=== PATIENT | female | born 1950 | race Caucasian/White ===

== ENCOUNTER → 2019-06-12 09:02 | Outpatient (POV) | payer MEDICARE, SELFPAY | PROVIDERS: PCP Dermatology; Visit Provider Dermatology | DX: Z00.00 Encounter for general adult medical examination without abnormal findings (principal) ==

== ENCOUNTER → 2020-02-29 12:56 | Outpatient (CLI) | payer MEDICARE, SELFPAY ==
[2020-02-29 13:28] LABS: Basophils # 0.1 K/mm3 (0-0.2); Basophils % 1.2 % (0.1-2.0); Eosinophils % 0.6 % (0.1-12.0); Hematocrit 44.4 % (37.0-47.0); Hemoglobin 14.7 g/dL (12.2-16.2); Lymphocytes # 2.1 K/mm3 (0.7-4.5); Lymphocytes % 34.4 % (10-50); Mean Corpuscular HGB Conc 33.2 g/dL (31.8-35.4); Mean Corpuscular Volume 90.5 fl (81-99); Mean Platelet Volume 8.3 fl (7.4-10.4); Monocytes # 0.5 K/mm3 (0.1-1.0); Monocytes % 8.6 % (1.7-9.3); Neutrophils # 3.4 K/mm3 (1.8-7.8); Neutrophils % 55.2 % (37.0-80.0); Platelet Count 209 K/mm3 (142-424); Red Blood Count 4.91 M/mm3 (4.20-5.40); Red Cell Distribution Width 15.3 % (11.5-17.5); White Blood Count 6.1 K/mm3 (4.8-10.8)
[2020-02-29 13:44] LABS: Strep Scrn Group A (Rapid) Negative (Negative)
[2020-03-01 14:19] LABS: Covid-19 Nasal PCR Sendout Lex POSITIVE
== END ==
PROVIDERS: PCP Family Medicine; Visit Provider Nurse Practitioner
DX: Z20.828 Contact with and (suspected) exposure to other viral communicable diseases (principal); U07.1 COVID-19
CPT/HCPCS: 85025; 87275; 87276; 87430; U0004

== ENCOUNTER → 2020-12-16 11:19 | Outpatient (CLI) | payer MEDICARE, SELFPAY ==
[2020-12-16 11:54] LABS: Basophils % 0.4 % (0.1-2.0); Eosinophils # 0.1 K/mm3 (0.0-0.4); Eosinophils % 1.3 % (0.1-12.0); Hematocrit 41.3 % (37.0-47.0); Hemoglobin 13.4 g/dL (12.2-16.2); Lymphocytes # 2.5 K/mm3 (0.7-4.5); Lymphocytes % 29.3 % (10-50); Mean Corpuscular HGB Conc 32.4 g/dL (31.8-35.4); Mean Corpuscular Hemoglobin 29.6 pg (27.0-31.2); Mean Corpuscular Volume 91.6 fl (81-99); Mean Platelet Volume 8.8 fl (7.4-10.4); Monocytes # 0.4 K/mm3 (0.1-1.0); Monocytes % 4.4 % (1.7-9.3); Neutrophils # 5.6 K/mm3 (1.8-7.8); Neutrophils % 64.6 % (37.0-80.0); Platelet Count 243 K/mm3 (142-424); Red Blood Count 4.51 M/mm3 (4.20-5.40); Red Cell Distribution Width 14.7 % (11.5-17.5); White Blood Count 8.6 K/mm3 (4.8-10.8)
[2020-12-16 12:26] LABS: Alanine Aminotransferase 24 U/L (12-78); Albumin/Globulin Ratio 1.2 (1.1-1.8); Alkaline Phosphatase 95 U/L (38-126); Aspartate Amino Transferase 31 U/L (14-36); Bilirubin,Total 0.4 mg/dl (0.2-1.3); Blood Urea Nitrogen 22 mg/dl (7-17); Calcium 9.4 mg/dl (8.4-10.2); Carbon Dioxide 30 mmol/L (22.0-30.0); Chloride 101 mmol/L (98-107); Estimated Glomerular Filt Rate 71 ml/min (>60); GFR (African American) 86 ML/MIN (>60); Globulin 3.3 g/dL (1.3-3.2); Glucose 169 mg/dl (74-100); Sodium 141 mmol/L (136-145); Total Protein,Serum 7.3 g/dl (6.3-8.2)
[2020-12-22 22:14] LABS: QuantiFERON-TB Gold Plus Negative (Negative)
== END ==
PROVIDERS: Visit Provider Dermatology
DX: L40.0 Psoriasis vulgaris (principal); Z79.899 Other long term (current) drug therapy
CPT/HCPCS: 36415; 80053; 85025; 86480

== ENCOUNTER → 2021-02-09 13:26 | Outpatient (CLI) | payer MEDICARE, SELFPAY | PROVIDERS: PCP Family Medicine; Visit Provider Nurse Practitioner | DX: R01.1 Cardiac murmur, unspecified (principal); R53.83 Other fatigue | CPT/HCPCS: 93306 ==

== ENCOUNTER → 2021-03-17 10:58 | Outpatient (POV) | payer MEDICARE, SELFPAY | PROVIDERS: Visit Provider Dermatology | DX: Z00.00 Encounter for general adult medical examination without abnormal findings (principal) ==

== ENCOUNTER → 2021-07-28 10:35 | Outpatient (POV) | payer MEDICARE, SELFPAY | PROVIDERS: Visit Provider Dermatology | DX: Z00.00 Encounter for general adult medical examination without abnormal findings (principal) ==

== ENCOUNTER → 2021-08-04 09:20 | Outpatient (CLI) | payer MEDICARE, SELFPAY ==
--- NOTE | 2021-08-04 09:27 | XR_ITS ---
FINAL REPORT TECHNIQUE: Bone densitometry calculations of the lumbar spine and 8 hip were obtained. CLINICAL HISTORY: bone dexa post menapausal FINDINGS: DEXA BONE DENSITY AXIAL SKELETON Using L1-4, the bone mineral density of the spine is 1.150 g/cm2, corresponding to T-score of 0.9. Using the left hip, the bone mineral density of the femoral neck is 0.873 g/cm2, corresponding to a T-score of 0.2. Using the right hip, the bone mineral density of the femoral neck is 0.785 g/cm2, corresponding to a T-score of -0.6. NOTE: T-score: Standard deviation compared with peak bone mass of young adult mean. *Following the recommendations of the International Society of Bone densitometry, classification of hip BMD is based on the lower of two T-scores; total hip or femoral neck. IMPRESSION: Normal bone mineral density of the lumbar spine and hips. Reviewed, Interpreted and Dictated by Sanchez Gibson III, MD Transcribed by Terese Galeas Authenticated by Sanchez Gibson III, MD on 08/04/2021 11:25:32 AM [facility]
== END ==
PROVIDERS: PCP Family Medicine; Visit Provider Nurse Practitioner
DX: Z13.820 Encounter for screening for osteoporosis (principal); Z78.0 Asymptomatic menopausal state
CPT/HCPCS: 77080

== ENCOUNTER → 2021-09-30 08:18 | Outpatient (CLI) | payer MEDICARE, SELFPAY ==
--- NOTE | 2021-09-30 08:25 | US_ITS ---
PROCEDURE INFORMATION: Exam: US Left Breast, Complete, Abscess Evaluation Exam date and time: 09/30/2021 8:35 AM Age: 71 years old Clinical indication: Cellulitis of left breast. Abscess of left breast TECHNIQUE: Imaging protocol: Left Ultrasound of the breast with image documentation. All quadrants and retroareolar regions evaluated. Exam focused on the search and evaluation for abscess. Exam is an emergent request and a non-BIRADS study. COMPARISON: No relevant prior studies available. FINDINGS: Breast: Sonographic images the left 3 o'clock axis 8 cm from the nipple demonstrates a cutaneous ovoid mixed echotexture mass measuring 4.8 x 1.2 x 4.3 cm in dimension. The finding is partially fluid filled. The finding most likely represents a cutaneous abscess. No focal findings seen within the underlying breast parenchyma. No axillary adenopathy. IMPRESSION: Cutaneous mass most likely reflecting a superficial abscess. Surgical consultation for potential incision and drainage is recommended. Biopsy of any solid component would also be recommended. ASSESSMENT: BI-RADS Category 4: Suspicious
== END ==
PROVIDERS: PCP Family Medicine; Visit Provider Nurse Practitioner
DX: N61.0 Mastitis without abscess (principal)
CPT/HCPCS: 76641

== ENCOUNTER → 2021-09-30 14:00 | Outpatient (CLI) | payer MEDICARE, SELFPAY ==
[2021-09-30 15:19] LABS: Basophils # 0.1 K/mm3 (0-0.2); Basophils % 0.6 % (0.1-2.0); Eosinophils # 0.1 K/mm3 (0.0-0.4); Eosinophils % 1.2 % (0.1-12.0); Hematocrit 39.2 % (37.0-47.0); Hemoglobin 13.2 g/dL (12.2-16.2); Lymphocytes # 2.8 K/mm3 (0.7-4.5); Lymphocytes % 28.5 % (10-50); Mean Corpuscular HGB Conc 33.6 g/dL (31.8-35.4); Mean Corpuscular Hemoglobin 30.3 pg (27.0-31.2); Mean Corpuscular Volume 90.3 fl (81-99); Mean Platelet Volume 8.8 fl (7.4-10.4); Monocytes # 0.6 K/mm3 (0.1-1.0); Monocytes % 6.3 % (1.7-9.3); Neutrophils # 6.1 K/mm3 (1.8-7.8); Neutrophils % 63.4 % (37.0-80.0); Platelet Count 245 K/mm3 (142-424); Red Blood Count 4.34 M/mm3 (4.20-5.40); Red Cell Distribution Width 15.3 % (11.5-17.5); White Blood Count 9.7 K/mm3 (4.8-10.8)
[2021-09-30 16:02] LABS: Blood Urea Nitrogen 18 mg/dl (7-17); Calcium 9.4 mg/dl (8.4-10.2); Carbon Dioxide 30 mmol/L (22.0-30.0); Chloride 101 mmol/L (98-107); Estimated Glomerular Filt Rate 82 ml/min (>60); GFR (African American) 100 ML/MIN (>60); Glucose 105 mg/dl (74-100); Sodium 140 mmol/L (136-145)
== END ==
PROVIDERS: PCP Family Medicine; Visit Provider Surgery
DX: N61.1 Abscess of the breast and nipple (principal); Z01.812 Encounter for preprocedural laboratory examination; Z20.822 Contact with and (suspected) exposure to COVID-19
CPT/HCPCS: 36415; 76641; 80048; 85025; C9803; U0003; U0005

== ENCOUNTER 2021-10-01 10:24 | Day surgery (SDC) | payer MEDICARE, SELFPAY ==
[2021-10-01] VITALS (10 sets, daily range): BP systolic 137–189; BP diastolic 63–89; PULSE 77–99; RESP 16–18; TEMP 36.2–36.9; O2SAT 92–97; BMI 44.8
--- NOTE | 2021-10-01 10:37 | P.PN_ITS ---
[facility] Anesthesia Checklist - Patient Identification Patient Identification: Arm Band - Structural Data Admitted From: Home Planned Operative Procedure/s: Breast abscess I & D Consent for Planned Operative Procedure(s) Verified: Yes - NPO Status Verified Time NPO: 00:00 - Airway Assessment C-Spine Mobility Assessed: Yes TMJ Mobility Assessed: Yes Dentition: Good Dentition - Neurological Assessment Level of Consciousness: Awake Hx Seizures: No Numbness or tingling in extremities: No - Anesthesia Plan Anesthesia Risk discussed: Yes Anesthesia Plan: Verified ASA Class: II Anesthesia Type: General [facility] History I have reviewed the patient's past medical history: Yes Medical History: Reports:: Hyperlipidemia, Hypertension *Have you ever received a pneumonia vaccine?: Yes *Have you received a flu vaccine this season?: No Anesthesia experience/problems:: None - *Social History Smoking Status: Never smoker Alcohol Intake: never Substance Use Type: denies use *Occupational Status:: retired *Travel in the last 8 weeks: None Family Hx:: No significant family history
--- NOTE | 2021-10-01 11:56 | P.PN_ITS ---
[facility] Anesthesia Record Part I Intake, IV Amount: 600 Estimated blood loss (mL): 5 Urine output (mL): 0 Blood Pressure: 145/86 SaO2: 92 Pulse Rate: 82 Respiratory Rate: 18 Temperature: 97.2 F Patient is:: Drowsy, Oral/Nasal airway Stable to PACU at:: 11:53
--- NOTE | 2021-10-01 12:06 | HMH.OPNOTE ---
Date of procedure: 10/01/21 Pre-op Diagnosis:: Left breast abscess Post-op Diagnosis:: Same Procedure performed:: Incision and drainage of left breast abscess with overlying skin biopsy Surgeon:: Miguelangel Castellano MD COATING AND EMBOSSING UNIT OPERATOR:: Devon Sam Anesthesia: LMA Estimated blood loss (mL): 15 Operative findings:: Shallow subcutaneous abscess with overlying tissue necrosis Operative note:: After informed consent was obtained the patient was taken to the operating room and placed in the supine position. General anesthesia with laryngeal mask airway was achieved. Her left breast was prepped and draped in a sterile fashion. Necrotic superficial tissue along the central portion of the abscess was excised with electrocautery. Underlying fluid was obtained for gram stain/culture. The remainder of the purulent fluid was evacuated. The entire region was infiltrated with 1% lidocaine. A margin of inflamed skin with underlying abscess cavity was excised with electrocautery and passed off for pathologic evaluation. Electrocautery was utilized to achieve hemostasis. The wound was packed with dry gauze and dressings were applied. The patient was transferred to recovery in stable condition. Condition: stable Disposition: PACU Specimens:: Fluid for gram stain/culture Abscess cavity with overlying skin biopsy Complications:: No immediate
[2021-10-01 12:07] LABS: POC Glucose,Bedside 163 (70-110)
[2021-10-01 12:26] LABS: POC Glucose,Bedside 139 (70-110)
--- NOTE | 2021-10-01 12:57 | SUR.PHASEII ---
MD wanted TERESA wrap placed around pt to act as pressure dressing however, d/t large breast size, aces unable to fit around. Pt was wearing a sports bra and applied pressure to incision. discussed s/s bleeding and how to hold pressure-verbalized understanding.
[2021-10-05 08:37] VITALS: BP 149/83; PULSE 85; TEMP 36.2
--- NOTE | 2021-10-05 08:37 | HMH.ANESII ---
[facility] Anesthesia Record Part II Discharge Time: 12:33 Destination: [facility] PACU nurse assessment reviewed?: Yes Patient Condition:: Good Anesthesia Complications:: None Swallowing reflex intact?: Yes Cyanosis?: No Blood Pressure: 149/83 Pulse Rate: 85 Temperature: 97.1 F Mental Status: Alert & Oriented Pain level:: 0 Nausea and/or vomitting:: None Intake, IV Amount: 600
== END 2021-10-01 13:01 | disposition home or self-care (01) ==
LOC: OR 10:25
PROVIDERS: PCP Family Medicine; Visit Provider Surgery
DX: N61.1 Abscess of the breast and nipple (principal); E78.5 Hyperlipidemia, unspecified; I10 Essential (primary) hypertension; Z79.82 Long term (current) use of aspirin
CPT/HCPCS: 10061; 82962; 87070; 87075; 87077; 87186; 87205; 88304; 96374; J2405

== ENCOUNTER → 2022-01-13 10:15 | Outpatient (CLI) | payer MEDICARE, SELFPAY ==
[2022-01-13 18:38] LABS: Basophils # 0.1 K/mm3 (0-0.2); Basophils % 0.4 % (0.1-2.0); Eosinophils # 0.2 K/mm3 (0.0-0.4); Eosinophils % 1.6 % (0.1-12.0); Hematocrit 43.2 % (37.0-47.0); Hemoglobin 13.3 g/dL (12.2-16.2); Lymphocytes # 2.6 K/mm3 (0.7-4.5); Lymphocytes % 24.7 % (10-50); Mean Corpuscular HGB Conc 30.7 g/dL (31.8-35.4); Mean Corpuscular Hemoglobin 28.4 pg (27.0-31.2); Mean Corpuscular Volume 92.4 fl (81-99); Mean Platelet Volume 9.3 fl (7.4-10.4); Monocytes # 0.4 K/mm3 (0.1-1.0); Monocytes % 4.3 % (1.7-9.3); Neutrophils # 7.1 K/mm3 (1.8-7.8); Platelet Count 270 K/mm3 (142-424); Red Blood Count 4.68 M/mm3 (4.20-5.40); Red Cell Distribution Width 15.3 % (11.5-17.5); White Blood Count 10.4 K/mm3 (4.8-10.8)
[2022-01-13 18:53] LABS: Alanine Aminotransferase 21 U/L (12-78); Albumin Level 3.9 g/dl (3.5-5.0); Albumin/Globulin Ratio 1.3 (1.1-1.8); Alkaline Phosphatase 147 U/L (38-126); Anion Gap 13.1 mEq/L (5-15); Aspartate Amino Transferase 27 U/L (14-36); Bilirubin,Total 0.2 mg/dl (0.2-1.3); Blood Urea Nitrogen 16 mg/dl (7-17); Calcium 8.7 mg/dl (8.4-10.2); Carbon Dioxide 32 mmol/L (22.0-30.0); Chloride 98 mmol/L (98-107); Chol/HDL Ratio 2.9 (1-3.5); Cholesterol 159 mg/dl (140-200); Estimated Glomerular Filt Rate 82 ml/min (>60); GFR (African American) 99 ML/MIN (>60); Globulin 3.1 g/dL (1.3-3.2); Glucose 137 mg/dl (74-100); HDL Cholesterol 54 mg/dl (40-60); Potassium 4.1 mmoL/L (3.5-5.1); Sodium 139 mmol/L (136-145); Triglycerides 139 mg/dl (30-150); VLDL Cholesterol 28 mg/dL (0-40)
[2022-01-13 19:04] LABS: Direct LDL Cholesterol 74.43 mg/dL (100-129)
[2022-01-13 19:24] LABS: Thyroid Stimulating Hormone 1.23 uIU/mL (0.465-4.68)
== END ==
PROVIDERS: PCP Nurse Practitioner; Visit Provider Nurse Practitioner
DX: E11.9 Type 2 diabetes mellitus without complications (principal); E78.5 Hyperlipidemia, unspecified; I10 Essential (primary) hypertension; Z79.84 Long term (current) use of oral hypoglycemic drugs
CPT/HCPCS: 80053; 80061; 84443; 85025

== ENCOUNTER → 2022-06-21 23:26 | Outpatient (CLI) | payer MEDICARE, SELFPAY ==
[2022-06-21 18:39] LABS: Alanine Aminotransferase 71 U/L (12-78); Albumin Level 3.8 g/dl (3.5-5.0); Albumin/Globulin Ratio 1.5 (1.1-1.8); Alkaline Phosphatase 81 U/L (38-126); Anion Gap 11.2 mEq/L (5-15); Aspartate Amino Transferase 78 U/L (14-36); Bilirubin,Total 0.7 mg/dl (0.2-1.3); Blood Urea Nitrogen 20 mg/dl (7-17); Calcium 9.3 mg/dl (8.4-10.2); Carbon Dioxide 26 mmol/L (22.0-30.0); Chloride 105 mmol/L (98-107); Estimated Glomerular Filt Rate 61 ml/min (>60); GFR (African American) 74 ML/MIN (>60); Globulin 2.5 g/dL (1.3-3.2); Glucose 139 mg/dl (74-100); Potassium 4.2 mmoL/L (3.5-5.1); Sodium 138 mmol/L (136-145); Total Protein,Serum 6.3 g/dl (6.3-8.2)
== END ==
PROVIDERS: PCP Nurse Practitioner; Visit Provider Nurse Practitioner
DX: E11.9 Type 2 diabetes mellitus without complications (principal); Z79.84 Long term (current) use of oral hypoglycemic drugs
CPT/HCPCS: 80053

== ENCOUNTER 2022-07-14 15:06 | Observation (INO) | payer MEDICARE, SELFPAY ==
--- NOTE | 2022-07-14 11:16 | XR_ITS ---
FINAL REPORT CLINICAL HISTORY: shortness of breath COMPARISON: none FINDINGS: PA and lateral views of the chest were obtained. There is no prior exam for comparison. The cardiac and mediastinal silhouettes are within normal limits. There is linear opacity in the lingula, likely atelectasis or scar. There is no pleural effusion or pneumothorax. No acute osseous abnormality is identified. IMPRESSION: Linear opacity in the lingula. Reviewed, Interpreted and Dictated by Ashley Claros MD Transcribed by Li Mei Authenticated and [facility]
--- NOTE | 2022-07-14 12:49 | CA_ITS ---
APPROVED REPORT EXAM: Comprehensive 2D, Doppler, and color-flow Echocardiogram Medical Referral Coordinator: Jeimy Gagnon CRT Ht: 5 ft 2 in Wt: 246lbs BSA: 2.09 BP: 132/72 mmHg Indications: Shortness of Breath, Diabetes Echo Enhancing Agent Comments: Ejection fraction 45% with mild global hypokinesis 2D Dimensions LVOT 1.83 cm (M/F) 1.5-2.5 LA Volume 58.60 mL LA Volume Index 28.04 mL/m2 (M/F) 16-34 M-Mode Dimensions RVDd 2.75 cm (0.9-2.6) LA Diam 3.98 cm (1.9-4.0) LVDd 4.72 cm (3.5-5.7) Ao Diam 3.16 cm (2.0-3.7) LVDs 3.52 cm (3.5-5.7) IVSd 1.44 cm (0.6-1.1) PWd 0.60 cm (0.6-1.1) EF (Teich) 50.10% FS 25.40% EDV (Teich) 103.40 mL TAPSE 2.63 (<1.7) ESV (Teich) 51.60 mL LV Diastology E Decel Time 150.00 (160-240 msec) E/A Ratio 1.3 MED E' 16.30 (< 7 cm/sec) MED A' 11.60 cm/s E'/MED E' Ratio 8.42 (>14) LAT E' 14.90 (<10 cm/sec) LAT A' 4.80 cm/s E/LAT E' Ratio 9.21 (>14) Aortic Valve LVOT Max 194.00 (70-110 cm/s) LVOT VTI 40.88 cm AoV Peak Lul. 207.00 (50-130 cm/s) AO Peak GR. 17.20 mmHg AO Mean GR. 8.20 (<5 mmHg) AO VTI 45.94 (18-25 cm) CATHY (VTI) 2.34 (2.5-4.5 cm2) Mitral Valve MV E Max Lul. 137.00 (40-130 cm/s) MV A Velocity 105.00 (40-130 cm/s) E/A Ratio 1.30 MV Decel. Time 150.00 (160-240 ms) MV PHT 44.00 ms Pulmonary Valve PV Peak Velocity 152.00 (50-150 cm/s) Tricuspid Valve TR P. Velocity 299.00 cm/s RAP Estimate 10.00 mmHg RVSP 45.90 mmHg Electronically signed by : Dusty Carranza MD 07/29/2022 14:12:20
--- NOTE | 2022-07-14 15:26 | PC.NURSE ---
arrived to floor by w/c from [facility]
[2022-07-14 15:34] VITALS: BP 151/74; RESP 18; TEMP 36.4; O2SAT 96; BMI 43.0
--- NOTE | 2022-07-14 15:56 | EXP.HP ---
History of Present Illness *Admission Date: 07/14/22 *Reason for visit:: weakness, 3rd degree heart block *History of present illness: Ms. Monae is a pleasant 72-year-old female who reported for stress test today and was found to be in third-degree heart block. Sent to cardiology who requested direct admission. Patient states that she has been feeling bad for the past several months since her in April. Has just been more fatigued. Able to walk down her driveway but on her way back up gets short winded and has to stop senior care. Denies zen chest pain, palpitations, nausea, vomiting, syncope. Has been concerned for something not being right and her primary care provider was setting her up for outpatient work-up. On presenting for her stress test today she states she was not able to do it because they noted something wrong initially before starting the test. She is otherwise at her baseline health. Stable on room air. Afebrile. Tolerating p.o. intake without difficulty. History seen for diet 80s, hypertension. Only previous surgery was removal of an abscess a year ago and that was her only previous hospitalization as well. Aside from fatigue otherwise feels well today. [facility] Disclaimer: The information contained in this section may have been updated after the patient was seen, as this information can be updated by other users. Medical History Allergic rhinitis Benign cyst of right breast in female Breast cyst Essential hypertension Hyperlipidemia Psoriasis Type 2 diabetes mellitus Surgical History H/O excision of dermoid cyst Family History Prostate cancer Family history of osteoporosis Family history of diabetes mellitus type II Cancer of kidney Social History Smoking Status: Never smoker alcohol intake: never substance use type: denies use current occupational status: retired Travel in the last 8 weeks: None household members: family housing: house lives independently: No marital status: caffeine: No Review of Systems Review of Systems Review of systems (narrative): 14 point review of systems performed, pertinent positives and negatives as per HPI Meds Home Medications and Allergies Home Medications Medication Instructions Recorded Confirmed Type fluocinonide 0.05 % topical 1 each topical DAILY Infection 09/30/21 07/14/22 History solution aspirin 81 mg chewable tablet 81 mg PO DAILY Supplement 10/01/21 07/14/22 History amlodipine 5 mg-benazepril 10 mg 1 cap PO DAILY bp #90 caps 01/13/22 07/14/22 Rx capsule atenolol 50 mg tablet 50 mg PO DAILY bp #90 tabs 01/13/22 07/14/22 Rx fluticasone propionate 50 1 spray intranasal DAILY Breathing 01/13/22 07/14/22 Rx mcg/actuation nasal problems #48 grams spray,suspension potassium chloride 20 mEq 20 meq PO BID Supplement #180 tabs 01/13/22 07/14/22 Rx tablet,extended release simvastatin 40 mg tablet 40 mg PO DAILY Cholesterol #90 tabs 01/13/22 07/14/22 Rx triamterene 37.5 1 tab PO DAILY bp #90 tabs 01/13/22 07/14/22 Rx mg-hydrochlorothiazide 25 mg tablet empagliflozin 10 mg tablet 10 mg PO DAILY Diabetes 07/14/22 07/14/22 History (Jardiance) metformin 500 mg tablet 500 mg PO DAILY Diabetes 07/14/22 07/14/22 History nystatin 100,000 unit/gram topical 1 applic topical TID yeast 07/14/22 07/14/22 History powder infection New Prescriptions to Start Prescriptions: Allergies Allergy/AdvReac Type Severity Reaction Status Date / Time No Known Allergies Allergy Verified 07/14/22 15:39 Exam Data for Last 24 hours Vital signs and Labs for Last 24 Hours: Temp Resp BP Pulse Ox 97.6 F 18 151/74 H 96 07/14/22 15:34 07/14/22 15:34 07/14/22 15:34 07/14/22 15:34 I
[2022-07-14 16:30] VITALS: PULSE 40
[2022-07-14 16:36] LABS: Coronavirus 19, PCR Not Detected (NotDetected); Influenza A, PCR Not Detected (NotDetected); Influenza B, PCR Not Detected (NotDetected)
[2022-07-14 16:38] LABS: Alanine Aminotransferase 45 U/L (12-78); Albumin Level 4.5 g/dl (3.5-5.0); Albumin/Globulin Ratio 1.6 (1.1-1.8); Alkaline Phosphatase 76 U/L (38-126); Anion Gap 15.3 mEq/L (5-15); Aspartate Amino Transferase 67 U/L (14-36); Basophils # 0.1 K/mm3 (0-0.2); Basophils % 0.7 % (0.1-2.0); Bilirubin,Total 0.9 mg/dl (0.2-1.3); Blood Urea Nitrogen 19 mg/dl (7-17); Carbon Dioxide 24 mmol/L (22.0-30.0); Chloride 102 mmol/L (98-107); Creatinine Clearance Estimated 41 mL/min (50-200); Eosinophils # 0.1 K/mm3 (0.0-0.4); Estimated Glomerular Filt Rate 70 ml/min (>60); GFR (African American) 85 ML/MIN (>60); Globulin 2.9 g/dL (1.3-3.2); Glucose 140 mg/dl (74-100); Hematocrit 43.5 % (37.0-47.0); Hemoglobin 13.4 g/dL (12.2-16.2); Lymphocytes # 3.4 K/mm3 (0.7-4.5); Lymphocytes % 29.4 % (10-50); Magnesium 1.9 mg/dl (1.6-2.3); Mean Corpuscular HGB Conc 30.8 g/dL (31.8-35.4); Mean Corpuscular Hemoglobin 32.3 pg (27.0-31.2); Mean Corpuscular Volume 104.6 fl (81-99); Mean Platelet Volume 9.2 fl (7.4-10.4); Monocytes # 0.7 K/mm3 (0.1-1.0); Monocytes % 5.9 % (1.7-9.3); Neutrophils # 7.2 K/mm3 (1.8-7.8); Platelet Count 271 K/mm3 (142-424); Potassium 4.3 mmoL/L (3.5-5.1); Red Blood Count 4.16 M/mm3 (4.20-5.40); Red Cell Distribution Width 15.4 % (11.5-17.5); Sodium 137 mmol/L (136-145); Total Protein,Serum 7.4 g/dl (6.3-8.2); White Blood Count 11.5 K/mm3 (4.8-10.8)
[2022-07-14 16:53] LABS: Troponin I < 0.01 ng/ml (0.00-0.034)
[2022-07-14 17:09] LABS: Thyroid Stimulating Hormone 0.06 uIU/mL (0.465-4.68)
[2022-07-14 18:54] LABS: Hemoglobin A1C 7.7 % (4.0-6.0)
[2022-07-14 20:00] VITALS: BP 198/73; PULSE 40; PULSE 44; RESP 18; TEMP 36.9; O2SAT 96
[2022-07-14 21:58] LABS: POC Glucose,Bedside 158 (70-110)
[2022-07-15] VITALS (12 sets, daily range): BP systolic 112–152; BP diastolic 53–76; PULSE 40–87; RESP 16–18; TEMP 36.2–37.4; O2SAT 93–98; BMI 43.2
--- NOTE | 2022-07-15 04:38 | PC.NURSE ---
No acute changes throughout the night. Pt remains on RA. 3rd degree heart block on telemetry. HR 40s-50. Standby assist to bathroom, tolerated well.
[2022-07-15 07:05] LABS: POC Glucose,Bedside 139 (70-110)
[2022-07-15 07:10] LABS: Basophils # 0.1 K/mm3 (0-0.2); Basophils % 0.7 % (0.1-2.0); Eosinophils # 0.1 K/mm3 (0.0-0.4); Eosinophils % 1.1 % (0.1-12.0); Hematocrit 41.3 % (37.0-47.0); Hemoglobin 12.5 g/dL (12.2-16.2); Lymphocytes # 2.5 K/mm3 (0.7-4.5); Lymphocytes % 26.2 % (10-50); Mean Corpuscular HGB Conc 30.3 g/dL (31.8-35.4); Mean Corpuscular Hemoglobin 31.8 pg (27.0-31.2); Mean Platelet Volume 8.8 fl (7.4-10.4); Monocytes # 0.6 K/mm3 (0.1-1.0); Monocytes % 5.9 % (1.7-9.3); Neutrophils # 6.3 K/mm3 (1.8-7.8); Neutrophils % 66.1 % (37.0-80.0); Platelet Count 227 K/mm3 (142-424); Red Blood Count 3.94 M/mm3 (4.20-5.40); Red Cell Distribution Width 15.5 % (11.5-17.5); White Blood Count 9.5 K/mm3 (4.8-10.8)
--- NOTE | 2022-07-15 07:11 | IR_ITS ---
APPROVED REPORT Patient Location: Inpatient Stretcher Leveler Operator Helper: ASIYA De La Vega RT (R) PROCEDURES 1. Pocket formation for biventricular pacemaker generator with cardiac resynchronization therapy. 2. Placement of atrial sensing and pacing lead into the right atrial appendage. 3. Placement of a right ventricular sensing, pacing lead in the right ventricular apex. 4. Placement of left ventricular sensing pacing lead via the coronary sinus. 5. Permanent cardiac resynchronization therapy with biventricular pacemaker. INDICATION Third-degree AV block, Ejection fraction less than 50%, Anticipation RV will pace greater than 40% Informed consent was obtained prior to the procedure. COMPLICATIONS None Estimated Blood Loss: Less than 10 ml TECHNIQUE 1% Lidocaine with epinephrine used to anesthetized the left anterior aspect of the chest. Scalpel was used to make the initial cutaneous incision while electrocautery was used to dissect down tinto the fascia. The fascia was lifted off the pectoralis muscle and digitally manipulated creating a pocket for the defibrillator. The patient was then placed in Trendelenburg position and the subclavian vein was accessed 3 times via the Selinger technique. A 8 [place] sheath was placed under fluoroscopic guidance into the subclavian vein. The dilator was removed from the sheath. Using fluoroscopic guidance, the ventricular lead was placed into the right ventricular apex, screwed and secured into place. Electronic interrogation proved acceptable thresholds and voltage within the lead. Using 3-0 silk, the ventricular lead was then secured into place and sheath peeled away. Following this, a 9.5 [place] sheath and dilator was then placed over one of the wires while keeping the other wire in place within the subclavian vein. The dilator was removed from the sheath. Using fluoroscopic guidance, contrast was used to visualize the coronary sinus, the left ventricular lead was placed into the coronary sinus. Electronic interrogation proved acceptable thresholds and voltage within the lead. Using 3-0 silk, the left ventricular lead was then secured into place and sheath peeled away.An additional 6 [place] fresh sheath and dilator was placed over the existing wire. Using fluoroscopic guidance, the atrial lead was then placed into the right atrial appendage and screwed and secured in place. Electrical interrogation demonstrated acceptable thresholds and voltage number. The atrial lead was then secured into place using 3-0 silk and sheath peeled away. 1 gram of Ancef was used to flush the pocket. All 3 leads were connected to generator and tested via computer. The defibrillator then secured to the fascia. Monocryl was used to close the subcutaneous layers while ashley were used to close the cutaneous layer. A pressure dressing was placed and the patient was transferred to the postop holding area in stable condition for postoperative care. INTERROGATION Generator Model number: [id number] Generator Serial number: [id number] Atrial lead model number: 2088TC/52 Atrial lead serial number: [id number] P-wave: 4.6 Impedence: 480 Threshold: 1.25 Right Ventricular lead model number: 2088TC/58 Right Ventricular lead serial number: [id number] R-wave: >12.0 Impedence: 630 Threshold: 0.5 Pacing Parameters: Mode: DDDR Base/Max Track:60 ppm / 130 ppm No diaphragmatic stimulation at 10 volts. IMPRESSION 1. Successful Pocket formation for biventricular pacemaker generator with cardiac resynchronization therapy. 2. Successful Placement of atrial sensing and pacing lead into the right atrial appendage. 3. Successful Placement of a right ventricular s
[2022-07-15 07:18] LABS: Chloride 107 mmol/L (98-107); Potassium 3.9 mmoL/L (3.5-5.1); Sodium 139 mmol/L (136-145)
[2022-07-15 07:20] LABS: Alanine Aminotransferase 32 U/L (12-78); Aspartate Amino Transferase 35 U/L (14-36); Blood Urea Nitrogen 17 mg/dl (7-17); Creatinine Clearance Estimated 40 mL/min (50-200); Estimated Glomerular Filt Rate 61 ml/min (>60); GFR (African American) 74 ML/MIN (>60)
[2022-07-15 07:21] LABS: Albumin Level 3.8 g/dl (3.5-5.0); Albumin/Globulin Ratio 1.5 (1.1-1.8); Alkaline Phosphatase 71 U/L (38-126); Anion Gap 11.9 mEq/L (5-15); Bilirubin,Total 0.6 mg/dl (0.2-1.3); Calcium 8.7 mg/dl (8.4-10.2); Carbon Dioxide 24 mmol/L (22.0-30.0); Globulin 2.5 g/dL (1.3-3.2); Glucose 152 mg/dl (74-100); Total Protein,Serum 6.3 g/dl (6.3-8.2)
--- NOTE | 2022-07-15 08:09 | HMH.PHAINT1 ---
Pharmacy Intervention Comments: Reconciled patient's home medications using pharmacy fill history and patient interview.
--- NOTE | 2022-07-15 08:15 | ECG_ITS ---
APPROVED REPORT Exam: Resting ECG HR:45 bpm ECG Measurements Heart Rate 45 AXES IA 151 P 61 QRSd 115 QRS 66 QT 507 T 25 QTc 461 Conclusion SINUS BRADYCARDIA LOW QRS VOLTAGE IN PRECORDIAL LEADS [QRS DEFLECTION < 1.0 mV IN CHEST LEADS] POSSIBLE RIGHT VENTRICULAR CONDUCTION DELAY [RSR (QR) IN V1/V2] BORDERLINE ECG UNCONFIRMED REPORT Electronically signed by : Carl Monzon MD 07/16/2022 02:53:06
--- NOTE | 2022-07-15 08:37 | EXP.ACUTE.PN ---
Subjective *Date: 07/15/22 *Time: 08:37 Interval history: Patient is feeling well. No complaints. Discussed procedure and pacemaker, patient is agreeable with proceeding. Medical Exam Vital signs and Labs for Last 24 Hours: Vital Signs Temp Pulse Pulse Resp BP Pulse Ox 07/15/22 07:52 98.5 F 65 18 118/53 L 94 L 07/15/22 04:00 99.3 F 42 L 18 122/54 L 97 07/15/22 00:00 50 L 07/14/22 20:00 40 L 07/15/22 00:00 98.8 F 44 L 18 152/68 H 97 07/14/22 20:00 98.4 F 44 L 18 198/73 H 96 07/14/22 16:30 40 L 07/14/22 15:34 97.6 F 18 151/74 H 96 Intake and Output 07/14/22 07/15/22 07/15/22 23:59 07:59 15:59 Intake Total 240 / 240 480 / 480 Output Total 0 / 150 600 / 600 Balance 240 / 90 -120 / -120 Intake: Intake, Oral Amount 240 / 240 480 / 480 Output: Output, Urine Amount 0 / 150 600 / 600 Other: Number of Voids 1 Number of Unmeasured Voids 1 1 Weight 110.762 kg Patient Weight 07/15/22 23:59 Weight 110.762 kg Laboratory Results - last 24 hr 07/14/22 16:10: WBC 11.5 H, RBC 4.16 L, Hgb 13.4, Hct 43.5, MCV 104.6 H, MCH 32.3 H, MCHC 30.8 L, RDW 15.4, Plt Count 271, MPV 9.2, Neut % (Auto) 63.0, Lymph % (Auto) 29.4, [place] % (Auto) 5.9, Eos % (Auto) 1.0, Baso % (Auto) 0.7, Neut # (Auto) 7.2, Lymph # (Auto) 3.4, [place] # (Auto) 0.7, Eos # (Auto) 0.1, Baso # (Auto) 0.1 07/14/22 16:10: Sodium 137, Potassium 4.3, Chloride 102, Carbon Dioxide 24, Anion Gap 15.3 H, BUN 19 H, Creatinine 0.80, Estimated Creat Clear 41, Estimated GFR 70, Est GFR ( Amer) 85, Glucose 140 H, Calcium 9.0, Magnesium 1.9, Total Bilirubin 0.9, AST 67 H, ALT 45, Alkaline Phosphatase 76, Total Protein 7.4, Albumin 4.5, Globulin 2.9, Albumin/Globulin Ratio 1.6, TSH 0.06 L 07/14/22 16:10: Hemoglobin A1c 7.7 H 07/14/22 16:10: Troponin I < 0.01 07/14/22 16:16: SARS-CoV-2 (PCR) Not detected, Influenza A Untype (PCR) Not detected, Influenza Type B (PCR) Not detected 07/14/22 20:22: POC Glucose 158 H 07/15/22 06:17: POC Glucose 139 H 07/15/22 06:50: WBC 9.5, RBC 3.94 L, Hgb 12.5, Hct 41.3, MCV 105.0 H, MCH 31.8 H, MCHC 30.3 L, RDW 15.5, Plt Count 227, MPV 8.8, Neut % (Auto) 66.1, Lymph % (Auto) 26.2, [place] % (Auto) 5.9, Eos % (Auto) 1.1, Baso % (Auto) 0.7, Neut # (Auto) 6.3, Lymph # (Auto) 2.5, [place] # (Auto) 0.6, Eos # (Auto) 0.1, Baso # (Auto) 0.1 07/15/22 06:50: Sodium 139, Potassium 3.9, Chloride 107, Carbon Dioxide 24, Anion Gap 11.9, BUN 17, Creatinine 0.90, Estimated Creat Clear 40, Estimated GFR 61, Est GFR ( Amer) 74, Glucose 152 H, Calcium 8.7, Magnesium 2.0, Total Bilirubin 0.6, AST 35 D, ALT 32 D, Alkaline Phosphatase 71, Total Protein 6.3, Albumin 3.8 D, Globulin 2.5, Albumin/Globulin Ratio 1.5 I & O for Labs for Last 24 Hours: Intake & Output 07/12/22 07/13/22 07/14/22 07/15/22 23:59 23:59 23:59 23:59 Intake Total 240 / 240 480 / 480 Output Total 0 / 150 600 / 600 Balance 240 / 90 -120 / -120 Weight 110.28 kg 110.762 kg Constitutional: Present no acute distress Respiratory: Present normal respiratory effort Cardiac: Present Bradycardia GI: Present normal bowel sounds; Absent tenderness Extremities: Present normal inspection and full ROM Skin: Present intact; Absent erythema Neuro: Present Grossly Intact and moves all extremities Assessment and Plan *Assessment and plan (1) Third degree heart block: Status: Acute Category: Medical Code(s): I44.2 - Atrioventricular block, complete (2) Essential hypertension: Status: Acute Category: Medical Code(s): I10 - Essential (primary) hypertension (3) Type 2 diabetes mellitus: Status: Acute Qualifiers: Diabetes mellitus petroleum terminal plant operator insulin use: unspecified petroleum terminal plant operator insulin use status Diabetes mellitus complication status: with other specified complication Qualified Code(s): E11.69 - Type 2 diabetes mellitus with other specified complication Elvira
--- NOTE | 2022-07-15 11:14 | EXP.CARD.CON ---
History of Present Illness History of Present Illness Consult date: 07/15/22 Requesting physician: Kayleigh Carranza Chief complaint: Third-degree AV block History of present illness: 72-year-old white female with significant past medical history for hypertension, hyperlipiemia and type 2 diabetes mellitus was directly admitted to hospital from cardiology clinic for diagnosis of third-degree AV block. Patient presented to [facility] yesterday for outpatient stress test. Upon presentation in ED initial EKG showed a third-degree AV block with a resting heart rate of 43. Was sent from stress lab to cardiology clinic for further evaluation. Patient reports a history of generalized weakness, fatigue and shortness of breath for the past couple of months. Denies chest pain, palpitations, nausea, any vomiting, and syncope. Patient became concerned and reported symptoms to her primary care provider which set her up for outpatient work-up. A preliminary echo report shows an estimated EF of 50%. Chest x-ray was negative for acute process. Labs as follow: BBC 11.5, hemoglobin 13.4, sodium 137, potassium 4.3, A1c 7.7, creatinine 0.8, TSH 0.06. Patient was admitted with plan for device placement this morning. [facility] Disclaimer: The information contained in this section may have been updated after the patient was seen, as this information can be updated by other users. Medical History Allergic rhinitis Benign cyst of right breast in female Breast cyst Essential hypertension Hyperlipidemia Psoriasis Type 2 diabetes mellitus Surgical History H/O excision of dermoid cyst Family History Prostate cancer Family history of osteoporosis Family history of diabetes mellitus type II Cancer of kidney Social History Smoking Status: Never smoker alcohol intake: never substance use type: denies use current occupational status: retired Travel in the last 8 weeks: None household members: family housing: house lives independently: No marital status: caffeine: No Review of Systems Review of Systems Review of systems:: pertinent systems reviewed and negative unless documented below Constitutional Constitutional: Reports fatigue and Reports weakness *Cardiovascular Cardiovascular: Reports dyspnea *Respiratory Respiratory: Reports dyspnea *Neurologic Neurologic: Reports weakness Endocrine Endocrine: Reports fatigue Exam Data for Last 24 hours Vital signs and Labs for Last 24 Hours: Temp Pulse Resp BP Pulse Ox 98.5 F 40 L 18 118/53 L 94 L 07/15/22 07:52 07/15/22 08:00 07/15/22 07:52 07/15/22 07:52 07/15/22 07:52 Laboratory Results - last 24 hr 07/14/22 16:10: WBC 11.5 H, RBC 4.16 L, Hgb 13.4, Hct 43.5, MCV 104.6 H, MCH 32.3 H, MCHC 30.8 L, RDW 15.4, Plt Count 271, MPV 9.2, Neut % (Auto) 63.0, Lymph % (Auto) 29.4, [place] % (Auto) 5.9, Eos % (Auto) 1.0, Baso % (Auto) 0.7, Neut # (Auto) 7.2, Lymph # (Auto) 3.4, [place] # (Auto) 0.7, Eos # (Auto) 0.1, Baso # (Auto) 0.1 07/14/22 16:10: Sodium 137, Potassium 4.3, Chloride 102, Carbon Dioxide 24, Anion Gap 15.3 H, BUN 19 H, Creatinine 0.80, Estimated Creat Clear 41, Estimated GFR 70, Est GFR ( Amer) 85, Glucose 140 H, Calcium 9.0, Magnesium 1.9, Total Bilirubin 0.9, AST 67 H, ALT 45, Alkaline Phosphatase 76, Total Protein 7.4, Albumin 4.5, Globulin 2.9, Albumin/Globulin Ratio 1.6, TSH 0.06 L 07/14/22 16:10: Hemoglobin A1c 7.7 H 07/14/22 16:10: Troponin I < 0.01 07/14/22 16:16: SARS-CoV-2 (PCR) Not detected, Influenza A Untype (PCR) Not detected, Influenza Type B (PCR) Not detected 07/14/22 20:22: POC Glucose 158 H 07/15/22 06:17: POC Glucose 139 H 07/15/22 06:50: WBC 9.5, RBC 3.94 L, Hgb 12.5, Hct 41.3, MCV 105.0 H, MCH 31.8 H, MCHC 30.3 L, RDW 15.5
--- NOTE | 2022-07-15 11:23 | XR_ITS ---
FINAL REPORT CLINICAL HISTORY: Confirm pacemaker/AID placement FINDINGS: A portable view of the chest was obtained. Comparison is made to a prior exam dated 07/14/2022. Is been interval placement of a left pacemaker. Lung volumes have significantly decreased. Heart is borderline in size. There is pulmonary vascular congestion and bibasilar atelectasis. No pneumothorax. IMPRESSION: No pneumothorax after pacemaker placement. Very low lung volumes with pulmonary vascular congestion and bibasilar atelectasis. Authenticated and ERN
[2022-07-15 12:44] LABS: POC Glucose,Bedside 146 (70-110)
--- NOTE | 2022-07-15 14:15 | EXP.DC.SUM ---
General Admission date:: 07/14/22 Discharge date: 07/15/22 HPI HPI HPI: Ms. Monae is a pleasant 72-year-old female who reported for stress test today and was found to be in third-degree heart block. Sent to cardiology who requested direct admission. Patient states that she has been feeling bad for the past several months since her in April. Has just been more fatigued. Able to walk down her driveway but on her way back up gets short winded and has to stop detention. Denies zen chest pain, palpitations, nausea, vomiting, syncope. Has been concerned for something not being right and her primary care provider was setting her up for outpatient work-up. On presenting for her stress test today she states she was not able to do it because they noted something wrong initially before starting the test. She is otherwise at her baseline health. Stable on room air. Afebrile. Tolerating p.o. intake without difficulty. History seen for diet 80s, hypertension. Only previous surgery was removal of an abscess a year ago and that was her only previous hospitalization as well. Aside from fatigue otherwise feels well today. Hospital Course Hospital Course Hospital Course: Admitted for third-degree heart, heart rate 40 . TSH 0.06. Cardiology consulted. Taken for permanent pacemaker implantation. Procedure went well without any complications. Antihypertensives restarted, negative chronotropic held . patient tolerating diet and ambulating following procedure. Discharged with cardiology follow-up. Exam Data for Last 24 hours Vital signs and Labs for Last 24 Hours: Temp Pulse Resp BP Pulse Ox 98.5 F 40 L 18 118/53 L 94 L 07/15/22 07:52 07/15/22 08:00 07/15/22 07:52 07/15/22 07:52 07/15/22 07:52 Laboratory Results - last 24 hr 07/14/22 16:10: WBC 11.5 H, RBC 4.16 L, Hgb 13.4, Hct 43.5, MCV 104.6 H, MCH 32.3 H, MCHC 30.8 L, RDW 15.4, Plt Count 271, MPV 9.2, Neut % (Auto) 63.0, Lymph % (Auto) 29.4, [place] % (Auto) 5.9, Eos % (Auto) 1.0, Baso % (Auto) 0.7, Neut # (Auto) 7.2, Lymph # (Auto) 3.4, Stonewall # (Auto) 0.7, Eos # (Auto) 0.1, Baso # (Auto) 0.1 07/14/22 16:10: Sodium 137, Potassium 4.3, Chloride 102, Carbon Dioxide 24, Anion Gap 15.3 H, BUN 19 H, Creatinine 0.80, Estimated Creat Clear 41, Estimated GFR 70, Est GFR ( Amer) 85, Glucose 140 H, Calcium 9.0, Magnesium 1.9, Total Bilirubin 0.9, AST 67 H, ALT 45, Alkaline Phosphatase 76, Total Protein 7.4, Albumin 4.5, Globulin 2.9, Albumin/Globulin Ratio 1.6, TSH 0.06 L 07/14/22 16:10: Hemoglobin A1c 7.7 H 07/14/22 16:10: Troponin I < 0.01 07/14/22 16:16: SARS-CoV-2 (PCR) Not detected, Influenza A Untype (PCR) Not detected, Influenza Type B (PCR) Not detected 07/14/22 20:22: POC Glucose 158 H 07/15/22 06:17: POC Glucose 139 H 07/15/22 06:50: WBC 9.5, RBC 3.94 L, Hgb 12.5, Hct 41.3, MCV 105.0 H, MCH 31.8 H, MCHC 30.3 L, RDW 15.5, Plt Count 227, MPV 8.8, Neut % (Auto) 66.1, Lymph % (Auto) 26.2, Stonewall % (Auto) 5.9, Eos % (Auto) 1.1, Baso % (Auto) 0.7, Neut # (Auto) 6.3, Lymph # (Auto) 2.5, Stonewall # (Auto) 0.6, Eos # (Auto) 0.1, Baso # (Auto) 0.1 07/15/22 06:50: Sodium 139, Potassium 3.9, Chloride 107, Carbon Dioxide 24, Anion Gap 11.9, BUN 17, Creatinine 0.90, Estimated Creat Clear 40, Estimated GFR 61, Est GFR ( Amer) 74, Glucose 152 H, Calcium 8.7, Magnesium 2.0, Total Bilirubin 0.6, AST 35 D, ALT 32 D, Alkaline Phosphatase 71, Total Protein 6.3, Albumin 3.8 D, Globulin 2.5, Albumin/Globulin Ratio 1.5 07/15/22 12:09: POC Glucose 146 H I & O for Last 24 hours: Intake & Output 07/12/22 07/13/22 07/14/22 07/15/22 23:59 23:59 23:59 23:59 Intake Total 240 / 240 720 / 720 Output Total 0 / 150 600 / 600 Balance 240 / 90 120 / 120 Weight 110.28 kg 110.762 kg Constitutional Constitutional: no acute distress *Routine Respiratory Exam Respiratory: Present CTA bilaterally and symmetric chest movement *Routine Cardiovascular Exam Cardiovascular: Present Nor
--- NOTE | 2022-07-15 15:04 | HMH.PHAINT1 ---
Pharmacy Intervention Comments: Counseled patient on stopping her atenolol upon discharge. Patient expressed understanding of therapy change and will stop taking her atenolol.
--- NOTE | 2022-07-16 14:07 | CARE MANAGER ---
Contacted patient related to hospital discharge. She states she is doing well and slept well last night. She denies any questions or concerns and is aware of follow up appointment. LUPE Guido
== END 2022-07-15 15:30 | disposition home or self-care (01) ==
LOC: 2ND 15:13
PROVIDERS: Internal Medicine; Admitting Provider Internal Medicine Adolescent Medicine; PCP Nurse Practitioner; Referring Provider Surgery; Visit Provider Internal Medicine Adolescent Medicine
DX: R06.02 Shortness of breath (principal); I44.2 Atrioventricular block, complete; I10 Essential (primary) hypertension; E11.69 Type 2 diabetes mellitus with other specified complication; E78.5 Hyperlipidemia, unspecified; E66.01 Morbid (severe) obesity due to excess calories; Z68.41 Body mass index [BMI] 40.0-44.9, adult; Z79.899 Other long term (current) drug therapy; Z79.84 Long term (current) use of oral hypoglycemic drugs
CPT/HCPCS: G0378; G0379; 33208; 33225; 36415; 71045; 71046; 78451; 78452; 80053; 82962; 83036; 83735; 84443; 84484; 85025; 93005; 93306; A9503; C1769; C1898; C1900; C2621; C9803; J2704; J2785; Q9967; U0003; U0005

== ENCOUNTER → 2022-08-17 23:15 | Outpatient (CLI) | payer MEDICARE, SELFPAY ==
[2022-08-17 18:41] LABS: Chloride 96 mmol/L (98-107); Potassium 3.9 mmoL/L (3.5-5.1); Sodium 139 mmol/L (136-145)
[2022-08-17 18:44] LABS: Alanine Aminotransferase 19 U/L (12-78); Albumin/Globulin Ratio 1.3 (1.1-1.8); Alkaline Phosphatase 100 U/L (38-126); Anion Gap 16.9 mEq/L (5-15); Aspartate Amino Transferase 28 U/L (14-36); Bilirubin,Total 0.5 mg/dl (0.2-1.3); Blood Urea Nitrogen 19 mg/dl (7-17); Calcium 9.4 mg/dl (8.4-10.2); Carbon Dioxide 30 mmol/L (22.0-30.0); Estimated Glomerular Filt Rate 82 ml/min (>60); GFR (African American) 99 ML/MIN (>60); Glucose 195 mg/dl (74-100)
[2022-08-17 18:54] LABS: Hemoglobin A1C 7.5 % (4.0-6.0)
[2022-08-17 19:00] LABS: Free Thyroxine Index 3.2 ug/dL (5.93-13.13); T4 (Thyroxine) 9.7 ug/dl (5.53-11.0); Triiodothryronine (T3) Uptake 33 % (23.5-40.5)
[2022-08-17 19:14] LABS: Thyroid Stimulating Hormone 1.12 uIU/mL (0.465-4.68)
== END ==
PROVIDERS: PCP Nurse Practitioner; Visit Provider Nurse Practitioner
DX: E11.9 Type 2 diabetes mellitus without complications (principal); R79.89 Other specified abnormal findings of blood chemistry; Z79.84 Long term (current) use of oral hypoglycemic drugs; Z79.899 Other long term (current) drug therapy
CPT/HCPCS: 80053; 83036; 84436; 84443; 84479

== ENCOUNTER → 2022-08-20 11:08 | Outpatient (CLI) | payer MEDICARE, SELFPAY ==
--- NOTE | 2022-08-20 | CA_ITS ---
APPROVED REPORT Exam: Pharmacologic Technologist: Antonella Winter, Ht: 5 ft 3 in Wt: 235 lbs BSA: 2.07 m2 HR: 81 bpm BP: 157/76 mmHg Rhythm: paced rhythm Medical History Medications: Potassium Chloride,,,,, Aspirin,,,,, Simvastatin,,,,, Metformin,,,,, Flonase,,,,, Amlod/Benazepril,,,,, JaRDiance,,,,, NYstatin,,,,, TriaMterene HCTZ,,,,, Cardiac Risk Factors: HTN, Hyperlipidemia, Diabetes (non-insulin) Stress Test Details Test: LEXISCAN HR Resting HR: 87 bpm Max Heart Rate (APMHR): 147.611612 bpm Max HR Achieved: 121 bpm Target HR (85% APMHR): 124.482912 bpm % of APMHR: 82.31 Recovery HR: 105 bpm BP Resting BP: 157/76 mmHg Max BP: 157/76 mmHg Recovery BP: 156.0/76.0 mmHg ECG Resting ECG: paced rhythm Clinical Exercise duration: 04:03 min Highest Stage Achieved: Exercise capacity: 1.0 METs Stress ECG Conclusion During lexiscan pt experinced headache and mild SOA. Non diagnostic with paced rhythm Test Summary REST . . . . . . . Sitting REST 05:30 . . 87 . 157/ 76 . . Stage 1 01:00 . . 104 . . . . Stage 2 01:00 . . 106 . . . . Stage 3 01:00 . . 104 . 153/ 77 . . Stage 4 01:00 . . 103 . 148/ 76 . . Stage 4 01:03 . . 102 . 148/ 76 . Stop exercise at 04:03 RECOVERY 01:00 . . 104 . . . . RECOVERY 02:00 . . 100 . . . . RECOVERY 03:00 . . 98 . 156/ 76 . . RECOVERY 03:32 . . 99 . 146/ 87 . . Electronically signed by : Dusty Carranza MD 08/25/2022 08:14:31
--- NOTE | 2022-08-20 11:09 | NM_ITS ---
APPROVED REPORT Exam: Nuclear Stress Test Indication: HTN, DM., HYPERLIPIDEMIA, FM HX, FATIGUE, SOB, PACEMAKER Patient Location: Outpatient Stress Tech: Alesha Mcgrath [place] Tech:Molly LennonASIYA RT(R)(N) Ht: 5 ft 3 in Wt: 230 lbs Bra Size: DDD HR: 87 bpm BP: 157/76 mmHg BSA: 2.05 m2 TID: 1.12 BMI: 40.7 History: HTN, DM., HYPERLIPIDEMIA, FM HX, FATIGUE, SOB, PACEMAKER PT COULD NOT LAY ON STOMACH FOR PRONE IMAGES Procedure: Patient received 0.4 mg of intravenous Lexiscan, resting heart rate 87 bpm, resting blood pressure 157/76 mmHg, with Lexiscan maximum heart rate achieved was 121 bpm which is % of the maximum predicted heart rate and blood pressure was 157/76 mmHg. With Lexiscan, patient denied any complaint of chest pain. Cardiac Stress and Resting SPECT Images: Cardiac Stress and Resting SPECT images were obtained using technetium 99m Myoview 30.6 mCi stress and 10.75 mCi at rest. Stress images reveal decreased myocardial activity within a portion of the anterior and lateral wall Rest images reveal mildly decreased myocardial activity in the anterior and lateral wall Gated images calculated ejection fraction of 75% with normal wall motion Conclusion: Previous nontransmural myocardial infarction involving a portion of the anterolateral wall with significant reversible ischemia Normal ejection fraction and normal wall motion Electronically signed by : Dusty Carranza MD 08/24/2022 14:07:16
== END ==
PROVIDERS: PCP Nurse Practitioner; Visit Provider Nurse Practitioner
DX: E11.69 Type 2 diabetes mellitus with other specified complication (principal); E66.01 Morbid (severe) obesity due to excess calories; E78.5 Hyperlipidemia, unspecified; I10 Essential (primary) hypertension; I44.2 Atrioventricular block, complete; I45.10 Unspecified right bundle-branch block; R06.09 Other forms of dyspnea; R94.31 Abnormal electrocardiogram [ECG] [EKG]; Z68.41 Body mass index [BMI] 40.0-44.9, adult; Z79.84 Long term (current) use of oral hypoglycemic drugs
CPT/HCPCS: 78452; 93017; A9502; J2785

== ENCOUNTER 2022-09-08 08:52 | Day surgery (SDC) | payer MEDICARE, SELFPAY ==
[2022-09-08] VITALS (13 sets, daily range): BP systolic 104–147; BP diastolic 54–84; PULSE 60–78; RESP 16–20; TEMP 36.7; O2SAT 93–96; BMI 40.1
--- NOTE | 2022-09-08 | IR_ITS ---
APPROVED REPORT Patient Location: Outpatient Loss Mitigation Specialist: ASIYA Malin RT (R) PROCEDURES Left heart catheterization Left ventriculogram Selective coronary angiogram INDICATION High risk abnormal Myoview Informed consent was obtained prior to the procedure. COMPLICATIONS None Estimated Blood Loss: Less than 10 ml TECHNIQUE One percent lidocaine used to anesthetize the right anterior aspect of the wrist. The right radial artery was accessed via the Seldinger technique. A 6 [place]an sheath was placed in the right radial artery. 150 mg magnesium sulfate, 800 mcg of nitroglycerin, 1mg Lidocaine and 5000 U Heparin were given through the arterial sheath. The papa catheter was also used to perform left heart catheterization, left ventriculogram and selective coronary angiogram. At the end of the procedure the sheath was removed good hemostasis was achieved using Traclet band, patient was transferred to the postop holding area in stable condition. ANGIOGRAPHIC RESULTS The left main artery Normal The left anterior descending artery Normal The circumflex artery Normal The right coronary artery Dominant normal The DIEGO ventriculogram reveals Normal 65% The left ventricular end-diastolic pressure 20 mmHg IMPRESSION Normal coronary arteries Normal ejection fraction Mildly elevated LVEDP consistent with diastolic dysfunction PLAN 1. Continue medical management Electronically signed by : Dusty Carranza MD 09/08/2022 12:21:14
[2022-09-08 09:24] LABS: Basophils % 0.4 % (0.1-2.0); Eosinophils # 0.2 K/mm3 (0.0-0.4); Eosinophils % 1.8 % (0.1-12.0); Hematocrit 43.3 % (37.0-47.0); Hemoglobin 13.9 g/dL (12.2-16.2); Lymphocytes % 29.2 % (10-50); Mean Corpuscular HGB Conc 32.1 g/dL (31.8-35.4); Mean Corpuscular Hemoglobin 30.2 pg (27.0-31.2); Mean Corpuscular Volume 94.1 fl (81-99); Mean Platelet Volume 8.9 fl (7.4-10.4); Monocytes # 0.5 K/mm3 (0.1-1.0); Monocytes % 4.4 % (1.7-9.3); Neutrophils # 6.6 K/mm3 (1.8-7.8); Neutrophils % 64.3 % (37.0-80.0); Platelet Count 264 K/mm3 (142-424); Red Cell Distribution Width 15.4 % (11.5-17.5); White Blood Count 10.2 K/mm3 (4.8-10.8)
[2022-09-08 09:33] LABS: Anion Gap 19.2 mEq/L (5-15); Blood Urea Nitrogen 17 mg/dl (7-17); Calcium 9.2 mg/dl (8.4-10.2); Carbon Dioxide 27 mmol/L (22.0-30.0); Chloride 97 mmol/L (98-107); Creatinine Clearance Estimated 81 mL/min (50-200); Estimated Glomerular Filt Rate 82 ml/min (>60); GFR (African American) 99 ML/MIN (>60); Glucose 176 mg/dl (74-100); Potassium 4.2 mmoL/L (3.5-5.1); Sodium 139 mmol/L (136-145)
== END 2022-09-08 15:35 | disposition home or self-care (01) ==
PROVIDERS: PCP Nurse Practitioner; Visit Provider Internal Medicine
DX: R94.39 Abnormal result of other cardiovascular function study (principal); E11.9 Type 2 diabetes mellitus without complications; Z79.84 Long term (current) use of oral hypoglycemic drugs; Z79.01 Long term (current) use of anticoagulants; Z79.899 Other long term (current) drug therapy; I10 Essential (primary) hypertension; Z95.0 Presence of cardiac pacemaker; I45.10 Unspecified right bundle-branch block
CPT/HCPCS: 80048; 85025; 93458; 99152; C1725; C1769; J1644; Q9967

== ENCOUNTER → 2022-09-30 10:07 | Outpatient (CLI) | payer MEDICARE, SELFPAY ==
[2022-09-30 18:44] LABS: Basophils % 0.6 % (0.1-2.0); Eosinophils # 0.1 K/mm3 (0.0-0.4); Eosinophils % 1.7 % (0.1-12.0); Hemoglobin 13.6 g/dL (12.2-16.2); Lymphocytes # 1.9 K/mm3 (0.7-4.5); Lymphocytes % 23.9 % (10-50); Mean Corpuscular HGB Conc 30.8 g/dL (31.8-35.4); Mean Corpuscular Hemoglobin 28.6 pg (27.0-31.2); Mean Corpuscular Volume 92.8 fl (81-99); Mean Platelet Volume 9.9 fl (7.4-10.4); Monocytes # 0.4 K/mm3 (0.1-1.0); Monocytes % 4.7 % (1.7-9.3); Neutrophils # 5.6 K/mm3 (1.8-7.8); Neutrophils % 69.2 % (37.0-80.0); Platelet Count 245 K/mm3 (142-424); Red Blood Count 4.74 M/mm3 (4.20-5.40); Red Cell Distribution Width 15.8 % (11.5-17.5); White Blood Count 8.1 K/mm3 (4.8-10.8)
[2022-09-30 19:03] LABS: Hemoglobin A1C 7.7 % (4.0-6.0)
[2022-09-30 19:06] LABS: Alanine Aminotransferase 22 U/L (12-78); Albumin/Globulin Ratio 1.3 (1.1-1.8); Alkaline Phosphatase 109 U/L (38-126); Anion Gap 15.8 mEq/L (5-15); Aspartate Amino Transferase 34 U/L (14-36); Bilirubin,Total 0.5 mg/dl (0.2-1.3); Blood Urea Nitrogen 17 mg/dl (7-17); Calcium 9.1 mg/dl (8.4-10.2); Carbon Dioxide 28 mmol/L (22.0-30.0); Chloride 102 mmol/L (98-107); Cholesterol 163 mg/dl (140-200); Estimated Glomerular Filt Rate 82 ml/min (>60); GFR (African American) 99 ML/MIN (>60); Globulin 3.1 g/dL (1.3-3.2); Glucose 184 mg/dl (74-100); HDL Cholesterol 54 mg/dl (40-60); Potassium 3.8 mmoL/L (3.5-5.1); Sodium 142 mmol/L (136-145); Total Protein,Serum 7.1 g/dl (6.3-8.2); Triglycerides 195 mg/dl (30-150); VLDL Cholesterol 39 mg/dL (0-40)
[2022-09-30 19:20] LABS: Direct LDL Cholesterol 70.55 mg/dL (100-129)
[2022-09-30 19:37] LABS: Thyroid Stimulating Hormone 0.58 uIU/mL (0.465-4.68)
== END ==
PROVIDERS: PCP Nurse Practitioner; Visit Provider Nurse Practitioner
DX: E11.69 Type 2 diabetes mellitus with other specified complication (principal); E78.5 Hyperlipidemia, unspecified; I10 Essential (primary) hypertension
CPT/HCPCS: 80053; 80061; 83036; 84443; 85025

== ENCOUNTER → 2023-01-05 15:44 | Outpatient (CLI) | payer MEDICARE, SELFPAY ==
--- NOTE | 2023-01-05 15:44 | MM_ITS ---
PROCEDURE INFORMATION: Exam: MG Bilateral Screening 3D Mammography Exam date and time: 01/05/2023 3:45 PM Age: 73 years old Clinical indication: Screening. No family history of breast cancer. History of left breast abscess in September 2021. TECHNIQUE: Imaging protocol: Bilateral Screening tomosynthesis and 2D mammography including computer-aided detection (CAD) when performed. COMPARISON: 1. US BREAST LT COMPLETE 09/30/2021 8:35 AM 2. If prior mammograms are provided, I am happy to add an addendum. FINDINGS: MAMMOGRAPHY: Breast composition: There are scattered areas of fibroglandular density. Mass: None. Architectural distortion: None. Calcifications: No suspicious calcifications. Asymmetric density: None. Skin thickening: None. Axillary adenopathy: None. Other findings: Pacemaker in the left axilla, limits evaluation and accentuates the importance of clinical breast exam. IMPRESSION: No mammographic evidence of malignancy. Annual screening is recommended unless otherwise clinically indicated. ASSESSMENT: BI-RADS Category 1: Negative
== END ==
PROVIDERS: PCP Nurse Practitioner; Visit Provider Nurse Practitioner
DX: Z12.31 Encounter for screening mammogram for malignant neoplasm of breast (principal)
CPT/HCPCS: 77063; 77067

== ENCOUNTER → 2023-02-23 23:06 | Outpatient (CLI) | payer MEDICARE, SELFPAY ==
[2023-02-23 19:31] LABS: Alanine Aminotransferase 20 U/L (12-78); Albumin Level 4.1 g/dl (3.5-5.0); Albumin/Globulin Ratio 1.3 (1.1-1.8); Alkaline Phosphatase 123 U/L (38-126); Anion Gap 15.1 mEq/L (5-15); Aspartate Amino Transferase 30 U/L (14-36); Bilirubin,Total 0.3 mg/dl (0.2-1.3); Blood Urea Nitrogen 24 mg/dl (7-17); Calcium 9.2 mg/dl (8.4-10.2); Carbon Dioxide 28 mmol/L (22.0-30.0); Chloride 101 mmol/L (98-107); Chol/HDL Ratio 3.6 (1-3.5); Cholesterol 160 mg/dl (140-200); Estimated Glomerular Filt Rate 70 ml/min (>60); GFR (African American) 85 ML/MIN (>60); Globulin 3.1 g/dL (1.3-3.2); Glucose 122 mg/dl (74-100); HDL Cholesterol 45 mg/dl (40-60); Potassium 4.1 mmoL/L (3.5-5.1); Sodium 140 mmol/L (136-145); Total Protein,Serum 7.2 g/dl (6.3-8.2); Triglycerides 133 mg/dl (30-150); VLDL Cholesterol 27 mg/dL (0-40)
[2023-02-23 19:42] LABS: Direct LDL Cholesterol 78.85 mg/dL (100-129)
[2023-02-23 20:02] LABS: Thyroid Stimulating Hormone 0.38 uIU/mL (0.465-4.68)
== END ==
PROVIDERS: PCP Nurse Practitioner; Visit Provider Nurse Practitioner
DX: E78.5 Hyperlipidemia, unspecified; E11.9 Type 2 diabetes mellitus without complications; R79.89 Other specified abnormal findings of blood chemistry; Z79.84 Long term (current) use of oral hypoglycemic drugs
CPT/HCPCS: 80053; 80061; 84443

== ENCOUNTER 2023-05-18 19:14 | Outpatient (CLI) | payer MEDICARE, SELFPAY ==
[2023-05-18 18:35] LABS: Alanine Aminotransferase 20 U/L (12-78); Albumin/Globulin Ratio 1.3 (1.1-1.8); Alkaline Phosphatase 110 U/L (38-126); Aspartate Amino Transferase 31 U/L (14-36); Bilirubin,Total 0.4 mg/dl (0.2-1.3); Blood Urea Nitrogen 21 mg/dl (7-17); Calcium 9.4 mg/dl (8.4-10.2); Carbon Dioxide 32 mmol/L (22.0-30.0); Chloride 104 mmol/L (98-107); Estimated Glomerular Filt Rate 70 ml/min (>60); GFR (African American) 85 ML/MIN (>60); Globulin 3.2 g/dL (1.3-3.2); Glucose 90 mg/dl (74-100); Sodium 142 mmol/L (136-145); Total Protein,Serum 7.2 g/dl (6.3-8.2)
[2023-05-18 18:37] LABS: Creatinine,Urine Random 48 mg/dL (Not Estab.)
[2023-05-18 18:51] LABS: T4 (Thyroxine) 9.3 ug/dl (5.53-11.0)
[2023-05-18 18:55] LABS: Microalbumin < 6.000 mg/L (0-16.7)
[2023-05-18 19:05] LABS: Thyroid Stimulating Hormone 0.21 uIU/mL (0.465-4.68)
[2023-05-20 08:22] LABS: Triiodothyronine (T3) Total 142 ng/dL (71-180)
== END 2023-05-18 23:59 ==
LOC: LAB.DROPOF 19:14
PROVIDERS: PCP Nurse Practitioner; Visit Provider Nurse Practitioner
DX: E11.9 Type 2 diabetes mellitus without complications (principal); Z79.84 Long term (current) use of oral hypoglycemic drugs; Z79.899 Other long term (current) drug therapy
CPT/HCPCS: 80053; 82043; 82570; 84436; 84443; 84480

== ENCOUNTER 2023-05-25 07:47 | Outpatient (CLI) | payer SELFPAY ==
[2023-05-26 16:54] LABS: Coronavirus 19, PCR Not Detected (NotDetected); Influenza A, PCR Not Detected (NotDetected); Influenza B, PCR Not Detected (NotDetected)
== END 2023-05-25 23:59 ==
PROVIDERS: PCP Nurse Practitioner; Visit Provider Nurse Practitioner
DX: J06.9 Acute upper respiratory infection, unspecified (principal); R05.9 Cough, unspecified
CPT/HCPCS: 87636

== ENCOUNTER 2023-05-26 16:57 | Outpatient (CLI) | payer MEDICARE, SELFPAY | END 2023-05-26 23:59 | LOC: LAB.DROPOF 16:57 | PROVIDERS: PCP Nurse Practitioner; Visit Provider Nurse Practitioner | DX: J06.9 Acute upper respiratory infection, unspecified (principal); R05.9 Cough, unspecified ==

== ENCOUNTER 2023-08-09 18:00 | Outpatient (CLI) | payer MEDICARE, SELFPAY ==
[2023-08-09 18:51] LABS: Alanine Aminotransferase 18 U/L (12-78); Albumin Level 4.1 g/dl (3.5-5.0); Albumin/Globulin Ratio 1.3 (1.1-1.8); Alkaline Phosphatase 125 U/L (38-126); Aspartate Amino Transferase 29 U/L (14-36); Bilirubin,Total 0.5 mg/dl (0.2-1.3); Blood Urea Nitrogen 26 mg/dl (7-17); Calcium 9.7 mg/dl (8.4-10.2); Carbon Dioxide 31 mmol/L (22.0-30.0); Chloride 105 mmol/L (98-107); Estimated Glomerular Filt Rate 61 ml/min (>60); GFR (African American) 74 ML/MIN (>60); Globulin 3.1 g/dL (1.3-3.2); Glucose 103 mg/dl (74-100); Sodium 142 mmol/L (136-145); Total Protein,Serum 7.2 g/dl (6.3-8.2)
[2023-08-09 19:11] LABS: T4 (Thyroxine) 8.7 ug/dl (5.53-11.0); Triiodothryronine (T3) Uptake 35 % (23.5-40.5)
[2023-08-09 19:16] LABS: Hemoglobin A1C 5.5 % (4.0-6.0)
[2023-08-09 19:24] LABS: Thyroid Stimulating Hormone 0.02 uIU/mL (0.465-4.68)
== END 2023-08-09 23:59 | disposition home or self-care (01) ==
LOC: LAB.DROPOF 08-10 10:04
PROVIDERS: PCP Nurse Practitioner; Visit Provider Nurse Practitioner
DX: I10 Essential (primary) hypertension; R79.89 Other specified abnormal findings of blood chemistry; E11.69 Type 2 diabetes mellitus with other specified complication; Z79.899 Other long term (current) drug therapy
CPT/HCPCS: 80053; 83036; 84436; 84443; 84479

== ENCOUNTER 2023-08-25 15:10 | Outpatient (CLI) | payer MEDICARE, SELFPAY ==
--- NOTE | 2023-08-25 15:10 | US_ITS ---
FINAL REPORT CLINICAL HISTORY: low TSH level FINDINGS: Sonographic images of the thyroid gland were obtained. The right thyroid lobe measures 4.5 cm. in length. The left thyroid lobe measures 3.9 cm. in length. The thyroid isthmus measures 0.2 cm. The echogenicity is normal. Several nodules are seen bilaterally. Largest nodule on the right is spongiform measuring 11 x 10 x 8 mm consistent with TI-RADS category 1. Largest nodule on the left is solid, hypoechoic, with microcalcification measuring 13 x 8 x 7 mm consistent with TI-RADS category 5. Several other smaller nodules are identified. IMPRESSION: Bilateral thyroid nodules as detailed above. Recommend ultrasound-guided biopsy of the dominant nodule on the left. Reviewed, Interpreted and Dictated by Sanchez Gibson III, MD Transcribed by Jennifer Torres Authenticated and [facility]
== END 2023-08-25 23:59 | disposition home or self-care (01) ==
LOC: RAD 15:10
PROVIDERS: PCP Nurse Practitioner; Visit Provider Nurse Practitioner
DX: R79.89 Other specified abnormal findings of blood chemistry (principal); E04.1 Nontoxic single thyroid nodule
CPT/HCPCS: 76536

== ENCOUNTER 2023-09-20 07:40 | Outpatient (CLI) | payer MEDICARE, SELFPAY ==
--- NOTE | 2023-09-20 07:40 | US_ITS ---
FINAL REPORT CLINICAL HISTORY: thyroid nodule -- fna lt bx -- oseas SOUZA FINDINGS: Ultrasound guided thyroid biopsy. HISTORY: Thyroid mass. PROCEDURE: After informed consent was obtained and a time-out was performed, the patient was prepped and draped in usual sterile fashion over the anterior neck. Utilizing local anesthesia and sterile technique with a 25-gauge needle, access to the lesion was obtained. Four passes were made. The patient received no conscious sedation. The patient tolerated procedure well and left the department in good condition. IMPRESSION: Status post ultrasound guided biopsy of a thyroid nodule without immediate complication. Films reviewed , interpreted and dictated by Dr. Gibson Transcribed by Oseas Wisdom PA-C. Reviewed, Interpreted and Dictated by Sanchez Gibson III, MD Transcribed by HARLEY Lowry Authenticated and [facility]
== END 2023-09-20 23:59 | disposition home or self-care (01) ==
LOC: RAD 07:40
PROVIDERS: PCP Nurse Practitioner; Visit Provider Nurse Practitioner
DX: R94.6 Abnormal results of thyroid function studies; E04.1 Nontoxic single thyroid nodule
CPT/HCPCS: 10005; 76536; 76942; 88173; 88305

== ENCOUNTER 2023-09-29 15:04 | Outpatient (CLI) | payer MEDICARE, SELFPAY ==
[2023-09-29 16:29] LABS: Free T4 (Free Thyroxine) 1.12 ng/dl (0.78-2.19)
[2023-10-01 04:18] LABS: Thyroid Peroxidase Antibodies 10 IU/mL (0-34); Triiodothyronine (T3) Free 3.1 pg/mL (2.0-4.4)
[2023-10-02 13:08] LABS: Thyroid Stimulating Immunoglob <0.10 IU/L (0.00-0.55)
== END 2023-09-29 23:59 | disposition home or self-care (01) ==
LOC: LAB 15:06
PROVIDERS: PCP Nurse Practitioner
DX: R94.6 Abnormal results of thyroid function studies (principal)
CPT/HCPCS: 36415; 84439; 84443; 84445; 84481; 86376

== ENCOUNTER 2023-11-01 11:04 | Outpatient (CLI) | payer MEDICARE, SELFPAY ==
[2023-11-01 18:25] LABS: Alanine Aminotransferase 17 U/L (12-78); Albumin Level 3.9 g/dl (3.5-5.0); Albumin/Globulin Ratio 1.3 (1.1-1.8); Alkaline Phosphatase 105 U/L (38-126); Anion Gap 10.2 mEq/L (5-15); Aspartate Amino Transferase 29 U/L (14-36); Bilirubin,Total 0.5 mg/dl (0.2-1.3); Blood Urea Nitrogen 21 mg/dl (7-17); Calcium 9.6 mg/dl (8.4-10.2); Carbon Dioxide 31 mmol/L (22.0-30.0); Chloride 105 mmol/L (98-107); Chol/HDL Ratio 3.1 (1-3.5); Cholesterol 169 mg/dl (140-200); Estimated Glomerular Filt Rate 70 ml/min (>60); GFR (African American) 85 ML/MIN (>60); Globulin 3.1 g/dL (1.3-3.2); Glucose 81 mg/dl (74-100); HDL Cholesterol 54 mg/dl (40-60); Potassium 4.2 mmoL/L (3.5-5.1); Sodium 142 mmol/L (136-145); Triglycerides 121 mg/dl (30-150); VLDL Cholesterol 24 mg/dL (0-40)
[2023-11-01 18:36] LABS: Direct LDL Cholesterol 63.58 mg/dL (100-129)
[2023-11-01 19:13] LABS: Hemoglobin A1C 5.4 % (4.0-6.0)
== END 2023-11-01 23:59 | disposition home or self-care (01) ==
LOC: LAB.DROPOF 11-02 11:04
PROVIDERS: PCP Nurse Practitioner; Visit Provider Nurse Practitioner
DX: E78.5 Hyperlipidemia, unspecified; E11.69 Type 2 diabetes mellitus with other specified complication; Z79.84 Long term (current) use of oral hypoglycemic drugs
CPT/HCPCS: 80053; 80061; 83036

== ENCOUNTER 2023-11-04 14:34 | Outpatient (CLI) | payer MEDICARE, SELFPAY ==
--- NOTE | 2023-11-04 14:38 | XR_ITS ---
FINAL REPORT CLINICAL HISTORY: bilateral hand paresthesias FINDINGS: AP, lateral and odontoid views of the cervical spine were obtained. There is no prior exam for comparison. There is no fracture. There is anterolisthesis of C7 on T1, likely degenerative. There is multilevel degenerative disc disease, most pronounced at C6-7 Vertebral body height is preserved. The precervical soft tissues are normal. IMPRESSION: Degenerative changes as above. Reviewed, Interpreted and Dictated by Ashley Claros MD Transcribed by Jennifer Torres Authenticated and . [facility]
== END 2023-11-04 23:59 | disposition home or self-care (01) ==
LOC: RAD 14:35
PROVIDERS: PCP Nurse Practitioner; Visit Provider Nurse Practitioner
DX: R20.2 Paresthesia of skin (principal)
CPT/HCPCS: 72040

== ENCOUNTER 2024-05-07 10:44 | Outpatient (CLI) | payer MEDICARE, SELFPAY ==
[2024-05-07 18:33] LABS: Basophils % 0.4 % (0.1-2.0); Eosinophils # 0.1 K/mm3 (0.0-0.4); Eosinophils % 1.4 % (0.1-12.0); Hematocrit 41.1 % (37.0-47.0); Hemoglobin 12.9 g/dL (12.2-16.2); Lymphocytes # 2.2 K/mm3 (0.7-4.5); Lymphocytes % 30.3 % (10-50); Mean Corpuscular HGB Conc 31.4 g/dL (31.8-35.4); Mean Corpuscular Hemoglobin 28.5 pg (27.0-31.2); Mean Corpuscular Volume 90.9 fl (81-99); Mean Platelet Volume 11.4 fl (7.4-10.4); Monocytes # 0.5 K/mm3 (0.1-1.0); Monocytes % 6.2 % (1.7-9.3); Neutrophils # 4.4 K/mm3 (1.8-7.8); Neutrophils % 61.3 % (37.0-80.0); Platelet Count 212 K/mm3 (142-424); Red Blood Count 4.52 M/mm3 (4.20-5.40); Red Cell Distribution Width 14.6 % (11.5-17.5); White Blood Count 7.2 K/mm3 (4.8-10.8)
[2024-05-07 18:57] LABS: Alanine Aminotransferase 21 U/L (12-78); Albumin Level 4.3 g/dl (3.5-5.0); Albumin/Globulin Ratio 1.5 (1.1-1.8); Alkaline Phosphatase 87 U/L (38-126); Anion Gap 14.2 mEq/L (5-15); Aspartate Amino Transferase 37 U/L (14-36); Bilirubin,Total 0.5 mg/dl (0.2-1.3); Blood Urea Nitrogen 22 mg/dl (7-17); Calcium 9.3 mg/dl (8.4-10.2); Carbon Dioxide 27 mmol/L (22.0-30.0); Chloride 104 mmol/L (98-107); Chol/HDL Ratio 3.4 (1-3.5); Cholesterol 160 mg/dl (140-200); Estimated Glomerular Filt Rate 82 ml/min (>60); GFR (African American) 99 ML/MIN (>60); Globulin 2.9 g/dL (1.3-3.2); Glucose 102 mg/dl (74-100); HDL Cholesterol 47 mg/dl (40-60); Potassium 4.2 mmoL/L (3.5-5.1); Sodium 141 mmol/L (136-145); Total Protein,Serum 7.2 g/dl (6.3-8.2); Triglycerides 126 mg/dl (30-150); VLDL Cholesterol 25 mg/dL (0-40)
[2024-05-07 19:08] LABS: Direct LDL Cholesterol 74.93 mg/dL (100-129)
[2024-05-07 19:13] LABS: Microalbumin/Creatinine Ratio 17.6
[2024-05-07 19:14] LABS: Creatinine,Urine Random 67 mg/dL (Not Estab.)
[2024-05-07 20:08] LABS: Thyroid Stimulating Hormone 1.61 uIU/mL (0.465-4.68)
[2024-05-07 20:27] LABS: Vitamin B12 718 pg/mL (239-931)
[2024-05-07 21:13] LABS: Hemoglobin A1C 5.5 % (4.0-6.0)
== END 2024-05-07 23:59 | disposition home or self-care (01) ==
LOC: LAB.DROPOF 05-08 07:52
PROVIDERS: PCP Nurse Practitioner; Visit Provider Nurse Practitioner
DX: E78.5 Hyperlipidemia, unspecified (principal); R79.89 Other specified abnormal findings of blood chemistry; E66.813 Obesity, class 3; Z95.0 Presence of cardiac pacemaker; J30.9 Allergic rhinitis, unspecified; Z68.37 Body mass index [BMI] 37.0-37.9, adult; E11.69 Type 2 diabetes mellitus with other specified complication; Z79.84 Long term (current) use of oral hypoglycemic drugs; Z79.85 Long-term (current) use of injectable non-insulin antidiabetic drugs; I10 Essential (primary) hypertension
CPT/HCPCS: 80053; 80061; 82043; 82570; 82607; 83036; 84443; 85025

== ENCOUNTER 2024-06-27 10:38 | Outpatient (CLI) | payer MEDICARE, SELFPAY ==
--- NOTE | 2024-06-27 10:38 | MM_ITS ---
PROCEDURE INFORMATION: Exam: MG Bilateral Screening 3D Mammography Exam date and time: 06/27/2024 10:44 AM Age: 74 years old Clinical indication: Screening examination TECHNIQUE: Imaging protocol: Bilateral Screening tomosynthesis and 2D mammography including computer-aided detection (CAD) when performed. COMPARISON: 1. MG MM DIG SCREENING MAMM BI W/CAD 01/05/2023 3:45 PM 2. US BREAST LT COMPLETE 09/30/2021 8:35 AM FINDINGS: MAMMOGRAPHY: Breast composition: There are scattered areas of fibroglandular density. Mass: None. Architectural distortion: None. Calcifications: No suspicious calcifications. Asymmetric density: None. Skin thickening: None. Axillary adenopathy: None. Other findings: A power pack overlies the left chest. IMPRESSION: No mammographic evidence of malignancy. Annual screening is recommended unless otherwise clinically indicated. ASSESSMENT: BI-RADS Category 1: Negative.
== END 2024-06-27 23:59 | disposition home or self-care (01) ==
LOC: RAD 10:38
PROVIDERS: PCP Nurse Practitioner; Visit Provider Nurse Practitioner
DX: Z12.31 Encounter for screening mammogram for malignant neoplasm of breast (principal)
CPT/HCPCS: 77063; 77067

== ENCOUNTER 2024-10-09 09:00 | Outpatient (CLI) | payer MEDICARE, SELFPAY ==
[2024-10-09 19:12] LABS: Hemoglobin A1C 6.6 % (4.0-6.0)
[2024-10-09 19:57] LABS: Albumin Level 3.9 g/dl (3.5-5.0); Chloride 101 mmol/L (98-107); Potassium 3.9 mmoL/L (3.5-5.1); Sodium 140 mmol/L (136-145)
[2024-10-09 19:59] LABS: Blood Urea Nitrogen 23 mg/dl (7-17)
[2024-10-09 20:00] LABS: Alanine Aminotransferase 16 U/L (12-78); Albumin/Globulin Ratio 1.2 (1.1-1.8); Alkaline Phosphatase 109 U/L (38-126); Anion Gap 13.9 mEq/L (5-15); Aspartate Amino Transferase 28 U/L (14-36); Bilirubin,Total 0.5 mg/dl (0.2-1.3); Calcium 9.2 mg/dl (8.4-10.2); Carbon Dioxide 29 mmol/L (22.0-30.0); Cholesterol 177 mg/dl (140-200); Estimated Glomerular Filt Rate 70 ml/min (>60); GFR (African American) 85 ML/MIN (>60); Globulin 3.3 g/dL (1.3-3.2); Glucose 95 mg/dl (74-100); Total Protein,Serum 7.2 g/dl (6.3-8.2); Triglycerides 109 mg/dl (30-150); VLDL Cholesterol 22 mg/dL (0-40)
[2024-10-09 20:01] LABS: Chol/HDL Ratio 3.2 (1-3.5); HDL Cholesterol 55 mg/dl (40-60)
[2024-10-09 20:12] LABS: Direct LDL Cholesterol 76.79 mg/dL (100-129)
[2024-10-09 20:43] LABS: HIV Combo NEGATIVE (Negative)
[2024-10-09 20:51] LABS: Hepatitis C Ab Qual. W/ RFX NEGATIVE (Negative)
--- OUTSIDE RECORDS SUMMARY | 2024-10-10 12:32 | XMS_ITS | Clinical Summary ---
Author Organization [facility] Address [address] [place] [address] Phone Care Team Providers Care Director Paid Media Name Role Phone Min Terrazas MD Primary Care Provider [phone] Social History Tobacco Use Types Packs/Day Years Used Date Smoking Tobacco: Never Assessed Comments No Sex and Gender Information Value Date Recorded Sex Assigned at Not on file Legal Sex Female 7:46 AM EDT Gender Identity Not on file Sexual Orientation Not on file Plan of Treatment Health Maintenance Due Date Last Done Comments Wellness Exam Medicare 01/04/1953 Hepatitis C Screening 1967 DTaP/TDaP/Td (1 - Tdap) 01/04/1968 Cologuard 1994 Colon Cancer Screening 1994 Colonoscopy 1994 FIT 1994 Sigmoidoscopy 1994 Virtual Colonography 1994 Pneumococcal Vaccine 50+ (1 of 1 - PCV) 1999 Zoster (1 of 2) 1999 Bone Density Screening 2014 COVID-19 Vaccine (2023-2 5 season) 2023 RSV or 60+ (1 - 1-d ose 75+ series) 01/04/2024 Influenza Vaccine (Season Ended) 2024 Hepatitis B Vaccine Aged Out No longe r eligible based on patient's age to complete this topic Meningococcal B Vaccine Aged Out No l onger eligible based on patient's age to complete this topic [place] [address] [address] [place] [address] MEDICARE PPO MR Care Teams Director Paid Media Relationship Specialty Start Date End Date Min Terrazas MD [address] [facility] [address] [place] [id number] PCP - General 05/08/10
--- OUTSIDE RECORDS SUMMARY | 2024-10-10 12:32 | XMS_ITS | Encounter Summary ---
Author Organization Healthcare Address [address] [id number] Care Team Providers Care Aircraft Line Assembler Name Role Phone Unkown, Not Given Primary Care Provider Unavaila ble Encounter Details Date Type Department Care Team (Late st Contact Info) Description 12/20/2023 Community Orders Community Practice [address] [place] [address] Froylan Montilla MD [address] [place] [address] Hand paresthesia (Primary Dx) Social History Tobacco Use Types Packs/Day Years Used Date Smoking Tobacco: Never Assessed Comments Unknown Sex and Gender Information Value Date Recorded Sex Assigned at Not on file Legal Sex Female 4:24 PM EDT Gender Identity Not on file Sexual Orientation Not on file documented as of this encounter Plan of Treatment Scheduled Orders Name Type Priority Associated Diagnoses Orde r Schedule EM Nerve Diagnostic Lab Routine Hand paresthesia Expected: 12/20/2023 (Approximate), Expires: 06/18/2025 documented as of this encounter Visit Diagnoses Diagnosis Hand paresthesia- Primary Disturbance of skin sensation documented in this encounter Care Teams Aircraft Line Assembler Relationship Specialty Start Date End Date Unkown, [place] [address] PCP - General 01/16/21 documented as of this encounter
--- OUTSIDE RECORDS SUMMARY | 2024-10-10 12:32 | XMS_ITS | Clinical Summary ---
Author Organization [facility] Address [address] [place] [address] Care Team Providers Care Stroke Program Coordinator Name Role Phone Unkown, Not Given Primary Care Provider Unavaila ble Social History Tobacco Use Types Packs/Day Years Used Date Smoking Tobacco: Never Assessed Comments Unknown Sex and Gender Information Value Date Recorded Sex Assigned at Not on file Legal Sex Female 4:24 PM EDT Gender Identity Not on file Sexual Orientation Not on file Plan of Treatment Health Maintenance Due Date Last Done Comments [facility]-Bone Density Scan 1949 [facility]-Depression Screening 1949 [facility]-Infant/Child/Adol SDOH Screenings 1950 [facility]- SDOH Screenings 1967 [facility]-Adult SDOH Screenings 1967 CT Colonography 1994 Colonoscopy 1994 FIT-DNA 1994 FIT 1994 FOBT 1994 Sigmoidoscopy 1994 [facility]-Colorectal Cancer Screening 1994 [facility]-Pneumococcal Vaccine: 50+ Years (2 of 2 - PCV) 02/02/2018 02/02/2017 [facility]-Zoster Vaccines (2 of 2) 09/06/2018 07/12/2018 [id number] Vaccine ( season) 2023 03/23/2021, 06/17/2020, 05/22/2020 [facility]-RSV Vaccine: 60+ Years or (1 - 1-dose 75+ series) 01/04/2024 [facility]-Influenza Vaccine (Season Ended) 2024 [facility]-DTaP,Tdap,and Td Vaccines (3 - Td or Tdap) 08/03/2027 08/02/2017, 06/16/2009, 06/23/1996 [facility]-Breast Cancer Screening Discontinued 08/2019, 02/21/2020, 02/14/2018, Additional history exists HPV Vaccines Aged Out No longer eligi ble based on patient's age to complete this topic [facility]-HIB Vaccines Aged Out No longer e ligible based on patient's age to complete this topic [facility]-Hepatitis A Vaccines Aged Out No longer eligible based on patient's age to complete this topic [facility]-IPV Vaccines Aged Out No longer e ligible based on patient's age to complete this topic [facility]-Rotavirus Vaccines Aged Out No lo nger eligible based on patient's age to complete this topic Insurance U[employer] MEDICARE Care Teams Stroke Program Coordinator Relationship Specialty Start Date End Date Unkown, [place] [address] PCP - General 01/16/21
--- OUTSIDE RECORDS SUMMARY | 2024-10-10 12:33 | XMS_ITS | Data Portability ---
Author Organization DELISA Bustos [facility]OS[facility] Address [address] [place] [address] Assessment No assessment recorded. Plan of Treatment Reminders Order Date Submit Date Provider Last Modified By Organization Details Last Modified Time Details Appointments None recorded. Lab T4, free, serum 2023 024 [facility] (Lab), [address], [place], [address], 4 08:29:14 TSH, serum or plasma 2023 024 [facility] (Lab), [address], [place], [address], 4 08:29:14 T3, free, serum or plasma 2023 024 [email or web address] [facility] (Lab), [address], [place], [address], 4 09:01:38 thyroid peroxidase (tpo) Ab, serum 2023 024 [facility] (Lab), [address], [place], [address], 4 08:17:56 tsi (thyroid-st imulating immunoglobu amelia), serum [email or web address] (Lab), [address], [place], [address], 09:01:38 Referral None recorded. Procedures None recorded. Surgeries None recorded. Imaging None recorded. Medication Orders None recorded. Patient TargetsNo targets recorded. Patient InstructionsNo instructions recorded. Reason for Referral None Reported. Results Created Date Observation Date Name Description Value Unit Range Abnormal Flag Note LastModifiedBy Organization Detail LastModifiedTime Result Notes None recorded. Procedures Surgical History Date Name Laterality Status Provider Name and Address Organization Details Recorded Time 07/09/19 24 Pacemaker/Ca rdiac Implant completed Katerina Beaulieu [facility] 09/28/2023 11:09:20 Excision breast lesion completed Linsey Mcneal [facility] 09/27/2023 15:26:12 Imaging Results None recorded. Procedure Notes None recorded. Medical Equipment None Reported. Allergies No known drug allergies Medications Name Sig Start Date Stop Date Status Note LastModified by Organization Details LastModified Time fluticasone propionate 50 mcg/actuati on blister powder for inhalation Inhale 2 puffs twice a day by inhalatio n route. active Not Available Not Available No t Available triamterene 37.5 mg-hydrochl orothiazide 25 mg capsule Take 1 capsule every day by oral route. 09/27 completed Not Available Not Available Not Available simvastatin 40 mg tablet Take 1 tablet every day by oral route. active Not Available Not Available No t Available glimepiride 4 mg tablet Take 1 tablet every day by oral route. active Not Available Not Available No t Available benazepril 10 mg tablet Take 1 tablet every day by oral route. active Not Available Not Available No t Available atenolol 50 mg tablet Take 1 tablet every day by oral route. active Not Available Not Available No t Available Claritin As needed active Not Available Not A vailable Not Available Potassium Chloride ER active Not Available Not Available Not Available Tylenol Ex Str Arthritis Pain 500 mg tablet Take 2 tablets every 6 hours by oral route as needed. active Not Available Not Available No t Available apixaban 5 mg tablet Take 1 tablet twice a day by oral route. active Not Available Not Available No t Available dulaglutide 0.75 mg/0.5 mL subcutaneou s pen injector Inject by subcutane ous route. active Not Available Not Available No t Available aspirin 81 mg capsule Take 1 capsule every day by oral route. active Not Available Not Available No t Available Vitals Date Recorded Body weight Heart rate Body mass index (BMI) Body height Systolic blood pressure Diastolic blood pressure Provider Name and Address Organization Details Last Updated DateTime 4 05833.6 2 g 76 /min 36.7 kg/m2 160.02 cm 155 mm[Hg] 86 mm[Hg] Katerina Beaulieu [facility] 4 11:06:40 Social History Question Answer Notes LastModified by [employer] Details LastModified Time Tobacco Smoking Status Never Smoker Linsey Mcneal tiffanie [facility] 09/27/2023 15:29:15 What Is Your Relationship Status? Information not available 09/27/2023 Sex: Unknown Functional Status Question Answer Note LastModified by [employer] Details LastModified Time Do you or have you ever used any other forms of tobacco or nicotine? No Information not available 09/27/2023 What is your level of alcohol consumption? None Information not available 09/27/2023 Are you currently employed? No retired Information not available 09/27/2023 Mental Status None recorded. Family History Relationship Description Onset Age of this Age Resolved Age Notes LastModified by Organization Details LastModified Time Unspecified Relation Family history of malignant neoplasm cancer of kidney , prosta te cancer [email or web address] Not available 09/27/2023 15:27:41 Unspecified Relation Type 2 diabetes mellitus [email or web address] Not available 15:27:04 Unspecified Relation Osteoporosis [email or web address] Not availabl e 09/27/2023 15:27:15 Medical History Condition Response Hypertension Y Gynecological HistoryNo gynecological history recorded. Obstetrics History GPAL:G 0 P 0 0 0 0 Past Encounters Encounter ID Performer Location Encounter Start Date Encounter Closed Date Diagnosis/Indication Diagnosis SNOMED-CT Code Diagnosis ICD10 Code Diagnosis Note [id number] OSCAR BOSTON APRN ENDOCRINO [address] [address] [place] [address] 09/28/2023 10:53:31 09/28/2023 11:44:24 Thyroid function tests abnormal [id number] R94.6 Referral Labs from August 08 show:TSH 0.02Free T4 3BUN 26Creatini ne 0.90GFR 61 On August 20, 2023 patient did have FNA which was negative for malignant cells.Micr oscopic descriptio n from this FNA showed : Benign follicular nodule. There are groups and sheets of bland appearing follicular cells with colloid material and variable amounts of macrophage s and Hurthle cells. The differenti al diagnosis includes multinodul ar goiter, an adenomatou s nodule and a colloid nodule (TBS II). Patient denies any personal or family history of thyroid dysfunctio n.She does present with symptoms of hyperthyro id and including occasional heart palpitatio ns and occasional insomnia. Recommenda tionWill check thyroid panel along with TPO and TSI. Will call patient with results once they are received to discuss further actions needed and plan of care and diagnosis. Patient states understand ing of the above plan of care and with no questions or concerns at this time. Health Concerns Section Related Observation LastModified by Organization Detai ls LastModified Time None Recorded Concern Status LastModified by Organization Details LastModified Time None Recorded Advance Directives Directive None Recorded Payers Insurance Date Sequence Insurance Name Policy Number Policy Wayne Covered Member ID Wayne Member ID Guarantor Name 09/28/2023 1 [facility] (MEDICARE REPLACEMENT/A DVANTAGE - PPO) [id number] Kelsey Monae [id number] Kelsey Dov Notes Date Note Type Note Provider Name and Address Organization Details Recorded Time 09/28/2023 text/html Wu is a 73-year-old female who presents office today after referral for abnormal thyroid lab values. Patient presents with daughter at side. Patient denies any personal or family history of thyroid dysfunction. She does present with symptoms consistent with hyperthyroidism including occasional palpitations and insomnia. Patient states she had an FNA performed earlier last month and results were negative for thyroid cancer. Past medical history significant for hypertension, diabetes, hyperlipidemia and A-fib. OSCAR BOSTON, COLLATOR OPERATOR [address] [place], [address], [facility] 09/28/2023 11:43:56 OBGyn Episode No OBEpisode recorded.
[2024-10-11 07:30] LABS: Hepatitis B Surface Antigen Negative (Negative)
== END 2024-10-09 23:59 | disposition home or self-care (01) ==
LOC: LAB.DROPOF 10-10 12:31
PROVIDERS: PCP Nurse Practitioner; Visit Provider Nurse Practitioner
DX: E78.5 Hyperlipidemia, unspecified (principal); E11.9 Type 2 diabetes mellitus without complications; Z11.59 Encounter for screening for other viral diseases
CPT/HCPCS: 80053; 80061; 83036; 86803; 87340; 87389

== ENCOUNTER 2024-10-24 13:48 | Outpatient (RCR) | payer MEDICARE, SELFPAY ==
--- NOTE | 2024-10-24 16:37 | HMH.PTOPEV ---
PT Outpatient Evaluation Rehab PT Outpatient Evaluation Start: 10/24/24 13:53 Freq: Status: Active Protocol: Document 10/24/24 13:53 TASHI (Rec: 10/24/24 16:37 TASHI [id number]) E-signed By Shilpa Dimas, PT Outpatient Therapy Subjective History Subjective History PT is a 74 y/o female who reports onset of altered sensation of her right and then her left hand ~2 years ago. Pt reports initial symptoms of coldness and numbness/tingling, denies discoloration. Pt reports paresthesia occurs of the thumb, index and middle fingers R>L. Pt reports she has noticed decreased wheat farmer strength of her right hand as well altering her ability to use a knife and orange picker a full glass at times. Pt denies neck pain, but does report noted crepitus of her neck. Pt denies other UE symptoms. Pt reports symptoms are aggravated by holding a book, crocheting, and playing the organ at religion. Pt reports overall symptoms seem to be worse at night time and often wakes her up. Per records, pt had a cervical spine xray on with findings of There is anterolisthesis of C7 on T1, likely degenerative. There is multilevel degenerative disc disease, most pronounced at C6-7 Vertebral body height is preserved. Pt denies having more recent imaging of her neck. Pt denies redness, swelling or warmth of her hands. Pt denies balance issues. R handed Medical History: PACEMAKER, Hypertension, Type II Diabetes, Psoriasis, Hyperlipidemia New diagnosis of No cancer in past 12 months? Chief Complaint Paresthesia Symptom Type Numbness,Tingling,Other Current Functional Lifting,Housework,Driving,Sleeping,Recreation Activity Limitations Symptom Description Constant but Variable Level of pain today 5 (0-10) Pain scale - at its 5 best (0-10) Pain scale - at its 7 worst (0-10) Cervical Eval Palpation Cervical/Thoracic None/Normal Palpation Findings Flexibility Deficits Upper Trapezius (R) Mild Tightness,(L) Mild Tightness Muscle Length Levaetor Scapulae (R) Mild Tightness,(L) Mild Tightness Muscle Length AROM Cervical Spine 45 Extension Active Range of Motion ( degrees) Cervical Spine 45 Flexion Active Range of Motion (degrees) Cervical Spine Right 30 Lateral Flexion Active Range of Motion (degrees) Cervical Spine Left 30 Lateral Flexion Active Range of Motion (degrees) Cervical Spine Right 60 Rotation Active Range of Motion ( degrees) Cervical Spine Left 60 Rotation Active Range of Motion ( degrees) MMT Bilateral Deltoid (C5) 4+ Good+ Biceps Brachii 4+ Good+ Strength Grade Triceps Brachii 4+ Good+ Strength Grade Altered Sensation Upper extremity C7,T1 Dermatomes Comment decreased light touch R compared to L Special Test C-Spine Foraminal Negative Left,Negative Right Compression ( Spurling) Test C-Spine Foraminal Negative Distraction Test C-Spine Compression Negative Left,Negative Right Test Wrist/Hand Eval Wrist Range of Motion Left Wrist Extension 65 Active Range of Motion (degrees) Wrist Flexion Active 70 Range of Motion ( degrees) Wrist Radial 25 Deviation Active Range of Motion ( degrees) Wrist Ulnar 35 Deviation Active Range of Motion ( degrees) Right Wrist Extension 60 Active Range of Motion (degrees) Wrist Flexion Active 70 Range of Motion ( degrees) Wrist Radial 25 Deviation Active Range of Motion ( degrees) Wrist Ulnar 30 Deviation Active Range of Motion ( degrees) Wrist Manual Muscle Testing Left Wrist Extension 4 Good Strength Grade Wrist Flexion 4 Good Strength Grade Wrist Radial 4 Good Deviation Strength Grade Wrist Ulnar 4 Good Deviation Strength Grade Right Wrist Extension 4- Good- Strength Grade Wrist Flexion 4- Good- Strength Grade Wrist Radial 4- Good- Deviation Strength Grade Wrist Ulnar 4- Good- Deviation Strength Grade Process Improvement Analyst/Pinch Strength Left Process Improvement Analyst Strength 20 Measurement (lbs) Right Process Improvement Analyst Strength 16.67 Measurement (lbs) Special Tests Wrist Phalen Test Positive Left Wrist Tinel Test Positive Left,Positive Right Neck Disability Index Neck Disability Index Section 1: Pain The pain is very mild at moment Intensity Section 2: Personal I can look after myself normally without causing extra Care (washing, pain dressing, etc.) Section 3: Lifting Pain prevents me from lifting heavy weights, but I can manage light to Section 4: Reading I can read as much as I want to with slight pain in my neck Section 5: Headaches I have slight headaches, which come infrequently Section 6: I can concentrate fully when I want to with no Concentration difficulty Section 7: Work I can do most of my usual work, but no more Section 8: Driving I can drive my car without any neck pain Section 9: Sleeping My sleep is midly disturbed (1-2 hrs sleepless) Section 10: I am able to engage in most, but not all of my usual Recreation recreation NDI Score 12 Outpatient Therapy Assessment Impairments Problems/ Palpation Tenderness,Impaired Range of Motion,Impaired Impairmments Strength,Impaired Driving,Impaired Lifting,Impaired Household Care,Impaired Recreational Activities, Subjective C/O Pain,Impaired Self Care/Self Management Prognosis Rehab Potential Good Clinical Impression Consistent with No Diagnosis Consistent with Bilateral Carpal Tunnel Syndrome Additional details: G56.03 Short Term Goals Number of Weeks 3 Increase Strength Yes: Improve R wheat farmer strength to 20lb equal opposite UE to assist with function Decrease Subjective Yes: Improve paresthesia intensity at worst to 5/10 to C/O Pain improve overall QOL Improve Self Care/ Yes Self Management Patient to be Ind w/ Yes HEP Supervisor Electric Motor Testing Goals Number of Weeks 6 Increase Range of Yes: Improve B wrist extension AROM to at least 80 Motion Increase Strength Yes: Improve B wrist MMT to at least 4+/5 grossly to assist with function Increase Ability to Yes: report ability to wheat farmer steering wheel with Drive/Ride in Car paresthesia 3/10 or less Return to Yes: Report ability to play organ & eli with Recreational paresthesia 3/10 or less Activities Decrease Subjective Yes: Improve paresthesia intensity at worst to 3/10 to C/O Pain improve overall QOL Outpatient Therapy Plan of Care Treatment Plan May Include Therapeutic Exercise Yes Including Home Exercise Program Manual Therapy Yes Techniques Neuromuscular Re- Yes education Therapeutic Yes Activities to Return to Previous Functional/Work Level ADL/Self Care Yes Education Dry Needling Yes Thermal Modalities Yes Ultrasound/ Yes Phonophoresis Iontophoresis Yes Massage Yes Group Therapy for Yes Medicare Eval/Re-Eval Yes Frequency Times per week 2 Duration Number of Weeks 4-6 Addendums This patient is a No candidate for social or vocational rehab ? Patient/Guardian Yes verbally acknowledges understanding of treatment program and consents to further treatment? Patient/Guardian Yes verbally acknowledges understanding of diagnosis, prognosis and goals for treatment? Eval Complexity PT Charges 79439 - Moderate Complexity Shoulder/Elbow Eval Shoulder Objective Measurements Elbow Objective Measurements PHYSICIAN CERTIFICATION: I certify the specified therapy services for Kelsey Monae are required, authorized, and reviewed every 30 days.
== END 2024-10-24 23:59 | disposition home or self-care (01) ==
LOC: PT 13:48
PROVIDERS: PCP Nurse Practitioner; Visit Provider Nurse Practitioner
DX: M50.30 Other cervical disc degeneration, unspecified cervical region (principal); R20.2 Paresthesia of skin
CPT/HCPCS: 97110; 97162

== ENCOUNTER 2025-01-06 20:43 | Emergency (ER) | payer MEDICARE, SELFPAY ==
[2025-01-06 20:53] VITALS: BP 165/71; PULSE 87; RESP 17; TEMP 36.6; O2SAT 98; BMI 38.6
[2025-01-06 21:02] VITALS: BP 165/71; PULSE 87; RESP 17; TEMP 36.6; O2SAT 96
--- OUTSIDE RECORDS SUMMARY | 2025-01-06 21:13 | XMS_ITS | Encounter Summary ---
Author Organization [facility] Address [address] [place] [address] Care Team Providers Care Diabetes Trainer Name Role Phone Unkown, Not Given Primary Care Provider Adriana Stallings APRN Primary Care Provider [phone] Encounter Details Date Type Department Care Team (Late st Contact Info) Description 12/20/2023 [facility] [address] [place] [address] Froylan Montilla MD [address] [place] [address] Hand paresthesia (Primary Dx) Social History Tobacco Use Types Packs/Day Years Used Date Smoking Tobacco: Never Assessed Comments Unknown Sex and Gender Information Value Date Recorded Sex Assigned at Not on file Legal Sex Female 4:24 PM EDT Gender Identity Not on file Sexual Orientation Not on file documented as of this encounter Plan of Treatment Upcoming Encounters Date Type Department Care Team (Late st Contact Info) Description 01/17/2025 1:00 PM EDT Procedure Visit [place] [facility] [address] [place] [address] Luis A White MD [address] [place] [address] Scheduled Orders Name Type Priority Associated Diagnoses Orde r Schedule EM Nerve Diagnostic Lab Routine Hand paresthesia Expected: 12/20/2023 (Approximate), Expires: 06/18/2025 documented as of this encounter Visit Diagnoses Diagnosis Hand paresthesia- Primary Disturbance of skin sensation documented in this encounter Care Teams Diabetes Trainer Relationship Specialty Start Date End Date Unkown, [place] [address] PCP - General 01/16/21 11/05/24 Adriana Boss APRN [facility] [place] [address] PCP - General 11/06/24 documented as of this encounter
--- OUTSIDE RECORDS SUMMARY | 2025-01-06 21:13 | XMS_ITS | Encounter Summary ---
Author Organization [facility] Address [address] [id number] Care Team Providers Care Morning Show Producer Name Role Phone Unkown, Not Given Primary Care Provider Adriana Stallings APRN Primary Care Provider [phone] Reason for Referral * Consultation (Routine) - Authorized Specialty Diagnoses / Procedures Referred By Colin lee Referred To Contact Neurology Diagnoses Hand paresthesia Froylan Montilla MD [address] [place] [address] Phone: tel: fax: Referral ID Status Reason Start Date Expiration Date Visits Requested Visits Authorized [id number] Authorized Specialty Services Required 10/29/2024 04/30/2026 1 1 Encounter Details Date Type Department Care Team (Latest Contact Info) Description 10/29/2024 [facility] [address] [place] [address] Froylan Montilla MD [address] [place] [address] Paresthesias in left hand (Primary Dx); Hand paresthesia Social History Tobacco Use Types Packs/Day Years [...] Visit [place] [facility] [address] [place] [address] Luis A White MD [address] [place] [address] Scheduled Referrals Name Type Priority Associated Diagnoses Orde r Schedule Ambulatory referral to Neurology Outpatient Referral Routine Hand paresthesia Expected: 10/29/2024 (Approximate), Expires: 05/02/2026 documented as of this encounter Visit Diagnoses Diagnosis Paresthesias in left hand- Primary Disturbance of skin sensation Hand paresthesia Disturbance of skin sensation documented in this encounter Care Teams Morning Show Producer Relationship Specialty Start Date End Date Unkown, [place] [address] PCP - General 01/16/21 11/05/24 Adriana Boss, GUILLERMO [facility] [place] [address] PCP - General 11/06/24 documented as of this encounter
--- OUTSIDE RECORDS SUMMARY | 2025-01-06 21:13 | XMS_ITS | Clinical Summary ---
Author Organization [facility] Address [address] [place] [address] Care Team Providers Care Html Web Developer Name Role Phone Adriana Boss GUILLERMO Primary Care Provider [phone] Encounters Date Type Department Care Team Description 11/06/2024 Telephone [facility] [address] [place] [address] None, None 10/29/2024 [facility] [address] [place] [address] Froylan Montilla MD Paresthesias in left hand (Primary Dx); Hand paresthesia from Last 3 Months Social History Tobacco Use Types Packs/Day Years Used Date Smoking Tobacco: Never Assessed Comments Unknown Sex and Gender Information Value Date Recorded Sex Assigned at Not on file Legal Sex Female 4:24 PM EDT Gender Identity Not on file Sexual Orientation Not on file Plan of Treatment Upcoming Encounters Date Type Department Care Team (Late st Contact Info) Description 01/17/2025 1:00 PM EDT Procedure Visit [facility] [address] [place] [address] Luis A White MD [address] [place] [address] Health Maintenance Due Date Last Done Comments [facility]-Bone Density Scan 1950 [facility]-Depression Screening 1950 [facility]-Hepatitis C Screening 1950 [facility]-Medicare Annual Wellness (AWV) 1950 [facility]-/Child/Adol SDOH Screenings 1950 [facility]- SDOH Screenings 1967 [facility]-Adult SDOH Screenings 1967 [facility]-Pneumococcal Vaccine: 50+ Years (2 of 2 - PCV) 02/02/2018 02/02/2017 [facility]-Zoster Vaccines (2 of 2) 09/06/2018 07/12/2018 [facility]-RSV Vaccine: 60+ Years or (1 - 1-dose 75+ series) 01/04/2024 [id number] Vaccine (4 - 2024- season) 2024 03/23/2021, 06/17/2020, 05/22/2020 [facility]-Influenza Vaccine (#1) 2024 [facility]-DTaP,Tdap,and Td Vaccines (3 - Td or Tdap) 08/03/2027 08/02/2017, 06/16/2009, 06/23/1996 [facility]-Breast Cancer Screening Discontinued 02/21/2020, 02/21/2020, 02/14/2018, Additional history exists HPV Vaccines [...] patient's age to complete this topic Insurance [facility] MEDICARE Care Teams Html Web Developer Relationship Specialty Start Date End Date Adriaan Boss APRN [facility] [place] [address] PCP - General 11/06/24
--- OUTSIDE RECORDS SUMMARY | 2025-01-06 21:13 | XMS_ITS | Encounter Summary ---
Author Organization [facility] Address [address] [place] [address] Care Team Providers Care Foundry Hand Name Role Phone Adriana Boss GUILLERMO Primary Care Provider [phone] Encounter Details Date Type Department Care Team (Late st Contact Info) Description 11/06/2024 Telephone [place] [facility] [address] [place] [address] None, None [address] [place] [address] Social History Tobacco Use Types Packs/Day Years Used Date Smoking Tobacco: Never Assessed Comments Unknown Sex and Gender Information Value Date Recorded Sex Assigned at Not on file Legal Sex Female 4:24 PM EDT Gender Identity Not on file Sexual Orientation Not on file documented as of this encounter Miscellaneous Notes * Telephone Encounter - Елена Iqbal - 11/06/2024 1:06 PM EDT Patient Phone Message Reason for Call: Patient referral for EMG was sent a while back. However patient does have pacemaker. Please review and schedule if appropriate. Also a referral for neurology after EMG for intermittent bilateral hand paresthesias, numbness and tingling Possible carpel tunnel Best contact number and optimal time of day to reach caller: [phone] patient Note: Please do not reply to this message. Follow-up communication and further actions as a result of this message need to be communicated with the patient directly, if the patient is not active onMyChart. If the patient is active on MyChart, they will receive notification of the communication/outcome via [employer]. documented in this encounter Plan of Treatment Upcoming Encounters Date Type Department Care Team (Late st Contact Info) Description 01/17/2025 1:00 PM EDT Procedure Visit [place] [facility] [address] [place] [address] Luis A White MD [address] [place] [address] documented as of this encounter Visit Diagnoses Not on filedocumented in this encounter Care Teams Foundry Hand Relationship Specialty Start Date End Date Adriana Boss APRN [facility] [place] [address] PCP - General 11/06/24 documented as of this encounter
--- OUTSIDE RECORDS SUMMARY | 2025-01-06 21:13 | XMS_ITS | Clinical Summary ---
Author Organization [facility] Address [address] [facility] [place] [address] Phone Care Team Providers Care Yardage Caller Name Role Phone Min Terrazas MD Primary Care Provider [phone] Social History Tobacco Use Types Packs/Day Years [...] Screening 1967 DTaP/TDaP/Td (1 - Tdap) 01/04/1968 Pneumococcal Vaccine 50+ (1 of 1 - PCV) 1999 Zoster (1 of 2) 1999 Bone Density Screening 2014 RSV or 60+ (1 - 1-d ose 75+ series) 01/04/2024 COVID-19 Vaccine ( - 2023-2 5 season) 2024 Influenza Vaccine (#1) 2024 Hepatitis B Vaccine Aged Out No longe r eligible based on patient's age to complete this topic Meningococcal B Vaccine Aged Out No l onger eligible based on patient's age to complete this topic Insurance [facility] MEDICARE PPO MR Member Subscriber Plan / Payer (Ef fective 2017-Present) Name:Kelsey Monae Relation to Subscriber:Self Name:Kelsey Monae Payer ID:[id number] (NAIC) Type:Not on file Address: [place] [id number] Care Teams Yardage Caller Relationship Specialty Start Date End Date Min Terrazas MD [address] [facility] [address] [place] [address] PCP - General 05/08/10
--- NOTE | 2025-01-06 21:22 | ED_ITS ---
Discharge Plan Disposition Patient Disposition: Home, Self-Care Condition: Good Prescriptions Prescriptions: No Action glimepiride 4 mg tablet 4 mg PO DAILY Qty: 90 1RF potassium chloride [Klor-Con M20] 20 mEq tablet,ER particles/crystals See Rx Instructions .ROUTE .COMPLEX Qty: 180 3RF Dose Instruction: TAKE 1 TABLET TWICE A DAY FOR SUPPLEMENT Rx Instructions: TAKE 1 TABLET TWICE A DAY FOR SUPPLEMENT Eliquis 5 mg tablet 5 mg PO BID Qty: 180 3RF atenolol 50 mg tablet 50 mg PO TID 90 Days Qty: 270 3RF Rx Instructions: 50 mg in the morning 100 mg in the evening benazepril 10 mg tablet 10 mg PO DAILY Qty: 90 3RF triamterene-hydrochlorothiazid 37.5-25 mg tablet 1 tab PO DAILY Qty: 90 3RF simvastatin 40 mg tablet 40 mg PO DAILY Qty: 90 3RF Trulicity 1.5 mg/0.5 mL pen injector 1.5 mg SQ WEEKLY Qty: 6 1RF fluticasone propionate 50 mcg/actuation spray,suspension 2 spray intranasal DAILY Qty: 48 3RF aspirin 81 mg tablet,chewable 81 mg PO DAILY Referrals Follow up/Referrals: Alicia Escamilla DO [Staff Physician, STAFF NURSE MIDWIFE] - See instructions Adriana Boss APRN [Primary Care Provider, Family Practice] - See instructions Activity Restrictions/Add. Instructions Additional Instructions/Restrictions: Call county superintendent of schools tomorrow to let them know that you were found to have a fibroid on your CT scan and that you need to be seen in clinic. Return to the ER if you are bleeding through multiple pads an hour or are feeling symptomatic such as feeling like you are going to pass out. Clinical Impressions Clinical Impression: Fibroid Print Language Print Language: Chinese Discharge ED Provider: Abbey Salmon Adult HPI General Chief complaint: Vaginal Bleeding Stated complaint: vaginal bleeding ,cramping Time Seen by Provider: 01/06/25 21:22 Mode of Arrival: Ambulatory Description of Symptoms (Recalled from ER Triage Doc. by RN): Patient reports abdominal cramping last night. States today she had the sensation of vaginal bleeding, states she went to the bathroom and had a clot as big as the palm of her hand. States LMP 10-12 years ago. History of Present Illness HPI narrative: Patient is a 75-year-old female who is postmenopausal for many years who presents to the emergency department with vaginal bleeding and cramping. Patient states that she had a large blood clot that she passed today. Patient denies any symptoms of lightheadedness, tachycardia, syncope. Patient denies any significant abdominal pain. Patient states that she has not seen an STAFF NURSE MIDWIFE in several years. Patient denies any urinary symptoms. Patient denies any chest pain shortness of breath headache, vision changes. Related Data Home Medications ?Medication ?Instructions ?Recorded ?Confirmed aspirin 81 mg chewable tablet 81 mg PO DAILY CAD 09/0812/26/24 Previous Rx's ?Medication ?Instructions ?Recorded apixaban 5 mg tablet (Eliquis) 5 mg PO BID Blood thinn er #180 tabs 06/27/24 atenolol 50 mg tablet 50 mg PO TID CAD 90 days #27 0 tabs 06/27/24 benazepril 10 mg tablet 10 mg PO DAILY CAD #90 tabs 06/27/24 triamterene 37.5 1 tab PO DAILY Fluid #90 tab s 06/27/24 mg-hydrochlorothiazide 25 mg tablet simvastatin 40 mg tablet 40 mg PO DAILY Cholesterol # 90 tabs 06/28/24 glimepiride 4 mg tablet 4 mg PO DAILY #90 tabs 10/09 potassium chloride 20 mEq See Rx Instructions .Route 0 10/09/24 tablet,extended .COMPLEX #180 tabs release(part/cryst) (Klor-Con M) dulaglutide 1.5 mg/0.5 mL 1.5 mg (0.5 mL) SQ WEEKLY #6 mL 10/10/24 subcutaneous pen injector (Trulicity) fluticasone propionate 50 2 spray intranasal DAILY All ergy 11/28/24 mcg/actuation nasal symptoms #48 grams spray,suspension Allergies Allergy/AdvReac Type Severity Reaction Status Date / Time No Known Allergies Allergy Verified 12/26/24 10:03 [facility] Disclaimer: The information contained in this section may have been updated after the patient was seen, as this information can be updated by other users. Medical History Degenerative disc disease, cervical Negative colorectal cancer screening using DNA-based stool test (~03/26/22) Paresthesia of hand, bilateral Palpitations Normal coronary angiogram Diastolic dysfunction History of cardiac pacemaker in situ Abnormal result of cardiovascular function study Low TSH level Benign cyst of right breast in female Psoriasis Allergic rhinitis Essential hypertension Hyperlipidemia Type 2 diabetes mellitus Breast cyst Surgical History H/O excision of dermoid cyst breast Family History Other Cancer of kidney Family history of diabetes mellitus type II Family history of osteoporosis Prostate cancer Social History Smoking Status: Never smoker alcohol intake: never substance use type: denies use current occupational status: retired Travel in the last 8 weeks?: None household members: family housing: house lives independently: No marital status: caffeine: No Other Medical History Have you received the Flu Vaccine for this season: No Have you received the Pneumonia Vaccine: Yes ROS Obtained: Yes All systems reviewed & no additional complaints except as documented and Yes Systems reviewed as appropriate & no additional complaints except as documented Physical Exam General General appearance: alert and in no apparent distress Head Head exam: atraumatic, normocephalic and normal inspection Eye Eye exam: Present normal appearance, PERRL and EOMI; Absent scleral icterus ENT ENT exam: Present normal exam and normal external ear exam Neck Neck exam: Present normal inspection and full ROM Chest Chest inspection: Present normal inspection and symmetric chest wall rise Respiratory Respiratory exam: Present normal lung sounds bilaterally; Absent respiratory distress or wheezes Cardiovascular Cardiovascular exam: Present regular rate, normal rhythm and normal heart sounds Abdominal Exam Abdominal exam: Present soft, distention and tenderness (Mild suprapubic abdominal tenderness); Absent guarding or rebound Extremities Exam Extremities exam: Present normal inspection and full ROM Back Exam Back exam: Present normal inspection and full ROM Neurological Exam Neurological exam: Present alert and oriented X3 Psychiatric Psychiatric exam: Present normal affect and normal mood Skin Skin exam: Present warm and dry Medical Decision Making Medical Records Medical records reviewed: Yes I reviewed the patient's medical records. Screening: Per USPSTF and CDC recommendations, given the prevalence of disease in our region, it is our hospital?s policy to screen for HIV and viral Hepatitis for all patients aged 18 and over and those with ongoing risk factors. Josh Inquiry Pt receiving controlled substance: No Vital Signs: 01/06/25 20:53 01/06/25 21:02 01/06/25 21:30 Temperature 97.9 F 97.9 F Temperature Source Oral Pulse Rate 87 84 Pulse Rate [Right] 87 Respiratory Rate 17 17 16 Blood Pressure 165/71 H 128/69 Blood Pressure [Right Arm] 165/71 H Blood Pressure Mean [Right Arm] 102 02 Sat by Pulse Oximetry 98 96 96 Oxygen Delivery Method Room Air Room Air 01/06/25 22:00 01/06/25 22:31 01/06/25 23:24 Temperature 97.9 F Temperature Source Oral Pulse Rate 84 83 87 Pulse Rate [Right] Respiratory Rate 16 Blood Pressure 122/69 140/70 140/67 Blood Pressure [Right Arm] Blood Pressure Mean [Right Arm] 02 Sat by Pulse Oximetry 95 96 Oxygen Delivery Method Room Air Lab Data Lab results reviewed: Yes I reviewed the patient's lab results. Lab Results 01/06/25 21:40: WBC 11.5 H, RBC 3.88 L, Hgb 11.4 L, Hct 34.7 L, MCV 89.4, MCH 29.4, MCHC 32.9, RDW 14.5, Plt Count 196, MPV 10.8 H, Neut % (Auto) 73.7, Lymph % (Auto) 17.7, Union % (Auto) 7.4, Eos % (Auto) 0.6, Baso % (Auto) 0.3, Neut # (Auto) 8.5 H, Lymph # (Auto) 2.0, Union # (Auto) 0.9, Eos # (Auto) 0.1, Baso # (Auto) 0.0, PT 11.3, INR 1.02, Sodium 139, Potassium 3.2 L, Chloride 102, Carbon Dioxide 27, Anion Gap 13.2, BUN 20 H, Creatinine 0.80, Estimated Creat Clear 75, Estimated GFR 70, Est GFR ( Amer) 84, Glucose 154 H, Calcium 9.2, Total Bilirubin 0.5, AST 28, ALT 16, Alkaline Phosphatase 87, Total Protein 7.2, Albumin 4.0, Globulin 3.2, Albumin/Globulin Ratio 1.3 01/06/25 21:40 01/06/25 21:40 Orders (Tests/Meds): ED MEDICATIONS Discontinued Medications Generic Name Dose Route Start Last Admin Trade Name Freq PRN Reason Stop Dose Admin Iopamidol 75 ml 01/06/25 22:20 01/06/25 22:22 Iopamidol-370 (76%);100ml Bottle IV 01/06/25 22:21 75 ml ONCE ONE Administration Sodium Chloride 10 ml 01/06/25 22:20 01/06/25 22:22 Sodium Chloride 0.9% 10ml Syr (Rad Only) IV 02/05/25 22:19 10 ml NEEDED PRN Administration Maintain IV Site ORDERS Category Date Time Status CT abdomen pelvis w con Stat Cat Scan 01/06/25 21:32 Completed CBC w/Auto Diff [Complete Blood Count Auto Diff] Stat Lab 01/06/25 21:40 Completed CMP [Comprehensive Metabolic Panel] Stat Lab 01/06/25 21:40 Completed PT INR [Prothrombin Time INR] Stat Lab 01/06/25 21:40 Completed Medical Decision Narrative: Patient is an otherwise healthy 75-year-old female who presented to the emergency department with vaginal bleeding and abdominal cramping. On arrival, patient was hemodynamically stable with unremarkable vital signs. Differential includes but not limited to: Uterine fibroids, gynecologic cancer, symptomatic anemia, electrolyte abnormalities, amongst others. On exam, patient had very mild suprapubic abdominal tenderness, exam otherwise unremarkable. Patient's labs were reviewed and interpreted by myself: CBC showed mild leukocytosis of 11, hemoglobin is stable. CMP is unremarkable. INR is normal. CT scan of the abdomen was reviewed and interpreted by myself and per radiology patient had endometrial thickening as well as a possible fundal fibroid. At this time, patient remained hemodynamically stable. Patient was otherwise asymptomatic. Patient was sent with STAFF NURSE MIDWIFE follow-up. Patient was given return precautions for significant bleeding. Patient was otherwise discharged home in stable condition. Critical Care Critical Care Time Critical Care Time: No
[2025-01-06 21:30] VITALS: BP 128/69; PULSE 84; RESP 16; O2SAT 96
--- NOTE | 2025-01-06 21:32 | CT_ITS ---
PROCEDURE INFORMATION: Exam: CT Abdomen And Pelvis With Contrast Exam date and time: 01/06/2025 10:20 PM Age: 75 years old Clinical indication: Other: Vaginal bleeding post menopausal TECHNIQUE: Imaging protocol: Computed tomography of the abdomen and pelvis with contrast. Radiation optimization: All CT scans at this facility use at least one of these dose optimization techniques: automated exposure control; mA and/or kV adjustment per patient size (includes targeted exams where dose is matched to clinical indication); or iterative reconstruction. Contrast material: ISOVUE; Contrast volume: 75 ml; Contrast route: IV; COMPARISON: CR XR CHEST PORTABLE 07/15/2022 11:42 AM FINDINGS: Lungs: No acute finding. Liver: Normal. No mass. Gallbladder and biliary ducts: Cholelithiasis is present without findings of cholecystitis. No gallbladder wall thickening or pericholecystic fluid collection. There is no biliary ductal dilation. Pancreas: Normal. No ductal dilation. Spleen: Normal. No splenomegaly. Adrenal glands: Normal. No mass. Kidneys and ureters: There is no hydronephrosis stone disease. 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 Stomach and bowel: There are scattered left colon diverticula without acute inflammation. No bowel obstruction. No mucosal thickening. Appendix: No evidence of appendicitis. Intraperitoneal space: Unremarkable. No free air. No significant fluid collection. Vasculature: Unremarkable. No abdominal aortic aneurysm. Lymph nodes: Unremarkable. No enlarged lymph nodes. Urinary bladder: Unremarkable as visualized. Reproductive: There is a 3.2 x 4.7 x 3.8 cm course calcification within the right adnexa. There is diffuse thickening of the endometrial cavity including the endocervical canal measuring up to 3.7 cm in AP dimension. There is a suspected left fundal fibroid measuring up to 3.2 cm. Bones/joints: There are moderate degenerative changes of the spine. Soft tissues: Unremarkable. IMPRESSION: 1. Diffuse thickening of the endometrial cavity measuring up to 3.7 cm. Further evaluation with endometrial biopsy is recommended. 2. Coarse right adnexal calcification measuring up to 4.7 cm. This is likely related to the right ovary. 3. Other nonurgent findings as noted. COMMENTS: Consistent with the [place] [employer]'s Incidental Findings Committee white paper (J Am Neal Radiol 2018): Any incidental renal lesion less than 1 cm or classified as too small to characterize, or any incidental cystic renal lesion characterized as simple-appearing, is likely benign. No follow-up imaging is recommended for these lesions per consensus recommendations based on imaging criteria.
[2025-01-06 21:59] LABS: Hematocrit 34.7 % (37.0-47.0); Hemoglobin 11.4 g/dL (12.2-16.2); Immature Granulocytes % 0.3 %; Mean Corpuscular HGB Conc 32.9 g/dL (31.8-35.4); Mean Corpuscular Hemoglobin 29.4 pg (27.0-31.2); Mean Corpuscular Volume 89.4 fl (81-99); Nucleated Red Blood Cells % 0 %; Platelet Count 196 K/mm3 (142-424); Red Blood Count 3.88 M/mm3 (4.20-5.40); Red Cell Distribution Width-SD 47.1 fL; White Blood Count 11.5 K/mm3 (4.8-10.8)
[2025-01-06 22:00] VITALS: BP 122/69; PULSE 84; O2SAT 95
[2025-01-06 22:05] LABS: Albumin Level 4.0 g/dl (3.5-5.0); Chloride 102 mmol/L (98-107); Potassium 3.2 mmoL/L (3.5-5.1); Sodium 139 mmol/L (136-145)
[2025-01-06 22:08] LABS: Alanine Aminotransferase 16 U/L (12-78); Alkaline Phosphatase 87 U/L (38-126); Aspartate Amino Transferase 28 U/L (14-36); Bilirubin,Total 0.5 mg/dl (0.2-1.3); Blood Urea Nitrogen 20 mg/dl (7-17); Calcium 9.2 mg/dl (8.4-10.2); Carbon Dioxide 27 mmol/L (22.0-30.0); Creatinine Clearance Estimated 75 mL/min (50-200); Creatinine,Serum 0.80 mg/dl (0.52-1.04); Estimated Glomerular Filt Rate 70 ml/min (>60); GFR (African American) 84 ML/MIN (>60); Glucose 154 mg/dl (74-100); Total Protein,Serum 7.2 g/dl (6.3-8.2)
[2025-01-06 22:10] LABS: INR 1.02 (0.9-1.1); Prothrombin Time 11.3 seconds (10.1-12.5)
[2025-01-06 22:11] LABS: Anion Gap 13.2 mEq/L (5-15)
[2025-01-06 22:17] LABS: Albumin/Globulin Ratio 1.3 (1.1-1.8); Globulin 3.2 g/dL (1.3-3.2)
[2025-01-06] MEDS: IOPAMIDOL-370 (76%);100ML BOTTLE 75 ML IV (22:22)
[2025-01-06] MEDS: SODIUM CHLORIDE 0.9% 10ML SYR (RAD ONLY) 10 ML IV (22:22)
--- NOTE | 2025-01-06 22:26 | PC.NURSE ---
Pt returned back from CT
[2025-01-06 22:31] VITALS: BP 140/70; PULSE 83; O2SAT 96
[2025-01-06 23:24] VITALS: BP 140/67; PULSE 87; RESP 16; TEMP 36.6; O2SAT 97
== END 2025-01-06 23:29 | disposition home or self-care (01) ==
PROVIDERS: Emergency Provider Student in an Organized Health Care Education/Training Program; PCP Nurse Practitioner
DX: N93.9 Abnormal uterine and vaginal bleeding, unspecified (principal); R10.819 Abdominal tenderness, unspecified site; D25.9 Leiomyoma of uterus, unspecified; E87.6 Hypokalemia
CPT/HCPCS: 74177; 80053; 85025; 85610; 99284; Q9967

== ENCOUNTER 2025-01-15 08:39 | Outpatient (CLI) | payer MEDICARE, SELFPAY ==
--- OUTSIDE RECORDS SUMMARY | 2025-01-15 08:43 | XMS_ITS | Encounter Summary ---
Author Organization [facility] Address [address] [place] [address] Care Team Providers Care Driver Wheelchair Name Role Phone Unkown, Not Given Primary Care Provider Adriana Stalligns APRN Primary Care Provider [phone] Encounter Details Date Type Department Care Team (Late st Contact Info) Description 12/20/2023 [facility] [address] [place] [address] Froylan Montilla MD [address] [place] [address] Hand paresthesia (Primary Dx) Social History Tobacco [...] Visit [place] [facility] [address], [address] [place] [address] Luis A White MD [address] [place] [address] Scheduled Orders Name Type Priority Associated Diagnoses Orde r Schedule EM Nerve Diagnostic Lab Routine Hand paresthesia Expected: 12/20/2023 (Approximate), Expires: 06/18/2025 documented as of this encounter Visit Diagnoses Diagnosis Hand paresthesia- Primary Disturbance of skin sensation documented in this encounter Care Teams Driver Wheelchair Relationship Specialty Start Date End Date Unkown, [place] [address] PCP - General 01/16/21 11/05/24 Adriana Boss APRN [facility] [place] [address] PCP - General 11/06/24 documented as of this encounter
--- OUTSIDE RECORDS SUMMARY | 2025-01-15 08:43 | XMS_ITS | Clinical Summary ---
Author Organization [facility] Address [address] [place] [address] Care Team Providers Care Flight Attendant Name Role Phone GeraAdriana Rosendo LI Primary Care Provider [phone] Encounters Date Type Department Care Team Description 01/11/2025 Travel 11/06/2024 Telephone [facility] [address] [place] [address] 10/29/2024 [facility] [address] [place] [address] Froylan Montilla MD Paresthesias in left hand [...] Description 01/17/2025 1:00 PM EDT Procedure Visit [facility] [address], [address] [place] [address] Luis A White MD [address] [place] [address] Health Maintenance Due Date Last Done Comments [facility]-Bone Density Scan 1950 [facility]-Depression Screening 1950 [facility]-Hepatitis C Screening 1950 [facility]-Medicare Annual Wellness (AWV) 1950 [facility]-Infant/Child/Adol SDOH Screenings 1950 [facility]- SDOH Screenings 1967 [facility]-Adult SDOH Screenings 1967 [facility]-Pneumococcal Vaccine: 50+ Years (2 of 2 - PCV) 02/02/2018 02/02/2017 [facility]-Zoster Vaccines (2 of 2) 09/06/2018 07/12/2018 [facility]-RSV Vaccine: 60+ Years or (1 - 1-dose 75+ series) 01/04/2024 [facility]-DSHMI-14 Vaccine (4 - 2024- season) 2024 03/23/2021, [...] patient's age to complete this topic Insurance [facility] [place] [address] Care Teams Flight Attendant Relationship Specialty Start Date End Date Adriana Boss APRN [address] [place] [address] PCP - General 11/06/24
--- OUTSIDE RECORDS SUMMARY | 2025-01-15 08:43 | XMS_ITS | Data Portability ---
Author Organization [facility] Address [address] [facility] [address] [place] [address] Assessment No assessment recorded. Plan of Treatment Reminders Order Date Submit Date Provider Last Modified By Organization Details Last Modified Time Details Appointments None recorded. Lab T4, free, serum 2023 024 [facility] (Lab), [address], [place], [address], 4 08:29:14 TSH, serum or plasma 2023 024 [facility] (Lab), [address], [place], [address], 4 08:29:14 T3, free, serum or plasma 2023 024 [email or web address] [facility] (Lab), [address], [place], [address], 4 09:01:38 thyroid peroxidase (tpo) Ab, serum 2023 024 [facility] (Lab), [address], [place], [address], 4 08:17:56 tsi (thyroid-st imulating immunoglobu amelia), serum [email or web address] (Lab), [address], [place], [address], 09:01:38 Referral None recorded. Procedures None recorded. [...] 24 Pacemaker/Ca rdiac Implant completed Katerina Beaulieu [facility] 09/28/2023 11:09:20 Excision breast lesion completed Linsey Mcneal [facility] 09/27/2023 15:26:12 Imaging Results None [...] Body mass index (BMI) Body height Systolic And Diastolic Provider Name and Address Organization Details Last Updated DateTime 09/28/2023 26731.62 g 76 /min 36.7 kg/m2 160.02 cm 155/86 mm[Hg] Katerina Beaulieu [facility] 09/28/2023 11:06:40 Social History Question Answer Notes LastModified by [employer] Details LastModified Time Tobacco Smoking Status Never Smoker Linsey JuárezFredis tiffanie [facility] 09/27/2023 15:29:15 What Is Your Relationship Status? Information not available 09/27/2023 Sex: Unknown Functional Status Question Answer Note LastModified by [employer] Details LastModified Time Do you or have [...] Diagnosis SNOMED-CT Code Diagnosis ICD10 Code Diagnosis IMO Codes Diagnosis Note [id number] OSCAR BOSTON APRN ENDOCRINO [address]Y [address] [place] [address] 09/28/2023 10:53:31 09/28/2023 11:44:24 Thyroid function tests abnormal [id number] R94.6 Referral Labs from August 08 show:TSH [...] Wayne Member ID Guarantor Name 09/28/2023 1 [facility] (MEDICARE REPLACEMENT/A DVANTAGE - PPO) [id number] Kelsey Dov [id number] Kelsey Dov Notes Date Note Type Note [...] hypertension, diabetes, hyperlipidemia and A-fib. OSCAR BOSTON, [employer]ATE [employer]ILDER [address] [place], [address], [facility] 09/28/2023 11:43:56 OBGyn Episode No OBEpisode recorded.
--- OUTSIDE RECORDS SUMMARY | 2025-01-15 08:43 | XMS_ITS | Encounter Summary ---
Author Organization Healthcare Address [address] [place] [address] Care Team Providers Care Cardiology Technician Name Role Phone GeraAdriana Rosendo LI Primary Care Provider [phone] Encounter Details Date Type Department Care Team (Late st Contact Info) Description 11/06/2024 Telephone [place] [facility] [address] [place] [address] Social History Tobacco Use Types Packs/Day Years [...] optimal time of day to reach caller: [phone] patient Note: Please do not reply to this message. Follow-up communication and further actions as a result of this message need to be communicated with the patient directly, if the patient is not active onMyChart. If the patient is active on MyChart, they will receive notification of the communication/outcome via [employer]. documented in this encounter Plan of Treatment Upcoming Encounters Date Type Department Care Team (Late st Contact Info) Description 01/17/2025 1:00 PM EDT Procedure Visit [place] [facility] [address] [place] [address] Luis A White MD [address] [place] [address] documented as of this encounter Visit Diagnoses Not on filedocumented in this encounter Care Teams Cardiology Technician Relationship Specialty Start Date End Date Adriana Boss APRN [address] [place] [address] PCP - General 11/06/24 documented as of this encounter
--- OUTSIDE RECORDS SUMMARY | 2025-01-15 08:43 | XMS_ITS | Clinical Summary ---
Author Organization [facility] Address [address] [facility] [place] [address] Phone Care Team Providers Care Fine Jewelry Sales Associate Name Role Phone Min Terrazas MD Primary Care Provider [phone] Social History Tobacco Use Types Packs/Day Years [...] patient's age to complete this topic Insurance [facility] MEDICARE PPO MR Member Subscriber Plan / Payer (Ef fective 2017-Present) Name:Kelsey Monae Relation to Subscriber:Self Name:Kelsey Monae Payer ID:[id number] (NAIC) Type:Not on file Address: [place] [id number] Care Teams Fine Jewelry Sales Associate Relationship Specialty Start Date End Date Min Terrazas MD [address] [facility] [address] [place] [address] PCP - General 05/08/10
--- OUTSIDE RECORDS SUMMARY | 2025-01-15 08:43 | XMS_ITS | Encounter Summary ---
Author Organization Healthcare Address [address] [place] [address] Care Team Providers Care Chart Calculator Name Role Phone Adriana Boss APRN Primary Care Provider [phone] Encounter Details Date Type Department Care Team (Latest Contact Info) Description 01/11/2025 Travel Social History Tobacco Use Types Packs/Day Years [...] Description 01/17/2025 1:00 PM EDT Procedure Visit [place] [facility] [address] [place] [address] Luis A White MD [address] [place] [address] documented as of this encounter Visit Diagnoses Not on filedocumented in this encounter Care Teams Chart Calculator Relationship Specialty Start Date End Date Adriana Boss APRN [address] [place] [address] PCP - General 11/06/24 documented as of this encounter
--- OUTSIDE RECORDS SUMMARY | 2025-01-15 08:43 | XMS_ITS | Encounter Summary ---
Author Organization [facility] Address [address] [place] [address] Care Team Providers Care Retail Zone Specialist Name Role Phone Unkown, Not Given Primary Care Provider Adriana Stallings APRN Primary Care Provider [phone] Reason for Referral * Consultation (Routine) - Authorized Specialty Diagnoses / Procedures Referred By Colin lee Referred To Contact Neurology Diagnoses Hand paresthesia Froylan Montilla MD [facility] [place] [address] Phone: tel: fax: Referral ID Status Reason Start Date Expiration Date Visits Requested Visits Authorized [id number] Authorized Specialty Services Required 10/29/2024 04/30/2026 1 1 Encounter Details Date Type Department Care Team (Latest Contact Info) Description 10/29/2024 [facility] [address] [place] [address] Froylan Montilla MD [address] [place] [address] Paresthesias in left hand (Primary Dx); Hand [...] Visit [place] [facility] [address] [place] [address] Luis A White MD [address] [place] [id number] Scheduled Referrals Name Type Priority Associated Diagnoses Orde r Schedule Ambulatory referral to Neurology Outpatient Referral Routine Hand paresthesia Expected: 10/29/2024 (Approximate), Expires: 05/02/2026 documented as of this encounter Visit Diagnoses Diagnosis Paresthesias in left hand- Primary Disturbance of skin sensation Hand paresthesia Disturbance of skin sensation documented in this encounter Care Teams Retail Zone Specialist Relationship Specialty Start Date End Date Unkown, [place] [address] PCP - General 01/16/21 11/05/24 Adriana oBss, GUILLERMO [address] [place] [address] PCP - General 11/06/24 documented as of this encounter
--- NOTE | 2025-01-15 08:45 | US_ITS ---
PROCEDURE: US TRANSVAGINAL CLINICAL INDICATION: abnormal uterine bleeding COMPARISON: CT CT ABDOMEN PELVIS W CON from 01/06/2025 FINDINGS: Transvaginal sonographic images of the pelvis were obtained. UTERUS: 9.2cm x 6.9 cmx 4.6 cm anteverted with a combined endometrial thickness of 28mm. The endometrium appears heterogenous and multi-cystic. This could represent endometrial hyperplasia or possibly an endometrial polyp. There is a collection of fluid in the lower uterine segment. There is a calcified, posterior subserosal fibroid measuring 4.0 cm x 1.3 cm x 3.3 cm. LEFT OVARY: The ovary is not visualized. There is a small calcification within the left adnexa. Likely benign. RIGHT OVARY: 2.4cmx 1.73 cmx2.0cm with a volume of 4.4ml. Is a calcified area measuring 4.2 cm x 2.8 cm x 2.7 cm that is inferior to the right ovary. Right ovary is seen and appears normal.. Doppler flow to right ovary is seen. There is no fluid in the cul-de-sac. IMPRESSION: 1. Anteverted, enlarged uterus. The endometrium is markedly thickened and heterogenous. There is a small amount of fluid in the lower in segment. There is a calcified posterior fibroid measuring 4 cm. Suggest endometrial sampling. 2. The left ovary is not visualized. There is a small calcification within the left adnexa. 3. The right ovary is visualized and appears normal. There is a calcified area measuring 4.2 cm inferior to the right ovary. 4. No fluid in the cul-de-sac. Dictated by: Eddi Bazan MD 01/15/2025 10:42 Eddi Bazan MD in [place] 01/15/2025 10:42
== END 2025-01-15 23:59 | disposition home or self-care (01) ==
LOC: RAD 08:39
PROVIDERS: PCP Nurse Practitioner; Visit Provider Obstetrics & Gynecology
DX: D25.9 Leiomyoma of uterus, unspecified (principal); N85.4 Malposition of uterus; N83.8 Other noninflammatory disorders of ovary, fallopian tube and broad ligament; R93.89 Abnormal findings on diagnostic imaging of other specified body structures
CPT/HCPCS: 76830

== ENCOUNTER 2025-01-18 10:27 | Outpatient (CLI) | payer MEDICARE, SELFPAY ==
--- OUTSIDE RECORDS SUMMARY | 2025-01-17 13:00 | XMS_ITS | Encounter Summary ---
Author Organization Healthcare Address [address] [id number] Care Team Providers Care Malthouse Laborer Name Role Phone Adriana Boss APRN Primary Care Provider [phone] Reason for Visit * Other Medical (Routine) - Closed Specialty Diagnoses / Procedures Referred By Colin lee Referred To Contact Neurology Diagnoses Hand paresthesia Procedures EMG / Nerve Conduction Study Adriana Boss APRN [address] [place] [address] Phone: tel: fax: Referral ID Status Reason Start Date Expiration Date V isits Requested Visits Authorized [id number] Closed Specialty Services Required 11/09/2024 05/11/2026 1 1 Encounter Details Date Type Department Care Team (Late st Contact Info) Description 01/17/2025 1:00 PM EDT Procedure Visit [place] [facility] [address], [address] [place] [address] Luis A White MD [address] [place] [address] Hand paresthesia Social History Tobacco Use Types Packs/Day Years Used Date Smoking Tobacco: Never Assessed Comments Unknown Sex and Gender Information Value Date Recorded Sex Assigned at Not on file Legal Sex Female 4:24 PM EDT Gender Identity Not on file Sexual Orientation Not on file documented as of this encounter Plan of Treatment Not on file documented as of this encounter Procedures Procedure Name Priority Date/Time Associated Diagnosis Comments PBPROC Routine 01/17/2025 3:21 PM EDT Hand paresthesia documented in this encounter Results * EMG / Nerve Conduction Study (01/17/2025 3:21 PM EDT) Anatomical Region Laterality Modality Other Adriana Boss APRN NEUROLOGY ORDERABLES Final Res ult documented in this encounter Visit Diagnoses Diagnosis Hand paresthesia Disturbance of skin sensation documented in this encounter Care Teams Malthouse Laborer Relationship Specialty Start Date End Date Adriana Boss APRN [address] [place] [address] PCP - General 11/06/24 documented as of this encounter
[2025-01-18 08:15] VITALS: BMI 38.0
--- OUTSIDE RECORDS SUMMARY | 2025-01-18 10:30 | XMS_ITS | Clinical Summary ---
Author Organization [facility] Address [address] [place] [address] Care Team Providers Care Cutting Machine Tender Helper Name Role Phone GeraAdriana Rosendo LI Primary Care Provider Encounters Date Type Department Care Team Description 01/17/2025 1:00 PM EDT Procedure Visit [place] [facility] [address], [address] [place] [address] Luis A White MD Hand paresthesia 01/17/2025 Travel 01/11/2025 Travel 11/06/2024 Telephone [facility] [address] [place] [address] 10/29/2024 [facility] [place] [place] [facility] [address] [place] [address] Froylan Montilla MD Paresthesias in left hand [...] or (1 - 1-dose 75+ series) 01/04/2024 [id number] Vaccine (4 - 2024- season) 2024 03/23/2021, [...] on patient's age to complete this topic Procedures Procedure Name Priority Date/Time Associated Diagnosis Comments PBPROC Routine 01/17/2025 3:21 PM EDT Hand paresthesia from Last 3 Months Results * EMG / Nerve Conduction Study (01/17/2025 3:21 PM EDT) Anatomical Region Laterality Modality Other us Adriana Boss ASSISTANT IMPORT MANAGER NEUROLOGY ORDERABLES Final Res ult from Last 3 Months Insurance [facility] MEDICARE Care Teams Cutting Machine Tender Helper Relationship Specialty Start Date End Date Adriana Boss APRN [facility] [place] [address] PCP - General 11/06/24
--- OUTSIDE RECORDS SUMMARY | 2025-01-18 10:30 | XMS_ITS | Encounter Summary ---
Author Organization [facility] Address [address] [id number] Care Team Providers Care Seasonal Clerk Name Role Phone Unkown, Not Given Primary Care Provider Adriana Stallings APRN Primary Care Provider Reason for Referral * Consultation (Routine) - Authorized Specialty Diagnoses / Procedures Referred By Chanac t Referred To Contact Neurology Diagnoses Hand paresthesia Froylan Montilla MD [address] [place] [address] Phone: tel: fax: Referral ID Status Reason Start Date Expiration Date Visits Requested Visits Authorized [id number] Authorized Specialty Services Required 10/29/2024 04/30/2026 1 1 Encounter Details Date Type Department Care Team (Latest Contact Info) Description 10/29/2024 [facility] [place] [place] [facility] [address] [place] [address] Froylan Montilla MD [address] [place] [address] Paresthesias in left hand (Primary Dx); Hand paresthesia Social History Tobacco Use Types Packs/Day Years Used Date Smoking Tobacco: Never Assessed Comments Unknown Sex and Gender Information Value Date Recorded Sex Assigned at Not on file Legal Sex Female 4:24 PM EDT Gender Identity Not on file Sexual Orientation Not on file documented as of this encounter Plan of Treatment Scheduled Referrals Name Type Priority Associated Diagnoses Orde r Schedule Ambulatory referral to Neurology Outpatient Referral Routine Hand paresthesia Expected: 10/29/2024 (Approximate), Expires: 05/02/2026 documented as of this encounter Visit Diagnoses Diagnosis Paresthesias in left hand- Primary Disturbance of skin sensation Hand paresthesia Disturbance of skin sensation documented in this encounter Care Teams Seasonal Clerk Relationship Specialty Start Date End Date Unkown, [place] [address] PCP - General 01/16/21 11/05/24 Adriana Boss, GUILLERMO [address] [place] [address] PCP - General 11/06/24 documented as of this encounter
--- OUTSIDE RECORDS SUMMARY | 2025-01-18 10:30 | XMS_ITS | Encounter Summary ---
Author Organization Healthcare Address [address] [place] [address] Care Team Providers Care Marketing Liaison Name Role Phone Adriana Boss APRN Primary Care Provider [phone] Encounter Details Date Type Department Care Team (Latest Contact Info) Description 01/17/2025 Travel Social History Tobacco Use Types Packs/Day Years Used Date Smoking Tobacco: Never Assessed Comments Unknown Sex and Gender Information Value Date Recorded Sex Assigned at Not on file Legal Sex Female 4:24 PM EDT Gender Identity Not on file Sexual Orientation Not on file documented as of this encounter Plan of Treatment Not on file documented as of this encounter Visit Diagnoses Not on filedocumented in this encounter Care Teams Marketing Liaison Relationship Specialty Start Date End Date Adriana Boss APRN [address] [place] [address] PCP - General 11/06/24 documented as of this encounter
--- OUTSIDE RECORDS SUMMARY | 2025-01-18 10:30 | XMS_ITS | Encounter Summary ---
Author Organization Healthcare Address [address] [place] [address] Care Team Providers Care Still Runner Name Role Phone Unkown, Not Given Primary Care Provider Adriana Stallings APRN Primary Care Provider Encounter Details Date Type Department Care Team (Late st Contact Info) Description 12/20/2023 [facility] [address] [place] [address] Froylan Montilla MD [address] [place] [address] Hand paresthesia (Primary Dx) Social History Tobacco [...] sensation documented in this encounter Care Teams Still Runner Relationship Specialty Start Date End Date Unkown, Not Given [address] [id number] PCP - General 01/16/21 11/05/24 Adriana Boss APRN [address] [place] [address] PCP - General 11/06/24 documented as of this encounter
--- OUTSIDE RECORDS SUMMARY | 2025-01-18 10:30 | XMS_ITS | Encounter Summary ---
Author Organization Healthcare Address [address] [place] [address] Care Team Providers Care Tandem Mill Sticker Name Role Phone GeraAdriana Rosendo LI Primary Care Provider [phone] Encounter Details Date Type Department Care Team (Late st Contact Info) Description 11/06/2024 Telephone [facility] [address] [place] [address] Social History Tobacco Use Types [...] optimal time of day to reach caller: [phone] patient Note: Please do not reply to this message. Follow-up communication and further actions as a result of this message need to be communicated with the patient directly, if the patient is not active onMyChart. If the patient is active on MyChart, they will receive notification of the communication/outcome via [employer]. documented in this encounter Plan of Treatment Not on file documented as of this encounter Visit Diagnoses Not on filedocumented in this encounter Care Teams Tandem Mill Sticker Relationship Specialty Start Date End Date Adriana Boss APRN [facility] [place] [address] PCP - General 11/06/24 documented as of this encounter
--- OUTSIDE RECORDS SUMMARY | 2025-01-18 10:30 | XMS_ITS | Encounter Summary ---
Author Organization Healthcare Address [address] [id number] Care Team Providers Care Assistant Professor Of Dietetics Name Role Phone Adriana Boss APRN Primary Care Provider [phone] Encounter Details Date Type Department Care Team [...] on filedocumented in this encounter Care Teams Assistant Professor Of Dietetics Relationship Specialty Start Date End Date Adriana Boss APRN [address] [place] [address] PCP - General 11/06/24 documented as of this encounter
[2025-01-18 10:49] LABS: Hematocrit 26.7 % (37.0-47.0); Hemoglobin 8.3 g/dL (12.2-16.2); Immature Granulocytes % 0.5 %; Mean Corpuscular HGB Conc 31.1 g/dL (31.8-35.4); Mean Corpuscular Hemoglobin 28.9 pg (27.0-31.2); Mean Corpuscular Volume 93.0 fl (81-99); Nucleated Red Blood Cells % 0 %; Platelet Count 230 K/mm3 (142-424); Red Blood Count 2.87 M/mm3 (4.20-5.40); Red Cell Distribution Width-SD 50.4 fL; White Blood Count 8.8 K/mm3 (4.8-10.8)
[2025-01-18 11:27] LABS: Alanine Aminotransferase 19 U/L (12-78); Albumin Level 3.8 g/dl (3.5-5.0); Albumin/Globulin Ratio 1.5 (1.1-1.8); Aspartate Amino Transferase 29 U/L (14-36); Blood Urea Nitrogen 18 mg/dl (7-17); Carbon Dioxide 26 mmol/L (22.0-30.0); Chloride 104 mmol/L (98-107); Creatinine Clearance Estimated 74 mL/min (50-200); Creatinine,Serum 0.90 mg/dl (0.52-1.04); Estimated Glomerular Filt Rate 61 ml/min (>60); GFR (African American) 74 ML/MIN (>60); Globulin 2.6 g/dL (1.3-3.2); Sodium 141 mmol/L (136-145); Total Protein,Serum 6.4 g/dl (6.3-8.2)
[2025-01-18 11:28] LABS: Glucose 82 mg/dl (74-100)
[2025-01-18 12:01] LABS: Anion Gap 14.3 mEq/L (5-15); Potassium 3.3 mmoL/L (3.5-5.1)
[2025-01-18 12:04] LABS: Alkaline Phosphatase 99 U/L (38-126); Bilirubin,Total 0.2 mg/dl (0.2-1.3); Calcium 8.9 mg/dl (8.4-10.2)
[2025-01-18 12:31] LABS: Barbiturates Screen,Urine Negative ng/ml (<200); Benzodiazepines Screen,Urine Negative ng/ml (<200)
[2025-01-18 12:32] LABS: Amphetamine/Metha Screen,Urine Negative ng/ml (<1000)
[2025-01-18 12:34] LABS: Methadone Screen,Urine Negative ng/ml (<300); Opiate Screen,Urine Negative ng/ml (<300)
[2025-01-18 12:35] LABS: Phencyclidine Screen,Urine Negative ng/ml (<25)
== END 2025-01-18 23:59 | disposition home or self-care (01) ==
LOC: PREOP 10:28
PROVIDERS: PCP Nurse Practitioner; Visit Provider Obstetrics & Gynecology
DX: Z01.812 Encounter for preprocedural laboratory examination (principal)
CPT/HCPCS: 80053; 80307; 85025

== ENCOUNTER 2025-01-21 07:06 | Day surgery (SDC) | payer MEDICARE, SELFPAY ==
[2025-01-18 11:08] VITALS: BMI 38.0
[2025-01-21] VITALS (10 sets, daily range): BP systolic 101–130; BP diastolic 47–88; PULSE 73–84; RESP 16–20; TEMP 36.2–37.1; O2SAT 95–100
--- NOTE | 2025-01-21 07:48 | P.PNANES_ITS ---
[facility] Disclaimer: The information contained in this section may have been updated after the patient was seen, as this information can be updated by other users. Medical History History of pacemaker Thickened endometrium Postmenopausal bleeding History of pacemaker Degenerative disc disease, cervical Negative colorectal cancer screening using DNA-based stool test (~03/26/22) Paresthesia of hand, bilateral Palpitations Normal coronary angiogram Diastolic dysfunction History of cardiac pacemaker in situ Abnormal result of cardiovascular function study Low TSH level Benign cyst of right breast in female Psoriasis Allergic rhinitis Essential hypertension Hyperlipidemia Type 2 diabetes mellitus Breast cyst Surgical History H/O excision of dermoid cyst Family History Other Cancer of kidney Family history of diabetes mellitus type II Family history of hypertension Family history of macular degeneration Family history of osteoporosis Family history of uterine fibroid Prostate cancer Social History Smoking Status: Never smoker alcohol intake: never substance use type: denies use current occupational status: retired Travel in the last 8 weeks?: None household members: family housing: house lives independently: No marital status: caffeine: No Have you lived/traveled outside [place] in past 30 days?: No Contact w/someone who lives/traveled outside US past 30 days?: No Exposure to someone with infectious disease in past 14 days?: No Do you have a fever (greater than 100.4 F or 38 C)?: No Have you tested positive for COVID-19?: No Exposed to someone with COVID-19 in past 14 days?: No Do you have a sore throat?: No Do you have a cough?: No Do you have any weakness?: No Do you have any diarrhea?: No Are you experiencing any unusual bleeding?: No Do you have any muscle aches/pain?: No Do you have any abdominal pain?: No Are you experiencing loss of taste or smell?: No [facility] Anesthesia Checklist Patient Identification Patient Identification: Verbal (Name & ) Structural Data Admitted From: Home Planned Operative Procedure/s: d/c hyst Consent for Planned Operative Procedure(s) Verified: Yes NPO Status Verified Time NPO: 00:00 Additional verifications Anesthesia Reactions: No Hx Blood Transfusions: No Blood Transfusion Reaction: No Airway Assessment Mallampati Score:: Class II C-Spine Mobility Assessed: Yes TMJ Mobility Assessed: Yes Dentition: Good Dentition Neurological Assessment Level of Consciousness: Awake, Alert and Appropriate Anesthesia Plan Anesthesia Risk discussed: Yes Anesthesia Plan: Verified ASA Class: II Anesthesia Type: General
[2025-01-21] MEDS: LACTATED RINGERS 1000ML 1,000 ML 25 ML IV (07:55)
[2025-01-21 08:04] LABS: POC Glucose,Bedside 112 gm/dL (70-110)
[2025-01-21] MEDS: SODIUM CHLORIDE IRRIG SOLUTION 3,000 ML 200 ML IR (08:45)
--- NOTE | 2025-01-21 09:13 | P.OP_ITS ---
Date of procedure: 01/21/25 Pre-op Diagnosis:: 1. Postmenopausal bleeding 2. Thickened endometrium Post-op Diagnosis:: 1. Postmenopausal bleeding 2. Thickened endometrium Procedure performed:: 1. Hysteroscopy, dilation and curettage with sharp curette and Myosure Surgeon:: Kate Burrows DO [employer] Intermediary(s):: N/a TERRITORY SALES MANAGER:: Walter Davila Anesthesia: GETA Estimated blood loss (mL): 0 Clinical Note:: Ms Kelsey Monae is a 75 yo female who presents to [facility] for scheduled procedure. She complains of postmenopausal bleeding. She went through menopause at age 59. On the evening of 01/06 she noticed some cramping and then felt warm and passed a large clot. She went to the ED on 01/06. CT abd/pelvis demonstrated 3.2 x 4.7 x 3.8 cm course calcification within the right adnexa. There was diffuse thickening of the endometrial cavity including the endocervical canal measuring up to 3.7 cm in AP dimension. There is a suspected left fundal fibroid measuring up to 3.2 cm. Hgb 01/06 was 11.4. She states she has been bleeding since. She changes her pad every 4-5 hours. She takes Eliquis and Aspirin. History of cardiac pacemaker, cardiomyopathy, diastolic dysfunction and heart block. She denies lightheadedness, dizziness and shortness of breath. She stopped Eliquis and Aspirin on 01/18. 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 Operative findings:: 1. On bimanual exam, uterus slightly enlarged, midposition 2. On hysteroscopic exam, bilateral tubal ostia not well visualized secondary to diffuse fluffy, almost bubbly appearing endometrial tissue with blood vessels and calcifications throughout Operative note:: Risks, benefits and alternatives were discussed with the patient. Risks include but are not limited to bleeding, infection, uterine perforation and VTE. Patient voiced understanding and agreed to proceed. She was wheeled back to the operating room and placed under general anesthesia without difficulty. She was placed in dorsal lithotomy position and prepped and draped in the normal sterile fashion. Straight catheter was used to drain the bladder. A bimanual exam was performed. A weighted Auvard was placed in the vaginal vault. Single tooth tenaculum was placed on anterior lip of the cervix. Uterus sounded to 9. Sequential Al dilators were used to dilate the cervical os. Hysteroscope was inserted through the cervix without difficulty. Endometrial cavity was evaluated. See findings above. Pictures were taken. Myosure was inserted through the hysteroscope. Myosure curettage was performed per protocol in a 360 degree fashion under direct visualization. A moderate amount of tissue was obtained. Hysteroscope with Myosure was removed. Medium size sharp curette was then inserted through the cervix and into the uterine cavity. Sharp curettage was performed in a 360 degree fashion. Instruments were removed from the vagina. Tenaculum site with small oozing. Tenaculum site was suture ligated with 2-0 Chromic. Hemostasis noted. Patient was awaken from anesthesia without difficulty. She was transported to recovery room in stable condition. Patient will be discharged home when awake and ambulating. She was given postop instructions as well as instructions to follow-up in the office in 2 weeks. Condition: stable Disposition: same day Specimens:: 1. Endometrial curettings Complications:: None
--- NOTE | 2025-01-21 09:18 | EXP.ANES.I ---
[facility] Anesthesia Record Part I Anesthesia Record I Intake, IV Amount: 500 Hydration: Adequate Estimated blood loss (mL): 0 Urine output (mL): 0 Blood Products used (#): none Blood Pressure: 115/63 SaO2: 95 Pulse Rate: 83 Airway Patency: Patent Respiratory Rate: 16 Temperature: 98.3 F Patient is:: Awake and Stable Stable to PACU at:: 09:15
[2025-01-21 09:26] LABS: POC Glucose,Bedside 101 gm/dL (70-110)
[2025-01-21] MEDS: SILVER NITRATE APPLICATOR 1 EACH TP (10:10)
--- NOTE | 2025-01-21 10:48 | EXP.ANES.II ---
[facility] Anesthesia Record Part II Anesthesia Record Part II Discharge Time: 10:25 Destination: Surgical Day Care (OP Surgery) PACU nurse assessment reviewed?: Yes Patient Condition:: Good Anesthesia Complications:: None Swallowing reflex intact?: Yes Airway Patency: Patent Cyanosis?: No Blood Pressure: 121/60 SaO2: 97 Respiratory Rate: 20 Pulse Rate: 82 Temperature: 98.7 F Mental Status: Alert & Oriented Pain level:: 0 Nausea and/or vomitting:: None Intake, IV Amount: 0 Hydration: Adequate
== END 2025-01-21 10:25 | disposition home or self-care (01) ==
PROVIDERS: PCP Nurse Practitioner; Visit Provider Obstetrics & Gynecology
PROC: 0UDB8ZZ Extraction of Endometrium, Via Natural or Artificial Opening Endoscopic (ICD-10-PCS; CPT 58558; principal; 2025-01-21 08:30)
DX: C54.1 Malignant neoplasm of endometrium (principal); N95.0 Postmenopausal bleeding; D21.9 Benign neoplasm of connective and other soft tissue, unspecified; R93.89 Abnormal findings on diagnostic imaging of other specified body structures; I42.9 Cardiomyopathy, unspecified; I45.9 Conduction disorder, unspecified; Z95.0 Presence of cardiac pacemaker; E78.5 Hyperlipidemia, unspecified; E11.9 Type 2 diabetes mellitus without complications; Z79.84 Long term (current) use of oral hypoglycemic drugs; Z79.01 Long term (current) use of anticoagulants; Z79.82 Long term (current) use of aspirin; I10 Essential (primary) hypertension
CPT/HCPCS: 58558; 82962; 88305; 88341; 88342; 88360; J1100; J2003; J2405; J2704; J3010; J7120

== ENCOUNTER 2025-02-04 15:20 | Outpatient (CLI) | payer MEDICARE, SELFPAY ==
--- NOTE | 2025-02-04 15:24 | CT_ITS ---
FINAL REPORT TECHNIQUE: After the administration of intravenous contrast, axial images through the chest were performed by computed tomography.This study was performed with techniques to keep radiation doses as low as reasonably achievable, (ALARA). Individualized dose reduction techniques using automated exposure control or adjustment of mA and/or kV according to the patient''s size were employed. CLINICAL HISTORY: CANCER FINDINGS: There is no axillary adenopathy. There is no hilar or mediastinal adenopathy. There is an incidental right thyroid mass measuring 11 mm. The heart size is normal. There is no pericardial or pleural effusion. Limited images of the upper abdomen are unremarkable. There is a 3 mm subpleural nodule in the right lower lobe considered to be a calcified granuloma. No suspicious infiltrate or nodule identified. IMPRESSION: No evidence of metastatic disease. Reviewed, Interpreted and Dictated by Carmela Ayala MD Transcribed by Jennifer Torres Authenticated and [facility]
[2025-02-04] MEDS: IOPAMIDOL-370 (76%);100ML BOTTLE 75 ML IV (15:58)
[2025-02-04] MEDS: SODIUM CHLORIDE 0.9% 10ML SYR (RAD ONLY) 10 ML IV (15:59)
== END 2025-02-04 23:59 | disposition home or self-care (01) ==
LOC: RAD 15:21
PROVIDERS: PCP Nurse Practitioner; Visit Provider Obstetrics & Gynecology Gynecologic Oncology
DX: C54.1 Malignant neoplasm of endometrium (principal)
CPT/HCPCS: 71260; Q9967

== ENCOUNTER 2025-04-03 10:14 | Outpatient (CLI) | payer MEDICARE, SELFPAY ==
--- OUTSIDE RECORDS SUMMARY | 2025-01-30 13:15 | XMS_ITS | Encounter Summary ---
Author Organization [facility] Address [address] [place] [address] Care Team Providers Care Crime Analyst Name Role Phone Adriana Boss APRN Primary Care Provider [phone] Kate Burrows DO Unavailable [phone] Reason for Referral * Imaging (Routine) - Authorized Specialty Diagnoses / Procedures Referred By Colin lee Referred To Contact Diagnoses Endometrial cancer Procedures CT Chest w IV Contrast Amy Vargas MD [address] [facility] [address] [place] [address] Phone: tel: fax: Referral ID Status Reason Start Date Expiration Date V isits Requested Visits Authorized [id number] Authorized 01/30/2025 08/01/2026 1 1 Reason for Visit * Consultation (Routine) - Closed Specialty Diagnoses / Procedures Referred By Colin lee Referred To Contact Obstetrics and Gynecology Diagnoses Endometrial cancer Kate Burrows DO [facility] [phone] [phone] fax: Referral ID Status Reason Start Date Expiration Date V isits Requested Visits Authorized [id number] Closed Specialty Services Required 01/25/2025 07/27/2026 1 1 Encounter Details Date Type Department Care Team (Late st Contact Info) Description 01/30/2025 2:15 PM EDT Office Visit [facility] [address] [facility] [place] [id number] Amy Vargas MD [address] [facility] [address] [place] [address] Endometrial cancer (Primary Dx); Severe obesity (BMI [...] DO [address] [place], [place] [address] Primary Care Provider: Adriana Boss APRN History [...] had a CT scan,was referred to a CONSERVATION SCIENCE OFFICER who did an US. She then had [...] kidney, GFA - prostate, GFA - hodgkin's [employer] Hx: G0 - adopted children Menopause: ~59 [...] Exam Vitals reviewed. Exam conducted with a genetics nurse present. Constitutional: Appearance: Normal appearance. She is [...] lab orders, phlebotomy, and documentation. MD BARBI [facility] [address] [place] [address] [facility] [address] Dept: [phone] Dept Loc: [phone] Answers submitted by the patient for this [...] 28.30 <=38.00 U/mL 01/30/2025 4:57 PM EDT [facility] Blood Venous blood specimen / Unknown Venipuncture / Unknown 01/30/2025 3:36 PM EDT 01/30/2025 4:16 PM EDT Narrative [facility] - 01/30/2025 4:57 PM EDT Performed by Haydee electrochemiluminescent immunoassay. Results obtained with different test methods or kits cannot be used interchangeably. Amy Vargas MD LAB BLOOD ORDERABLES Veronica l Result Performing Organization Address [facility]/ZIP Co de Phone Number [facility] [address] [place] [address] * Hemoglobin A1c (01/30/2025 3:36 PM EDT) Hemoglobin A1c 5.2 <5.7 % 01/30/2025 6:46 PM EDT [facility] Blood Venous blood specimen / Unknown Venipuncture / Unknown 01/30/2025 3:36 PM EDT 01/30/2025 4:14 PM EDT Narrative [facility] - 01/30/2025 6:46 PM EDT HA1C Interpretive Data: Diagnosis of Diabetes: Diabetic > or = 6.5% Pre-diabetic 5.7 to 6.4% Non-diabetic < or = 5.6% Glycemic Targets for Type I and Type II Diabetics: Non- Adults <7.0% Adults <6.0% Children and Adolescents <7.5% Source: [place] [employer]. Standards of medical care in diabetes,2017. Diabetes Care.2017:40 (suppl 1):S1-S135. us Amy Vargas MD LAB BLOOD ORDERABLES Veronica l Result Performing Organization Address [facility] Co de Phone Number [facility] [address] [place] [address] * (ABNORMAL) Comprehensive metabolic panel (01/30/2025 3:36 PM EDT) Glucose, Plasma 69(L) 74 - 99 mg/dL 01/30/2025 4:46 PM EDT [facility] BUN, Plasma 19 8 - 23 mg/dL 01/30/2025 4:46 PM EDT [facility] Creatinine, Plasma 0.78 0.60 - 1.10 mg/dL 01/30/2025 4:46 PM EDT [facility] BUN/Creatinine Ratio 24 01/30/2025 4:46 PM EDT [facility] Sodium, Plasma 142 136 - 145 mmol/L 01/30/2025 4:46 PM EDT [facility] Potassium, Plasma 3.7 3.6 - 4.9 mmol/L 01/30/2025 4:46 PM EDT [facility] Chloride, Plasma 106 97 - 107 mmol/L 01/30/2025 4:46 PM EDT [facility] CO2, Plasma 26 22 - 29 mmol/L 01/30/2025 4:46 PM EDT [facility] Anion Gap 10 6 - 16 mmol/L 01/30/2025 4:46 PM EDT [facility] Total Calcium, Plasma 9.4 8.9 - 10.2 mg/dL 01/30/2025 4:46 PM EDT [facility] Total Protein 7.1 6.3 - 7.9 g/dL 01/30/2025 4:46 PM EDT [facility] Albumin, Plasma 4.0 3.5 - 5.2 g/dL 01/30/2025 4:46 PM EDT [facility] AST, Plasma 22 10 - 35 U/L 01/30/2025 4:46 PM EDT [facility] ALT, Plasma 12 10 - 35 U/L 01/30/2025 4:46 PM EDT [facility] Alkaline Phosphatase, Plasma 83 46 - 142 U/L 01/30/2025 4:46 PM EDT [facility] Total Bilirubin, Plasma 0.4 0.2 - 1.1 mg/dL 01/30/2025 4:46 PM EDT [facility] eGFRcr 78.8 mL/min/1.7 3m*2 01/30/2025 4:46 PM EDT [facility] Comment:Reported eGFRcr in m L/min/1.73m2 is based the CKD-EPI 2020 equation that does not use a race coefficient. Blood Venous blood specimen / Unknown Venipuncture / Unknown 01/30/2025 3:36 PM EDT 01/30/2025 4:16 PM EDT us Amy Vargas MD LAB BLOOD ORDERABLES Veronica l Result [facility] [address] [place] [address] * (ABNORMAL) CBC and Differential (01/30/2025 3:36 PM EDT) WBC Count 6.81 3.70 - 10.30 10*3/uL LAB HEMATOLOGY METHOD 01/30/2025 4:29 PM EDT [facility] RBC Count 3.11(L) 3.90 - 5.20 10*6/uL LAB HEMATOLOGY METHOD 01/30/2025 4:29 PM EDT [facility] HGB 8.7(L) 11.2 - 15.7 g/dL LAB HEMATOLOGY METHOD 01/30/2025 4:29 PM EDT [facility] HCT 28.1(L) 34.0 - 45.0 % LAB HEMATOLOGY METHOD 01/30/2025 4:29 PM EDT [facility] Platelet Count 231 155 - 369 10*3/uL LAB HEMATOLOGY METHOD 01/30/2025 4:29 PM EDT [facility] MCV 90 79 - 98 fL LAB HEMATOLOGY METHOD 01/30/2025 4:29 PM EDT [facility] MCH 28.0 26.0 - 32.0 pg LAB HEMATOLOGY METHOD 01/30/2025 4:29 PM EDT [facility] MCHC 31.0 30.7 - 35.5 g/dL LAB HEMATOLOGY METHOD 01/30/2025 4:29 PM EDT [facility] RDW 15.7(H) 11.5 - 14.5 % LAB HEMATOLOGY METHOD 01/30/2025 4:29 PM EDT [facility] MPV 10.3 8.8 - 12.5 fL LAB HEMATOLOGY METHOD 01/30/2025 4:29 PM EDT [facility] nRBC 0.0 <=0.0 per 100 WBCs LAB HEMATOLOGY METHOD 01/30/2025 4:29 PM EDT [facility] Differential Type Automated LAB HEMATOLOGY METHOD 01/30/2025 4:29 PM EDT [facility] Neutrophils % 65 % LAB HEMATOLOGY METHOD 01/30/2025 4:29 PM EDT [facility] Lymphocytes % 23 % LAB HEMATOLOGY METHOD 01/30/2025 4:29 PM EDT [facility] Monocytes % 10 % LAB HEMATOLOGY METHOD 01/30/2025 4:29 PM EDT [facility] Eosinophils % 2 % LAB HEMATOLOGY METHOD 01/30/2025 4:29 PM EDT [facility] Basophils % 0 % LAB HEMATOLOGY METHOD 01/30/2025 4:29 PM EDT [facility] Immature Granulocytes % 0 % LAB HEMATOLOGY METHOD 01/30/2025 4:29 PM EDT [facility] Neutrophils Absolute 4.39 1.60 - 6.10 10*3/uL LAB HEMATOLOGY METHOD 01/30/2025 4:29 PM EDT [facility] Lymphocytes Absolute 1.56 1.20 - 3.90 10*3/uL LAB HEMATOLOGY METHOD 01/30/2025 4:29 PM EDT [facility] Monocytes Absolute 0.65 0.30 - 0.90 10*3/uL LAB HEMATOLOGY METHOD 01/30/2025 4:29 PM EDT [facility] Eosinophils Absolute 0.15 0.00 - 0.50 10*3/uL LAB HEMATOLOGY METHOD 01/30/2025 4:29 PM EDT [facility] Basophils Absolute 0.03 0.00 - 0.10 10*3/uL LAB HEMATOLOGY METHOD 01/30/2025 4:29 PM EDT [facility] Immature Granulocytes Absolute 0.03 0.00 - 0.06 10*3/uL LAB HEMATOLOGY METHOD 01/30/2025 4:29 PM EDT [facility] Blood Venous blood specimen / Unknown Venipuncture / Unknown 01/30/2025 3:36 PM EDT 01/30/2025 4:14 PM EDT Narrative [facility] - 01/30/2025 4:29 PM EDT Therapeutic decision making should be based on absolute values, rather than percentages. us Amy Vargas MD LAB BLOOD ORDERABLES Veronica bray Result [facility] [address] [place] [address] documented in this encounter Visit Diagnoses Diagnosis [...] documented as of this encounter Care Teams Crime Analyst Relationship Specialty Start Date End Date Adriana Boss APRN [address] [place] [id number] PCP - General 11/06/24 Kate Burrows DO [facility] [id number] Referring Physician Obstetrics and Gynecology 01/25/25 documented as of this encounter
--- OUTSIDE RECORDS SUMMARY | 2025-02-07 09:10 | XMS_ITS | Encounter Summary ---
Author Organization [facility] Address [address] [place] [address] Care Team Providers Care Revenue Officer Name Role Phone Adriana Boss APRN Primary Care Provider [phone] Stormy Kate DO Unavailable [phone] Reason for Visit * Auth/Cert (Routine) Specialty Diagnoses / Procedures Referred By Contac t Referred To Contact Diagnoses Endometrial cancer Endometrial cancer [C54.1] Procedures DE LAPAROSCOPY W TOT HYSTERECTUTERUS <=250 GRAM W TUBE/OVARY DE INTRAOPERATIVE SENTINEL LYMPH NODE ID W DYE INJECTION DE LAP,LYMPH NODE BX DE REMOVAL OF OMENTUM Robot TLHBSO, SLN, OMENTECTOMY Amy Vargas MD 800 [facility] Brenda More [address] [address] Phone: tel: fax: [facility] ROOM [address] [place] [address] Phone: tel: Referral ID Status Reason Start Date Expiration Date Visits Re quested Visits Authorized [id number] 1 4 Encounter Details Date Type Department Care Team (Late st Contact Info) Description 02/07/2025 10:10 AM EDT - 02/07/2025 3:00 PM EDT Hospital Encounter [facility] RO[facility] [address] [place] [address] Amy Vargas MD 800 [facility] Derik [facility] [address] [address] Pacemaker (Primary Dx) Discharge Disposition: Home or Self Care Social History Tobacco Use Types Packs/Day Years Used Date Smoking Tobacco: Never Smokeless Tobacco: Never Alcohol Use Standard Drinks/Week Comments Never 0 (1 standard drink = 0.6 oz pur e alcohol) PHQ-2 Answer Date Recorded Patient Health Questionnaire-2 Score 0 01/30/2025 Comments No Sex and Gender Information Value Date Recorded Sex Assigned at Not on file Legal Sex Female 4:24 PM EDT Gender Identity Not on file Sexual Orientation Not on file documented as of this encounter Last Filed Vital Signs Vital Sign Reading Time Taken Comments Blood Pressure 104/76 02/07/2025 12:34 PM EDT Pulse 89 02/07/2025 12:34 PM EDT Temperature 36.6 C (97.8 F) 02/07/2025 12:34 PM EDT Respiratory Rate 22 02/07/2025 12:34 PM EDT Oxygen Saturation 100% 02/07/2025 12:34 PM EDT Inhaled Oxygen Concentration - - Weight 98 kg (216 lb 0.8 oz) 02/07/2025 12:26 PM EDT Height - - Body Mass Index 38.27 01/30/2025 2:01 PM EDT documented in this encounter Functional Status * Backup Resp Rate (Set) Answer Date of Assessment Author 14 02/12/2025 2:48 PM EDT Interface , Device In * Question Answer Date of Assessment Author Precautions Environmental surveillance 02/13/2025 10: 00 AM EDT Abbey Scott * Question Answer Date of Assessment Author Precautions Environmental surveillance 02/13/2025 10: 00 AM JEANAT Abbey Scott * Over the past 2 weeks, how [...] 0 01/16 2:13 PM EDT Taylor Olivera * Calculated C-SSRS Risk Score (Lifetime/Recent) Answer Date of Assessment Author No Risk Indicated 02/12/2025 10:00 PM EDT Krystal Sims RN * Question Answer Date of Assessment Author 1. Wish to be (Past 1 Month) No 025 10:00 PM EDT Krystal Sims RN 2. Non-Specific Active Suici marivel Thoughts (Past 1 Month) No 02/12/2025 10:00 PM EDT Kiley Sims RN 6. Suicidal Behavior (Lifetime) No 10:00 PM EDT Krystal Sims RN documented as of this encounter Mental Status * Backup Resp Rate (Set) Answer Entry Date Author 14 02/12/2025 2:48 PM EDT Interface , Device In * Question Answer Entry Date Author Precautions Environmental surveillance 02/13/2025 10: 00 AM EDT Abbey Scott documented in this encounter Discharge Instructions * Discharge Instructions* Meme Hardy MD - 02/07/2025 1:03 PM EDT Follow-Up / Post Discharge Instructions Medication Recommendations: - Okay to resume home medications - Take all medications as prescribed. - Acetaminophen (Tylenol) 650mg every 4-hrs alternating with ibuprofen 600mg every 6hrs for pain control. - Take oxycodone 5mg q4h prn pain Activity recommendations + restrictions: - Do not lift > 5lbs - Okay to resume regular diet at home - Move around as you are able - No driving for 24hours or while taking narcotic pain medications - Nothing in the vagina for 8 weeks - no tampons/sex/douching - Okay to shower, no tub bath for 8 weeks - No submersion in water including pools, hot tubs, etc for 8 weeks - Leave steri strips in place. If still present after 10 days, can remove. - Let warm soapy water run over incision, do not scrub. Pat dry. Call MD marketing operations manager for [facility] service if: - you have a fever of 100.4 F or more - vaginal bleeding similar to a period - uncontrolled pain - difficulty with urination - persistent nausea/vomiting [facility] [address], [place] [address] After Hours Paging Recreation Activities Coordinator: [phone] documented in this encounter Medications at Time of Discharge acetaminophen (Tylenol) 325 MG tablet Take 2 tablets by mouth every 6 hours. 100 tablet 02/13/2025 apixaban (Eliquis) 5 MG tablet Take 1 tablet by mouth 2 times a day. ASPIRIN 81 MG chewable tablet Chew 1 tablet daily. atenolol (Tenormin) 50 MG tablet Take 1 tablet by mouth 2 times a day. One pill in the morning. Two in the evening. benazepril (Lotensin) 10 MG tablet Take 1 tablet by mouth daily. carboxymethylcellul ose PF (Refresh Plus) 0.5 % ophthalmic solution Administer 1 drop into both eyes as needed for dry eyes. 1 each 02/13/2025 dulaglutide (Trulicity) 1.5 MG/0.5ML solution auto-injector Inject 1.5 mg under the skin 1 time per week. fluticasone (Flonase) 50 MCG/ACT nasal spray Administer 1 spray into each nostril daily. Shake gently. Before first use, prime pump. After use, clean tip and replace cap. glimepiride (Amaryl) 4 MG tablet Take 1 tablet by mouth daily before breakfast. ibuprofen 600 MG tablet Take 1 tablet by mouth every 6 hours as needed for mild pain. 30 tablet 02/13/2025 ondansetron ODT (Zofran-ODT) 4 MG disintegrating tablet Dissolve 1 tablet on the tongue every 6 hours as needed for nausea or vomiting. 20 tablet 02/13/2025 oxyCODONE (Roxicodone) 5 MG immediate release tablet Take 1 tablet by mouth every 4 hours as needed for severe pain. 3 tablet 02/13/2025 potassium chloride (Klor-Con) 20 MEQ packet Take 20 mEq by mouth 2 times a day. Dissolve packet in at least 4 oz (115 ml) of water senna-docusate sodium (Senokot-S) 8.6-50 MG tablet Take 2 tablets by mouth daily. 60 tablet 11 02/13/2025 simvastatin (Zocor) 40 MG tablet Take 1 tablet by mouth nightly. triamterene-hydroch lorothiazide (Maxzide-25) 37.5-25 MG tablet Take 1 tablet by mouth daily. enoxaparin (Lovenox) 40 MG/0.4ML solution prefilled syringe Inject 0.4 mL under the skin daily for 1 day. 0.4 mL 02/14/2025 documented as of this encounter Miscellaneous Notes * H&P - Meme Hardy MD - 02/07/2025 12:48 PM EDT [facility] Gynecologic Oncology Preoperative History and Physical HPI Kelsey Monae is a 75 y.o. No obstetric history on file. with grade 3 EAC presenting for scheduled surgery today, to undergo RA TLH/BSO/SLND,OMX with [facility] surgeon, Dr. Vargas. Past Oncology History Oncology History No problem history exists. OB History No obstetric history on file. Past Medical History[1] Surgical History[2] Social History Socioeconomic History Marital status: Spouse name: Not on file Number of children: Not on file Years of education: Not on file Highest education level: Not on file Occupational History Not on file Tobacco Use Smoking status: Never Smokeless tobacco: Never Substance and Sexual Activity Alcohol use: Not on file Drug use: Not on file Sexual activity: Not on file Other Topics Concern Not on file Social History Narrative Not on file Social Drivers of Health Financial Resource Strain: Not on file Food Insecurity: Not on file Transportation Needs: Not on file Physical Activity: Not on file Stress: Not on file Social Connections: Not on file Intimate Partner Violence: Not on file Housing Stability: Not on file Family History[3] Current Medications Current Outpatient Medications Medication Instructions apixaban (ELIQUIS) 5 mg, 2 times daily aspirin (ASPIRIN) 81 mg, Daily atenolol (TENORMIN) 50 mg, 2 times daily benazepril (LOTENSIN) 10 mg, Daily fluticasone (Flonase) 50 MCG/ACT nasal spray 1 spray, Daily glimepiride (AMARYL) 4 mg, Daily before breakfast potassium chloride (Klor-Con) 20 MEQ packet 20 mEq, 2 times daily simvastatin (ZOCOR) 40 mg, Nightly triamterene-hydrochlorothiazide (Maxzide-25) 37.5-25 MG tablet 1 tablet, Daily Trulicity 1.5 mg, Weekly Allergies Allergies[4] Objective There were no vitals taken for this visit. There is no height or weight on file to calculate BMI. No intake or output data in the 24 hours ending 02/05/251704 PHYSICAL EXAM Constitutional: No acute distress, well appearing and well nourished. Cardiovascular: Normal rate. No peripheral edema. Pulmonary: No increased work of breathing or signs of respiratory distress. Abdomen: Soft, nontender to palpation. Neurologic: Moves all extremities equally. Psychiatric: Mood and affect were normal. Labs Lab Results Component Value Date WBC 6.81 01/30/2025 HGB 8.7 (L) 01/30/2025 HCT 28.1 (L) 01/30/2025 MCV 90 01/30/2025 PLT 231 01/30/2025 Lab Results Component Value Date GLUCOSE 69 (L) 01/30/2025 CALCIUM 9.4 01/30/2025 NA 142 01/30/2025 K 3.7 01/30/2025 CO2 26 01/30/2025 CL 106 01/30/2025 BUN 19 01/30/2025 CREATININE 0.78 01/30/2025 Lab Results Component Value Date CALCIUM 9.4 01/30/2025 Lab Results Component Value Date CA125 28.30 01/30/2025 Assessment/Plan Assessment/Plan 75 y.o. No obstetric history on file. with grade 3 EAC presenting for scheduled surgery today, to undergo RA TLH/BSO/SLND,OMX # Grade 3 EAC - Presented with PMB - Dx via D&C - TVUS 01/15/25 Uterus 9.2x6.9x4.6cm with stripe 28mm R ovary with 4.2x2.8x2.7 calcified area - CT A/P w con 01/06/25: No LAD, enlarged uterus, calcification R adnexa # Chronic Medical Conditions - Afib: pacemaker, on eliquis and ASA- held preop - Carpal tunnel - Psoriasis - DM: takes glimepiride and Trulicity - HTN: takes Lotensin, and triamterene-hydrochlorothiazide - HLD: takes simvastatin - Obesity: complicates all aspects of care # FEN/Prophylaxis - NPO/IV Fluids - Heparin administered preoperatively - SCDs Dispo: To OR for RA TLH/BSO/SLND,OMX. Patient care seen in preo-op with [facility] Attending, Dr. Vargas. For any questions or concerns regarding this patient's care, please call [facility] by paging [phone]. Meme Hardy MD PGY3 Obstetrics and Gynecology [1] Past Medical History: Diagnosis Date Atrial fibrillation (CMS/HCC) Diabetes mellitus Hypertension [2] No past surgical history on file. [3] Family History Problem Relation Name Age of Onset Kidney cancer Father Prostate cancer Maternal Grandfather Hodgkin's lymphoma Maternal Grandfather [4] No Known Allergies Cosigned by Amy Vargas MD at 02/07/2025 2:37 PM EDT Associated attestation - Amy Vargas MD - 02/07/2025 2:37 PM EDT I saw and evaluated the patient with the resident/fellow. I discussed the case with the resident/fellow and agree with the findings and plan as documented. OR delay in getting her to room. I don't think robot would even be docked by 5:30 or 6pm. We will cancel for today and reschedule for Tuesday. Amy Vargas MD documented in this encounter Plan of Treatment Not on file documented as of this encounter Procedures Procedure Name Priority Date/Time Associated Diagnosis Comments CBC W/O DIFFERENTIAL Routine 02/07/2025 1:18 PM EDT TYPE AND SCREEN Routine 02/07/2025 1:18 PM EDT POCT GLUCOSE METER UNSOLICITED RESULTS Routine 02/07/2025 1:12 PM EDT documented in this encounter Results * Type and screen (02/07/2025 1:18 PM EDT) ABO/Rh O Positive 02/07/2025 1:26 PM EDT CH BLOOD BANK Antibody Screen Negative 02/07/2025 1:26 PM EDT BLOOD BANK Specimen Expiration 02/10/2025 23:59 02/07/2025 1:26 PM EDT BLOOD BANK Blood Venous blood specimen / Unknown Venipuncture / Unknown 02/07/2025 1:18 PM EDT 02/07/2025 1:26 PM EDT us Alfredo Almaraz MD LAB BLOOD BANK TEST ORDERABLES Final Result BLOOD BANK [address] [place] [address], * (ABNORMAL) CBC (02/07/2025 1:18 PM EDT) WBC Count 5.78 3.70 - 10.30 10*3/uL LAB HEMATOLOGY METHOD 02/07/2025 1:34 PM EDT [facility] RBC Count 3.19(L) 3.90 - 5.20 10*6/uL LAB HEMATOLOGY METHOD 02/07/2025 1:34 PM EDT [facility] HGB 8.6(L) 11.2 - 15.7 g/dL LAB HEMATOLOGY METHOD 02/07/2025 1:34 PM EDT [facility] HCT 27.7(L) 34.0 - 45.0 % LAB HEMATOLOGY METHOD 02/07/2025 1:34 PM EDT [facility] Platelet Count 184 155 - 369 10*3/uL LAB HEMATOLOGY METHOD 02/07/2025 1:34 PM EDT [facility] MCV 87 79 - 98 fL LAB HEMATOLOGY METHOD 02/07/2025 1:34 PM EDT [facility] MCH 27.0 26.0 - 32.0 pg LAB HEMATOLOGY METHOD 02/07/2025 1:34 PM EDT [facility] MCHC 31.0 30.7 - 35.5 g/dL LAB HEMATOLOGY METHOD 02/07/2025 1:34 PM EDT [facility] RDW 15.0(H) 11.5 - 14.5 % LAB HEMATOLOGY METHOD 02/07/2025 1:34 PM EDT [facility] MPV 10.1 8.8 - 12.5 fL LAB HEMATOLOGY METHOD 02/07/2025 1:34 PM EDT [facility] nRBC 0.0 <=0.0 per 100 WBCs LAB HEMATOLOGY METHOD 02/07/2025 1:34 PM EDT [facility] Blood Venous blood specimen / Unknown Venipuncture / Unknown 02/07/2025 1:18 PM EDT 02/07/2025 1:27 PM EDT us Alfredo Almaraz MD LAB BLOOD ORDERABLES Final Resu lt Performing Organization Address City/[facility] Co de Phone Number [facility] [address] [place] [address] * (ABNORMAL) POCT glucose meter (02/07/2025 1:12 PM EDT) [facility] POCT Glucose 106(H) 74 - 99 mg/dL 02/07/2025 1:14 PM EDT [facility] Comment:Accuracy of a glucos e result obtained from a capillary whole blood specimen relies upon adequate, non-compromised capillary blood flow. If the capillary glucose result is not consistent with the patient's clinical signs and symptoms, glucose testing should be repeated with either an arterial or venous sample on the glucometer or sent to the main labortory for testing. Comment 02/07/2025 1:14 PM EDT [facility] LAB Recreation Activities Coordinator ID Jenni Wells 02/07/2025 1:14 PM EDT [facility]ALTH[facility]ARE LAB Device ID [id number] 02/07/2025 1:14 PM EDT [facility] Specimen Type POC Venous 02/07/2025 1:14 PM EDT [facility] Blood Venous blood specimen / Unknown 02/07/2025 1:12 PM EDT 02/07/2025 1:14 PM EDT us Amy Vargas MD LAB POINT OF CARE TEST DOCKED DEVICE UNSOLICITED RESULTS Final Result Performing Organization Address City/[facility]/ZIP Co de Phone Number [facility] [address] [place] [address] documented in this encounter Visit Diagnoses Diagnosis Pacemaker- Primary Cardiac pacemaker in situ documented in this encounter Administered Medications Inactive Administered Medications - up to 3 most recent administrations Medication Order MAR Action Action Date Dose Rate Site lidocaine (Xylocaine) 1 % injection 0.5 mL 0.5 mL, Injection, Once as needed, 1 dose, Starting on Stefanie 02/07/25 at 1231, Until Stefanie 02/07/25 at 1843, Routine, Holding - Preprocedure, If needed to start an IV. sodium chloride 0.9 % flush 10 mL 10 mL, Intravenous, Every 12 hours, First dose on Stefanie 02/07/25 at 1330, Until Discontinued, Routine, Holding - Preprocedure sodium chloride 0.9 % flush 10 mL 10 mL, Intravenous, As needed, Starting on Stefanie 02/07/25 at 1231, Until Stefanie 02/07/25 at 1843, Routine, Holding - Preprocedure, line care documented in this encounter Active and Recently Administered Medications Times are shown in EDT. Scheduled Medication Order 02/05/2025 02/06/2025 02/07/2025 lactated Ringer's infusion 100 mL/hr, Intravenous, Once, 1 dose, On Stefanie 02/07/25 at 1330, Routine 1330 (Canceled Entry - Provider: Automatic Discharge Provider - Comment: Automatically canceled at discontinue of medication order) sodium chloride 0.9 % flush 10 mL(Linked Group 1) 10 mL, Intravenous, Every 12 hours, First dose on Stefanie 02/07/25 at 1330, Until Discontinued, Routine, Holding - Preprocedure 1330 (Canceled Entry - Provider: Automatic Discharge Provider - Comment: Automatically canceled at discontinue of medication order) PRN Medication Order 02/05/2025 02/06/2025 02/07/2025 lidocaine (Xylocaine) 1 % injection 0.5 mL 0.5 mL, Injection, Once as needed, 1 dose, Starting on Stefanie 02/07/25 at 1231, Until Stefanie 02/07/25 at 1843, Routine, Holding - Preprocedure, If needed to start an IV. sodium chloride 0.9 % flush 10 mL(Linked Group 1) 10 mL, Intravenous, As needed, Starting on Stefanie 02/07/25 at 1231, Until Stefanie 02/07/25 at 1843, Routine, Holding - Preprocedure, line care Linked Groups Order Group 1: Insert peripheral IV (CANCELED) Once, On Stefanie 02/07/25 at 1232, For 1 occurrence, Holding - Preprocedure And Saline lock IV (CANCELED) Once, On Stefanie 02/07/25 at 1232, For 1 occurrence, Holding - Preprocedure And sodium chloride 0.9 % flush 10 mLJump to med 10 mL, Intravenous, Every 12 hours, First dose on Stefanie 02/07/25 at 1330, Until Discontinued, Routine, Holding - Preprocedure And sodium chloride 0.9 % flush 10 mLJump to med 10 mL, Intravenous, As needed, Starting on Stefanie 02/07/25 at 1231, Until Stefanie 02/07/25 at 1843, Routine, Holding - Preprocedure, line care documented in this encounter Additional Health Concerns Assessment Noted Time A fall risk assessment has been complete d for the patient 01/30/2025 2:13 PM EDT A Body Mass Index follow-up plan has been documented for the patient 01/20/2025 2:21 PM EDT documented as of this encounter Care Teams Revenue Officer Relationship Specialty Start Date End Date Adriana Boss APRN [address] [place] [id number] PCP - General 11/06/24 Kate Burrows DO [facility] [id number] Referring Physician Obstetrics and Gynecology 01/25/25 documented as of this encounter
--- OUTSIDE RECORDS SUMMARY | 2025-02-07 14:00 | XMS_ITS | Encounter Summary ---
Author Organization [facility] Address [address] [place] [address] Care Team Providers Care Market Research Executive Name Role Phone Adriana Boss APRN Primary Care Provider [phone] Kate Burrows DO Unavailable [phone] Reason for Visit * Auth/Cert (Routine) Specialty Diagnoses / Procedures Referred By Contac t Referred To Contact Diagnoses Endometrial cancer Endometrial cancer [C54.1] Procedures SD LAPAROSCOPY W TOT HYSTERECTUTERUS <=250 GRAM W TUBE/OVARY SD INTRAOPERATIVE SENTINEL LYMPH NODE ID W DYE INJECTION SD LAP,LYMPH NODE BX SD REMOVAL OF OMENTUM Robot TLHBSO, SLN, OMENTECTOMY Amy Vargas MD [address] [address] Phone: tel: fax: [facility] [address] [place] [address] Phone: tel: Referral ID Status Reason Start Date Expiration Date Visits Re quested Visits Authorized [id number] 1 4 Encounter Details Date Type Department Care Team (Late st Contact Info) Description 02/07/2025 3:00 PM EDT Anesthesia Event [facility] [address] [place] [address] Alfredo Almaraz MD [address] [place] [address] Eliecer Ghosh DO [address] [place] [address] Anesthesia Record Procedure Summary Procedure [...] arthritis. Does not have cervical spine instability. [facility]/Integ additional comments: Hx of psoriasis, not on [...] documented as of this encounter Care Teams Market Research Executive Relationship Specialty Start Date End Date Adriana Boss APRN [facility] [place], [place] [id number] PCP - General 11/06/24 Kate Burrows DO [facility] [address] Referring Physician Obstetrics and Gynecology 01/25/25 documented as of this encounter
--- OUTSIDE RECORDS SUMMARY | 2025-02-08 15:28 | XMS_ITS | Encounter Summary ---
Author Organization [facility] Address [address] [place] [address] Care Team Providers Care Glass Installer Technician Name Role Phone Adriana Boss APRN Primary Care Provider [phone] Delfina Burrowsnifer DO Unavailable [phone] Encounter Details Date Type Department Care Team (Latest Contact Info) Description 02/08/2025 4:28 PM EDT - 02/08/2025 11:59 PM EDT Hospital Encounter Cardiac Imaging [address] [place] [address] AV block, 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) Discharge Disposition: [...] as of this encounter Functional Status * Backup Resp [...] Modality Other Narrative 02/08/2025 4:53 PM EDT [facility]: Pre-operative CIED Report Assessment and Yola-Procedural Reommendations: Name: Kelsey Monae Date: 02/08/2025 : 1950 Age: 75 y.o. Patient has a Senior Core Java Developer: [place] [employer] HISTORIAN-PM Remaining battery longevity adequate. Lead integrity test [...] recommendations. Supporting reports can be found in [employer] media file. Min Crowe MD CV IMPLANTABLE [...] documented as of this encounter Care Teams Glass Installer Technician Relationship Specialty Start Date End Date Adriana Boss APRN [address] [place] [address] PCP - General 11/06/24 Kate Burrows DO [facility] [address] Referring Physician Obstetrics and Gynecology 01/25/25 documented as of this encounter
--- OUTSIDE RECORDS SUMMARY | 2025-02-12 08:21 | XMS_ITS | Encounter Summary ---
Author Organization [facility] Address [address] [place] [address] Care Team Providers Care Custom Tailor Name Role Phone Adriana Boss APRN Primary Care Provider [phone] Stormy Kate DO Unavailable [phone] Reason for Visit * Auth/Cert (Routine) Specialty Diagnoses / Procedures Referred By Colin t Referred To Contact Diagnoses Endometrial cancer Endometrial cancer [C54.1] Procedures AL LAPAROSCOPY W TOT HYSTERECTUTERUS <=250 GRAM W TUBE/OVARY AL REMOVAL OF OMENTUM AL INTRAOPERATIVE SENTINEL LYMPH NODE ID W DYE INJECTION AL LAP,LYMPH NODE BX ROBOT TLHBSO, SLN, OMENTECTOMY Amy Vargas MD [address] [facility] Brenda More [address] [address] Phone: tel: fax: [facility]PERATING RO[facility] [address] [place] [address] Phone: tel: Referral ID Status Reason Start Date Expiration Date Visits Re quested Visits Authorized [id number] 1 1 Encounter Details Date Type Department Care Team (Late st Contact Info) Description 02/12/2025 9:21 AM EDT - 02/13/2025 2:09 PM EDT Hospital Encounter [facility] H Inpatient [address] [place] [address] Amy Vargas MD [address] [facility] Brenda More [facility] [address], [place] [address] Endometrial cancer Discharge Disposition: Home or Self Care Social [...] Sign Reading Time Taken Comments Blood Pressure 134/79 02/13/2025 1:11 PM EDT Pulse 94 02/13/2025 1:11 PM EDT Temperature 36.7 C (98.1 F) 02/13/2025 1:11 PM EDT Respiratory Rate 18 02/13/2025 1:11 PM EDT Oxygen Saturation 95% 02/13/2025 1:11 PM EDT Inhaled Oxygen Concentration - - Weight 101 kg (223 lb 5.2 oz) 02/12/2025 9:39 PM EDT Height 160 cm (5' 3 ) 02/12/2025 3:10 PM EDT Body Mass Index 39.56 02/12/2025 3:10 PM EDT documented in this encounter Functional [...] this encounter Discharge Instructions * Discharge Instructions* Dori Caputo MD - 02/13/2025 7:53 AM EDT Images from the original note were not included. Caring for Yourself after Minimally Invasive Hysterectomy Medications: - take one lovenox injection on 02/14 - resume taking home eliquis and aspirin as previously prescribed on 02/15 - take pain medication and stool softeners as detailed below Follow up: - you will have a follow up appointment about 4 weeks after surgery. If you need to see a provider before your follow up, there are several options call your doctor to schedule an appointment: [phone] Visit the gynecologic oncology Walk-In Clinic which is open Tuesday-Tuesday 8am- 10am. It is helpful if you call the clinic before arrival: [phone] Call the Cancer acute Treatment Clinic. Same day-appointments are available Tuesday-Tuesday 8am-5pm. Please call [phone] before arrival to schedule a visit Fever - If you feel feverish or have chills, take your temperature. - Call your doctor if your temperature is 100.4 degrees or above. This can be a sign of an infection Activity Do - Walk every day. You may get tired quickly and need to take breaks. - You can go up and down stairs. Don???t - Do not put anything in the vagina for at least 6 weeks or until approved by your provider (no sexual intercourse, tampons, medicines, or douching). - No tub baths or swimming until after your follow-up appointment. - Please avoid heavy lifting (over 10 pounds) or strenuous exercise for at least 6 weeks. - Do not drive while taking narcotic pain medicine. Do not drive until soreness from surgery goes away. Pain Control - We recommend alternating acetaminophen (Tylenol) and ibuprofen (Motrin) around the clock for the first few days. For example, take 600 mg of ibuprofen, then 3 hours later, take 650 mg of acetaminophen. Three hours later, you will be due for another dose of ibuprofen. - For severe pain not relieved by this, take oxycodone (narcotic pain medicine) as needed. Do not take it more than every 4-6 hours. Incisions - Check your incision daily. - Call your doctor if you notice any of these: increased redness swelling bleeding pus-like drainage clear drainage that does not stop - Your incisions are closed with a suture that will slowly dissolve. You do not need to have it removed. They are covered with dermabond, a skin glue. - You may shower 24 hours after surgery. Let soapy water run over the incisions and pat dry. - You may peel off the skin glue 1-2 weeks after surgery. Bowel Movements - It may take a few days for bowel movements to return to normal. The bowels slow after surgery because of stress, diet changes, inactivity, and narcotic pain medicines. - To get your bowels moving, you may take a mild laxative (Senna). If there is no bowel movement byday 4 or 5, you may add Miralax or Milk of Magnesia. - High fiber foods and drinking more water can also help prevent constipation. - Call your doctor if the constipation is not relieved. - It is normal to have a small amount of clear yellow drainage from the incision. Nutrition - You may eat your regular diet. Drink plenty of water. - Call your doctor for nausea and vomiting that lasts over 24 hours. Vaginal Discharge and Bleeding - There are absorbable sutures at the top of the vagina. You may have light spotting and vaginal discharge for several weeks after surgery. - Please call your doctor if you have heavy bleeding. Important Phone Numbers 8 a.m.-4:30 p.m.: call the Gynecologic Oncology Clinic at [phone]. 4:30 p.m.-8 a.m.: call the [employer] After Hours Paging [facility] at [phone] and ask for the Gynecologic Oncology provider on-call. documented in this encounter Medications at Time [...] as of this encounter Miscellaneous Notes * Discharge Summary - Fariba Lowery MD - 02/13/2025 2:09 PM EDT Images from the original note were not included. Hospitalization Admit Date/Time: 02/12/2025 9:21 AM Admitting Attending: Amy Vargas Discharge Date: 02/13/25 Discharge Attending Physician: Amy Vargas MD PCP name and Address: Adriana Boss, LAWN SPECIALIST [address] [facility] [place] [address] Referring provider name and address: Kate Burrows, DO [address] [place] [address] Chief Concern, Brief History of Present Illness, and Hospital Course Kelsey Monae is a 75 y.o. with G3 EAC admitted for surgical management who underwent RA-TLH/BSO/omental biopsy on 02/12. The operation was uncomplicated and the patient tolerated the procedure well.See operative report for full details. Final pathology pending at time of discharge. Following surgery, the patient received routine post-operative care. Home medications were restarted. The patient was treated with heparin and Pepcid for DVT and GI prophylaxis, respectively. Her pain was controlled with PO medications. Her diet was advanced per routine. Upon discharge, patient was tolerating po,ambulating and voiding spontaneously. She was discharged to home on POD#1 and scheduled to follow up in clinic with Amy London MD in 4 weeks. Prior to surgery, patient taking eliquis for history of atrial fibrillation with pacemaker in place. She was monitored on telemetry in immediate postoperative period with no concerns. Her pacemaker was interrogated by Cardiology team prior to discharge and properly functioning. She received prophylactic dosing of lovenox on 02/13 prior to discharge. She will take prophylactic dosing of lovenox athome on 02/14. She will then resume home eliquis and aspirin on 02/15 as previously taking. Instructions communicated with patient prior to discharge. Surgeries and Procedures ROBOT TLHBSO, SLN, OMENTECTOMY (Bilateral) Medication List PAUSE taking these medications apixaban 5 MG tablet Wait to take this until: February 15, 2025 Morning Commonly known as: Eliquis Take 1 tablet by mouth 2 times a day. aspirin 81 MG chewable tablet Wait to take this until: February 15, 2025 Chew 1 tablet daily. .. acetaminophen 325 MG tablet Commonly known as: Tylenol Take 2 tablets by mouth every 6 hours. atenolol 50 MG tablet Commonly known as: Tenormin Take 1 tablet by mouth 2 times a day. One pill in the morning. Two in the evening. benazepril 10 MG tablet Commonly known as: Lotensin Take 1 tablet by mouth daily. carboxymethylcellulose PF 0.5 % ophthalmic solution Commonly known as: Refresh Plus Administer 1 drop into both eyes as needed for dry eyes. enoxaparin 40 MG/0.4ML solution prefilled syringe Commonly known as: Lovenox Inject 0.4 mL under the skin daily for 1 day. Start taking on: February 14, 2025 fluticasone 50 MCG/ACT nasal spray Commonly known as: Flonase Administer 1 spray into each nostril daily. Shake gently. Before first use, prime pump. After use, clean tip and replace cap. glimepiride 4 MG tablet Commonly known as: Amaryl Take 1 tablet by mouth daily before breakfast. ibuprofen 600 MG tablet Take 1 tablet by mouth every 6 hours as needed for mild pain. ondansetron ODT 4 MG disintegrating tablet Commonly known as: Zofran-ODT Dissolve 1 tablet on the tongue every 6 hours as needed for nausea or vomiting. oxyCODONE 5 MG immediate release tablet Commonly known as: Roxicodone Take 1 tablet by mouth every 4 hours as needed for severe pain. potassium chloride 20 MEQ packet Commonly known as: Klor-Con Take 20 mEq by mouth 2 times a day. Dissolve packet in at least 4 oz (115 ml) of water senna-docusate sodium 8.6-50 MG tablet Commonly known as: Senokot-S Take 2 tablets by mouth daily. simvastatin 40 MG tablet Commonly known as: Zocor Take 1 tablet by mouth nightly. triamterene-hydrochlorothiazide 37.5-25 MG tablet Commonly known as: Maxzide-25 Take 1 tablet by mouth daily. Trulicity 1.5 MG/0.5ML solution auto-injector Generic drug: dulaglutide Inject 1.5 mg under the skin 1 time per week. Where to Get Your Medications These medications were sent to [facility] - [place], [place] - [address] , [facility] [id number] acetaminophen 325 MG tablet carboxymethylcellulose PF 0.5 % ophthalmic solution enoxaparin 40 MG/0.4ML solution prefilled syringe ibuprofen 600 MG tablet ondansetron ODT 4 MG disintegrating tablet oxyCODONE 5 MG immediate release tablet senna-docusate sodium 8.6-50 MG tablet Discharge Diagnosis Medical Problems Active and Resolved Hospital Problems * (Principal) Endometrial cancer Post Discharge Instructions Caring for Yourself after Minimally Invasive Hysterectomy Medications: - take one lovenox injection on 02/14 - resume taking home eliquis and aspirin as previously prescribed on 02/15 - take pain medication and stool softeners as detailed below Follow up: - you will have a follow up appointment about 4 weeks after surgery. If you need to see a provider before your follow up, there are several options call your doctor to schedule an appointment: [phone] Visit the gynecologic oncology Walk-In Clinic which is open Tuesday-Tuesday 8am- 10am. It is helpful if you call the clinic before arrival: [phone] Call the Cancer acute Treatment Clinic. Same day-appointments are available Tuesday-Tuesday 8am-5pm. Please call [phone] before arrival to schedule a visit Fever - If you feel feverish or have chills, take your temperature. - Call your doctor if your temperature is 100.4 degrees or above. This can be a sign of an infection Activity Do - Walk every day. You may get tired quickly and need to take breaks. - You can go up and down stairs. Don???t - Do not put anything in the vagina for at least 6 weeks or until approved by your provider (no sexual intercourse, tampons, medicines, or douching). - No tub baths or swimming until after your follow-up appointment. - Please avoid heavy lifting (over 10 pounds) or strenuous exercise for at least 6 weeks. - Do not drive while taking narcotic pain medicine. Do not drive until soreness from surgery goes away. Pain Control - We recommend alternating acetaminophen (Tylenol) and ibuprofen (Motrin) around the clock for the first few days. For example, take 600 mg of ibuprofen, then 3 hours later, take 650 mg of acetaminophen. Three hours later, you will be due for another dose of ibuprofen. - For severe pain not relieved by this, take oxycodone (narcotic pain medicine) as needed. Do not take it more than every 4-6 hours. Incisions - Check your incision daily. - Call your doctor if you notice any of these: increased redness swelling bleeding pus-like drainage clear drainage that does not stop - Your incisions are closed with a suture that will slowly dissolve. You do not need to have it removed. They are covered with dermabond, a skin glue. - You may shower 24 hours after surgery. Let soapy water run over the incisions and pat dry. - You may peel off the skin glue 1-2 weeks after surgery. Bowel Movements - It may take a few days for bowel movements to return to normal. The bowels slow after surgery because of stress, diet changes, inactivity, and narcotic pain medicines. - To get your bowels moving, you may take a mild laxative (Senna). If there is no bowel movement byday 4 or 5, you may add Miralax or Milk of Magnesia. - High fiber foods and drinking more water can also help prevent constipation. - Call your doctor if the constipation is not relieved. - It is normal to have a small amount of clear yellow drainage from the incision. Nutrition - You may eat your regular diet. Drink plenty of water. - Call your doctor for nausea and vomiting that lasts over 24 hours. Vaginal Discharge and Bleeding - There are absorbable sutures at the top of the vagina. You may have light spotting and vaginal discharge for several weeks after surgery. - Please call your doctor if you have heavy bleeding. Important Phone Numbers 8 a.m.-4:30 p.m.: call the Gynecologic Oncology Clinic at [phone]. 4:30 p.m.-8 a.m.: call the After Hours [facility]aging [employer] at [phone] and ask for the Gynecologic Oncology provider on-call. Outpatient Follow-Up Future Appointments Date Time Provider Department Center 03/20/2025 2:30 PM [facility] Results Pending At Discharge Pending Labs Order Current Status Corin auris Surveillance by PCR In process Multi Drug Resistance Test In process Non-Gynecologic Cytology In process Surgical Pathology Exam In process Pertinent Physical Exam At Time of Discharge Physical Exam Constitutional: Appearance: Normal appearance. HENT: Head: Normocephalic and atraumatic. Cardiovascular: Rate and Rhythm: Normal rate. Pulmonary: Effort: Pulmonary effort is normal. Abdominal: Comments: Incisions were c/d/i Neurological: General: No focal deficit present. Mental Status: She is alert. Psychiatric: Mood and Affect: Mood normal. Thought Content: Thought content normal. Discharge Disposition/Condition Disposition: Home Condition: Stable (s/sx potential problems absent or manageable) I spent < 30 minutes of patient care and instruction time in preparation for this discharge. Fariba Lowery MD AUDIO VISUAL SPECIALIST Resident PGY-1 Cosigned by Amy Vargas MD at 02/13/2025 2:44 PM EDT Associated attestation - Amy Vargas MD - 02/13/2025 2:44 PM EDT I saw and evaluated the patient with the resident/fellow. I discussed the case with the resident/fellow and agree with the findings and plan as documented. * Nursing Note - Abbey Scott - 02/13/2025 1:53 PM EDT Discharge home Has meds. Wheelchair to discharge lounge. Ride here. * Daysi Ventura - Abbey Scott - 02/13/2025 1:41 PM EDT Images from the original note were not included. [id number] Endometrial Cancer: Discharge Instructions for Hysterectomy A total hysterectomy is surgery to have the uterus and cervix removed. A radical hysterectomy removes more tissue. This includes removing the uterus, cervix, the upper vagina, and nearby tissues. In some cases, the fallopian tubes and ovaries are also removed. (This is called a bilateral salpingo-oophorectomy with total hysterectomy.) Lymph nodes in the pelvis and belly (abdomen) may also be removed (called a lymphadenectomy). This sheet will help you take care of yourself at home after one of these procedures. Make sure you: ? Understand what you can and can't do. ? Keep your follow-up appointments. ? Make sure you have a contact number so that you can call your healthcare provider if you have anyquestions or are concerned about any problems or changes in how you feel. ? Know what number to call if you have problems or concerns after office hours or on weekends and holidays. Activity You may have to limit certain activities for some time after surgery. You might find that you need extra rest throughout the day. This is normal. But try to get up and move around as much as you can.Ask family members or friends to help with shopping, meals, housework, and other tasks. Plan ahead so that you have some meals prepared ahead of time that can be easily heated and ready to serve. Talk with your nurses or other hospital staff about having an aide through a home healthcare agency, [facility]. Make sure you know: ? When you can use stairs. Go slowly and pause after every few steps. Have someone with you at first. Try to plan your day so you do not need to go up and down repeatedly. ? When you can do house or yard work or return to your job. ? Whether or not you can lift heavy objects and if there is a weight limit for these activities. ? When you can drive. Don't drive if you are taking prescription pain medicine or other medicine that causes drowsiness. ? How much you should walk. Ask your healthcare provider what type of exercise might be good for you as you recover. ? When you can restart sexual activity. Ask your provider what you and your partner can expect after surgery. Pain control Pain management is a real part of your recovery. Good pain control will allow you to be more active,cough and deep breathe, and keep your digestive tract moving. Make sure you know: ? How to use your pain medicines. Know what they're for, how they work, and how to take them. ? What side effects your pain medicines can cause and what you can do to help prevent them. ? What to do if your pain medicines don't work. ? What things you can do to relieve or prevent pain in addition to or instead of medicines. Wound care You'll be given wound care instructions before you leave the hospital. Ask for any supplies that you might need at home. You may need to buy them from a surgical supply store or pharmacy. Make sure you know: ? How to care for your incision(s), what problems to watch for, and when to call your healthcare provider. ? How to manage any bandages or dressings you may have. ? When you can shower, take a bath, or swim. Other care To help with your recovery and prevent complications, you should: ? Take only the medicines that are prescribed by your healthcare provider. Talk to your healthcare provider before taking herbs, vitamins, or other supplements. ? Do the coughing and breathing exercises that you learned in the hospital. ? Try to not get constipated: o Eat fruits, vegetables, and whole grains. o Drink plenty of water and other healthy drinks. o Call your healthcare provider if you are having trouble with bowel movements. You may be prescribed a medicine to help. ? Don't put anything in your vagina. Don't use tampons or douches or have sex until your healthcareprovider says it?s OK. ? Tell your healthcare provider if you have hot flashes, mood swings, and vaginal dryness. These are menopausal symptoms when ovaries are removed. There are medicines that can help you if needed. Follow-up care Make a follow-up appointment as directed by your healthcare provider. You may need more cancer treatment after surgery. Be sure you understand the plan and what you can do to be ready for treatment. When to get medical care Call your healthcare provider right away if you have any of the following: ? Fever of 100.4??F ( 38??C) or higher, or as directed by your healthcare provider ? Chills ? Bright red vaginal bleeding or a bad-smelling discharge ? Vaginal bleeding that's more than just spotting ? Trouble urinating or burning when you urinate ? Severe pain or bloating in your belly ? Redness, swelling, drainage, or any other changes at your incision site ? Pain at your surgical site that's not controlled with your pain medicine or is getting worse ? Lasting nausea or vomiting ? Swelling, warmth, pain, or redness in your leg or arm ? Trouble breathing or chest pain Ask if there are any other changes you need to tell them about right away. Last Reviewed Date: 2024 00:00:00 ?? [id number] [employer]. All rights reserved. This information is not intended as a substitute for professional medical care. Always follow your healthcare professional's instructions. * Daysi FernandezJASSI - Abbey Scott - 02/13/2025 1:41 PM EDT Images from the original note were not included. [id number] Discharge Instructions: Surgery for Cancer of the Uterus Surgery is the most common treatment for both types of uterine cancer: endometrial carcinoma and uterine sarcoma. You may have had your uterus removed. This is called a hysterectomy. You may have hadyour fallopian tubes and ovaries removed, too. This is called a hysterectomy with bilateral salpingo- oophorectomy. Sometimes lymph nodes in the area are also removed. After you heal from surgery, you might need more treatment, like radiation, chemotherapy, or both. But now you need to rest and recover. Give yourself time and try to be patient with your body as it heals. Talk to your health care providers about how long you have to wait before going back to your normalactivities. Also be sure you know what your pain medicines are and how you should take them, as well as when you need to see your providers again. Follow all instructions given to you by your providers. Make sure you: ? Understand what you can and can?t do, and follow these instructions. ? Know what your surgery site should look like and how to care for it. ? Know what your medicines are for, how and when to take them, and what side effects you should watch for. ? Keep your follow-up appointments. ? Contact your provider if you have any questions or concerns about how you feel. Activity Be sure you understand what you can and can't do as you recover from surgery. You may have to limitcertain activities for a period of time. You may find that you need extra rest throughout the day. Fatigue (feeling tired) and weakness are normal for a few weeks. This will get better over time. Buttry to get up and move around as you are able. Ask family members or friends to help with shopping,meals, housework, and other tasks. Make sure you know: ? When you can use stairs. Go slowly and rest every few steps. Have someone with you at first. Try to plan your day so you don?t need to go up and down often. ? What your weight limits are for lifting. Don't lift anything heavy until your health care provider says it's okay. ? When you can drive. Don?t drive until you are free of pain and no longer taking prescription painmedicine. This may take a few weeks. ? When you can do housework, yard work, or return to your job. ? How much you should walk. Ask your provider what type of exercise might be good for you as you recover. Other self-care To help with your recovery at home and prevent problems: ? Take only the medicines that your health care provider prescribes. Tell your provider if you takeother medicines. These include prescriptions and ycuc-gkh-fraqsux medicines, vitamins, herbs, and other supplements. ? Take your temperature each day for 7 days after the surgery. ? Take your pain medicine as directed. Ask about side effects it could cause and what you can do tomanage them. ? Do the coughing and breathing exercises that you learned in the hospital. ? Try to keep from getting constipated. To do this: o Eat fruits, vegetables, and whole grains. o Drink a lot of water and other healthy drinks. o Contact your provider if you are having trouble with bowel movements. You may need a stool softener or laxative. ? Talk with your providers about taking care of your incisions. Check your incisions daily for signs of infection. These include redness, swelling, pain, warmth, and drainage. Also watch the edges ofthe incision to be sure it's not opening up. ? Ask when you can shower. Don?t take a tub bath until your provider says it?s okay. ? Don't put anything in your vagina. Don?t use tampons or douches until your provider says it?s okay. ? Ask when you can have sex again. It's very important to follow your provider?s instructions aboutthis. The healing vagina is very weak and incisions can open. ? Tell your provider if you have hot flashes or mood swings. There are medicines that can help you if needed. Follow-up care Make a follow-up appointment as instructed. If you're getting more cancer treatment after surgery, make sure you understand what you can do to be ready for treatment. When to contact your doctor Talk with your health care provider about what other problems you should watch for and when you should call. Ask how to reach your provider in case of emergency. Be sure you know how to contact them on weekends, holidays, and in the evening, too. Contact your provider right away if you have any of these: ? Fever of 100.4??F ( 38??C) or higher, or as directed by your provider ? Chills ? Signs of infection around the incision, such as redness, drainage, warmth, and pain ? An incision that opens up or the edges pull apart ? Bright red vaginal bleeding or a smelly discharge ? Vaginal bleeding that's more than just spotting ? Trouble passing urine or burning when you urinate ? Severe pain or bloating in your belly ? Chest pain ? Rapid or irregular heartbeat ? Nausea or vomiting that doesn't go away ? Shortness of breath or trouble breathing ? Swelling, redness, warmth, or pain in an arm or leg Last Reviewed Date: 2024 00:00:00 ?? [id number] [employer]. All rights reserved. This information is not intended as a substitute for professional medical care. Always follow your healthcare professional's instructions. * Daysi FernandezJASSI - Abbey Scott - 02/13/2025 1:41 PM EDT Images from the original note were not included. [id number] What Is Endometrial Cancer? Cancer usually starts when normal cells in the body change (mutate). They start growing (replicating) out of control. Cancer cells can form lumps of tissue. They are called tumors. Cancer that startsin the lining of the uterus is called endometrial cancer. Understanding the uterus and endometrium The uterus is part of the female reproductive system. It's the organ that holds the baby during . The endometrium is the inside lining of the uterus. Each month, from puberty to menopause, the lining grows and gets thicker. This is to get ready for . This thickened lining helps tonourish a growing baby. The lining of the uterus is shed if a person doesn?t become . This is their period. Endometrial cancer starts in the cells of this lining. When endometrial cancer forms The endometrium is the most common place in the uterus for cancer to start. It's the most common type of cancer of the female reproductive system. Like most cancers, endometrial cancer can spread. Itcan spread within the uterus. It can also spread to nearby organs and other parts of the body. It'scalled metastasis when cancer spreads outside the uterus. The more cancer spreads, the harder it isto treat. The most common symptom of endometrial cancer is abnormal vaginal bleeding. Or it's vaginal bleeding after menopause called postmenopausal bleeding. Abnormal vaginal bleeding has no cycle to it like menstruation does. Call your health care provider if you have unexpected vaginal bleeding. Ideally, endometrial cancer is found when it's small and has not spread (metastasized). This is when the cancer is easiest to treat. It is also easiest to cure. Treatment choices for cancer of the uterus You and your health care provider will talk about your treatment choices. They may include: ? Surgery to remove the uterus (hysterectomy). Most commonly, the fallopian tubes and ovaries are removed. Nearby lymph nodes may also be taken out. ? Radiation therapy. This treatment uses focused beams of high energy to kill cancer cells. ? Chemotherapy. This treatment uses strong medicines to kill cancer cells. ? Hormone therapy. This treatment affects hormone levels. It may help slow the growth of cancer cells. It may be used in some cases to prevent the need for hysterectomy. This allows for in the future. ? Targeted therapy. This treatment uses medicines that target the abnormal changes in the cancer cells. ? Immunotherapy. This treatment uses medicines that help your body's own immune system better fightcancer. Last Reviewed Date: 2024 00:00:00 ?? [id number] [employer]. All rights reserved. This information is not intended as a substitute for professional medical care. Always follow your healthcare professional's instructions. * Daysi Ventura - ScottAbbey - 02/13/2025 1:41 PM EDT Images from the original note were not included. 13613 Obesity and Its Impact on Health Obesity is a major health problem in the [place] and worldwide. It affects nearly 2 out of 5 adults in the [place] What is obesity? Obesity is having a body weight that is above a normal weight for a specific height. Obesity is measured by using BMI (body mass index). BMI is a formula. It uses a person?s weight divided by their height. BMI may be used to screen for weight problems. BMI does not diagnose health problems or a person?s body fat. But a high BMI number can mean high body fat. A BMI between 18.5 and 25 is normal. ABMI between 25 and 30 falls within the overweight range. A BMI of 30 or higher is within the obese range. A BMI of 40 or more is extreme or severe obesity. Why is obesity a problem? Carrying too much weight can increase your risk for many serious health issues. These include problems with your heart, lungs, blood vessels, brain, and joints. Some of the problems that can happen include: ? Heart and circulation problems. These include heart disease and high blood pressure. They also include heart rhythm problems (atrial fibrillation) and stroke. ? Type 2 diabetes. ? Certain cancers. These include colon and breast cancer. ? Sleep apnea and other breathing problems. ? Back or joint problems. These include osteoarthritis and gout. ? Digestive tract problems. These include gallstones and GERD (gastroesophageal reflux disease). ? Depression (with severe obesity). Carrying too much weight can also affect your quality of life. And it can keep you from doing things you want or need to do. How can you lower your risk for problems? You can lower your risk for health problems from obesity by managing your weight. If you are overweight or obese, the first step is to lose weight. Studies show that losing as little as 5% of your body weight is good for your health. An important part of losing weight is building healthy habits and behaviors. Here are some tips: ? Control how much you eat. Food is your body?s way to get energy (calories). You'll gain weight ifyou take in more calories than your body uses. Know your eating habits. And watch your portion size. ? Make healthy eating choices. Choose foods with many nutrients. They can give your body the energyit needs without adding extra pounds. Also limit foods with added sugar and fats. ? Be more active. Exercise cordero calories. This can help you manage your weight. Try to move more each day. You can do this by adding aerobic activity, like walking daily. You can also do strength training. ? Talk with your health care provider. Ask about working with a dietitian, a health employment coach, an draw operator, or a mental health provider. They can give you a lot of support. Adding exercise to your day can help you control your weight. If you have trouble losing weight, talk to your provider. Your provider may suggest medicines to help. Weight loss (bariatric) surgery may also be a choice for adults who have: ? A BMI of 40 or more, or who are more than 100 pounds overweight. ? A BMI of 35 to less than 40 and a serious health problem. These include type 2 diabetes, high blood pressure, or sleep apnea. ? Not been able to stay at a healthy weight for a while. This is in spite of efforts to lose weightthrough diet, exercise, or medicines. Last Reviewed Date: 2024 00:00:00 ?? [id number] [employer]. All rights reserved. This information is not intended as a substitute for professional medical care. Always follow your healthcare professional's instructions. * Daysi Ventura - Abbey Scott - 02/13/2025 1:41 PM EDT Images from the original note were not included. [id number] Acetaminophen IMPORTANT WARNING: Taking too much acetaminophen can cause liver damage, sometimes serious enough to require liver transplantation or cause . You might accidentally take too much acetaminophen if you do not followthe directions on the prescription or package label carefully, or if you take more than one productthat contains acetaminophen. To be sure that you take acetaminophen safely, you should ? not take more than one product that contains acetaminophen at a time. Read the labels of all the prescription and nonprescription medications you are taking to see if they contain acetaminophen. Beaware that abbreviations such as APAP, AC, Acetaminophen, Acetaminoph, Acetaminop, Acetamin, or Acetam. may be written on the label in place of the word acetaminophen. Ask your doctor or pharmacist if you don't know if a medication that you are taking contains acetaminophen. ? take acetaminophen exactly as directed on the prescription or package label. Do not take more acetaminophen or take it more often than directed, even if you still have fever or pain. Ask your doctor or pharmacist if you do not know how much medication to take or how often to take your medication.Call your doctor if you still have pain or fever after taking your medication as directed. ? be aware that you should not take more than 4000 mg of acetaminophen per day. If you need to takemore than one product that contains acetaminophen, it may be difficult for you to calculate the total amount of acetaminophen you are taking. Ask your doctor or pharmacist to help you. ? tell your doctor if you have or have ever had liver disease. ? not take acetaminophen if you drink three or more alcoholic drinks every day. Talk to your doctorabout the safe use of alcohol while you are taking acetaminophen. ? stop taking your medication and call your doctor right away if you think you have taken too much acetaminophen, even if you feel well. Talk to your pharmacist or doctor if you have questions about the safe use of acetaminophen or acetaminophen-containing products. WHY is this medicine prescribed? Acetaminophen is used to relieve mild to moderate pain from headaches, muscle aches, menstrual periods, colds and sore throats, toothaches, backaches, reactions to vaccinations (shots), and to reducefever. Acetaminophen may also be used to relieve the pain of osteoarthritis (arthritis caused by the breakdown of the lining of the joints). Acetaminophen is in a class of medications called analgesics (pain relievers) and antipyretics (fever reducers). It works by changing the way the body senses pain and by cooling the body. HOW should this medicine be used? Acetaminophen comes as a tablet, chewable tablet, capsule, suspension or solution (liquid), extended-release (long-acting) tablet, and orally disintegrating tablet (tablet that dissolves quickly in the mouth), to take by mouth, with or without food. Acetaminophen is available without a prescription, but your doctor may prescribe acetaminophen to treat certain conditions. Follow the directions on the package or prescription label carefully, and ask your doctor or pharmacist to explain any part you do not understand. If you are giving acetaminophen to your child, read the package label carefully to make sure that it is the right product for the age of the child. Do not give children acetaminophen products that are made for adults. Some products for adults and older children may contain too much acetaminophen for a younger child. Check the package label to find out how much medication the child needs. If you know how much your child weighs, give the dose that matches that weight on the chart. If you don't know your child's weight, give the dose that matches your child's age. Ask your child's doctor if you don't know how much medication to give your child. Acetaminophen comes in combination with other medications to treat cough and cold symptoms. Ask your doctor or pharmacist for advice on which product is best for your symptoms. Check nonprescription cough and cold product labels carefully before using two or more products at the same time. These products may contain the same active ingredient(s) and taking them together could cause you to receivean overdose. This is especially important if you will be giving cough and cold medications to a child. Swallow the extended-release tablets whole; do not split, chew, crush, or dissolve them. Place the orally disintegrating tablet ('Meltaways') in your mouth and allow it to dissolve, or chew it before swallowing. Shake the suspension well before each use to mix the medication evenly. Always use the measuring cup or syringe provided by the licensing representative to measure each dose of the solution or suspension. Do notswitch dosing devices between different products; always use the device that comes in the product packaging. Stop taking acetaminophen and call your doctor if your symptoms get worse, you develop new or unexpected symptoms, including redness or swelling, your pain lasts for more than 10 days, or your fever gets worse or lasts more than 3 days. Also stop giving acetaminophen to your child and call your child's doctor if your child develops new symptoms, including redness or swelling, or if your child's pain lasts for longer than 5 days, or if a fever gets worse or lasts longer than 3 days. Do not give acetaminophen to a child who has a sore throat that is severe or does not go away, or that occurs along with fever, headache, rash, nausea, or vomiting. Call the child's doctor right away, because these symptoms may be signs of a more serious condition. Are there OTHER USES for this medicine? Acetaminophen may also be used in combination with aspirin and caffeine to relieve the pain associated with migraine headache. This medication is sometimes prescribed for other uses; ask your doctor or pharmacist for more information. What SPECIAL PRECAUTIONS should I follow? Before taking acetaminophen, ? tell your doctor and pharmacist if you are allergic to acetaminophen, any other medications, or any of the ingredients in the product. Ask your pharmacist or check the label on the package for a list of ingredients. ? tell your doctor and pharmacist what prescription and nonprescription medications, vitamins, nutritional supplements, or herbal products you are taking or plan to take while taking acetaminophen. Your doctor may need to change the doses of your medications or monitor you carefully for side effects. ? The following nonprescription products may interact with acetaminophen: medications for pain, coughs, fever, and colds. Be sure to let your doctor and pharmacist know that you are taking these medications before you start taking acetaminophen. Do not start any of these medications while taking acetaminophen without discussing with your healthcare provider. ? tell your doctor if you have ever developed a rash after taking acetaminophen. ? tell your doctor if you are , plan to become , or are breast- feeding. If you become while taking acetaminophen, call your doctor. ? if you drink three or more alcoholic beverages every day, do not take acetaminophen. Ask your doctor or pharmacist about the safe use of alcoholic beverages while taking acetaminophen. ? you should know that combination acetaminophen products for cough and colds that contain nasal decongestants, antihistamines, cough suppressants, and expectorants should not be used in children younger than 2 years of age. Use of these medications in young children can cause serious and life-threatening effects or . In children 2 through 11 years of age, combination cough and cold productsshould be used carefully and only according to the directions on the label. ? if you have phenylketonuria (PKU, an inherited condition in which a special diet must be followedto prevent damage to your brain that can cause severe intellectual disability), you should know that some brands of acetaminophen chewable tablets may be sweetened with aspartame, a source of phenylalanine. What SPECIAL DIETARY instructions should I follow? Unless your doctor tells you otherwise, continue your normal diet. What should I do IF I FORGET to take a dose? This medication is usually taken as needed. If your doctor has told you to take acetaminophen regularly, take the missed dose as soon as you remember it. However, if it is almost time for the next dose, skip the missed dose and continue your regular dosing schedule. Do not take a double dose to make up for a missed one. What SIDE EFFECTS can this medicine cause? Some side effects can be serious. If you experience any of the following symptoms, stop taking acetaminophen and call your doctor immediately or get emergency medical attention: ? red, peeling or blistering skin ? rash ? hives ? itching ? swelling of the face, throat, tongue, lips, eyes, hands, feet, ankles, or lower legs ? hoarseness ? difficulty breathing or swallowing Acetaminophen may cause other side effects. Call your doctor if you have any unusual problems whileyou are taking this medication. If you experience a serious side effect, you or your doctor may send a report to the Food and Drug Administration's (FDA) MedWatch Adverse Event Reporting program online (https://www.fda.gov/Safety/MedWatch) or by phone ( ). What should I know about STORAGE and DISPOSAL of this medication? Keep this medication in the container it came in, tightly closed, and out of reach of children. Store it at room temperature and away from excess heat and moisture (not in the bathroom). Keep all medication out of sight and reach of children as many containers are not child-resistant. Always lock safety caps. Place the medication in a safe location - one that is up and away and out of their sight and reach. https://www.upandaway.org Dispose of unneeded medications in a way so that pets, children, and other people cannot take them.Do not flush this medication down the toilet. Use a medicine take-back program. Talk to your pharmacist about take-back programs in your community. Visit the FDA's Safe Disposal of Medicines website h ttps://goo.gl/c4Rm4p for more information. What should I do in case of OVERDOSE? In case of overdose, call the poison control helpline at . Information is also available online at https://www.poisonhelp.org/help. If the victim has collapsed, had a seizure, has trouble breathing, or can't be awakened, immediately call emergency services at 911. If someone takes more than the recommended dose of acetaminophen, get medical help immediately, even if the person does not have any symptoms. Symptoms of overdose may include the following: ? nausea ? vomiting ? loss of appetite ? sweating ? extreme tiredness ? unusual bleeding or bruising ? pain in the upper right part of the stomach ? yellowing of the skin or eyes ? flu-like symptoms What OTHER INFORMATION should I know? Before having any laboratory test, tell your doctor and the laboratory personnel that you are taking acetaminophen. Ask your pharmacist any questions you have about acetaminophen. Keep a written list of all of the prescription and nonprescription (rcbt-hse-heyfrre) medicines, vitamins, minerals, and dietary supplements you are taking. Bring this list with you each time you visit a doctor or if you are admitted to the hospital. You should carry the list with you in case of erasmo rgencies. Brand Name(s): ? Actamin?? ? Feverall?? ? Panadol?? ? Tempra Quicklets?? ? Tylenol?? ? Dayquil?? (as a combination product containing Acetaminophen, Dextromethorphan, Pseudoephedrine) ? NyQuil Cold/Flu Relief?? (as a combination product containing Acetaminophen, Dextromethorphan, Doxylamine) ? Percocet?? (as a combination product containing Acetaminophen, Oxycodone) APAP, U-kknndw-krow-aminophenol, Paracetamol This report on medications is for your information only, and is not considered individual patient advice. Because of the changing nature of drug information, please consult your physician or pharmacist about specific clinical use. The [employer] represents that the information provided hereunder was formulated with a reasonable standard of care, and in conformity with professional standards in the field. The [employer] makes no representations or warranties, express or implied, including, but not limited to, any implied warranty of merchantability and/or fitness for a particular purpose, with respect to such information and specifically disclaims all such warranties. Users are advised that decisions regarding drug therapy are complex medical decisions requiring the independent, informed decision of an appropriate health care team coordinator scheduler, and the information is provided for informational purposes only. The entire monograph for a drug should be reviewed for a thorough understanding of the drug's actions, uses and side effects. The [employer] does not endorse or recommend the use of any drug.The information is not a substitute for medical care. AHFS?? Patient Medication Information?. ?? Copyright, 2023. The [employer]??, [address], [address], [place], [place]. All Rights Reserved. Duplication for commercial use must be authorized by [facility]. Selected Revisions: December 31, 2022. AHFS?? Patient Medication Information?. ?? Copyright, 2024 * Abbey Mayberry - 02/13/2025 1:41 PM EDT Images from the original note were not included. Hydrocodone and Acetaminophen - Video Understand how Hydrocodone and Acetaminophen work to help you manage pain. Also, understand the possible side effects to be aware of and how to properly use and store these medications. To view the video go to this web address: [email or web address] Or, scan this QR code with your smart phone ?? [facility] * Abbey Mayberry - 02/13/2025 1:41 PM EDT Images from the original note were not included. Hysterectomy: Before Your Surgery - Video Watch this video to learn the different ways a hysterectomy may be done and what to expect for recovery. To view the video go to this web address: [email or web address] Or, scan this QR code with your smart phone ?? [facility] * Abbey Mayberry - 02/13/2025 1:41 PM EDT Images from the original note were not included. Pre-Procedure: Hysterectomy - Video Watch this to learn the facts behind some common concerns about hysterectomy. To view the video go to this web address: [email or web address] Or, scan this QR code with your smart phone ?? [facility] * Care Plan - Abbey Scott - 02/13/2025 1:34 PM EDT Problem: Adult Inpatient Plan of Care Goal: Plan of Care Review Outcome: Met Flowsheets (Taken 02/13/2025 1331) Progress: improving Outcome Evaluation: agrees with discharge Plan of Care Reviewed With: patient Goal: Patient-Specific Goal (Individualized) Outcome: Met Flowsheets (Taken 02/13/2025 0800) Patient/Family-Specific Goals (Include Timeframe): void by lunch time this shift so dc home can happen Individualized Care Needs: have no pain, and void by discharge time Anxieties, Fears or Concerns: discharge homme today Goal: Absence of Hospital-Acquired Illness or Injury Outcome: Met Intervention: Identify and Manage Fall Risk Flowsheets (Taken 02/13/2025 1331) Safety Promotion/Fall Prevention: activity supervised Intervention: Prevent Skin Injury Flowsheets Taken 02/13/2025 1331 Skin Protection: incontinence pads utilized Taken 02/13/2025 1000 Body Position: weight shifting neutral head position neutral body alignment heels elevated Intervention: Prevent and Manage VTE (Venous Thromboembolism) Risk Flowsheets (Taken 02/13/2025 1200) VTE Prevention/Management: bilateral left SCDs (sequential compression devices) on Intervention: Prevent Infection Flowsheets (Taken 02/13/2025 1331) Infection Prevention: environmental surveillance performed Goal: Optimal Comfort and Wellbeing Outcome: Met Intervention: Monitor Pain and Promote Comfort Flowsheets (Taken 02/13/2025 1331) Pain Management Interventions: pain management plan reviewed with patient/caregiver Intervention: Provide Person-Centered Care Flowsheets (Taken 02/13/2025 133) Trust Relationship/Rapport: care explained Problem: Fall Injury Risk Goal: Absence of Fall and Fall-Related Injury Outcome: Met Intervention: Identify and Manage Contributors Flowsheets (Taken 02/13/2025 1331) Medication Review/Management: medications reviewed Self-Care Promotion: independence encouraged Intervention: Promote Injury-Free Environment Flowsheets (Taken 02/13/2025 1331) Safety Promotion/Fall Prevention: activity supervised Problem: Infection Goal: Absence of Infection Signs and Symptoms Outcome: Met Intervention: Prevent or Manage Infection Flowsheets (Taken 02/13/2025 133) Infection Management: aseptic technique maintained Fever Reduction/Comfort Measures: lightweight clothing Isolation Precautions: precautions maintained Problem: Hysterectomy Total or Partial Goal: Absence of Bleeding Outcome: Met Intervention: Monitor and Manage Bleeding Flowsheets (Taken 02/13/2025 133) Bleeding Management: dressing monitored Goal: Effective Bowel Elimination Outcome: Met Intervention: Enhance Bowel Motility and Elimination Flowsheets (Taken 02/13/2025 133) Bowel Elimination Management: hygiene measures promoted Bowel Motility Enhancement: ambulation promoted Goal: Fluid and Electrolyte Balance Outcome: Met Intervention: Monitor and Manage Fluid and Electrolyte Balance Flowsheets (Taken 02/13/20251330) Fluid/Electrolyte Management: fluids adjusted intravenous fluids adjusted Goal: Absence of Infection Signs and Symptoms Outcome: Met Intervention: Prevent or Manage Infection Flowsheets (Taken 02/13/2025 133) Infection Management: aseptic technique maintained Fever Reduction/Comfort Measures: lightweight clothing Isolation Precautions: precautions maintained Goal: Anesthesia/Sedation Recovery Outcome: Met Intervention: Optimize Anesthesia Recovery Flowsheets (Taken 02/13/2025 133) Stabilization Measures: verbal stimulation provided Patient Tolerance (IS): fair Safety Promotion/Fall Prevention: activity supervised Administration (IS): instruction provided, follow-up Reorientation Measures: clock in view Goal: Optimal Pain Control and Function Outcome: Met Intervention: Prevent or Manage Pain Flowsheets (Taken 02/13/2025 133) Pain Management Interventions: pain management plan reviewed with patient/caregiver Diversional Activities: smartphone Goal: Nausea and Vomiting Relief Outcome: Met Intervention: Prevent or Manage Nausea and Vomiting Flowsheets (Taken 02/13/2025 133) Nausea/Vomiting Interventions: nausea triggers minimized Goal: Effective Urinary Elimination Outcome: Met Intervention: Monitor and Manage Urinary Retention Flowsheets (Taken 02/13/2025 133) Urinary Elimination Promotion: frequent voiding encouraged positioned for ease of voiding Goal: Effective Oxygenation and Ventilation Outcome: Met Intervention: Optimize Oxygenation and Ventilation Flowsheets (Taken 02/13/20251330) Activity Management: activity adjusted per tolerance Airway/Ventilation Management: airway patency maintained Head of Bed (HOB) Positioning: HOB at 30-45 degrees * Hospital Course - Dori Caputo MD - 02/13/2025 7:58 AM EDT Kelsey Monae is a 75 y.o. with G3 EAC admitted for surgical management who underwent RA-TLH/BSO/omental biopsy on 02/12. The operation was uncomplicated and the patient tolerated the procedure well.See operative report for full details. Final pathology pending at time of discharge. Following surgery, the patient received routine post-operative care. Home medications were restarted. The patient was treated with heparin and Pepcid for DVT and GI prophylaxis, respectively. Her pain was controlled with PO medications. Her diet was advanced per routine. Upon discharge, patient was tolerating po,ambulating and voiding spontaneously. She was discharged to home on POD#1 and scheduled to follow up in clinic with Amy London MD in 4 weeks. Prior to surgery, patient taking eliquis for history of atrial fibrillation with pacemaker in place. She was monitored on telemetry in immediate postoperative period with no concerns. Her pacemaker was interrogated by Cardiology team prior to discharge and properly functioning. She received prophylactic dosing of lovenox on 02/13 prior to discharge. She will take prophylactic dosing of lovenox athome on 02/14. She will then resume home eliquis and aspirin on 02/15 as previously taking. Instructions communicated with patient prior to discharge. * Progress Notes - Dori Caputo MD - 02/13/2025 5:42 AM EDT Gynecologic Oncology Daily Progress Note Subjective Patient did well overnight. Her pain is controlled with PO medications. Tolerating normal diet without nausea/vomiting. Flatus overnight. Alexander anchored with adequate urine., Plan to remove Alexander catheter today. Denies fever, chills, SOA, chest pain, nausea/vomiting. Review of Systems 10-point ROS performed and negative except as per HPI. Objective Temp: [36.4 ??C (97.5 ??F)-36.8 ??C (98.2 ??F)] 36.4 ??C (97.6 ??F) Heart Rate: [67-96] 78 Resp: [02-13] 16 BP: (124-172)/(60-95) 138/71 Vitals: 02/13/25 0404 BP: Pulse: Resp: Temp: 36.4 ??C (97.6 ??F) SpO2: I/O last 3 completed shifts: In: 1800 (18.4 mL/kg) [I.V.:1800 (18.4 mL/kg)] Out: 400 (4.1 mL/kg) [Urine:400 (0.1 mL/kg/hr)] Weight: 98 kg Physical Exam: GENERAL: Alert, well-appearing, in NAD CARDIOVASCULAR: Normal rate, regular rhythm, no murmurs, rubs, or gallops. RESPIRATORY: Clear to auscultation bilaterally, normal respiratory effort on room air GASTROINTESTINAL: Soft, appropriately tender, non-distended, no rebound or guarding. Bowel sounds present. dressing clean, dry, intact GENITOURINARY: Deferred SKIN: Warm, dry, well-perfused. PSYCHIATRIC: AO x3, with appropriate affect, normal thought processes EXREMITIES: Symmetric. No peripheral edema. Labs: Lab Results Component Value Date WBC 9.30 02/13/2025 HGB 8.6 (L) 02/13/2025 HCT 26.9 (L) 02/13/2025 MCV 87 02/13/2025 PLT 193 02/13/2025 NEUTROABS 4.39 01/30/2025 GLUCOSE 207 (H) 02/13/2025 BUN 20 02/13/2025 CREATININE 0.79 02/13/2025 NA 137 02/13/2025 K 4.2 02/13/2025 CL 102 02/13/2025 CO2 23 02/13/2025 MG 1.8 (L) 02/13/2025 PHOS 3.6 02/13/2025 CALCIUM 8.7 (L) 02/13/2025 Imaging: Assessment/Plan Kelsey Monae is a 75 y.o. female with G3 EAC POD#1 s/p RA-TLH/BSO/OMX on 02/12. # Post-operative care - Pain controlled with PO medications - advance diet as tolerated, HLIV - Alexander anchored with adequate urine., Plan to remove Alexander catheter today. - continue bowel regimen - Hematocrit trend: 26.9, appropriate # Oncologic Course - Awaiting pathology results # Eye irritation - Refresh, erythromycin drops ordered for possible corneal abrasion - Improved this morning # Afib # CHF - Hx of Afib with pacemaker in place - On eliquis, bisoprolol, BP meds at home PLAN: - tele for immediate postop period - bisoprolol resumed, BP meds/eliquis/ASA held - Pacemaker interrogated and is operating normally - Plan for prophylactic lovenox POD#1, likely resume eliquis POD#3 # Type 2 DM - Home glimepiride, dulaglutide held - FSBS/SSI while inpatient # HTN - Bisoprolol resumed, Maxzide, benazepril held # HLD - Statin resumed # FEN/PPX - CCARB/LR@42 mL/hr - pLove and SCDs - Replete electrolytes PRN Dispo: Continue inpatient management. Possibly discharge today if other comorbidities are well-managed. Please message on-call [facility] resident via [employer] Secure Chat or page [phone] for questions or concerns regarding this patient's care. Morris Whitehead, MS3 I saw and evaluated the patient with the medical student. I discussed the case with the medical student and agree with the findings and plan as documented. I personally performed the exam and medicaldecision making. Dori Ibarra MD Obstetrics and Gynecology, PGY-3 Cosigned by Amy Vargas MD at 02/13/2025 11:54 AM EDT Associated attestation - Amy Vargas MD - 02/13/2025 11:54 AM EDT I saw and evaluated the patient with the resident/fellow. I discussed the case with the resident/fellow and agree with the findings and plan as documented. * Care Plan - Krystal Sims RN - 02/12/2025 10:36 PM EDT Problem: Adult Inpatient Plan of Care Goal: Plan of Care Review Outcome: Ongoing, Progressing Flowsheets (Taken 02/12/20252232) Progress: no change Outcome Evaluation: pt agreeable to POC Plan of Care Reviewed With: patient Goal: Patient-Specific Goal (Individualized) Outcome: Ongoing, Progressing Flowsheets (Taken 02/12/20252199) Patient/Family-Specific Goals (Include Timeframe): Patient will rate pain 2/10 or less during this shift Individualized Care Needs: pain control Anxieties, Fears or Concerns: none stated Goal: Absence of Hospital-Acquired Illness or Injury Outcome: Ongoing, Progressing Intervention: Identify and Manage Fall Risk Flowsheets (Taken 02/12/20252232) Safety Promotion/Fall Prevention: activity supervised assistive device/personal items within reach clutter-free environment maintained fall prevention program maintained lighting adjusted mobility aid in reach nonskid shoes/slippers when out of bed room organization consistent safety round/check completed toileting scheduled Intervention: Prevent Skin Injury Flowsheets (Taken 02/12/20252232) Body Position: weight shifting Skin Protection: incontinence pads utilized transparent dressing maintained silicone foam dressing in place Intervention: Prevent and Manage VTE (Venous Thromboembolism) Risk Flowsheets (Taken 02/12/20252199) VTE Prevention/Management: bilateral lower extremity SCDs (sequential compression devices) on Intervention: Prevent Infection Flowsheets (Taken 02/12/20252232) Infection Prevention: personal protective equipment utilized rest/sleep promoted single patient room provided hand hygiene promoted Goal: Optimal Comfort and Wellbeing Outcome: Ongoing, Progressing Intervention: Monitor Pain and Promote Comfort Flowsheets (Taken 02/12/20252232) Pain Management Interventions: pain management plan reviewed with patient/caregiver pillow support provided position adjusted quiet environment facilitated rest care clustered Intervention: Provide Person-Centered Care Flowsheets (Taken 02/12/20252232) Trust Relationship/Rapport: care explained choices provided empathic listening provided questions answered questions encouraged reassurance provided thoughts/feelings acknowledged Problem: Fall Injury Risk Goal: Absence of Fall and Fall-Related Injury Outcome: Ongoing, Progressing Intervention: Identify and Manage Contributors Flowsheets (Taken 02/12/20252232) Medication Review/Management: medications reviewed high-risk medications identified Self-Care Promotion: independence encouraged BADL personal objects within reach adaptive equipment use encouraged Intervention: Promote Injury-Free Environment Flowsheets (Taken 02/12/20252232) Safety Promotion/Fall Prevention: activity supervised assistive device/personal items within reach clutter-free environment maintained fall prevention program maintained lighting adjusted mobility aid in reach nonskid shoes/slippers when out of bed room organization consistent safety round/check completed toileting scheduled Problem: Infection Goal: Absence of Infection Signs and Symptoms Outcome: Ongoing, Progressing Intervention: Prevent or Manage Infection Flowsheets Taken 02/12/20252232 Infection Management: aseptic technique maintained Fever Reduction/Comfort Measures: lightweight bedding lightweight clothing Taken 02/12/20252199 Isolation Precautions: precautions maintained Problem: Hysterectomy Total or Partial Goal: Absence of Bleeding Outcome: Ongoing, Progressing Intervention: Monitor and Manage Bleeding Flowsheets (Taken 02/12/20252232) Bleeding Management: dressing monitored Goal: Effective Bowel Elimination Outcome: Ongoing, Progressing Intervention: Enhance Bowel Motility and Elimination Flowsheets (Taken 02/12/20252232) Bowel Elimination Management: adaptive equipment provided relaxation techniques promoted Bowel Motility Enhancement: ambulation promoted fluid intake encouraged oral intake encouraged Goal: Fluid and Electrolyte Balance Outcome: Ongoing, Progressing Intervention: Monitor and Manage Fluid and Electrolyte Balance Flowsheets (Taken 02/12/20252232) Fluid/Electrolyte Management: fluids provided Goal: Absence of Infection Signs and Symptoms Outcome: Ongoing, Progressing Intervention: Prevent or Manage Infection Flowsheets Taken 02/12/20252232 Infection Management: aseptic technique maintained Fever Reduction/Comfort Measures: lightweight bedding lightweight clothing Taken 02/12/20252199 Isolation Precautions: precautions maintained Goal: Anesthesia/Sedation Recovery Outcome: Ongoing, Progressing Intervention: Optimize Anesthesia Recovery Flowsheets (Taken 02/12/20252232) Patient Tolerance (IS): fair Safety Promotion/Fall Prevention: activity supervised assistive device/personal items within reach clutter-free environment maintained fall prevention program maintained lighting adjusted mobility aid in reach nonskid shoes/slippers when out of bed room organization consistent safety round/check completed toileting scheduled Administration (IS): instruction provided, initial Reorientation Measures: clock in view familiar social contact encouraged reorientation provided Goal: Optimal Pain Control and Function Outcome: Ongoing, Progressing Intervention: Prevent or Manage Pain Flowsheets (Taken 02/12/20252232) Pain Management Interventions: pain management plan reviewed with patient/caregiver pillow support provided position adjusted quiet environment facilitated rest care clustered Complementary Therapy: music therapy provided Diversional Activities: television smartphone Goal: Nausea and Vomiting Relief Outcome: Ongoing, Progressing Intervention: Prevent or Manage Nausea and Vomiting Flowsheets (Taken 02/12/20252232) Nausea/Vomiting Interventions: (pt denies nausea/vomiting) other (see comments) Goal: Effective Urinary Elimination Outcome: Ongoing, Progressing Intervention: Monitor and Manage Urinary Retention Flowsheets (Taken 02/12/20252232) Urinary Elimination Promotion: catheter patency maintained Goal: Effective Oxygenation and Ventilation Outcome: Ongoing, Progressing Intervention: Optimize Oxygenation and Ventilation Flowsheets Taken 02/12/20252232 Activity Management: activity adjusted per tolerance Airway/Ventilation Management: airway patency maintained calming measures promoted Taken 02/12/20252199 Head of Bed (HOB) Positioning: HOB at 30-45 degrees Cough And Deep Breathing: done independently per patient * Care Plan - Jose Burris MD - 02/12/2025 9:37 PM EDT Pacemaker Interrogation Note Bar Tacker: [employer]. Lj Generator: Quadra Allure MP 3562, Serial # [id number], implanted 07/15/22 RA Lead: SJM Tendril STS 2088TC/52cm, Serial #[id number], Implant date 07/15/22 RV Lead: SJM Tendril STS 2088TC/58cm, Serial # [id number], Implant date 07/15/22 LV/CS Lead: SJM Quartet 1458Q/86cm, Serial # [id number], implant date 07/15/22 Device type: multilead chamber pacemaker Device mode: DDDR Lower rate: 60 Upper rate: 120 Battery longevity: 3.6 years Lead Sensing (mV) Pacing (V @ ms)/pole Pacing % Impedance (Ohms) RA 1.6mV 1.5V @ 0.4ms <1% 580 RV 2.0V @ 0.4ms >99% 680 LV 3.125V @ 1.0ms >99% 1250 Others Episodes No recent significant episodes. Notes N/A Reprogramming No changes made this session. Overall Normal functioning pacemaker. I personally performed and interpreted the results of this device interrogation. Jose Burris MD PGY-6/FY-2 Fellow - Division of Cardiovascular Medicine [facility] * Clinician Note - Dori Caputo MD - 02/12/2025 7:19 PM EDT [facility] NIGHT OF SURGERY PROGRESS NOTE Subjective Patient doing well after surgery. Pain is controlled with PO medications. Tolerating liquids. Foleyanchored with adequate urine output. No flatus yet. Denies fever, chills, chest pain, SOA, or nausea/vomiting. Irritation and burning of the left eye since OR. Some improvement with drops. Objective Vitals: 02/12/25 1715 BP: Pulse: Resp: Temp: SpO2: 92% No intake/output data recorded. Physical Exam: Gen: NAD, resting comfortably CV: RRR, no m/r/g Resp: CTAB, non-labored respirations on room air Abd: bowel sounds present, soft, appropriately tender, nondistended, lap incisions C/D/I with dermabond : clear yellow urine in alexander bag Ext: SCDs in place, no edema Assessment/Plan Kelsey Monae 75 y.o. with G3 EAC now POD#0 s/p RA-TLH/BSO/OMX on 02/12. # Post-operative care - hemodynamically stable, UOP appropriate. - continue pain control with PO medications - Alexander removed, pending void. - Tolerating diet: continue. - encourage IS and ambulation - continue bowel regimen. Awaiting ROBF. # Eye irritation - Refresh, erythromycin drops ordered for possible corneal abrasion # Afib # CHF - Hx of Afib with pacemaker in place - On eliquis, bisoprolol, BP meds at home PLAN: - tele for immediate postop period - bisoprolol resumed, BP meds/eliquis/ASA held - Message sent to EP recapper to interrogate pacemaker prior to discharge - Plan for prophylactic lovenox of POD#1, likely resumed eliquis POD#3 # Type 2 DM - Home glimepiride, dulaglutide held - FSBS/SSI while inpatient # HTN - Bisoprolol resumed, Maxzide, benazepril held # HLD - Statin resumed # FEN/PPX - CCARB/LR@42 ml/hr - SCDs - Replete electrolytes PRN Dispo: continue inpatient postoperative management Please message on-call [facility] resident via [employer] Secure Chat or page [phone] for questions or concerns regarding this patient's care. * Anesthesia PACU Signout - Emily Shipman MD - 02/12/2025 4:29 PM EDT Patient: Kelsey Monae Anesthesia Type: general Vitals Value Taken Time BP 156/62 02/12/25 16:15 Temp 36.5 ??C (97.7 ??F) 02/12/25 15:10 Pulse 78 02/12/25 16:28 Resp 19 02/12/25 16:28 SpO2 96 % 02/12/25 16:28 Vitals shown include unfiled device data. Anesthesia PACU Signout Patient location during evaluation: PACU Patient participation: complete - patient participated Level of consciousness: baseline and awake Pain management: adequate (pain score 0-3) Airway patency: natural airway Hydration status: acceptable PONV: none Cardiovascular status: acceptable and hemodynamically stable Respiratory status: acceptable, spontaneous ventilation, unassisted, nonlabored ventilation and nasal cannula (2L) Discharge Disposition: admit to inpatient unit Cosigned by Alphonso Sahni MD at 02/13/2025 1:37 PM EDT Associated attestation - Alphonso Sahni MD - 02/13/2025 1:37 PM EDT Agree with above assessment and evaluation from resident/[employer]. * Op Note - Amy Vargas MD - 02/12/2025 12:40 PM EDT Operative Note Date: 02/12/25 Location: [facility] OR Name: Kelsey Monae, : 1950, Diagnoses: Pre-op Diagnosis Endometrial cancer Obesity BMI 39 Afib Psoriasis DM HTN Post-op Diagnosis Endometrial cancer Obesity BMI 39 Afib Psoriasis DM HTN Procedure(s): Robotic TLH/BSO/SLN mapping/OMX Attending Surgeon(s): * Amy Vargas I - Primary Specimen Transporter(s): * Dori Caputo MD - Resident - Assisting * Cheyanne Mora MD - Fellow Anesthesia: General ASA: ASA status not filed in the log. Blood Administration: Blood Product Administration History None Estimated Blood Loss: 25 mL Drains: alexander Specimen: Specimens ID Source Frozen? 1 Pelvis No Description: pelvic washings 2 Other (specify site) No Description: uterus, cervix, bilateral tubes, ovaries, and adnexal mass 3 Other (specify site) No Description: OMENTUM - PERMANENT Findings: Smooth peritoneal surfaces, no gross omental disease, Enlarged globular uterus, nodes mapped to deep obturator space on the left tucked deep to the vein high in the obturator space - unableto safely resect. Node mapped to presacral/medial common on the right - unable to safely visualize due to overlying small bowel and sigmoid. 3-4cm calcified pedunculated adnexal mass separate from the ovary. Sigmoid adhesions to the left sidewall, left IP and posterior uterus. Bladder densely adherent to vascular cervix. Indications: Kelsey Monae is an 75 y.o. female who is having surgery for Endometrial cancer. Narrative: The patient was brought to the operating room after signing informed consent. The patient was induced with general anesthesia. The patient was placed in dorsal lithotomy position using Jered Stirrups. The vagina was prepped and a Alexander catheter was placed. Next, a speculum was inserted into the vagina. The cervix was visualized and grasped with a single tooth tenaculum. The cervix was injected with 4 mL of ICG dye. Injection occurred at 3 and 9 o'clock. One mL of ICG was given superficially anddeep (4 ml Total). The cervix was sounded and dilated. A ZAOZAO-Fromlab uterine manipulator was placed. Thepatient???s arms were tucked and the patient was placed on a pink postioner pad to prevent sliding.The abdomen was prepped in usual fashion. A LUQ port was placed in the midclavicular, 2 fingerbredths below the left costal margin. An optiview trocar and camera were used to obtain direct entry into the abdominal cavity. The abdomen was insufflated with heated CO2 gas to a pressure of 14 mm Hg. No injuries were noted to bowel or vascular structures. The patient was placed in 28 degrees of trendelenburg. Four robotic ports were placed eliz line perpendicular to the axis of the patient. The line was roughly 20 cm superior to the pubic symphysis. The ports were by 8-10 cm. The robot was docked. The surgery took place using a bipolar fenestrated grasper (left arm), monopolar scissors (right arm) and an prograsp grasper (far right 4th arm). Washings were collected. The sigmoid colon adhesionswere The left round ligament was grasped and cauterized. The retroperitoneal space was explored andthe ureter identified. The left IP ligament was skeletonized and cauterized. The left IP was transected and the ovary was freed of its adnexal attachments. The sentinel LN was visualized in the obturator space. The space was opened as widely as was able. The node was tucked deep to the vein at the bifurcation of the internal and external iliac artery. I could not grasp it or dissect it free. The same procedure was performed on the right side. The node on the right mapped to the presacral space.In order to visualize the node, I had to utilize the first responder and two of my robot arms to move bowel away. It was also unable to be retrieved. A bladder flap was created sharply. The bladder was carefully dissected free with monopolar cauteryand sharp dissection to the level of the V-care ring. Ureterolysis was performed bilaterally to follow the ureters deep to the uterine vessels. The uterine arteries were skeletonized above the V-care. Bipolar cautery was used to ablate the arteries. Pedicles were created parallel to the cervix until the level of the V-care ring was reached. Anterior and posterior colpotomies were made with the monopolar scissors over the V-care. Once the cervix was circumferentially transected from the vagina, the uterus, cervix, tubes and ovaries were removed from the vagina. The omentum was identified and brought to the pelvis. The distal skirt was free of the transverse colon. Pedicles were created with monopolar cautery and divided with vessel sealer. The omentum was brought through the vagina for pathology. The bed was hemostatic. The vagina was closed with a 0 VLoc in a running fashion. No vascular bleeding was noted at the IP ligaments or uterine arteries. The course of the ureter was visible away from all pedicles with goodvermiculation. The pelvis was irrigated and monopolar cautery used for hemostasis. The robot was undocked and the 12 mm port was removed and its fascia closed with a 0 Vicryl and a Tico-Angela. Al l ports were removed under direct visualization of the camera. No bleeding was noted. The port sites were closed with a subcuticular closure, 3.0 monocryl. There was a small laceration at the introitus. Closed with a figure of 8 using 3-0 vicryl. The patient was extubated and transferred to the PACU in stable condition. All sharp, sponge and instrument counts were correct. The patient received a pre- operative dose of antibiotic. Dr Vargasparticipated for the entire procedure. Morbid Obesity greatly prolonged the procedure. A first responder was required to retract the colon, small bowel and allow visualization of the pelvic sidewalls. Obesity limited visualization of nodes for resection. Overall, >45 minutes of additional time was required for retraction and visualization. There were NO signs of surgical site infection (SSI) present at the time of surgery (PATOS). Complications: None; patient tolerated the procedure well. Submitted by: Amy Vargas MD - 02/12/2025 * H&P - Cheyanne Mora MD - 02/12/2025 11:13 AM EDT Images from the original note were not included. Subjective Chief complaint scheduled surgery History Of Present Illness Kelsey Monae is a 75 y.o. female presenting for scheduled RATLH BSO SLN OMX for G3 EAC. Doing well, no complaints. Medical/Surgical/Social/Family History I have reviewed and updated the patient history. Travel History Relevant International Travel History: Travel Screening Question Response Have you been in contact with someone who was sick? No / Unsure Do you have any of the following new or worsening symptoms? None of these Have you traveled internationally or domestically in the last month? No Travel History Travel since 01/13/25 No documented travel since 01/13/25 Relevant Domestic Travel History: Immunizations Reviewed Allergies Patient has no known allergies. Medications - reviewed home meds Current Medications[1] Objective Review of Systems All other systems reviewed and are negative. Physical Exam Vitals reviewed. HENT: Head: Normocephalic and atraumatic. Cardiovascular: Rate and Rhythm: Normal rate and regular rhythm. Pulmonary: Effort: Pulmonary effort is normal. Abdominal: General: Abdomen is flat. Palpations: Abdomen is soft. Genitourinary: Comments: Deferred Musculoskeletal: General: Normal range of motion. Cervical back: Normal range of motion. Skin: General: Skin is warm and dry. Neurological: Mental Status: She is alert. Mental status is at baseline. Psychiatric: Mood and Affect: Mood normal. Last Recorded Vitals Blood pressure 138/67, pulse 78, temperature 36.8 ??C (98.2 ??F), temperature source Oral, resp. rate 16, height 1.6 m (5' 3 ), weight 98 kg (216 lb), SpO2 99%. Results Review I have reviewed the latest lab and imaging results. Assessment & Plan Endometrial cancer To OR for RATLH BSO SLN OMX. Agrees to blood transfusion should she need it. Consents reviewed. Allquestions answered. Medically Ready for Discharge: [1] Current Facility-Administered Medications Medication Dose Route Frequency Provider Last Rate Last Admin sodium chloride 0.9 % flush 10 mL 10 mL Intravenous q12h Amy Vargas MD 10 mL at And sodium chloride 0.9 % flush 10 mL 10 mL Intravenous PRN Amy Vargas MD Cosigned by Amy Vargas MD at 02/12/2025 11:27 AM EDT Associated attestation - Amy Vargas MD - 02/12/2025 11:27 AM EDT I saw and evaluated the patient with the resident/fellow. I discussed the case with the resident/fellow and agree with the findings and plan as documented. * PAT Evaluation Note - Morgan Hough MD - 02/08/2025 4:58 PM EDT Images from the original note were not included. ONEAL Monae is a 75 y.o. female who presents with endometrial cancer now scheduled for Robot TLHBSO, SLN, Omentectomy ROBOT TLHBSO, SLN, OMENTECTOMY (Bilateral). Past Medical History[1] Family History[2] Social History[3] [...] Interrogation 10/01/24: EKG 12/26/24: Cardiology Note 12/26/24: EP Device Recs ROS Anesthesia: Date of last anesthetic: June 2022: Pacemaker insertion at [facility]. No problemswith GA in the past. history of previous anesthesia. Does not have a history anaphylaxis, a history of anesthetic complications, difficult intubation, malignant hyperthermia and PONV. 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 >99% paced.). Does not have CAD or dyspnea. hypertension: is well controlled. Exercise tolerance is 2 flights of stairs. Cardio additional comments: [facility] 2022 at [facility], no stents placed. Recently saw Cardiology on 12/26/24. Pacemaker clinic on 10/01/24. Notes and pacemaker interrogation attached above.. Respiratory: Does not have home oxygen. Patient has no dyspnea.no asthma: no COPD: Has not had an upper respiratory infection in last 30 days. HEENT: missing teeth.Does not have difficulty swallowing, chipped teeth or loose teeth.Does not have hearing loss. Neurological: no seizures: Did not have a cerebrovascular accident. Musculoskeletal: Does not have arthritis. Does not have cervical spine instability. Musc/Skel/Inte additional comments: Hx of psoriasis, not on [...] 100. Lab Results Component Value Date WBC 5.78 02/07/2025 HGB 8.6 (L) 02/07/2025 HCT 27.7 (L) 02/07/2025 MCV 87 02/07/2025 PLT 184 02/07/2025 Lab Results Component Value Date GLUCOSE 69 (L) 01/30/2025 BUN 19 01/30/2025 CREATININE 0.78 01/30/2025 BCR 24 01/30/2025 NA 142 01/30/2025 K 3.7 01/30/2025 CL 106 01/30/2025 CO2 26 01/30/2025 ALBUMIN 4.0 01/30/2025 ALKPHOS 83 01/30/2025 BILITOT 0.4 01/30/2025 Lab Results Component Value Date HGBA1C 5.2 01/30/2025 No results found for: INR , PROTIME Visit Vitals OB Status Postmenopausal Smoking Status Never Physical Exam Anesthesia Plan ASA 3 Anesthesia technique(s) discussed with the patient/family: general Comment: Discussed with Attending, Dr. Crowe. Morgan Hough MD [1] Past Medical History: Diagnosis Date Atrial [...] REMOVE PACEMAKER [5] No Known Allergies [6] No current facility-administered medications for this encounter. Current Outpatient Medications: apixaban, Take 1 tablet by mouth 2 times a day. aspirin, Chew 1 tablet daily. atenolol, Take 1 tablet by mouth 2 times a day. One pill in the morning. Two in the evening. benazepril, Take 1 tablet by mouth daily. Trulicity, Inject 1.5 mg under the skin 1 time per week. fluticasone, Administer 1 spray into each nostril daily. Shake gently. Before first use, prime pump. After use, clean tip and replace cap. glimepiride, Take 1 tablet by mouth daily before breakfast. potassium chloride, Take 20 mEq by mouth 2 times a day. Dissolve packet in at least 4 oz (115 ml) of water simvastatin, Take 1 tablet by mouth nightly. triamterene-hydrochlorothiazide, Take 1 tablet by mouth daily. Cosigned by Min Crowe MD at 02/08/2025 5:39 PM EDT Associated attestation - Min Crowe MD - 02/08/2025 5:39 PM EDT I discussed the patient with the resident and agree with the findings and plan. documented in this encounter Plan of Treatment Not on file documented as of this encounter Goals Goal Patient Goal Type Associated Problems Recent Progress Patient-Stated? Author Autogenerat ed Goal Care Plan Autogenerated Problem No Min Ayala documented as of this encounter Procedures Procedure Name Priority Date/Time Associated Diagnosis Comments POCT GLUCOSE METER UNSOLICITED RESULTS Routine 02/13/2025 11:22 AM EDT POCT GLUCOSE METER UNSOLICITED RESULTS Routine 02/13/2025 7:36 AM EDT CBC W/O DIFFERENTIAL Routine 02/13/2025 12:29 AM EDT PHOSPHORUS, PLASMA Routine 02/13/2025 12 :29 AM EDT MAGNESIUM, PLASMA Routine 02/13/2025 12: 29 AM EDT BASIC METABOLIC PANEL, PLASMA Routine 02/13/2025 12:29 AM EDT CORIN AURIS SURVEILLANCE BY PCR Routine 02/12/2025 9:55 PM EDT MULTI DRUG RESISTANCE TEST Routine 02/12/2025 9:55 PM EDT POCT GLUCOSE METER UNSOLICITED RESULTS Routine 02/12/2025 9:03 PM EDT POCT GLUCOSE METER UNSOLICITED RESULTS Routine 02/12/2025 4:30 PM EDT SURGICAL PATHOLOGY EXAM Routine 02/13/20 2:01 PM EDT Endometrial cancer NON-GYNECOLOGIC CYTOLOGY Routine 02/12/2025 1:02 PM EDT Endometrial cancer AL LAPAROSCOPY W TOT HYSTERECTUTERUS <=250 GRAM W TUBE/OVARY 02/12/2025 11:43 AM EDT Endometrial cancer POCT GLUCOSE METER UNSOLICITED RESULTS Routine 02/12/2025 11:02 AM EDT TYPE AND SCREEN Routine 02/12/2025 10:56 AM EDT documented in this encounter Results * (ABNORMAL) POCT glucose meter (02/13/2025 11:22 AM EDT) POCT Glucose 159(H) 74 - 99 mg/dL 02/13/2025 11:24 AM EDT [facility] Comment:Accuracy of a glucos e result obtained from a capillary whole blood specimen relies upon adequate, non-compromised capillary blood flow. If the capillary glucose result is not consistent with the patient's clinical signs and symptoms, glucose testing should be repeated with either an arterial or venous sample on the glucometer or sent to the main labortory for testing. Comment 02/13/2025 11:24 AM EDT [facility] Lacquer Sizer ID Triny Olvera 02/13/2025 11:24 AM EDT [facility] Device ID [id number] 02/13/2025 11:24 AM EDT [facility] Specimen Type POC Capillary 02/13/2025 11:24 AM EDT [facility] Blood Capillary blood specimen / Unknown 02/13/2025 11:22 AM EDT 02/13/2025 11:24 AM EDT us Amy Vargas MD LAB POINT OF CARE TEST DOCKED DEVICE UNSOLICITED RESULTS Final Result Performing Organization Address City/[facility] Co de Phone Number [facility] [address] [place] [address] * (ABNORMAL) POCT glucose meter (02/13/2025 7:36 AM EDT) [facility] Signature POCT Glucose 175(H) 74 - 99 mg/dL 02/13/2025 7:38 AM EDT [facility] Comment:Accuracy of a glucos e result obtained from a capillary whole blood specimen relies upon adequate, non-compromised capillary blood flow. If the capillary glucose result is not consistent with the patient's clinical signs and symptoms, glucose testing should be repeated with either an arterial or venous sample on the glucometer or sent to the main labortory for testing. Comment 02/13/2025 7:38 AM EDT [facility] Lacquer Sizer ID Triny Olvera 02/13/2025 7:38 AM EDT [facility] Device ID [id number] 02/13/2025 7:38 AM EDT [facility] Specimen Type POC Capillary 02/13/2025 7:38 AM EDT [facility] Blood Capillary blood specimen / Unknown 02/13/2025 7:36 AM EDT 02/13/2025 7:38 AM EDT Amy Vargas MD LAB POINT OF CARE TEST DOCKED DEVICE UNSOLICITED RESULTS Final Result Performing Organization Address City/[facility]/ZIP Co de Phone Number [facility] [address] [place] [address] * Phosphorus (02/13/2025 12:29 AM EDT) Phosphorus, Plasma 3.6 2.5 - 4.5 mg/dL 02/13/2025 1:07 AM EDT [facility] Blood Venous blood specimen / Unknown Venipuncture / Unknown 02/13/2025 12:29 AM EDT 02/13/2025 12:34 AM EDT Amy Vragas MD LAB BLOOD ORDERABLES Veronica l Result Performing Organization Address [facility] Co de Phone Number [facility] [address] [place] [address] * (ABNORMAL) Magnesium, Plasma (02/13/2025 12:29 AM EDT) Magnesium, Plasma 1.8(L) 1.9 - 2.4 mg/dL 02/13/2025 1:07 AM EDT [facility] Blood Venous blood specimen / Unknown Venipuncture / Unknown 02/13/2025 12:29 AM EDT 02/13/2025 12:34 AM EDT Amy Vargas MD LAB BLOOD ORDERABLES Veronica l Result Performing Organization Address [facility] de Phone Number [facility] [address] [place] [address] * (ABNORMAL) Basic metabolic panel (02/13/2025 12:29 AM EDT) Glucose, Plasma 207(H) 74 - 99 mg/dL 02/13/2025 1:07 AM EDT [facility] BUN, Plasma 20 8 - 23 mg/dL 02/13/2025 1:07 AM EDT [facility] Creatinine, Plasma 0.79 0.60 - 1.10 mg/dL 02/13/2025 1:07 AM EDT [facility] BUN/Creatinine Ratio 25 02/13/2025 1:07 AM EDT [facility] Sodium, Plasma 137 136 - 145 mmol/L 02/13/2025 1:07 AM EDT [facility] Potassium, Plasma 4.2 3.6 - 4.9 mmol/L 02/13/2025 1:07 AM EDT [facility] Chloride, Plasma 102 97 - 107 mmol/L 02/13/2025 1:07 AM EDT [facility] CO2, Plasma 23 22 - 29 mmol/L 02/13/2025 1:07 AM EDT [facility] Anion Gap 12 6 - 16 mmol/L 02/13/2025 1:07 AM EDT [facility] Total Calcium, Plasma 8.7(L) 8.9 - 10.2 mg/dL 02/13/2025 1:07 AM EDT [facility] eGFRcr 77.6 mL/min/1.7 3m*2 02/13/2025 1:07 AM EDT [facility] Comment:Reported eGFRcr in m L/min/1.73m2 is based the CKD-EPI 2020 equation that does not use a race coefficient. Blood Venous blood specimen / Unknown Venipuncture / Unknown 02/13/2025 12:29 AM EDT 02/13/2025 12:34 AM EDT us Amy Vargas MD LAB BLOOD ORDERABLES Veronica bray Result [facility] [address] [place] [address] * (ABNORMAL) CBC W/O Differential (02/13/2025 12:29 AM EDT) WBC Count 9.30 3.70 - 10.30 10*3/uL LAB HEMATOLOGY METHOD 02/13/2025 12:44 AM EDT [facility] RBC Count 3.09(L) 3.90 - 5.20 10*6/uL LAB HEMATOLOGY METHOD 02/13/2025 12:44 AM EDT [facility] HGB 8.6(L) 11.2 - 15.7 g/dL LAB HEMATOLOGY METHOD 02/13/2025 12:44 AM EDT [facility] HCT 26.9(L) 34.0 - 45.0 % LAB HEMATOLOGY METHOD 02/13/2025 12:44 AM EDT [facility] Platelet Count 193 155 - 369 10*3/uL LAB HEMATOLOGY METHOD 02/13/2025 12:44 AM EDT [facility] MCV 87 79 - 98 fL LAB HEMATOLOGY METHOD 02/13/2025 12:44 AM EDT [facility] MCH 27.8 26.0 - 32.0 pg LAB HEMATOLOGY METHOD 02/13/2025 12:44 AM EDT [facility] MCHC 32.0 30.7 - 35.5 g/dL LAB HEMATOLOGY METHOD 02/13/2025 12:44 AM EDT [facility] RDW 15.0(H) 11.5 - 14.5 % LAB HEMATOLOGY METHOD 02/13/2025 12:44 AM EDT [facility] MPV 10.4 8.8 - 12.5 fL LAB HEMATOLOGY METHOD 02/13/2025 12:44 AM EDT [facility] nRBC 0.0 <=0.0 per 100 WBCs LAB HEMATOLOGY METHOD 02/13/2025 12:44 AM EDT [facility] Blood Venous blood specimen / Unknown Venipuncture / Unknown 02/13/2025 12:29 AM EDT 02/13/2025 12:35 AM EDT us Amy Vargas MD LAB BLOOD ORDERABLES Veronica bray Result [facility] [address] [place] [address] * Corin auris Surveillance by PCR (02/12/2025 9:55 PM EDT) Corin auris PCR Result Not Detected Not Detected 02/14/2025 6:58 AM EDT [facility] Swab (Axilla and Groin) Non-blood Collection / Unknown 02/12/2025 9:55 PM EDT 02/12/2025 10:03 PM EDT Narrative [facility] - 02/14/2025 6:58 AM EDT This PCR assay was developed and its performance characteristics determined by [facility] as appropriate for clinical purposes. This assay has not been cleared or approved by the FDA, but is performed in a CLIA regulated laboratory that is qualified to perform high-complexity testing. Amy Vargas MD LAB MICROBIOLOGY - GENERA L ORDERABLES Final Result Performing Organization Address City/[facility]/ZIP Co de Phone Number [facility] [address] [place] [address] * Multi Drug Resistance Test (02/12/2025 9:55 PM EDT) [facility] Culture No growth at day 1 02/14/2025 6:13 AM EDT [facility] Swab (Nares and Yola Rectal) Non-blood Collection / Unknown 02/12/2025 9:55 PM EDT 02/12/2025 10:03 PM EDT Narrative [facility] - 02/14/2025 6:13 AM EDT This test was developed and its performance characteristics determined by the [facility]. Although the media is FDA-approved, it is not FDA-approved for all specimen types submitted. The FDA has determined that such clearance or approval is not necessary. This test is used for surveillance purposes. It should not be regarded as investigational or for research. The [facility] is certified under the Clinical Laboratory Improvement Amendments of 1988 (CLIA-88) as qualified to perform high complexity clinical laboratory testing. Amy Vargas MD LAB MICROBIOLOGY - GENERA L ORDERABLES Final Result Performing Organization Address [facility] Co de Phone Number [facility] [address] [place] [address] * (ABNORMAL) POCT glucose meter (02/12/2025 9:03 PM EDT) [facility] POCT Glucose 166(H) 74 - 99 mg/dL 02/12/2025 9:05 PM EDT [facility] Comment:Accuracy of a glucos e result obtained from a capillary whole blood specimen relies upon adequate, non-compromised capillary blood flow. If the capillary glucose result is not consistent with the patient's clinical signs and symptoms, glucose testing should be repeated with either an arterial or venous sample on the glucometer or sent to the main labortory for testing. Comment 02/12/2025 9:05 PM EDT [facility] Lacquer Sizer Nickolas Gold 02/12/2025 9:05 PM EDT [facility] Device ID [id number] 02/12/2025 9:05 PM EDT [facility] Specimen Type POC Capillary 02/12/2025 9:05 PM EDT [facility] Blood Capillary blood specimen / Unknown 02/12/2025 9:03 PM EDT 02/12/2025 9:05 PM EDT Amy Vargas MD LAB POINT OF CARE TEST DOCKED DEVICE UNSOLICITED RESULTS Final Result Performing Organization Address City/[facility] Co de Phone Number [facility] [address] [place] [address] * (ABNORMAL) POCT glucose meter (02/12/2025 4:30 PM EDT) Pathologist [facility] POCT Glucose 205(H) 74 - 99 mg/dL 02/12/2025 4:31 PM EDT [facility] Comment:Accuracy of a glucos e result obtained from a capillary whole blood specimen relies upon adequate, non-compromised capillary blood flow. If the capillary glucose result is not consistent with the patient's clinical signs and symptoms, glucose testing should be repeated with either an arterial or venous sample on the glucometer or sent to the main labortory for testing. Comment 02/12/2025 4:31 PM EDT [facility] Lacquer Sizer ID Mik Pritchett 02/12/2025 4:31 PM EDT [facility] Device ID [id number] 02/12/2025 4:31 PM EDT [facility] Specimen Type POC Capillary 02/12/2025 4:31 PM EDT [facility] Blood Capillary blood specimen / Unknown 02/12/2025 4:30 PM EDT 02/12/2025 4:31 PM EDT us Amy Vargas MD LAB POINT OF CARE TEST DOCKED DEVICE UNSOLICITED RESULTS Final Result Performing Organization Address City/[facility] Co de Phone Number [facility] [address] [place] [address] * Surgical Pathology Exam (02/12/2025 2:01 PM EDT) Case Report Surgical Pathology Case: [id number] Authorizing Provider: Amy Vargas MD Collected: 02/12/2025 1401 Ordering Location: [facility]PER[facility] Received: 02/12/2025 1528 Pathologist: Lavon Daly MD Specimens: A) - Other (specify site), uterus, cervix, bilateral tubes, ovaries, and adnexal mass B) - Other (specify site), OMENTUM - PERMANENT 1:14 PM [facility] Final Diagnosis A. UTERUS, CERVIX, BILATERAL FALLOPIAN TUBES AND OVARIES, ROBOTIC TOTAL LAPAROSCOPIC HYSTERECTOMY AND BILATERAL SALPINGO-OOPHORECTOM Y: - ENDOMETRIOID ADENOCARCINOMA, figo GRADE 3. - THE CARCINOMA INVADES THE MYOMETRIUM TO A DEPTH OF 13 MM (MYOMETRIUM THICKNESS OF 17 MM). - LOWER UTERINE SEGMENT IS UNINVOLVED BY CARCINOMA. 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 - CERVIX WITH BENIGN ENDOCERVICAL POLYP, NEGATIVE FOR TUMOR. - LEFT OVARY WITH FIBROMA. - RIGHT OVARY AND BILATERAL FALLOPIAN TUBES WITH NO SIGNIFICANT HISTOPATHOLOGIC ABNORMALITY. B. OMENTUM, OMENTECTOMY: - BENIGN FIBROADIPOSE TISSUE. 1:14 PM [facility] at 1314 EST Comment Immunohistochemical stains previously performed on the endometrial curettage specimen ([id number]) at the outside institution demonstrated the following results. POLE status is unknown. P53: Mutated (overexpressed) Estrogen receptor: Positive, 95%, strong Progesterone receptor: Positive, 95%, strong PD-L1: less than 1% MLH1: Retained PMS2: Retained MSH2: Retained MSH6: Retained 1:14 PM [facility] Synoptic Checklist ENDOMETRIUM ENDOMETRIUM - All Specimens AJCC 8 - Protocol posted: 03/28/2024 SPECIMEN Procedure: Total hysterectomy Procedure: Bilateral salpingo-oophorectom y Procedure: Omentectomy TUMOR Histologic Type: Endometrioid carcinoma Histologic Grade: FIGO grade 3 Molecular Type: MMR Immunohistochemistry : Intact nuclear expression of MLH1, PMS2, MSH2 and MSH6 Microsatellite Instability (MSI) Testing: Not performed Molecular Type: p53 Immunohistochemistry : Abnormal (mutated) expression : Overexpression (strong, diffuse nuclear expression) TP53 Mutation Testing: Not performed Myometrial Invasion: Present, outer half (greater than or equal to 50%) Percentage: 76 % Adenomyosis: Present, involved by carcinoma Uterine Serosal Involvement: Not identified Cervical Involvement: Not identified Other Tissue / Organ Involvement: Not identified (other tissues / organs submitted and not involved) Peritoneal / Pelvic Washings / Ascitic Fluid: Negative for malignant cells Lymphatic and / or Vascular Invasion: Not identified REGIONAL LYMPH NODES Regional Lymph Node Status: Not applicable (no regional lymph nodes submitted or found) pTNM CLASSIFICATION (AJCC 8th Edition) Reporting of pT, pN, and (when applicable) pM categories is based on information available to the pathologist at the time the report is issued. As per the AJCC (Chapter 1, 8th Ed.) it is the managing physician's responsibility to establish the final pathologic stage based upon all pertinent information, including but potentially not limited to this pathology report. pT Category: pT1b pN Category: pN not assigned (no nodes submitted or found) FIGO STAGE FIGO Stage (FIGO 2009 Staging / 2018 FIGO Cancer Report): IB FIGO Stage (2022 Staging for Cancer of the Endometrium): IICm (p53abn) 5 1:14 PM [facility] Clinical Information Endometrial cancer [C54.1] 5 1:14 PM [facility] Gross Description A. UTERUS, CERVIX, BILATERAL TUBES, OVARIES, AND ADNEXAL MASS The specimen is received fresh and placed in formalin, labeled u terus, cervix, bilateral tubes and ovaries and adnexal mass , and consists of a total hysterectomy and bilateral salpingo oophorectomy to include a uterus 9.1 (fundus to ectocervix) by 5.1 (cornu to cornu) by 4.6 cm (anterior to posterior), attached left ovary (2.7 x 1.3 x 1.1 cm), left fallopian tube (4.2 cm in length by 0.6 cm in diameter), and detached right ovary (2.7 x 1.6 x 0.6 cm), and detached right fallopian tube (3.1 cm in length by 0.6 cm in diameter). The fundus, a subserosal nodules identified. The remaining serosa is pink-purple with a few slight defects. Posterior surface is inked black, and the anterior surface is inked blue. Upon sectioning, within the anterior and posterior endometrial cavity there is a 5.2 x 2.1 x 1.1 cm apple-pink, exophytic, and ill-defined mass. Within the posterior myometrium, there is a 4.2 cm apple-white, whirled, and well-circumscribed nodule. The remaining myometrium is apple-pink and trabecular with an average thickness of 1.1 cm. No areas of hemorrhage or necrosis are identified. Within the anterior cervix, there is a 0.6 cm apple-pink polyp. The remaining cervix is grossly unremarkable. The external surface of the right ovary is apple-white, cribriform, intact, and glistening. The cut surface is unremarkable. On the external surface of the left ovary, there is a 1.4 cm apple-white nodule. The remaining cut surface is grossly unremarkable. The external surfaces of the fallopian tubes are mariee-purple and congested. The lumens are stellate and patent. No masses are identified. Additionally within the container, there is a 5.2 x 3.6 x 2.8 cm apple-pink, nodular, and entirely calcified nodule. The cut surface is apple-yellow and whorled. Vacuum Pan Operator sections are submitted as follows: A1: Posterior endomyometrium with mass, full-thickness, deepest extent of invasion A2: Posterior endomyometrium with mass, full-thickness A3-A4: Anterior endomyometrium with probable mass, full-thickness A5: Whorled nodule A6-A7: Posterior cervix and lower uterine segment, bisected A8-A9: Anterior cervix and lower uterine segment, bisected with polyp A10: Right ovary A11-A12: Left ovary with nodule A13-A14: Right fallopian tube, entirely submitted A15-A16: Left fallopian tube, entirely submitted A17-A20: Calcified nodule, following decalcification Additional sections are submitted on 02/15/2025 as follows: A21-A24: Additional posterior endomyometrium with mass Cold Time: 1h 27m HARLEY Lama (ASCP) B. OMENTUM - PERMANENT The specimen is received fresh and placed in formalin, labeled o mentum , and consists of a 14.1 x 6.2 x 1.8 cm aggregate of apple-yellow lobulated firm fibroadipose tissue. Vacuum Pan Operator sections are submitted in cassettes B1-B3. Cold Time: 1h 10m HARLEY Lama (ASCP) 1:14 PM [facility] Intradepartmental Consultation with Agreement Dr. Trevor Koch reviewed selected slides and concurs with the interpretation. 1:14 PM [facility] Note: A resident was involved in the service. I attest I examined the relevant preparations for the specimens and confirmed the diagnosis or interpretation. 1:14 PM EST [facility] Tissue Topography unknown / Unknown 02/12/2025 2:01 PM EDT 02/12/2025 3:28 PM EDT Comment:Pre-op diagnosis: Endometrial cancer [C54.1] Tissue specimen (specimen) Topography unknown / Unknown 02/12/2025 2:18 PM EDT 02/12/2025 3:28 PM EDT Comment:Pre-op diagnosis: Endometrial cancer [C54.1] Amy Vargas MD LAB PATHOLOGY ORDERABLES Final Result [facility] [address] [place] [address] * Non-Gynecologic Cytology (02/12/2025 1:02 PM EDT) Case Report Cytology Case: [id number] Authorizing Provider: Amy Vargas MD Collected: 02/12/2025 1302 Ordering Location: [facility] A OPERATING ROOM Received: 02/12/2025 1515 Pathologist: Karrie Moran MD Specimen: Pelvic Washing, PELVIC WASHING 02/14/2025 11:33 AM EDT [facility] Final Diagnosis A. PELVIC WASHING - NO EVIDENCE OF MALIGNANCY - REACTIVE MESOTHELIAL CELLS 02/14/2025 11:33 AM EDT [facility] at 1133 EDT Gross Description A. PELVIC WASHING 35 mls clear fluid for thin prep and cell block 02/14/2025 11:33 AM EDT [facility] Clinical Information Endometrial cancer [C54.1] 02/14/2025 11:33 AM EDT [facility] Washing Fluid specimen from pelvis / Unknown 02/12/2025 1:02 PM EDT 02/12/2025 3:15 PM EDT Comment:Pre-op diagnosis: Endometrial cancer [C54.1] Amy Vargas MD LAB CYTOLOGY ORDERABLES F inal Result [facility] [address] [place] [address] * (ABNORMAL) POCT glucose meter (02/12/2025 11:02 AM EDT) POCT Glucose 110(H) 74 - 99 mg/dL 02/12/2025 11:04 AM EDT [facility] Comment:Accuracy of a glucos e result obtained from a capillary whole blood specimen relies upon adequate, non-compromised capillary blood flow. If the capillary glucose result is not consistent with the patient's clinical signs and symptoms, glucose testing should be repeated with either an arterial or venous sample on the glucometer or sent to the main labortory for testing. Comment 02/12/2025 11:04 AM EDT [facility] Lacquer Sizer ID Lyudmila Soria 02/12/2025 11:04 AM EDT [facility] Device ID [id number] 02/12/2025 11:04 AM EDT [facility] Specimen Type POC Venous 02/12/2025 11:04 AM EDT [facility] Blood Venous blood specimen / Unknown 02/12/2025 11:02 AM EDT 02/12/2025 11:04 AM EDT us Amy Vargas MD LAB POINT OF CARE TEST DOCKED DEVICE UNSOLICITED RESULTS Final Result [facility] [address] [place] [address] * Type and screen (02/12/2025 10:56 AM EDT) ABO/Rh O Positive 02/12/2025 11:04 AM EDT [facility] Antibody Screen Negative 02/12/2025 11:04 AM EDT [facility] Specimen Expiration 02/15/2025 23:59 02/12/2025 11:04 AM EDT [facility] Blood Venous blood specimen / Unknown Venipuncture / Unknown 02/12/2025 10:56 AM EDT 02/12/2025 11:04 AM EDT us Amy Vargas MD LAB BLOOD BANK TEST ORDER JULIA Final Result Performing Organization Address City/State/[facility] Co de Phone Number BLOOD BANK [address] [place] [address], documented in this encounter Visit Diagnoses Diagnosis Endometrial cancer- Primary Malignant neoplasm of corpus uteri, except isthmus documented in this encounter Admitting Diagnoses Diagnosis Endometrial cancer Malignant neoplasm of corpus uteri, except isthmus documented in this encounter Administered Medications Inactive Administered Medications - up to 3 most recent administrations Medication Order MAR Action Action Date Dose Rate Site acetaminophen (Tylenol) tablet 1,000 mg 1,000 mg, Oral, Once, 1 dose, On Tue02/12/25 at 1130, Routine, Holding - Preprocedure Given 02/12/2025 10:52 AM EDT 1,000 mg acetaminophen (Tylenol) tablet 650 mg 650 mg, Oral, Every 6 hours scheduled, First dose on Tue02/12/25 at 1800, Until Discontinued, Routine, Recovery(Phase II-Outpatient)/On Unit(Inpatient) Given 02/13/2025 11:22 AM EDT 650 mg Given 02/13/2025 5:09 AM EDT 650 mg Given 02/13/2025 12:19 AM EDT 650 mg atenolol (Tenormin) tablet 50 mg 50 mg, Oral, 2 times daily, First dose on Tue02/12/25 at 2100, Until Discontinued, Routine, Recovery(Phase II-Outpatient)/On Unit(Inpatient) Given 02/13/2025 8:32 AM EDT 50 mg Given 02/12/2025 9:08 PM EDT 50 mg atorvastatin (Lipitor) tablet 20 mg 20 mg, Oral, Nightly, First dose on Tue02/12/25 at 2100, Until Discontinued, Recovery(Phase II-Outpatient)/On Unit(Inpatient) Given 02/12/2025 9:08 PM EDT 20 mg carboxymethylcellulose PF (Refresh Plus) 0.5 % ophthalmic solution 1 drop 1 drop, Both Eyes, As needed, Starting on Tue02/12/25 at 1739, Until Tue02/13/25 at 1609, Routine, dry eyes Given 02/12/2025 9:10 PM EDT 1 drop Given 02/12/2025 5:47 PM EDT 1 drop enoxaparin (Lovenox) syringe 40 mg 40 mg, Subcutaneous, Daily, First dose on Tue02/13/25 at 0900, Until Discontinued, Routine Given 02/13/2025 8:31 AM EDT 40 mg Left Lower Abdomen erythromycin (Romycin) 5 MG/GM ophthalmic ointment 1 Application Left Eye, 4 times daily, First dose on Tue02/12/25 at 1930, Until Discontinued, Routine Given 02/13/2025 8:30 AM EDT 1 Application Given 02/12/2025 7:45 PM EDT 1 Application famotidine (Pepcid) 40 MG/5ML suspension 20 mg 20 mg, Oral, 2 times daily, First dose on Tue02/12/25 at 2100, Until Discontinued, Routine, Recovery(Phase II-Outpatient)/On Unit(Inpatient) famotidine (Pepcid) tablet 20 mg 20 mg, Oral, 2 times daily, First dose on Tue02/12/25 at 2100, Until Discontinued, Routine, Recovery(Phase II-Outpatient)/On Unit(Inpatient) Given 02/13/2025 8:32 AM EDT 20 mg Given 02/12/2025 9:08 PM EDT 20 mg famotidine PF (Pepcid) injection 20 mg 20 mg, Intravenous, 2 times daily, First dose on Tue02/12/25 at 2100, Until Discontinued, Routine, Recovery(Phase II-Outpatient)/On Unit(Inpatient) gabapentin (Neurontin) capsule 300 mg 300 mg, Oral, Once, 1 dose, On Tue02/12/25 at 1130, Routine, Holding - Preprocedure Given 02/12/2025 10:52 AM EDT 300 mg heparin (porcine) injection 5,000 Units 5,000 Units, Subcutaneous, Once, 1 dose, On Tue02/12/25 at 1130, Routine, Holding - Preprocedure Given 02/12/2025 10:52 AM EDT 5,000 Units Right Upper Arm (Back) ibuprofen tablet 600 mg 600 mg, Oral, Every 6 hours scheduled, First dose on Tue02/12/25 at 1800, Until Discontinued, Routine Given 02/13/2025 11:22 AM EDT 600 mg Given 02/13/2025 5:09 AM EDT 600 mg Given 02/13/2025 12:19 AM EDT 600 mg insulin lispro (Admelog) 100 units/mL injection - Correction - Standard Dose 0-5 Units, Subcutaneous, 3 times daily with meals, First dose on Tue02/12/25 at 1730, Until Discontinued, Routine, Recovery(Phase II-Outpatient)/On Unit(Inpatient) Given 02/13/2025 11:32 AM EDT 1 Units Left Lower Abdomen Given 02/13/2025 8:31 AM EDT 1 Units Le ft Lower Abdomen Given 02/12/2025 5:09 PM EDT 2 Units Le ft Upper Arm (Back) lactated Ringer's infusion 42 mL/hr, Intravenous, Continuous, Starting on Tue02/12/25 at 1630, Until Tue02/13/25 at 1609, Routine New Bag 02/13/2025 7:35 AM EDT 42 mL/hr 42 mL/hr Rate/Dose Verify 02/12/2025 10:00 PM EDT 42 mL/hr 42 mL/ hr New Bag 02/12/2025 4:02 PM EDT 42 mL/hr 42 mL/hr mupirocin (Bactroban) 2 % ointment 1 Application Each Nostril, 2 times daily, 10 doses, First dose on Tue02/12/25 at 2245, Last dose on Tue02/17/25 at 0900, Routine Given 02/13/2025 8:40 AM EDT 1 Application Given 02/12/2025 10:21 PM EDT 1 Application ondansetron (Zofran) 4 MG/5ML solution 4 mg 4 mg, Oral, Every 6 hours PRN, Starting on Tue02/12/25 at 1523, Until Tue02/13/25 at 1609, Routine, Recovery(Phase II-Outpatient)/On Unit(Inpatient), nausea, vomiting ondansetron (Zofran) injection 4 mg 4 mg, Intravenous, Every 6 hours PRN, Starting on Tue02/12/25 at 1523, Until Tue02/13/25 at 1609, Routine, Recovery(Phase II-Outpatient)/On Unit(Inpatient), vomiting, nausea ondansetron ODT (Zofran-ODT) disintegrating tablet 4 mg 4 mg, Oral, Every 6 hours PRN, Starting on Tue02/12/25 at 1523, Until Tue02/13/25 at 1609, Routine, Recovery(Phase II-Outpatient)/On Unit(Inpatient), nausea, vomiting oxyCODONE (Roxicodone) immediate release tablet 10 mg 10 mg, Oral, Every 4 hours PRN, Starting on Tue02/12/25 at 1527, Until Tue02/13/25 at 1609, Routine, Recovery(Phase II-Outpatient)/On Unit(Inpatient), severe pain oxyCODONE (Roxicodone) immediate release tablet 5 mg 5 mg, Oral, Every 4 hours PRN, Starting on Tue02/12/25 at 1527, Until Tue02/13/25 at 1609, Routine, Recovery(Phase II-Outpatient)/On Unit(Inpatient), Moderate Severe Pain with CPOT score of 3 or greater OR FLACC PAINAD NPASS NRS Prajapati-Clark Faces score of 4 or greater OR DVPRS NIPS score of 5 or greater Povidone-Iodine 5 % swab solution 1 Application Nasal, Once, 1 dose, On Tue02/12/25 at 1130, Routine Given 02/12/2025 10:52 AM EDT 1 Application sodium chloride 0.9 % flush 10 mL 10 mL, Intravenous, Every 12 hours, First dose on Tue02/12/25 at 1130, Until Discontinued, Routine, Holding - Preprocedure Given 02/12/2025 10:52 AM EDT 10 mL documented in this encounter Active and Recently Administered Medications Times are shown in EDT. Scheduled Medication Order 02/11/2025 02/12/2025 02/13/2025 acetaminophen (Tylenol) tablet 1,000 mg (COMPLETED) 1,000 mg, Oral, Once, 1 dose, On Tue02/12/25 at 1130, Routine, Holding - Preprocedure 1052 (Given - Provider: Rafaela Hough RN) acetaminophen (Tylenol) tablet 650 mg 650 mg, Oral, Every 6 hours scheduled, First dose on Tue02/12/25 at 1800, Until Discontinued, Routine, Recovery(Phase II-Outpatient)/On Unit(Inpatient) 1709 (Given - Provider: Nickolas Howard RN) 0019 (Given - Provider: Krystal Sims RN)0509 (Given - Provider: Krystal Sims RN)1122 (Given - Provider: Abbey Scott) atenolol (Tenormin) tablet 50 mg 50 mg, Oral, 2 times daily, First dose on Tue02/12/25 at 2100, Until Discontinued, Routine, Recovery(Phase II-Outpatient)/On Unit(Inpatient) 2107 (Given - Provider: Nickolas Howard RN) 0832 (Given - Provider: Abbey Scott) atorvastatin (Lipitor) tablet 20 mg 20 mg, Oral, Nightly, First dose on Tue02/12/25 at 2100, Until Discontinued, Recovery(Phase II-Outpatient)/On Unit(Inpatient) 2107 (Given - Provider: Nickolas Howard RN) ceFAZolin (Ancef) injection 2 g (COMPLETED) 2 g, Intravenous, Once, 1 dose, On Tue02/12/25 at 1315, Routine, Anesthesia Intraprocedure 1216 (Given - Provider: Emily Miramontes CRNA) enoxaparin (Lovenox) syringe 40 mg 40 mg, Subcutaneous, Daily, First dose on Tue02/13/25 at 0900, Until Discontinued, Routine 0831 (Given - Provid er: Abbey Scott) erythromycin (Romycin) 5 MG/GM ophthalmic ointment 1 Application Left Eye, 4 times daily, First dose on Tue02/12/25 at 1930, Until Discontinued, Routine 1945 (Given - Provider: Nickolas Howard RN) 0830 (Given - Provider: Abbey Scott)1400 (Canceled Entry - Provider: Automatic Discharge Provider - Comment: Automatically canceled at discontinue of medication order) famotidine (Pepcid) 40 MG/5ML suspension 20 mg(Linked Group 1) 20 mg, Oral, 2 times daily, First dose on Tue02/12/25 at 2100, Until Discontinued, Routine, Recovery(Phase II-Outpatient)/On Unit(Inpatient) 2107 (See Alternative - Provider: Nickolas Howard RN) 0832 (See Alternative - Provider: Abbey Scott) famotidine (Pepcid) tablet 20 mg(Linked Group 1) 20 mg, Oral, 2 times daily, First dose on Tue02/12/25 at 2100, Until Discontinued, Routine, Recovery(Phase II-Outpatient)/On Unit(Inpatient) 2107 (Given - Provider: Nickolas Howard RN) 0832 (Given - Provider: Abbey Scott) famotidine PF (Pepcid) injection 20 mg(Linked Group 1) 20 mg, Intravenous, 2 times daily, First dose on Tue02/12/25 at 2100, Until Discontinued, Routine, Recovery(Phase II-Outpatient)/On Unit(Inpatient) 2107 (See Alternative - Provider: Nickolas Howard RN) 0832 (See Alternative - Provider: Abbey Scott) gabapentin (Neurontin) capsule 300 mg (COMPLETED) 300 mg, Oral, Once, 1 dose, On Tue02/12/25 at 1130, Routine, Holding - Preprocedure 1052 (Given - Provider: Rafaela Hough RN) heparin (porcine) injection 5,000 Units (COMPLETED) 5,000 Units, Subcutaneous, Once, 1 dose, On Tue02/12/25 at 1130, Routine, Holding - Preprocedure 1052 (Given - Provider: Rafaela Hough RN) ibuprofen tablet 600 mg 600 mg, Oral, Every 6 hours scheduled, First dose on Tue02/12/25 at 1800, Until Discontinued, Routine 170 (Given - Provider: Nickolas Howard RN) 0019 (Given - Provider: Krystal Sims RN)0509 (Given - Provider: Krystal Sims RN)1122 (Given - Provider: Abbey Scott) insulin lispro (Admelog) 100 units/mL injection - Correction - Standard Dose 0-5 Units, Subcutaneous, 3 times daily with meals, First dose on Tue02/12/25 at 1730, Until Discontinued, Routine, Recovery(Phase II-Outpatient)/On Unit(Inpatient) 170 (Given - Provider: Nickolas Howard RN) 0831 (Given - Provider: Abbey Scott)1132 (Given - Provider: Abbey Scott) insulin lispro (Admelog) injection - Correction - Nighttime Dose 0-3 Units, Subcutaneous, 2 times nightly (2100 & 0300), First dose on Tue02/12/25 at 2100, Until Discontinued, Routine, Recovery(Phase II-Outpatient)/On Unit(Inpatient) 2103 (Not Given - Provider: Nickolas Howard RN - Reason: Order parameters not met) 022 (Not Given - Provider: Krystal Sims RN - Reason: Order parameters not met) mupirocin (Bactroban) 2 % ointment 1 Application Each Nostril, 2 times daily, 10 doses, First dose on Tue02/12/25 at 2245, Last dose on Tue02/17/25 at 0900, Routine 2221 (Given - Provider: Krystal Sims, LUPE) 0840 (Given - Provider: Abbey Scott) Povidone-Iodine 5 % swab solution 1 Application (COMPLETED) Nasal, Once, 1 dose, On Tue02/12/25 at 1130, Routine 1052 (Given - Provider: Rafaela Hough RN) sodium chloride 0.9 % flush 10 mL (CANCELED)(Linked Group 2) 10 mL, Intravenous, Every 12 hours, First dose on Tue02/12/25 at 1130, Until Discontinued, Routine, Holding - Preprocedure 1052 (Given - Provider: Rafaela Hough RN) Continuous Medication Order 02/11/2025 02/12/2025 02/13/2025 lactated Ringer's infusion 42 mL/hr, Intravenous, Continuous, Starting on Tue02/12/25 at 1630, Until Tue02/13/25 at 1609, Routine 1602 (New Bag - Provider: Mik Pritchett RN)2200 (Rate/Dose Verify - Provider: Krystal Sims, LUPE) 0735 (New Bag - Provider: Abbey Scott)1300 (Stopped - Provider: Abbey Scott) PRN Medication Order 02/11/2025 02/12/2025 02/13/2025 bupivacaine PF (Marcaine) 0.25 % injection (CANCELED) As needed, Starting on Tue02/12/25 at 1455, Until Tue02/12/25 at 1505, Routine, Intraprocedure 1455 (Given - Provider: Cheyanne Mora MD) carboxymethylcellulose PF (Refresh Plus) 0.5 % ophthalmic solution 1 drop 1 drop, Both Eyes, As needed, Starting on Tue02/12/25 at 1739, Until Tue02/13/25 at 1609, Routine, dry eyes 1747 (Given - Provider: Nickolas Howard, RN)2110 (Given - Provider: Nickolas Howard, RN) ondansetron (Zofran) 4 MG/5ML solution 4 mg(Linked Group 3) 4 mg, Oral, Every 6 hours PRN, Starting on Tue02/12/25 at 1523, Until Tue02/13/25 at 1609, Routine, Recovery(Phase II-Outpatient)/On Unit(Inpatient), nausea, vomiting ondansetron (Zofran) injection 4 mg(Linked Group 3) 4 mg, Intravenous, Every 6 hours PRN, Starting on Tue02/12/25 at 1523, Until Tue02/13/25 at 1609, Routine, Recovery(Phase II-Outpatient)/On Unit(Inpatient), vomiting, nausea ondansetron ODT (Zofran-ODT) disintegrating tablet 4 mg(Linked Group 3) 4 mg, Oral, Every 6 hours PRN, Starting on Tue02/12/25 at 1523, Until Tue02/13/25 at 1609, Routine, Recovery(Phase II-Outpatient)/On Unit(Inpatient), nausea, vomiting oxyCODONE (Roxicodone) immediate release tablet 10 mg(Linked Group 4) 10 mg, Oral, Every 4 hours PRN, Starting on Tue02/12/25 at 1527, Until Tue02/13/25 at 1609, Routine, Recovery(Phase II-Outpatient)/On Unit(Inpatient), severe pain oxyCODONE (Roxicodone) immediate release tablet 5 mg(Linked Group 4) 5 mg, Oral, Every 4 hours PRN, Starting on Tue02/12/25 at 1527, Until Tue02/13/25 at 1609, Routine, Recovery(Phase II-Outpatient)/On Unit(Inpatient), Moderate Severe Pain with CPOT score of 3 or greater OR FLACC PAINAD NPASS NRS Prajapati-Clark Faces score of 4 or greater OR DVPRS NIPS score of 5 or greater Linked Groups Order Group 1: famotidine (Pepcid) tablet 20 mgJump to med 20 mg, Oral, 2 times daily, First dose on Tue02/12/25 at 2100, Until Discontinued, Routine, Recovery(Phase II-Outpatient)/On Unit(Inpatient) Or famotidine (Pepcid) 40 MG/5ML suspension 20 mgJump to med 20 mg, Oral, 2 times daily, First dose on Tue02/12/25 at 2100, Until Discontinued, Routine, Recovery(Phase II-Outpatient)/On Unit(Inpatient) Or famotidine PF (Pepcid) injection 20 mgJump to med 20 mg, Intravenous, 2 times daily, First dose on Tue02/12/25 at 2100, Until Discontinued, Routine, Recovery(Phase II-Outpatient)/On Unit(Inpatient) Group 2: Insert peripheral IV (CANCELED) Once, On Tue02/12/25 at 1032, For 1 occurrence, Holding - Preprocedure And Saline lock IV (CANCELED) Once, On Tue02/12/25 at 1032, For 1 occurrence, Holding - Preprocedure And sodium chloride 0.9 % flush 10 mL (CANCELED)Jump to med 10 mL, Intravenous, Every 12 hours, First dose on Tue02/12/25 at 1130, Until Discontinued, Routine, Holding - Preprocedure And sodium chloride 0.9 % flush 10 mL (CANCELED) 10 mL, Intravenous, As needed, Starting on Tue02/12/25 at 1031, Until Tue02/12/25 at 1555, Routine, Holding - Preprocedure, line care Group 3: ondansetron ODT (Zofran-ODT) disintegrating tablet 4 mgJump to med 4 mg, Oral, Every 6 hours PRN, Starting on Tue02/12/25 at 1523, Until Tue02/13/25 at 1609, Routine, Recovery(Phase II-Outpatient)/On Unit(Inpatient), nausea, vomiting Or ondansetron (Zofran) injection 4 mgJump to med 4 mg, Intravenous, Every 6 hours PRN, Starting on Tue02/12/25 at 1523, Until Tue02/13/25 at 1609, Routine, Recovery(Phase II-Outpatient)/On Unit(Inpatient), vomiting, nausea Or ondansetron (Zofran) 4 MG/5ML solution 4 mgJump to med 4 mg, Oral, Every 6 hours PRN, Starting on Tue02/12/25 at 1523, Until Tue02/13/25 at 1609, Routine, Recovery(Phase II-Outpatient)/On Unit(Inpatient), nausea, vomiting Group 4: oxyCODONE (Roxicodone) immediate release tablet 5 mgJump to med 5 mg, Oral, Every 4 hours PRN, Starting on Tue02/12/25 at 1527, Until Tue02/13/25 at 1609, Routine, Recovery(Phase II-Outpatient)/On Unit(Inpatient), Moderate Severe Pain with CPOT score of 3 or greater OR FLACC PAINAD NPASS NRS Prajapati-Clark Faces score of 4 or greater OR DVPRS NIPS score of 5 or greater Or oxyCODONE (Roxicodone) immediate release tablet 10 mgJump to med 10 mg, Oral, Every 4 hours PRN, Starting on Tue02/12/25 at 1527, Until Tue02/13/25 at 1609, Routine, Recovery(Phase II-Outpatient)/On Unit(Inpatient), severe pain documented in this encounter Additional Health Concerns Active Problems Noted Date Diagnosed Date Autogenerated Problem 02/07/2025 Assessment Noted Time A fall risk assessment has been complete d for the patient 01/30/2025 2:13 PM EDT A Body Mass Index follow-up plan has been documented for the patient 02/13/2025 1:46 PM EDT documented as of this encounter Care Teams Custom Tailor Relationship Specialty Start Date End Date Adriana Boss APRN [address] [place] [id number] PCP - General 11/06/24 Kate Burrows DO [facility] [id number] Referring Physician Obstetrics and Gynecology 01/25/25 documented as of this encounter
--- OUTSIDE RECORDS SUMMARY | 2025-02-12 10:55 | XMS_ITS | Encounter Summary ---
Author Organization Healthcare Address [address] [place] [address] Care Team Providers Care Office Lead Name Role Phone Adriana Boss APRN Primary Care Provider [phone] Kate Burrows DO Unavailable [phone] Reason for Visit * Auth/Cert (Routine) Specialty Diagnoses / Procedures Referred By Contac t Referred To Contact Diagnoses Endometrial cancer Endometrial cancer [C54.1] Procedures SD LAPAROSCOPY W TOT HYSTERECTUTERUS <=250 GRAM W TUBE/OVARY SD REMOVAL OF OMENTUM SD INTRAOPERATIVE SENTINEL LYMPH NODE ID W DYE INJECTION SD LAP,LYMPH NODE BX ROBOT TLHBSO, SLN, OMENTECTOMY Amy Vargas MD [address] [address] Phone: tel: fax: [facility] RO[facility] [address] [place] [address] Phone: tel: Referral ID Status Reason Start Date Expiration Date Visits Re quested Visits Authorized [id number] 1 1 Encounter Details Date Type Department Care Team (Late st Contact Info) Description 02/12/2025 11:55 AM EDT Anesthesia Event [facility] [address] [place] [address] Jon Handley MD [address] [place] [address] Emily Miramontes CRNA [address] [place] [address] Anesthesia Record Procedure Summary Procedure Name Responsible Anesthesiologist Anesthesia Start Time Anesthesia Stop Time ROBOT TLHBSO, SLN, OMENTECTOMY (Bilateral) Jon Handley MD 02/12/25 1155 02/12/25 1518 Events Date Time Event Comment 02/12/2025 1042 1155 An Start The patient was reevaluated immediately before sedation and remains eligible for anesthesia plan. 1158 An Start Data 1158 In Room 1203 An Induction The patient was reevaluated immediately before moderate or deep sedation use and before anesthesia induction. 1207 An Intubation 1213 Anesthesia Ready 1220 Bin Magnet applied to pacemaker 1240 Proc Start 1454 Proc Fin 1503 An Extubation 1504 an stop data 1504 Out of Room 1517 Handoff to Receiving I compl eted my handoff to the receiving clinician during which we: 1. Identified the patient 2. Identified the responsible provider 3. Reviewed the pertinent medical history 4. Discussed the surgical course 5. Reviewed intra-op anesthesia management and issues during anesthesia 6. Set expectations for post-procedure period 7. Allowed opportunity for questions and acknowledgement of understanding. 1518 An Stop Meds Name Total fentaNYL (Sublimaze) injection 50 mcg/mL 150 mcg lidocaine PF (Xylocaine-MPF) 2% 100 mg propofol (Diprivan) injection 10 mg/mL 1 20 mg rocuronium (ZeMuron) injection 10 mg/mL 130 mg dexamethasone (Decadron) injection 4 mg/ mL 4 mg ePHEDrine injection prefilled syringe 5 mg/mL 10 mg ondansetron (Zofran) injection 2 mg/mL 4 mg ceFAZolin (Ancef) injection 2 g 2 g lactated Ringer's infusion 1,800 mL * Agents Name O2 N2O Air Sevoflurane Isoflurane Desflurane Inspired Desflurane Inspired Isoflurane Inspired Sevoflurane N2O Inspired N2O * Blood No blood administrations on file. Lines, Drains, and Airways Type Details Placement Removal Wound 02/12/25; 1258; Surgical; Laparoscopic; Abdomen; Upper 02/12/25 1258 by Theresa Pérez RN ETT Placement Date: 02/12/25; Placement Time: 1207 (created via procedure documentation); Mask Ventilation: 1; Technique: Direct laryngoscopy; Type: ETT - single; Single Lumen Tube Size: 7 mm; Cuffed: Yes; Laryngoscope: Nathan; Blade Size: 3; Location: Oral; Grade View: Grade I; Insertion Attempts: 1; Placement Verification: Auscultation, Capnometry; Airway Comments: Atraumatic. No change to dentition. ; Placed by: CECILIO; Removal Date: 02/12/25; Removal Time: 1503 02/12/25 1207 by Emily Miramontes CRNA 02/12/25 1503 by Nayely Medina CRNA Arterial Line Placement Date: 02/12/25; Placement Time: 1214 (created via procedure documentation); Size: 20 G; Orientation: Left; Location: Radial; Inserted by: CECILIO; Securement: Taped; Patient Tolerance: Tolerated well; Removal Date: 02/12/25; Removal Time: 1644; Removal Reason: Per order 02/12/25 1214 by Emily Miramontes CRNA 02/12/25 1644 by Letitia Benjamin RN Peripheral IV Placement Date: 02/12/25; Placement Time: 1244 (created via procedure documentation); Catheter Size: 20 G; Orientation: Left; Location: Forearm; Local Anesth: None; Technique: Anatomical landmarks; Insertion Attempts: 1; Removal Date: 02/13/25 02/12/25 1244 by Emily Miramontes CRNA 02/13/25 0000 by Abbey Scott Peripheral IV Placement Date: 02/12/25; Placement Time: 1510; Catheter Size: 20 G; Orientation: Posterior, Right; Location: Hand; Removal Date: 02/13/25; Removal Time: 1316 02/12/25 1510 by Mik Pritchett RN 02/13/25 1316 by Abbey Scott Urethral Catheter Placement Date: 02/12/25; Placement Time: 1510; Removal Date: 02/13/25; Removal Time: 0550; Removal Reason: Per order 02/12/25 1510 by Mik Pritchett RN 02/13/25 0550 by Krystal Sims RN documented in this encounter Social History [...] EDT Abbey Scott documented in this encounter Miscellaneous Notes * Anesthesia Postprocedure Evaluation - Nayely Medina CRNA - 02/12/2025 3:18 PM EDT Patient: Kelsey Monae Anesthesia Type: general Vitals Value Taken Time BP 150/83 02/12/25 15:15 Temp 36.7 02/12/25 15:18 Pulse 97 02/12/25 15:17 Resp 25 02/12/25 15:17 SpO2 98 % 02/12/25 15:17 Vitals shown include unfiled device data. Anesthesia Post Evaluation Patient location during evaluation: PACU Patient participation: complete - patient participated Pain management: adequate (pain score 0-3) Airway patency: natural airway Cardiovascular status: acceptable and hemodynamically stable Respiratory status: acceptable, face mask and nonlabored ventilation Hydration status: acceptable Nausea/Vomiting: No No notable events documented. * Anesthesia Procedure Notes - Emily Miramontes CRNA - 02/12/2025 12:45 PM EDTAssociated Order(s): Arterial Line Arterial Line: Date/Time: 02/12/2025 12:14 PM An arterial line was placed. Procedure performed using surface landmarks in the OR for the following indication(s): continuous blood pressure monitoring and blood sampling needed. A 20 gauge (size), 1 and 3/4 inch (length), Arrow (type) catheter was placed into the Left radial artery and secured by tape. Seldinger technique used Events: patient tolerated procedure well with no complications. Staffing Performed: CECILIO PROGRAMMING INSTRUCTOR: Emily Miramontes CRNA * Anesthesia Procedure Notes - Emily Miramontes CRNA - 02/12/2025 12:44 PM EDTAssociated Order(s): Peripheral IV Peripheral IV Date/Time: 02/12/2025 12:44 PM Placement Needle size: 20 G Location: forearm Local anesthetic: none Site prep: alcohol Technique: anatomical landmarks Attempts: 1 * Anesthesia Procedure Notes - Emily Miramontes CRNA - 02/12/2025 12:43 PM EDTAssociated Order(s): Airway Airway Date/Time: 02/12/2025 12:07 PM Reason: elective Airway not difficult General Information and Staff Patient location during procedure: OR PROGRAMMING INSTRUCTOR: Emily Miramontes CRNA Performed: PROGRAMMING INSTRUCTOR Patient Condition Indications for airway management: anesthesia Patient position: sniffing Final Airway Details Final airway type: endotracheal airway Successful airway: ETT Cuffed: yes Successful intubation technique: direct laryngoscopy Endotracheal tube insertion site: oral Blade: Nathan Blade size: #3 ETT size (mm): 7.0 Cormack-Lehane Classification: grade I - full view of glottis Placement verified by: chest auscultation and capnometry Measured from: lips ETT to lips (cm): 21 Additional Comments Atraumatic. No change to dentition. * Anesthesia Preprocedure Evaluation - Jon Handley MD - 02/12/2025 10:46 AM EDT Patient: Kelsey Monae is a 75 y.o. female with body mass index is 38.26 kg/m??. who presents with Endometrial cancer, now for ROBOT TLHBSO, SLN, OMENTECTOMY (Bilateral) Procedure Information Date/Time: 02/12/25 1210 Procedure: ROBOT TLHBSO, SLN, OMENTECTOMY (Bilateral) Location: [facility] Surgeons: Amy Vargas MD Relevant Problems GI (+) Severe obesity (BMI 35.0-39.9) with comorbidity (CMS/[facility]) ALLERGIES Allergies[1] NPO STATUS Date of Last Liquid: 02/11/25 Time of Last Liquid: 0800 Date of Last Solid: 02/11/25 Time of Last Solid: 2215 Last Intake Type: Clear fluids Time of Last Void: 1015 Past Medical History[2] AIRWAY HISTORY Airway Detailed Review Displaying the 20 most recent records Date Difficult Airway Blade Size ETT Size C-L Class Final Type Intubation Method 02/07/25 No MEDICATIONS Outpatient Current Outpatient Medications Medication Instructions apixaban (ELIQUIS) [...] 1 tablet, Daily Trulicity 1.5 mg, Weekly Scheduled Current Scheduled Medications[3] PRNs Current PRN Medications[4] SURGICAL HX: Surgical History[5] SOCIAL HX: Social History[6] OBJECTIVE DATA LABS Lab Results Component Value Date WBC 5.78 02/07/2025 HGB 8.6 (L) 02/07/2025 HCT 27.7 (L) 02/07/2025 MCV 87 02/07/2025 PLT 184 02/07/2025 Lab Results Component Value Date CALCIUM 9.4 01/30/2025 BUN 19 01/30/2025 CREATININE 0.78 01/30/2025 BCR 24 01/30/2025 NA 142 01/30/2025 K 3.7 01/30/2025 CL 106 01/30/2025 CO2 26 01/30/2025 Type and Screen No results found for: ABO Lab Results Component Value Date HGBA1C 5.2 01/30/2025 Lab Results Component Value Date PGLU 106 (H) 02/07/2025 GLUCOSE 69 (L) 01/30/2025 ABG No results found for: PHART , FMC0EUF , PO2ART , SO2ART , BEART , AAS2NTZ , HCTART , SODIUMART , POTASSIUMART , POCTCL , POCGLU , IONCALART , LACTATE No results found for: PH , PCO2 , PO2 , P3FPFXMZ , BASEEXC , HCTSYR , KSYR , CLSYR , GLUSYR , CAION , LACTATE ECHO No echocardiogram results found for the past 12 months PFTs No results found for: AXK1MWP , BFM8LCXM , INJ6WES , FVCPRED BP Readings from Last 5 Encounters: 02/12/25 138/67 02/07/25 104/76 01/30/25 126/78 Physical Exam Anesthesia Plan ASA 3 Plan was reviewed with: PROGRAMMING INSTRUCTOR Anesthesia technique(s) discussed with the patient/family: general Anesthesia plan agreed upon was: general Anesthetic plan and risks discussed with patient. Anesthesia Evaluation [1] No Known Allergies [2] Past Medical History: Diagnosis Date Atrial fibrillation (CMS/HCC) Diabetes mellitus Hypertension [3] acetaminophen, 1,000 mg, Oral, Once gabapentin, 300 mg, Oral, Once heparin (porcine), 5,000 Units, Subcutaneous, Once Povidone-Iodine, 1 Application, Nasal, Once Insert peripheral IV, , , Once AND Saline lock IV, , , Once AND sodium chloride, 10 mL, Intravenous, q12h AND sodium chloride, 10 mL, Intravenous, PRN [4] PRN medications: Insert peripheral IV AND Saline lock IV AND sodium chloride AND sodium chloride [5] Past Surgical History: Procedure Laterality Date DILATION AND CURETTAGE OF UTERUS INSERT / REPLACE / REMOVE PACEMAKER [6] Social History Tobacco Use Smoking status: Never Smokeless tobacco: Never Substance Use Topics Alcohol use: Never Drug use: Never documented in this encounter Plan of Treatment Not on file documented as of this encounter Goals Goal Patient Goal Type Associated Problems Recent Progress Patient-Stated? Author Autogenerat ed Goal Care Plan Autogenerated Problem No CammycristaMin documented as of this encounter Procedures Procedure Name Priority Date/Time Associated Diagnosis Comments ANESTHESIA PERIPHERAL IV PLACEMENT Routine 02/12/2025 12:44 PM EDT PB ANESTHESIA NON-TIMED PROCEDURE PLACEHOLDER Routine 02/12/2025 12:14 PM EDT PB ANESTHESIA PLACEHOLDER Routine 02/12/2025 12:07 PM EDT SD AN ELECTIVE ENDOTRACHEAL AIRWAY Routine 02/12/2025 12:07 PM EDT documented in this encounter Results * Peripheral IV (02/12/2025 12:44 PM EDT) Narrative Emily Miramontes CRNA - 02/12/2025 12:44 PM EDT Emily Miramontes CRNA 02/12/2025 12:45 PM Peripheral IV Date/Time: 02/12/2025 12:44 PM Placement Needle size: 20 G Location: forearm Local anesthetic: none Site prep: alcohol Technique: anatomical landmarks Attempts: 1 Jon Handley MD ANESTHESIA ORDERABLES Final Re sult * PB ANESTHESIA NON-TIMED PROCEDURE PLACEHOLDER (02/12/2025 12:14 PM EDT) Emily Yoder CRNA - 02/12/2025 12:14 PM EDT Emily Miramontes CRNA 02/12/2025 12:46 PM Arterial Line: Date/Time: 02/12/2025 12:14 PM An arterial line was placed. Procedure performed using surface landmarks in the OR for the following indication(s): continuous blood pressure monitoring and blood sampling needed. A 20 gauge (size), 1 and 3/4 inch (length), Arrow (type) catheter was placed into the Left radial artery and secured by tape. Seldinger technique used Events: patient tolerated procedure well with no complications. Staffing Performed: CECILIO PROGRAMMING INSTRUCTOR: Emily Miramontes CRNA Jon Handley MD ANESTHESIA ORDERABLES Final Re sult * SD AN ELECTIVE ENDOTRACHEAL AIRWAY, PB ANESTHESIA PLACEHOLDER (02/12/2025 12:07 PM EDT) Emily Yoder CRNA - 02/12/2025 12:07 PM EDT Emily Miramontes CRNA 02/12/2025 12:44 PM Airway Date/Time: 02/12/2025 12:07 PM Reason: elective Airway not difficult General Information and Staff Patient location during procedure: OR PROGRAMMING INSTRUCTOR: Emily Miramontes CRNA Performed: PROGRAMMING INSTRUCTOR Patient Condition Indications for airway management: anesthesia Patient position: sniffing Final Airway Details Final airway type: endotracheal airway Successful airway: ETT Cuffed: yes Successful intubation technique: direct laryngoscopy Endotracheal tube insertion site: oral Blade: Nathan Blade size: #3 ETT size (mm): 7.0 Cormack-Lehane Classification: grade I - full view of glottis Placement verified by: chest auscultation and capnometry Measured from: lips ETT to lips (cm): 21 Additional Comments Atraumatic. No change to dentition. us Jno Handley MD ANESTHESIA ORDERABLES Final Re sult documented in this encounter Visit Diagnoses Not on filedocumented in this encounter Administered Medications Inactive Administered Medications - up to 3 most recent administrations Medication Order MAR Action Action Date Dose Rate Site ceFAZolin (Ancef) injection 2 g 2 g, Intravenous, Once, 1 dose, On e 02/12/25 at 1315, Routine, Anesthesia Intraprocedure Given 02/12/2025 12:16 PM EDT 2 g dexamethasone (Decadron) injection Intravenous, As needed, Starting on e 02/12/25 at 1217, Until e 02/12/25 at 1518, Routine, Anesthesia Intraprocedure Given 02/12/2025 12:17 PM EDT 4 mg ePHEDrine Sulfate (Akovaz) injection Intravenous, As needed, Starting on e 02/12/25 at 1235, Until e 02/12/25 at 1518, Routine, Anesthesia Intraprocedure Given 02/12/2025 12:35 PM EDT 10 mg fentaNYL (Sublimaze) injection Intravenous, As needed, Starting on e 02/12/25 at 1203, Until 02/12/25 at 1518, Routine, Anesthesia Intraprocedure Given 02/12/2025 1:29 PM EDT 25 mcg Given 02/12/2025 1:20 PM EDT 25 mcg Given 02/12/2025 12:42 PM EDT 50 mcg lactated Ringer's infusion Intravenous, Continuous PRN, Starting on e 02/12/25 at 1155, Until Tue02/12/25 at 1518, Routine New Bag 02/12/2025 11:55 AM EDT lidocaine PF (Xylocaine) 2 % injection Intravenous, As needed, Starting on e 02/12/25 at 1203, Until 02/12/25 at 1518, Routine, Anesthesia Intraprocedure Given 02/12/2025 12:03 PM EDT 10 0 mg ondansetron (Zofran) injection Intravenous, As needed, Starting on e 02/12/25 at 1443, Until 02/12/25 at 1518, Routine, Anesthesia Intraprocedure Given 02/12/2025 2:43 PM EDT 4 m g propofol (Diprivan) injection Intravenous, As needed, Starting on 02/12/25 at 1203, Until 02/12/25 at 1518, Routine, Anesthesia Intraprocedure Given 02/12/2025 12:03 PM EDT 12 0 mg rocuronium (ZeMuron) injection Intravenous, As needed, Starting on 02/12/25 at 1203, Until 02/12/25 at 1518, Routine, Anesthesia Intraprocedure Given 02/12/2025 2:33 PM EDT 10 mg Given 02/12/2025 1:50 PM EDT 20 mg Given 02/12/2025 1:29 PM EDT 10 mg documented in this encounter Additional Health Concerns Active Problems Noted Date Diagnosed Date Autogenerated Problem 02/07/2025 Assessment Noted Time A fall risk assessment has been complete d for the patient 01/30/2025 2:13 PM EDT A Body Mass Index follow-up plan has been documented for the patient 02/13/2025 1:46 PM EDT documented as of this encounter Care Teams Office Lead Relationship Specialty Start Date End Date Adriana Boss APRN [address] [place] [id number] PCP - General 11/06/24 Kate Burrows DO [facility] [id number] Referring Physician Obstetrics and Gynecology 01/25/25 documented as of this encounter
--- OUTSIDE RECORDS SUMMARY | 2025-02-12 11:10 | XMS_ITS | Encounter Summary ---
Author Organization [facility] Address [address] [place] [address] Care Team Providers Care Special Librarian Name Role Phone Adriana Boss APRN Primary Care Provider [phone] Stormy Kate DO Unavailable [phone] Reason for Visit * Auth/Cert (Routine) Specialty Diagnoses / Procedures Referred By Controxy t Referred To Contact Diagnoses Endometrial cancer Endometrial cancer [C54.1] Procedures WV LAPAROSCOPY W TOT HYSTERECTUTERUS <=250 GRAM W TUBE/OVARY WV REMOVAL OF OMENTUM WV INTRAOPERATIVE SENTINEL LYMPH NODE ID W DYE INJECTION WV LAP,LYMPH NODE BX ROBOT TLHBSO, SLN, OMENTECTOMY Amy Vargas MD [address] [facility] Brenda More [address] [address] Phone: tel: fax: [facility] [address] [place] [phone] Phone: tel: Referral ID Status Reason Start Date Expiration Date Visits Re quested Visits Authorized [id number] 1 1 Encounter Details Date Type Department Care Team (Late st Contact Info) Description 02/12/2025 12:10 PM EDT - 02/12/2025 4:10 PM EDT Surgery [facility] [address] [place] [phone] Amy Vargas MD [address] [place] [address] Bren[address] [address] ROBOT TLHBSO, SLN, OMENTECTOMY [[id number] (CPT )] Surgery Details Date/Time Status Location OR Service Patient Class Case Class Case Type Trauma Case? 02/12/2025 12:10 PM Posted [facility] Gynecologic Oncology Surgery Admit E1 - Elective (Do not proceed without financial clearance) Panel 1 Procedure LRB Anes Op Region Wound Class Comments ROBOT TLHBSO, SLN, OMENTECTOMY Bilateral General Surgeon Surgeon Role Service Panel Amy Vargas MD Primary Gynecologic Onco logy 1 Cheyanne Mora MD Fellow 1 Dori Caputo MD Resident - Assisting 1 documented in this encounter Social History Tobacco [...] Sign Reading Time Taken Comments Blood Pressure 147/63 02/12/2025 4:00 PM EDT Pulse 80 02/12/2025 4:00 PM EDT Temperature 36.5 C (97.7 F) 02/12/2025 3:10 PM EDT Respiratory Rate 24 02/12/2025 4:00 PM EDT Oxygen Saturation 96% 02/12/2025 4:00 PM EDT Inhaled Oxygen Concentration - - Weight 98 kg (216 lb) 02/12/2025 3:10 PM EDT Height 160 cm (5' 3 ) 02/12/2025 3:10 PM EDT Body Mass Index 39.56 02/12/2025 3:10 PM EDT documented in this encounter Functional Status * Backup Resp Rate (Set) Answer Date of Assessment Author 14 02/12/2025 2:48 PM EDT Interface , Device In * Question Answer Date of Assessment Author Precautions Fall risk;Environmen teresa surveillance 02/12/2025 10:46 AM EDT Rafaela Hough RN * Question Answer Date of Assessment Author Precautions Fall risk;Environmen teresa surveillance 02/12/2025 10:46 AM EDT Rafaela Hough RN * Question Answer Date of Assessment Author 1. Wish to be (Past 1 Month) No 025 3:10 PM EDT Mik Pritchett RN 2. Non-Specific Active Suici marivel Thoughts (Past 1 Month) No 02/12/2025 3:10 PM EDT Mik Pritchett RN * Calculated C-SSRS Risk Score (Lifetime/Recent) Answer Date of Assessment Author No Risk Indicated 02/12/2025 3:10 PM EDT Mik Pritchett RN * Question Answer Date of Assessment Author 6. Suicidal Behavior (Lifetime) No 10:46 AM EDT Rafaela Hough RN documented as of this encounter Mental Status * Backup Resp Rate (Set) Answer Entry Date Author 14 02/12/2025 2:48 PM EDT Interface , Device In * Question Answer Entry Date Author Precautions Fall risk;[facility] 02/12/2025 10:46 AM EDT Rafaela Hough RN documented in this encounter Discharge Instructions * [...] call your doctor to schedule an appointment: [phone] Visit the gynecologic oncology Walk-In Clinic which is open Tuesday-Tuesday 8am- 10am. It is helpful if you call the clinic before arrival: [phone] Call the Cancer acute Treatment Clinic. Same day-appointments are available Tuesday-Tuesday 8am-5pm. Please call [phone] before arrival to schedule a visit Fever [...] p.m.: call the Gynecologic Oncology Clinic at [phone]. 4:30 p.m.-8 a.m.: call the After Hours Paging Holistic Nutritionist at [phone] and ask for the Gynecologic Oncology provider [...] MD PCP name and Address: Adriana Boss, ELEMENTARY EDUCATION TEACHER [address] [address] Referring provider name and address: Kate Burrows DO [address] [facility] [address] [place] [address] Chief Concern, Brief History of Present Illness, [...] Your Medications These medications were sent to [facility] [place], [place] - [address] [facility] [address] [place] [id number] acetaminophen 325 MG tablet carboxymethylcellulose PF 0.5 [...] call your doctor to schedule an appointment: [phone] Visit the gynecologic oncology Walk-In Clinic which is open Tuesday-Tuesday 8am- 10am. It is helpful if you call the clinic before arrival: [phone] Call the Cancer acute Treatment Clinic. Same day-appointments are available Tuesday-Tuesday 8am-5pm. Please call [phone] before arrival to schedule a visit Fever [...] p.m.: call the Gynecologic Oncology Clinic at [phone]. 4:30 p.m.-8 a.m.: call the After Hours Paging Holistic Nutritionist at [phone] and ask for the Gynecologic Oncology provider on-call. Outpatient Follow-Up Future Appointments Date Time Provider Department Center 03/20/2025 2:30 PM Amy Vargas MD WILL[facility]ALL[facility] Test Results Pending At Discharge Pending Labs [...] preparation for this discharge. Fariba Lowery MD TIRE TECHNICIAN Resident PGY-1 Cosigned by Amy Vargas MD at 02/13/2025 2:44 PM EDT Associated attestation - Amy Vargas MD - 02/13/2025 2:44 PM EDT I saw and evaluated the patient with the resident/fellow. I discussed the case with the resident/fellow and agree with the findings and plan as documented. * Nursing Note - ScottAbbey orlando - 02/13/2025 1:53 PM EDT Discharge home Has meds. Wheelchair to discharge lounge. Ride here. * Dayis On[facility]IR - Abbey Scott - 02/13/2025 1:41 PM EDT Images from the original note were not included. [id number] Endometrial Cancer: Discharge Instructions for Hysterectomy A [...] an aide through a home healthcare agency, [facility]. Make sure you know: ? When [...] away. Last Reviewed Date: 2024 00:00:00 ?? [id number] [employer]. All rights reserved. This information is not intended as a substitute for professional medical care. Always follow your healthcare professional's instructions. * Abbey Mayberry - 02/13/2025 1:41 PM EDT Images from the original note were not included. [id number] Discharge Instructions: Surgery for Cancer of the [...] you takeother medicines. These include prescriptions and yswh-dhb-gqdrynm medicines, vitamins, herbs, and other supplements. ? [...] leg Last Reviewed Date: 2024 00:00:00 ?? [id number] [employer]. All rights reserved. This information is not intended as a substitute for professional medical care. Always follow your healthcare professional's instructions. * Daysi Ventura - ScottAbbey - 02/13/2025 1:41 PM EDT Images from the original note were not included. [address] What Is Endometrial Cancer? Cancer usually starts [...] fightcancer. Last Reviewed Date: 2024 00:00:00 ?? [id number] [employer]. All rights reserved. This information is not intended as a substitute for professional medical care. Always follow your healthcare professional's instructions. * Daysi Ventura - Abbey Scott - 02/13/2025 1:41 PM EDT Images from the original note were not included. 40595 Obesity and Its Impact on Health Obesity [...] about working with a dietitian, a health elementary instructional coach, an surfboard maker, or a mental health provider. They can [...] medicines. Last Reviewed Date: 2024 00:00:00 ?? 2772-1198 [employer]. All rights reserved. This information is not intended as a substitute for professional medical care. Always follow your healthcare professional's instructions. * Abbey Mayberry - 02/13/2025 1:41 PM EDT Images from the original note were not included. [id number] Acetaminophen IMPORTANT WARNING: Taking too much acetaminophen [...] measuring cup or syringe provided by the general warehouse worker to measure each dose of the solution [...] and out of their sight and reach. [email or web address]://www.Doutíss[employer] Dispose of unneeded medications in a way [...] be awakened, immediately call emergency services at 593. If someone takes more than the recommended [...] of all of the prescription and nonprescription (xrjy-eql-nwkeinf) medicines, vitamins, minerals, and dietary supplements you [...] a combination product containing Acetaminophen, Oxycodone) APAP, R-jeoiyv-xpug-aminophenol, Paracetamol This report on medications is for your information only, and is not considered individual patient advice. Because of the changing nature of drug information, please consult your physician or pharmacist about specific clinical use. The [place] [employer] represents that the information provided hereunder was formulated with a reasonable standard of care, and in conformity with professional standards in the field. The [place] makes no representations or warranties, express or implied, including, but not limited to, any implied warranty of merchantability and/or fitness for a particular purpose, with respect to such information and specifically disclaims all such warranties. Users are advised that decisions regarding drug therapy are complex medical decisions requiring the independent, informed decision of an appropriate health career guidance counselor, and the information is provided for informational purposes only. The entire monograph for a drug should be reviewed for a thorough understanding of the drug's actions, uses and side effects. The [place] does not endorse or recommend the use of any drug.The information is not a substitute for medical care. AHFS?? Patient Medication Information?. ?? Copyright, 2023. The [place]-System Pharmacists??, [address], [address], [place], [place]. All Rights Reserved. Duplication for commercial use must be authorized by [facility]. Selected Revisions: December 31, 2022. AHFS?? Patient [...] code with your smart phone ?? [employer] * Abbey Mayberry - 02/13/2025 1:41 PM EDT Images from the original note were not included. Hysterectomy: Before Your Surgery - Video Watch this video to learn the different ways a hysterectomy may be done and what to expect for recovery. To view the video go to this web address: [email or web address] Or, scan this QR code with your smart phone ?? [employer] * Daysi On[facility]IR - Abbey Scott - 02/13/2025 1:41 PM EDT Images from the original note were not included. Pre-Procedure: Hysterectomy - Video Watch this to learn the facts behind some common concerns about hysterectomy. To view the video go to this web address: [email or web address] Or, scan this QR code with your [...] on Intervention: Prevent Infection Flowsheets (Taken 02/13/2025 133) Infection Prevention: environmental surveillance performed Goal: Optimal Comfort and Wellbeing Outcome: Met Intervention: Monitor Pain and Promote Comfort Flowsheets (Taken 02/13/2025 133) Pain Management Interventions: pain management plan reviewed with patient/caregiver Intervention: Provide Person-Centered Care Flowsheets (Taken 02/13/2025 133) Trust Relationship/Rapport: care explained Problem: Fall Injury Risk Goal: Absence of Fall and Fall-Related Injury Outcome: Met Intervention: Identify and Manage Contributors Flowsheets (Taken 02/13/2025 1331) Medication Review/Management: medications reviewed Self-Care Promotion: independence encouraged Intervention: Promote Injury-Free Environment Flowsheets (Taken 02/13/2025 133) Safety Promotion/Fall Prevention: activity supervised Problem: Infection [...] Manage Nausea and Vomiting Flowsheets (Taken 02/13/2025 1331) Nausea/Vomiting Interventions: nausea triggers minimized Goal: Effective Urinary Elimination Outcome: Met Intervention: Monitor and Manage Urinary Retention Flowsheets (Taken 02/13/2025 1331) Urinary Elimination Promotion: frequent voiding encouraged positioned for ease of voiding Goal: Effective Oxygenation and Ventilation Outcome: Met Intervention: Optimize Oxygenation and Ventilation Flowsheets (Taken 02/13/2025 1331) Activity Management: activity adjusted per tolerance Airway/Ventilation [...] ??F)] 36.4 ??C (97.6 ??F) Heart Rate: [-96] 78 Resp: [02-13] 16 BP: (124-172)/(60-95) 138/71 [...] well-managed. Please message on-call GYO resident via [employer] Secure Chat or page [phone] for questions or concerns regarding this patient's [...] 02/12/2025 9:37 PM EDT Pacemaker Interrogation Note Window Draper: Anderson/St. Lj Generator: Quadra Allure MP 3562, Serial # [id number], implanted 07/15/22 RA Lead: SJM Tendril STS 8TC/52cm, Serial #[id number], Implant date 07/15/22 RV Lead: SJM Tendril STS 8TC/58cm, Serial # [id number], Implant date 07/15/22 LV/CS Lead: SJM Quartet 1458Q/86cm, Serial # [id number], implant date 07/15/22 Device type: multilead chamber [...] PGY-6/FY-2 Fellow - Division of Cardiovascular Medicine [facility] [place] * Clinician Note - Dori Caputo MD [...] meds/eliquis/ASA held - Message sent to EP veterinarian helper to interrogate pacemaker prior to discharge - [...] management Please message on-call GYO resident via F[employer] Secure Chat or page [phone] for questions or concerns regarding this patient's [...] Agree with above assessment and evaluation from resident/DEVOPS ENGINEER. * Op Note - Amy Vargas MD - 02/12/2025 12:40 PM EDT Operative Note Date: 02/12/25 Location: [facility] Name: Kelsey Monae, : 1950, Diagnoses: Pre-op Diagnosis Endometrial cancer Obesity BMI 39 Afib Psoriasis DM HTN Post-op Diagnosis Endometrial cancer Obesity BMI 39 Afib Psoriasis DM HTN Procedure(s): Robotic TLH/BSO/SLN mapping/OMX Attending Surgeon(s): * Amy Vargas I - Primary Horticulture Worker(s): * Dori Caputo MD - Resident - Assisting * hCeyanne Mora MD - Fellow Anesthesia: General ASA: [...] The cervix was sounded and dilated. A [employer]Q Chip uterine manipulator was placed. Thepatient???s arms were [...] the node, I had to utilize the physiotherapist's assistant and two of my robot arms [...] Morbid Obesity greatly prolonged the procedure. A physiotherapist's assistant was required to retract the colon, [...] last anesthetic: June 2022: Pacemaker insertion at [facility]. No problemswith GA in the past. [...] 2 flights of stairs. Cardio additional comments: C 2022 at [facility], no stents placed. Recently saw Cardiology [...] arthritis. Does not have cervical spine instability. [facility] additional comments: Hx of psoriasis, not on [...] Routine 02/12/2025 1:02 PM EDT Endometrial cancer WV LAPAROSCOPY W TOT HYSTERECTUTERUS <=250 GRAM W TUBE/OVARY 02/12/2025 11:43 AM EDT Endometrial cancer POCT GLUCOSE METER UNSOLICITED RESULTS Routine 02/12/2025 11:02 AM EDT TYPE AND SCREEN Routine 02/12/2025 10:56 AM EDT documented in this encounter Results * (ABNORMAL) POCT glucose meter (02/13/2025 11:22 AM EDT) [facility] POCT Glucose 159(H) 74 - 99 mg/dL [...] 02/13/2025 11:24 AM EDT [facility] Holistic Nutritionist ID Triny Olvera 02/13/2025 11:24 AM EDT [facility] Device ID [id number] 02/13/2025 11:24 AM EDT [facility] Specimen Type POC Capillary 02/13/2025 11:24 AM EDT [facility] Blood Capillary blood specimen / Unknown 02/13/2025 11:22 AM EDT 02/13/2025 11:24 AM EDT Amy Vargas MD LAB POINT OF CARE TEST DOCKED DEVICE UNSOLICITED RESULTS Final Result Performing Organization Address City/State/[facility] Co de Phone Number [facility] [address] [place] [address] * (ABNORMAL) POCT glucose meter (02/13/2025 7:36 AM EDT) [facility] POCT Glucose 175(H) 74 - 99 [...] for testing. Comment 02/13/2025 7:38 AM EDT [facility] Holistic Nutritionist ID Triny Olvera 02/13/2025 7:38 AM EDT [facility] Device ID [id number] 02/13/2025 7:38 AM EDT [facility] Specimen Type POC Capillary 02/13/2025 7:38 AM EDT [facility] Blood Capillary blood specimen / Unknown 02/13/2025 7:36 AM EDT 02/13/2025 7:38 AM EDT us Amy Vargas MD LAB POINT OF CARE TEST DOCKED DEVICE UNSOLICITED RESULTS Final Result [facility] [address] [place] [address] * Phosphorus (02/13/2025 12:29 AM EDT) [facility] Phosphorus, Plasma 3.6 2.5 - 4.5 mg/dL 02/13/2025 1:07 AM EDT [facility] Blood Venous blood specimen / Unknown Venipuncture / Unknown 02/13/2025 12:29 AM EDT 02/13/2025 12:34 AM EDT Amy Vargas MD LAB BLOOD ORDERABLES Veronica l Result Performing Organization Address City/[facility]/[place] [address] * (ABNORMAL) Magnesium, Plasma (02/13/2025 12:29 AM EDT) [facility] Magnesium, Plasma 1.8(L) 1.9 - 2.4 mg/dL 02/13/2025 1:07 AM EDT [facility] Blood Venous blood specimen / Unknown Venipuncture / Unknown 02/13/2025 12:29 AM EDT 02/13/2025 12:34 AM EDT us Amy Vargas MD LAB BLOOD ORDERABLES Veronica l Result Performing Organization Address City/[facility]/ZIP Co de Phone Number [address] [address] * (ABNORMAL) Basic metabolic panel (02/13/2025 12:29 AM EDT) Glucose, Plasma 207(H) 74 - 99 mg/dL 02/13/2025 1:07 AM EDT [facility] BUN, Plasma 20 8 - 23 mg/dL 02/13/2025 1:07 AM EDT [facility] Creatinine, Plasma 0.79 0.60 - 1.10 mg/dL 02/13/2025 1:07 AM EDT [facility] BUN/Creatinine Ratio 25 02/13/2025 1:07 AM EDT [facility] Sodium, Plasma 137 136 - 145 mmol/L 02/13/2025 1:07 AM EDT [facility] Potassium, Plasma 4.2 3.6 - 4.9 mmol/L 02/13/2025 1:07 AM EDT [facility] Chloride, Plasma 102 97 - 107 mmol/L 02/13/2025 1:07 AM EDT [facility] CO2, Plasma 23 22 - 29 mmol/L 02/13/2025 1:07 AM EDT [facility] Anion Gap 12 6 - 16 mmol/L 02/13/2025 1:07 AM EDT [facility] Total Calcium, Plasma 8.7(L) 8.9 - 10.2 mg/dL 02/13/2025 1:07 AM EDT [facility] eGFRcr 77.6 mL/min/1.7 3m*2 02/13/2025 1:07 AM EDT [facility] Comment:Reported eGFRcr in m L/min/1.73m2 is based the CKD-EPI 2020 equation that does not use a race coefficient. Blood Venous blood specimen / Unknown Venipuncture / Unknown 02/13/2025 12:29 AM EDT 02/13/2025 12:34 AM EDT us Amy Vargas MD LAB BLOOD ORDERABLES Veronica bray Result [facility] [address] [place] [address] * (ABNORMAL) CBC W/O Differential (02/13/2025 12:29 AM EDT) WBC Count 9.30 3.70 - 10.30 10*3/uL LAB HEMATOLOGY METHOD 02/13/2025 12:44 AM EDT [facility] RBC Count 3.09(L) 3.90 - 5.20 10*6/uL LAB HEMATOLOGY METHOD 02/13/2025 12:44 AM EDT [facility] HGB 8.6(L) 11.2 - 15.7 g/dL LAB HEMATOLOGY METHOD 02/13/2025 12:44 AM EDT [facility] HCT 26.9(L) 34.0 - 45.0 % LAB HEMATOLOGY METHOD 02/13/2025 12:44 AM EDT [facility] Platelet Count 193 155 - 369 10*3/uL LAB HEMATOLOGY METHOD 02/13/2025 12:44 AM EDT [facility] MCV 87 79 - 98 fL LAB HEMATOLOGY METHOD 02/13/2025 12:44 AM EDT [facility] MCH 27.8 26.0 - 32.0 pg LAB HEMATOLOGY METHOD 02/13/2025 12:44 AM EDT [facility] MCHC 32.0 30.7 - 35.5 g/dL LAB HEMATOLOGY METHOD 02/13/2025 12:44 AM EDT [facility] RDW 15.0(H) 11.5 - 14.5 % LAB HEMATOLOGY METHOD 02/13/2025 12:44 AM EDT [facility] MPV 10.4 8.8 - 12.5 fL LAB HEMATOLOGY METHOD 02/13/2025 12:44 AM EDT [facility] nRBC 0.0 <=0.0 per 100 WBCs LAB HEMATOLOGY METHOD 02/13/2025 12:44 AM EDT [facility] Blood Venous blood specimen / Unknown Venipuncture / Unknown 02/13/2025 12:29 AM EDT 02/13/2025 12:35 AM EDT us Amy Vargas MD LAB BLOOD ORDERABLES Veronica bray Result [facility] [address] [place] [address] * Corin auris Surveillance by PCR (02/12/2025 9:55 PM EDT) Corin auris PCR Result Not Detected Not Detected 02/14/2025 6:58 AM EDT [facility] Swab (Axilla and Groin) Non-blood Collection / Unknown 02/12/2025 9:55 PM EDT 02/12/2025 10:03 PM EDT Narrative [facility] - 02/14/2025 6:58 AM EDT This PCR assay was developed and its performance characteristics determined by [facility] as appropriate for clinical purposes. This assay has not been cleared or approved by the FDA, but is performed in a CLIA regulated laboratory that is qualified to perform high-complexity testing. Amy Vargas MD LAB MICROBIOLOGY - GENERA L ORDERABLES Final Result Performing Organization Address [facility] [place] [address] * Multi Drug Resistance Test (02/12/2025 9:55 PM EDT) Culture No growth at day 1 02/14/2025 6:13 AM EDT [facility] Swab (Nares and Yola Rectal) Non-blood Collection / Unknown 02/12/2025 9:55 PM EDT 02/12/2025 10:03 PM EDT Narrative [facility] - 02/14/2025 6:13 AM EDT This test was developed and its performance characteristics determined by the [facility]. Although the media is FDA-approved, it is not FDA-approved for all specimen types submitted. The FDA has determined that such clearance or approval is not necessary. This test is used for surveillance purposes. It should not be regarded as investigational or for research. The [facility] is certified under the Clinical Laboratory Improvement Amendments of 1988 (CLIA-88) as qualified to perform high complexity clinical laboratory testing. Amy Vargas MD LAB MICROBIOLOGY - GENERA L ORDERABLES Final Result Performing Organization Address City/[facility]/ZIP Co de Phone Number [facility] [address] [place] [address] * (ABNORMAL) POCT glucose meter (02/12/2025 9:03 PM EDT) Pathologist [facility] POCT Glucose 166(H) 74 - 99 mg/dL [...] Comment 02/12/2025 9:05 PM EDT [facility] Holistic Nutritionist ID Nickolas Howard 02/12/2025 9:05 PM EDT [facility] Device ID [id number] 02/12/2025 9:05 PM EDT [facility] Specimen Type POC Capillary 02/12/2025 9:05 PM EDT [facility] Blood Capillary blood specimen / Unknown 02/12/2025 9:03 PM EDT 02/12/2025 9:05 PM EDT us Amy Vargas MD LAB POINT OF CARE TEST DOCKED DEVICE UNSOLICITED RESULTS Final Result Performing Organization Address City/State/[facility] Co de Phone Number [facility] [address] [place] [address] * (ABNORMAL) POCT glucose meter (02/12/2025 4:30 PM EDT) Pathologist [facility] POCT Glucose 205(H) 74 - 99 mg/dL [...] 02/12/2025 4:31 PM EDT [facility] Holistic Nutritionist ID Mik Pritchett 02/12/2025 4:31 PM EDT [facility] Device ID [id number] 02/12/2025 4:31 PM EDT [facility] Specimen Type POC Capillary 02/12/2025 4:31 PM EDT [facility] Blood Capillary blood specimen / Unknown 02/12/2025 4:30 PM EDT 02/12/2025 4:31 PM EDT Amy Vargas MD LAB POINT OF CARE TEST DOCKED DEVICE UNSOLICITED RESULTS Final Result [facility] [address] [place] [address] * Surgical Pathology Exam (02/12/2025 2:01 PM EDT) Case Report Surgical Pathology Case: [id number] Authorizing Provider: Amy Vargas MD Collected: 02/12/2025 1401 Ordering Location: [facility] A OPERATING ROOM Received: 02/12/2025 1528 Pathologist: Lavon Daly MD Specimens: A) - Other (specify site), uterus, cervix, bilateral tubes, ovaries, and adnexal mass B) - Other (specify site), OMENTUM - PERMANENT 1:14 PM EST [facility] Final Diagnosis A. UTERUS, CERVIX, BILATERAL FALLOPIAN [...] OMENTECTOMY: - BENIGN FIBROADIPOSE TISSUE. 1:14 PM EST [facility] at 1314 EST Comment Immunohistochemical stains previously performed on the endometrial curettage specimen ([id number]) at the outside institution demonstrated the following results. POLE status is unknown. P53: Mutated (overexpressed) Estrogen receptor: Positive, 95%, strong Progesterone receptor: Positive, 95%, strong PD-L1: less than 1% MLH1: Retained PMS2: Retained MSH2: Retained MSH6: Retained 5 1:14 PM EST [facility] Synoptic Checklist ENDOMETRIUM ENDOMETRIUM - All Specimens [...] the Endometrium): IICm (p53abn) 5 1:14 PM EST [facility] Clinical Information Endometrial cancer [C54.1] 5 1:14 PM EST [facility] Gross Description A. UTERUS, CERVIX, BILATERAL TUBES, [...] entirely calcified nodule. The cut surface is aplpe-yellow and whorled. [employer] sections are submitted as follows: A1: Posterior [...] aggregate of apple-yellow lobulated firm fibroadipose tissue. [employer] sections are submitted in cassettes B1-B3. Cold Time: 1h 10m HARLEY Lama (ASCP) 1:14 PM EST [facility] Intradepartmental Consultation with Agreement Dr. Trevor Koch reviewed selected slides and concurs with the interpretation. 1:14 PM [facility] Note: A resident was involved in the service. I attest I examined the relevant preparations for the specimens and confirmed the diagnosis or interpretation. 1:14 PM EST [facility] Tissue Topography unknown / Unknown 02/12/2025 2:01 PM EDT 02/12/2025 3:28 PM EDT Comment:Pre-op diagnosis: Endometrial cancer [C54.1] Tissue specimen (specimen) Topography unknown / Unknown 02/12/2025 2:18 PM EDT 02/12/2025 3:28 PM EDT Comment:Pre-op diagnosis: Endometrial cancer [C54.1] us Amy Vargas MD LAB PATHOLOGY ORDERABLES Final Result [facility] [address] [place] [address] * Non-Gynecologic Cytology (02/12/2025 1:02 PM EDT) Case Report Cytology Case: [id number] Authorizing Provider: Amy Vargas MD Collected: 02/12/2025 1302 Ordering Location: [facility] A OPERATING ROOM Received: 02/12/2025 1515 Pathologist: Karrie Moran MD Specimen: Pelvic Washing, PELVIC WASHING 02/14/2025 11:33 AM EDT [facility] Final Diagnosis A. PELVIC WASHING - NO EVIDENCE OF MALIGNANCY - REACTIVE MESOTHELIAL CELLS 02/14/2025 11:33 AM EDT [facility] at 1133 EDT Gross Description A. PELVIC WASHING 35 mls clear fluid for thin prep and cell block 02/14/2025 11:33 AM EDT [facility] Clinical Information Endometrial cancer [C54.1] 02/14/2025 11:33 AM EDT [facility] Washing Fluid specimen from pelvis / Unknown 02/12/2025 1:02 PM EDT 02/12/2025 3:15 PM EDT Comment:Pre-op diagnosis: Endometrial cancer [C54.1] Amy Vargas MD LAB CYTOLOGY ORDERABLES F inal Result [facility] [address] [place] [address] * (ABNORMAL) POCT glucose meter (02/12/2025 11:02 AM EDT) POCT Glucose 110(H) 74 - 99 mg/dL 02/12/2025 11:04 AM EDT [facility] Comment:Accuracy of a [...] Comment 02/12/2025 11:04 AM EDT [facility] Holistic Nutritionist ID Lyudmila Soria 02/12/2025 11:04 AM EDT [facility] Device ID [id number] 02/12/2025 11:04 AM EDT [facility] Specimen Type POC Venous 02/12/2025 11:04 AM EDT [facility] Blood Venous blood specimen / Unknown 02/12/2025 11:02 AM EDT 02/12/2025 11:04 AM EDT Amy Vargas MD LAB POINT OF CARE TEST DOCKED DEVICE UNSOLICITED RESULTS Final Result [facility] [address] [place] [address] * Type and screen (02/12/2025 10:56 AM EDT) ABO/Rh O Positive 02/12/2025 11:04 AM EDT [facility] Antibody Screen Negative 02/12/2025 11:04 AM EDT BLOOD BANK Specimen Expiration 02/15/2025 23:59 02/12/2025 11:04 AM EDT [facility]LO[facility] Blood Venous blood specimen / Unknown Venipuncture / Unknown 02/12/2025 10:56 AM EDT 02/12/2025 11:04 AM EDT Amy Vargas MD LAB BLOOD BANK TEST ORDER JULIA Final Result Performing Organization Address City/[facility] Co de Phone Number BLOOD BANK [address] documented in this encounter Visit Diagnoses Diagnosis Endometrial cancer- Primary Malignant neoplasm of corpus uteri, except isthmus Endometrial cancer Malignant neoplasm of corpus uteri, except isthmus documented in this encounter Admitting Diagnoses Diagnosis Endometrial cancer Malignant neoplasm of corpus uteri, except isthmus documented in this encounter Administered Medications Inactive Administered Medications - up to 3 most recent administrations Medication Order MAR Action Action Date Dose Rate Site acetaminophen (Tylenol) tablet 650 mg 650 mg, [...] Given 02/12/2025 9:08 PM EDT 20 mg bupivacaine PF (Marcaine) 0.25 % injection As needed, Starting on Tue02/12/25 at 1455, Until Tue02/12/25 at 1505, Routine, Intraprocedure Given 02/12/2025 2:55 PM EDT 17 mL Abdominal Tissue carboxymethylcellulose PF (Refresh Plus) 0.5 % ophthalmic [...] 2100, Until Discontinued, Routine, Recovery(Phase II-Outpatient)/On Unit(Inpatient) ibuprofen tablet 600 mg 600 mg, Oral, [...] DVPRS NIPS score of 5 or greater documented in this encounter Active and Recently [...] met) 0221 (Not Given - Provider: Krystal Sims, LUPE - Reason: Order parameters not met) mupirocin [...] eyes 1747 (Given - Provider: Nickolas Howard, RN)2109 (Given - Provider: Nickolas Howard, RN) ondansetron [...] documented as of this encounter Care Teams Special Librarian Relationship Specialty Start Date End Date Adriana Boss APRN [facility] [place] [address] PCP - General 11/06/24 Kate Burrows DO [facility] [address] Referring Physician Obstetrics and Gynecology 01/25/25 documented as of this encounter
--- OUTSIDE RECORDS SUMMARY | 2025-03-20 09:44 | XMS_ITS | Encounter Summary ---
Author Organization [facility] Address [address] [place] [address] Care Team Providers Care Power Operator Name Role Phone Adriana Boss APRN Primary Care Provider [phone] Stormy Kate DO Unavailable [phone] Reason for Referral * Imaging (Routine) - Closed Specialty Diagnoses / Procedures Referred By Colin lee Referred To Contact Radiology Diagnoses Endometrial cancer Procedures PET/CT FDG Skull Base To Mid Thigh Amy Vargas MD [address] [address] Phone: tel: fax: Referral ID Status Reason Start Date Expiration Date Visits Re quested Visits Authorized [id number] Closed 02/19/2025 08/21/2026 2 2 Reason for Visit * Imaging (Routine) - Closed Specialty Diagnoses / Procedures Referred By Colin lee Referred To Contact Radiology Diagnoses Endometrial cancer Procedures PET/CT FDG Skull Base To Mid Thigh Amy Vargas MD [address] [address] Phone: tel: fax: Referral ID Status Reason Start Date Expiration Date Visits Re quested Visits Authorized [id number] Closed 02/19/2025 08/21/2026 2 2 Encounter Details Date Type Department Care Team (Latest Contact Info) Description 03/20/2025 9:44 AM EST Hospital Encounter [facility] PET Scan [address] [place] [address] Endometrial cancer Discharge Disposition: Home or Self [...] PET/CT scanner: PAKO 550 . PET/CT acquisition: Dfpbwx-nz-vgq-thighs. Standardized uptake value (SUV): Corrected for body weight only. CT: Low-dose, ugx-vfvhap-rjpk, without intravenous contrast. TOTAL DLP (Dose Length [...] PET/CT scanner: PAKO 550 . PET/CT acquisition: Snufnr-zv-ecr-thighs. Standardized uptake value (SUV): Corrected for body weight only. CT: Low-dose, krn-eebche-jlkt, without intravenous contrast. TOTAL DLP (Dose Length [...] activity seen in the right pelvis (202 [id number]), appears to be tracer activity in the [...] documented as of this encounter Care Teams Power Operator Relationship Specialty Start Date End Date Adriana Boss APRN [address] [place] [address] PCP - General 11/06/24 Kate Burrows DO [facility] [address] Referring Physician Obstetrics and Gynecology 01/25/25 documented as of this encounter
--- OUTSIDE RECORDS SUMMARY | 2025-03-20 09:45 | XMS_ITS | Encounter Summary ---
Author Organization [facility] Address [address] [place] [address] Care Team Providers Care Black Topper Name Role Phone Adriana Boss APRN Primary Care Provider [phone] Delfina Burrowsnifer DO Unavailable [phone] Reason for Visit * Imaging (Routine) - Closed Specialty Diagnoses / Procedures Referred By Contac t Referred To Contact Radiology Diagnoses Endometrial cancer Procedures PET/CT FDG Skull Base To Mid Thigh Amy Vargas MD [address] [address] Phone: tel: fax: Referral ID Status Reason Start Date Expiration Date Visits Re quested Visits Authorized [id number] Closed 02/19/2025 08/21/2026 2 2 Encounter Details Date Type Department Care Team (Latest Contact Info) Description 03/20/2025 9:45 AM EST - 03/20/2025 11:59 PM [facility] Hospital Encounter [facility] PET Scan [address] [place] [address] Discharge Disposition: Home or Self Care Social [...] PET/CT scanner: PAKO 550 . PET/CT acquisition: Hysbwj-cl-htb-thighs. Standardized uptake value (SUV): Corrected for body weight only. CT: Low-dose, ndl-gsomro-iale, without intravenous contrast. TOTAL DLP (Dose Length [...] PET/CT scanner: PAKO 550 . PET/CT acquisition: Zxnqgn-mb-lur-thighs. Standardized uptake value (SUV): Corrected for body weight only. CT: Low-dose, dxc-jwicpr-puet, without intravenous contrast. TOTAL DLP (Dose Length [...] activity seen in the right pelvis (202 [id number]), appears to be tracer activity in the [...] documented as of this encounter Care Teams Black Topper Relationship Specialty Start Date End Date Adriana Boss APRN [address] [place] [address] PCP - General 11/06/24 Kate Burrows DO [facility] [address] Referring Physician Obstetrics and Gynecology 01/25/25 documented as of this encounter
--- OUTSIDE RECORDS SUMMARY | 2025-03-20 14:30 | XMS_ITS | Encounter Summary ---
Author Organization [facility] Address [address] [place] [address] Care Team Providers Care Street Engineer Name Role Phone Adriana Boss APRN Primary Care Provider [phone] Kate Burrows DO Unavailable [phone] Encounter Details Date Type Department Care Team (Late st Contact Info) Description 03/20/2025 2:30 PM EST Office Visit [facility] [address] [place] [address] Amy Vargas MD [address] [facility] [address] [place] [address] Endometrial cancer (Primary Dx); Severe [...] had a CT scan,was referred to a PREPLEATER who did an US. She then had [...] kidney, GFA - prostate, GFA - hodgkin's BREAD AND PASTRY BAKER Hx: G0 - adopted children Menopause: ~59 [...] Exam Vitals reviewed. Exam conducted with a state farm agent present. Constitutional: Appearance: Normal appearance. She is [...] with them. Desires treatment closer to home, [place] or [place]. Will make referrals to Med Onc and [...] orders, phlebotomy, and documentation. Amy Vargas MD [facility] GYNECOLOGY [address] [address] [address] [facility] [address] Dept: [phone] Dept Loc: [phone] Answers submitted by the patient for this [...] documented as of this encounter Care Teams Street Engineer Relationship Specialty Start Date End Date Adriana Boss APRN [address] [place] [address] PCP - General 11/06/[address] [facility] [address] Referring Physician Obstetrics and Gynecology 01/25/25 documented as of this encounter
[2025-04-03 15:47] LABS: Hematocrit 33.3 % (37.0-47.0); Hemoglobin 9.7 g/dL (12.2-16.2); Immature Granulocytes % 0.3 %; Mean Corpuscular HGB Conc 29.1 g/dL (31.8-35.4); Mean Corpuscular Hemoglobin 23.3 pg (27.0-31.2); Mean Corpuscular Volume 79.9 fl (81-99); Nucleated Red Blood Cells % 0 %; Platelet Count 313 K/mm3 (142-424); Red Blood Count 4.17 M/mm3 (4.20-5.40); Red Cell Distribution Width-SD 50.6 fL; White Blood Count 9.7 K/mm3 (4.8-10.8)
[2025-04-03 17:12] LABS: Alanine Aminotransferase 17 U/L (12-78); Albumin Level 4.1 g/dl (3.5-5.0); Albumin/Globulin Ratio 1.3 (1.1-1.8); Alkaline Phosphatase 103 U/L (38-126); Anion Gap 12.2 mEq/L (5-15); Aspartate Amino Transferase 25 U/L (14-36); Bilirubin,Total 0.3 mg/dl (0.2-1.3); Blood Urea Nitrogen 23 mg/dl (7-17); Calcium 9.4 mg/dl (8.4-10.2); Carbon Dioxide 26 mmol/L (22.0-30.0); Chloride 105 mmol/L (98-107); Cholesterol 126 mg/dl (140-200); Creatinine,Serum 0.90 mg/dl (0.52-1.04); Estimated Glomerular Filt Rate 61 ml/min (>60); GFR (African American) 74 ML/MIN (>60); Globulin 3.2 g/dL (1.3-3.2); Glucose 97 mg/dl (74-100); HDL Cholesterol 47 mg/dl (40-60); Potassium 4.2 mmoL/L (3.5-5.1); Sodium 139 mmol/L (136-145); Total Protein,Serum 7.3 g/dl (6.3-8.2); Triglycerides 129 mg/dl (30-150)
[2025-04-03 17:41] LABS: Hemoglobin A1C 5.6 % (4.0-6.0)
--- OUTSIDE RECORDS SUMMARY | 2025-04-03 20:46 | XMS_ITS | Encounter Summary ---
Author Organization [facility] Address [address] [place] [address] Care Team Providers Care Admission Liaison Name Role Phone Adriana Boss APRN Primary Care Provider [phone] Delfina Burrowsnifer DO Unavailable [phone] Encounter Details Date Type Department Care Team (Latest Contact Info) Description 02/08/2025 Travel Social History Tobacco Use Types Packs/Day [...] documented as of this encounter Care Teams Admission Liaison Relationship Specialty Start Date End Date Adriana Boss APRN [address] [place] [address] PCP - General 11/06/24 Kate Burrows DO [facility] [address] Referring Physician Obstetrics and Gynecology 01/25/25 documented as of this encounter
--- OUTSIDE RECORDS SUMMARY | 2025-04-03 20:46 | XMS_ITS | Encounter Summary ---
Author Organization [facility] Address [address] [place] [address] Care Team Providers Care Uniform Room Attendant Name Role Phone GeraAdriana lee Rosendo LI Primary Care Provider [phone] BenjaminKate braden DO Unavailable [phone] Encounter Details Date Type Department Care Team (Late st Contact Info) Description 01/31/2025 Lab Requisition [facility] [address] [place] [address] Amy Vargas MD [address] [facility] [address] [place] [address] Postmenopausal bleeding Social History Tobacco Use Types Packs/Day Years [...] Procedure Name Priority Date/Time Associated Diagnosis Comments SURGICAL PATHOLOGY CONSULT Routine 01/31/2025 11:21 AM EDT Postmenopausal bleeding documented in this encounter Results * Surgical Pathology Consult (01/31/2025 11:21 AM EDT) Case Report Sugical Pathology Consult Case: [id number] Authorizing Provider: Amy Vargas MD Collected: 01/31/2025 1121 Ordering Location: [facility] Lab Received: 01/31/2025 1121 Pathologist: Maxim Miner MD Specimen: Endometrium, [id number] 4:10 PM EDT [facility] Final Diagnosis A. ENDOMETRIUM, CURETTINGS ([id number], 01/21/2025): - ENDOMETRIOID ADENOCARCINOMA, FIGO GRADE 3. B. ENDOMETRIUM #2, CURETTINGS ([id number], 01/21/2025): - ENDOMETRIOID ADENOCARCINOMA, FIGO GRADE 3. 4:10 PM EDT [facility] at 1609 EDT Comment With essentially agree with the outside diagnosis. The curettings demonstrate more than 50% solid areas the tumor as FIGO grade 3. The immunostain results performed outside for supportive of the above diagnoses. 4:10 PM EDT [facility] Clinical Information N95.0 - Postmenopausal bleeding [ICD-10-CM] 4:10 PM EDT [facility] Special and Immunohistochemical Stains IMMUNOHISTOCHEMIST RY (performed by outside lab on [id number]) BLOCK ANTIBODY RESULT B1 P53 MUTATED (OVEREXPRESSED) B1 ESTROGEN RECEPTOR POSITIVE, 95%, STRONG B1 PROGESTERONE RECEPTOR POSITIVE, 95%, STRONG B1 PD-L1 <1 B1 MLH1 RETAINED B1 PMS2 RETAINED B1 MSH2 RETAINED B1 MSH6 RETAINED 4:10 PM EDT [facility] Gross Description A. [id number] Received along with a corresponding pathology report from [facility] are 12 slide(s) labeled outside case: [id number] collected on 01/21/2025. 4:10 PM EDT [facility] Note: A resident was involved in the service. I attest I examined the relevant preparations for the specimens and confirmed the diagnosis or interpretation. 4:10 PM EDT [facility] Tissue Endometrial structure / Unknown 01/31/2025 11:21 AM EDT 01/31/2025 11:21 AM EDT us Amy Vargas MD LAB PATHOLOGY ORDERABLES Final Result [facility] [address] [place] [address] documented in this encounter Visit Diagnoses Diagnosis Postmenopausal bleeding documented in this encounter Additional Health Concerns Assessment Noted Time A fall risk assessment has been complete d for the patient 01/30/2025 2:13 PM EDT A Body Mass Index follow-up plan has been documented for the patient 01/20/2025 2:21 PM EDT documented as of this encounter Care Teams Uniform Room Attendant Relationship Specialty Start Date End Date Adriana Boss APRN [address] [place] [address] PCP - General 11/06/24 Kate Burrows DO [facility] [address] Referring Physician Obstetrics and Gynecology 01/25/25 documented as of this encounter
--- OUTSIDE RECORDS SUMMARY | 2025-04-03 20:46 | XMS_ITS | Encounter Summary ---
Author Organization [facility] Address [address] [place] [address] Care Team Providers Care Gaming Cashier Name Role Phone Adriana Boss APRN Primary Care Provider [phone] Kate Burrows DO Unavailable [phone] Encounter Details Date Type Department Care Team (Latest Contact Info) Description 02/04/2025 Travel Social History Tobacco Use Types Packs/Day [...] filedocumented in this encounter Additional Health Concerns Assessment Noted Time A fall risk assessment has been complete d for the patient 01/30/2025 2:13 PM EDT A Body Mass Index follow-up plan has been documented for the patient 01/20/2025 2:21 PM EDT documented as of this encounter Care Teams Gaming Cashier Relationship Specialty Start Date End Date Adriana Boss APRN [address] [place], [place] [id number] PCP - General 11/06/24 Kate Burrows DO [facility] [address] Referring Physician Obstetrics and Gynecology 01/25/25 documented as of this encounter
--- OUTSIDE RECORDS SUMMARY | 2025-04-03 20:46 | XMS_ITS | Encounter Summary ---
Author Organization [facility] Address [address] [place] [address] Care Team Providers Care Door Opener Name Role Phone Adriana Boss APRN Primary Care Provider [phone] Delfina Burrowsnifer DO Unavailable [phone] Encounter Details Date Type Department Care Team (Late st Contact Info) Description 02/04/2025 Telephone [facility] [address] [place] [address] Amy Vargas MD [address] [facility] [address] [place] [address] Social History Tobacco Use Types Packs/Day Years [...] encounter Miscellaneous Notes * Telephone Encounter - Helen Haile - 02/04/2025 10:46 AM EDT Patient states that [facility] is unable to schedule a CT chest prior to her surgery. [facility] informed the patient that if the order was resent with STAT on the order they may be able to get her in. documented in this encounter Plan of Treatment [...] documented as of this encounter Care Teams Door Opener Relationship Specialty Start Date End Date Adriana Boss APRN [address] [place] [address] PCP - General 11/06/24 Kate Burrows DO [facility] [address] Referring Physician Obstetrics and Gynecology 01/25/25 documented as of this encounter
--- OUTSIDE RECORDS SUMMARY | 2025-04-03 20:47 | XMS_ITS | Encounter Summary ---
Author Organization [facility] Address [address] [place] [address] Care Team Providers Care Deputy Attorney General Name Role Phone Adriana Boss APRN Primary Care Provider [phone] Delfina Burrowsnifer DO Unavailable Encounter Details Date Type Department Care Team (Latest Contact Info) Description 03/13/2025 Travel Social History Tobacco Use Types Packs/Day [...] documented as of this encounter Care Teams Deputy Attorney General Relationship Specialty Start Date End Date Adriana Boss APRN [address] [place] [address] PCP - General 11/06/24 Kate Burrows DO [facility] [address] Referring Physician Obstetrics and Gynecology 01/25/25 documented as of this encounter
--- OUTSIDE RECORDS SUMMARY | 2025-04-03 20:47 | XMS_ITS | Encounter Summary ---
Author Organization [facility] Address [address] [place] [address] Care Team Providers Care Online Marketing Director Name Role Phone Adriana Boss APRN Primary Care Provider [phone] Delfina Burrowsnifer DO Unavailable [phone] Encounter Details Date Type Department Care Team (Latest Contact Info) Description 02/07/2025 Travel Social History Tobacco Use Types Packs/Day [...] documented as of this encounter Care Teams Online Marketing Director Relationship Specialty Start Date End Date Adriana Boss APRN [address] [place] [address] PCP - General 11/06/24 Kate Burrows DO [facility] [address] Referring Physician Obstetrics and Gynecology 01/25/25 documented as of this encounter
--- OUTSIDE RECORDS SUMMARY | 2025-04-03 20:47 | XMS_ITS | Clinical Summary ---
Author Organization [facility] Address [address] [facility] [address] [place] [address] Phone Care Team Providers Care Brineyard Supervisor Name Role Phone Min Terrazas MD Primary Care Provider [phone] Social History Tobacco Use Types Packs/Day Years [...] 75+ series) 01/04/2024 COVID-19 Vaccine ( - 2024-2 6 season) 2024 Influenza Vaccine (#1) 2024 Hepatitis B Vaccine Aged Out No longe r eligible based on patient's age to complete this topic Meningococcal B Vaccine Aged Out No l onger eligible based on patient's age to complete this topic Insurance [facility] MEDICARE PPO MR Member Subscriber Plan / Payer (Ef fective 2017-Present) Name:Kelsey Monae Relation to Subscriber:Self Name:Kelsey Monae Payer ID:[id number] (NAIC) Type:Not on file Address: [address] [id number] Care Teams Brineyard Supervisor Relationship Specialty Start Date End Date Min Terrazas MD [address] [facility] [address] [place] [address] PCP - General 05/08/10
--- OUTSIDE RECORDS SUMMARY | 2025-04-03 20:47 | XMS_ITS | Encounter Summary ---
Author Organization [facility] Address [address] [place] [address] Care Team Providers Care Sharebroker Name Role Phone Adriana Boss APRN Primary Care Provider [phone] Kate Burrows DO Unavailable [phone] Encounter Details Date Type Department Care Team (Late st Contact Info) Description 02/19/2025 Telephone [facility] [address] [place] [address] Amy Vargas MD [address] [facility] [address] [place] [address] Social History Tobacco Use Types [...] encounter Miscellaneous Notes * Telephone Encounter - Lynette York - 02/19/2025 3:26 PM EST Patient is scheduled for a pet/ct same day as post op 03/20/25 * Telephone Encounter - Lynette York - 02/19/2025 3:26 PM EST ----- Message from Jessica Urias MD sent at 02/18/2025 3:36 PM EST ----- Regarding: PET scan Aidan Ojeda, This patient is scheduled 03/20 for a postop visit. Any chance she can get a PET scan scheduled either a few days beforehand or on the same day as her PET scan? She told me over the phone she is okay for two trips to [place]. Thanks, Jessica documented in this encounter Plan of Treatment [...] documented as of this encounter Care Teams Sharebroker Relationship Specialty Start Date End Date Adriana Boss APRN [facility] [place] [address] PCP - General 11/06/24 Kate Burrows DO [facility] [address] Referring Physician Obstetrics and Gynecology 01/25/25 documented as of this encounter
--- OUTSIDE RECORDS SUMMARY | 2025-04-03 20:47 | XMS_ITS | Encounter Summary ---
Author Organization [facility] Address [address] [place] [address] Care Team Providers Care Strategic Alliances Manager Name Role Phone Adriana Boss APRN Primary Care Provider [phone] Stormy Kate DO Unavailable [phone] Encounter Details Date Type Department Care Team (Latest Contact Info) Description 02/12/2025 Travel Social History Tobacco Use Types Packs/Day [...] Answer Date of Assessment Author Precautions Fall risk 02/12/2025 10:00 PM EDT Krystal Castillo RN * Question Answer Date of Assessment Author Precautions Fall risk 02/12/2025 10:00 PM EDT Krystal Castillo RN * Calculated C-SSRS Risk Score (Lifetime/Recent) [...] Question Answer Entry Date Author Precautions Fall risk 02/12/2025 10:00 PM EDT Krystal Castillo RN documented in this encounter Plan of Treatment [...] documented as of this encounter Care Teams Strategic Alliances Manager Relationship Specialty Start Date End Date Adriana Boss APRN [address] [place] [address] PCP - General 11/06/24 Kate Burrows DO [facility] [address] Referring Physician Obstetrics and Gynecology 01/25/25 documented as of this encounter
--- OUTSIDE RECORDS SUMMARY | 2025-04-03 20:47 | XMS_ITS | Encounter Summary ---
Author Organization [facility] Address [address] [place] [address] Care Team Providers Care Provider Service Representative Name Role Phone Adriana Boss APRN Primary Care Provider [phone] Delfina Burrowsnifer DO Unavailable [phone] Encounter Details Date Type Department Care Team (Latest Contact Info) Description 03/20/2025 Travel Social History Tobacco Use Types Packs/Day [...] documented as of this encounter Care Teams Provider Service Representative Relationship Specialty Start Date End Date Adriana Boss APRN [address] [place] [address] PCP - General 11/06/24 Kate Burrows DO [facility] [address] Referring Physician Obstetrics and Gynecology 01/25/25 documented as of this encounter
--- OUTSIDE RECORDS SUMMARY | 2025-04-03 20:47 | XMS_ITS | Encounter Summary ---
Author Organization Healthcare Address [address] [place] [address] Care Team Providers Care Solvent Recoverer Name Role Phone Adriana Boss APRN Primary Care Provider [phone] Kate Burrows DO Unavailable [phone] Encounter Details Date Type Department Care Team (Late st Contact Info) Description 03/20/2025 Results Follow-Up [facility] [address] [place] [address] Amy Vargas MD [address] [facility] [address] [place] [address] Social History Tobacco Use Types [...] documented as of this encounter Care Teams Solvent Recoverer Relationship Specialty Start Date End Date Adriana Boss APRN [facility] [place] [address] PCP - General 11/06/24 Kate Burrows DO [facility] [id number] Referring Physician Obstetrics and Gynecology 01/25/25 documented as of this encounter
--- OUTSIDE RECORDS SUMMARY | 2025-04-03 20:47 | XMS_ITS | Clinical Summary ---
Author Organization [facility] Address [address] [place] [address] Care Team Providers Care Campaign Worker Name Role Phone Adriana Boss APRN Primary Care Provider [phone] BenjaminKate braden DO Unavailable [phone] Allergies No known active allergies Medications ASPIRIN 81 MG chewable tablet Chew 1 tablet daily. Active atenolol (Tenormin) 50 MG tablet Take 1 tablet by mouth 2 times a day. One pill in the morning. Two in the evening. Active benazepril (Lotensin) 10 MG tablet Take 1 tablet by mouth daily. Active apixaban (Eliquis) 5 MG tablet Take 1 tablet by mouth 2 times a day. Active fluticasone (Flonase) 50 MCG/ACT nasal spray Administer 1 spray into each nostril daily. Shake gently. Before first use, prime pump. After use, clean tip and replace cap. Active glimepiride (Amaryl) 4 MG tablet Take 1 tablet by mouth daily before breakfast. Active potassium chloride (Klor-Con) 20 MEQ packet Take 20 mEq by mouth 2 times a day. Dissolve packet in at least 4 oz (115 ml) of water Active simvastatin (Zocor) 40 MG tablet Take 1 tablet by mouth nightly. Active triamterene-hydroc hlorothiazide (Maxzide-25) 37.5-25 MG tablet Take 1 tablet by mouth daily. Active dulaglutide (Trulicity) 1.5 MG/0.5ML solution auto-injector Inject 1.5 mg under the skin 1 time per week. Active acetaminophen (Tylenol) 325 MG tablet Take 2 tablets by mouth every 6 hours. 100 tablet 02/14/20 25 Active ibuprofen 600 MG tablet Take 1 tablet by mouth every 6 hours as needed for mild pain. 30 tablet 02/14/20 25 Active oxyCODONE (Roxicodone) 5 MG immediate release tablet Take 1 tablet by mouth every 4 hours as needed for severe pain. 3 tablet 02/14/20 25 Active carboxymethylcellu lose PF (Refresh Plus) 0.5 % ophthalmic solution Administer 1 drop into both eyes as needed for dry eyes. 1 each 02/14/20 25 Active ondansetron ODT (Zofran-ODT) 4 MG disintegrating tablet Dissolve 1 tablet on the tongue every 6 hours as needed for nausea or vomiting. 20 tablet 02/14/20 25 Active senna-docusate sodium (Senokot-S) 8.6-50 MG tablet Take 2 tablets by mouth daily. 60 tablet 11 02/14/20 25 026 Active amoxicillin-clavul anate (Augmentin) 875-125 MG tabletIndications: Vaginal discharge Take 1 tablet by mouth 2 times a day for 10 days. 20 tablet 03/20/20 25 025 Active Problems Problem Noted Date Diagnosed Date Severe obesity (BMI 35.0-39.9) with comorbidity 01/30/2025 Endometrial cancer 01/30/2025 Encounters Date Type Department Care Team Description 03/20/2025 2:30 PM EST Office Visit [facility] [address] [address] [address] [place] [address] Amy Vargas MD Endometrial cancer (Primary Dx); Severe obesity (BMI 35.0-39.9) with comorbidity (CMS/HCC); Type 2 diabetes mellitus without complication, without long-term current use of insulin; Primary hypertension; Chronic atrial fibrillation (CMS/HCC); Vaginal discharge 03/20/2025 9:45 AM EST - 03/20/2025 11:59 PM EST Hospital Encounter [facility] PET Scan [address] [place] [address] Discharge Disposition: Home or Self Care 03/20/2025 9:44 AM EST Hospital Encounter [facility] PET Scan [address] [place] [address] Endometrial cancer Discharge Disposition: Home or Self Care 03/20/2025 Results Follow-Up [facility] [address] [place] [phone] Amy Vargas MD 03/20/2025 Travel 03/13/2025 Travel 02/19/2025 Telephone [facility] [address] [place] [address] Amy Vargas MD 02/18/2025 Results Follow-Up [facility] [address] [place] [address] Jessica Urias MD 02/15/2025 Orders Only [facility] [address] [place] [address] Milli Fletcher MD 02/12/2025 12:10 PM EDT - 02/12/2025 4:10 PM EDT Surgery [facility] [address] [place] [phone] Amy Vargas MD ROBOT TLHBSO, SLN, OMENTECTOMY [08765 (CPT )] 02/12/2025 11:55 AM EDT Anesthesia Event [facility] [address] [place] [address] Jon Handley MD Wynstra, Elizabeth P PRESSROOM FOREMAN 02/12/2025 9:21 AM EDT - 02/13/2025 2:09 PM EDT Hospital Encounter [facility] Inpatient [address] [place] [address] Amy Vargas MD Endometrial cancer Discharge Disposition: Home or Self Care 02/12/2025 Travel 02/08/2025 4:28 PM EDT - 02/08/2025 11:59 PM EDT Hospital Encounter Cardiac Imaging [address] [place] [address] AV block, 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) Discharge Disposition: Home or Self Care 02/08/2025 Travel 02/07/2025 3:00 PM EDT Anesthesia Event [facility] [address] [place] [address] Alfredo Almaraz MD McLarney, John T, MD 02/07/2025 10:10 AM EDT - 02/07/2025 3:00 PM EDT Hospital Encounter [facility] [address] [place] [address] Amy Vargas MD Pacemaker (Primary Dx) Discharge Disposition: Home or Self Care 02/07/2025 Travel 02/04/2025 Travel 02/04/2025 Telephone [facility] [address] [address] [address] [place] [address] Amy Vargas MD 02/01/2025 2:00 PM EDT Pre-Admission Testing [facility] [address] [place] [address] AV block, 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) (Primary Dx) 02/01/2025 Travel 01/31/2025 Travel 01/31/2025 Lab Requisition [facility] Lab [address] [place] [address] Amy Vargas MD Postmenopausal bleeding 01/30/2025 2:15 PM EDT Office Visit [facility] [address] [address] [address] [place] [address] Amy Vargas MD Endometrial cancer (Primary Dx); Severe obesity (BMI 35.0-39.9) with comorbidity (CMS/HCC); Type 2 diabetes mellitus without complication, without long-term current use of insulin; Primary hypertension; Chronic atrial fibrillation (CMS/HCC) 01/30/2025 Travel 01/26/2025 Travel 01/17/2025 1:00 PM EDT Procedure Visit [facility] [address] [place] [address] Luis A White MD Hand paresthesia 01/17/2025 Travel 01/15/2025 Orders Only External Location [address] [place] [address] Kate Burrows DO 01/11/2025 Travel 01/06/2025 Orders Only External Location [address] [place] [address] Abbey Salmon DO from Last 3 Months Family History Medical History Relation Name Comments Kidney cancer Father Hodgkin's lymphoma Maternal Grandfather Prostate cancer Maternal Grandfather Relation Name Status Comments Father Maternal Grandfather Social History Tobacco Use Types Packs/Day Years [...] on file Sexual Orientation Not on file Last Filed Vital Signs Vital Sign Reading [...] Mass Index 38.47 03/20/2025 2:10 PM EST Plan of Treatment Health Maintenance Due Date Last Done Comments [facility]-Bone Density Scan 1950 [facility]-Hepatitis C Screening 1950 [facility]-Medicare Annual Wellness (AWV) 1950 [facility]-/Child/Adol SDOH Screenings 1950 Diabetes: Dental Exam 1959 [facility]- SDOH Screenings 1967 [facility]-Adult SDOH Screenings 1967 [facility]-Pneumococcal Vaccine: 50+ Years (2 of 2 - PCV) 02/02/2018 02/02/2017 [facility]-Zoster Vaccines (2 of 2) 09/06/2018 07/12/2018 [facility]-RSV Vaccine: 60+ Years or (1 - 1-dose 75+ series) 01/04/2024 [id number] Vaccine ( - 2024- season) 2024 03/23/2021, 06/17/2020, 05/22/2020 [facility]-Influenza Vaccine (#1) 2024 [facility]-Diabetes: Hemoglobin A1C 07/30/2025 01/30/2025 [facility]-Depression Screening 01/30/2026 01/30/2025 [facility]-DTaP,Tdap,and Td Vaccines (3 - Td or Tdap) 08/03/2027 08/02/2017, 06/16/2009, 06/23/1996 [facility]-Breast Cancer Screening Discontinued 02/21/2020, 02/21/2020, 02/14/2018, Additional history exists [facility]-Obesity Intervention Completed 025, 02/07/2025, 01/17/2025 HPV Vaccines (No Doses Required) Completed [facility]-HIB Vaccines Aged Out No longer e [...] on patient's age to complete this topic Goals Goal Patient Goal Type Associated Problems Recent Progress Patient-Stated? Author Autogenerat ed Goal Care Plan Autogenerated Problem No Min [employer] Medical Devices Implanted Type Area Lawyer Probate Device Identifier Shelf Expiration Date Model / Serial / Lot Pacemaker Pacemaker Chest Procedures Procedure Name Priority Date/Time Associated Diagnosis Comments PET/CT FDG SKULL BASE TO MID THIGH Routine 03/20/2025 11:07 AM EST Endometrial cancer POCT GLUCOSE METER UNSOLICITED RESULTS Routine 02/13/2025 11:22 AM EDT POCT GLUCOSE METER UNSOLICITED RESULTS Routine 02/13/2025 7:36 AM EDT PHOSPHORUS, PLASMA Routine 02/13/2025 12 :29 AM EDT MAGNESIUM, PLASMA Routine 02/13/2025 12: 29 AM EDT BASIC METABOLIC PANEL, PLASMA Routine 02/13/2025 12:29 AM EDT CBC W/O DIFFERENTIAL Routine 02/13/2025 12:29 AM EDT CORIN AURIS SURVEILLANCE BY PCR Routine 02/12/2025 9:55 PM EDT MULTI DRUG RESISTANCE TEST Routine 02/12/2025 9:55 PM EDT POCT GLUCOSE METER UNSOLICITED RESULTS Routine 02/12/2025 9:03 PM EDT POCT GLUCOSE METER UNSOLICITED RESULTS Routine 02/12/2025 4:30 PM EDT SURGICAL PATHOLOGY EXAM Routine 02/13/20 2:01 PM EDT Endometrial cancer NON-GYNECOLOGIC CYTOLOGY Routine 02/12/2025 1:02 PM EDT Endometrial cancer ANESTHESIA PERIPHERAL IV PLACEMENT Routine 02/12/2025 12:44 PM EDT PB ANESTHESIA NON-TIMED PROCEDURE PLACEHOLDER Routine 02/12/2025 12:14 PM EDT PB ANESTHESIA PLACEHOLDER Routine 02/12/2025 12:07 PM EDT WV AN ELECTIVE ENDOTRACHEAL AIRWAY Routine 02/12/2025 12:07 PM EDT WV LAPAROSCOPY W TOT HYSTERECTUTERUS <=250 GRAM W TUBE/OVARY 02/12/2025 11:43 AM EDT Endometrial cancer POCT GLUCOSE METER UNSOLICITED RESULTS Routine 02/12/2025 11:02 AM EDT TYPE AND SCREEN Routine 02/12/2025 10:56 AM EDT CARDIAC DEVICE CHECK - IN CLINIC - PACEMAKER BIVENTRICULAR CHAMBER W/ PROG STAT 02/08/2025 4:28 PM EDT AV block, 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) TYPE AND SCREEN Routine 02/07/2025 1:18 PM EDT CBC W/O DIFFERENTIAL Routine 02/07/2025 1:18 PM EDT POCT GLUCOSE METER UNSOLICITED RESULTS Routine 02/07/2025 1:12 PM EDT SURGICAL PATHOLOGY CONSULT Routine 01/31/2025 11:21 AM EDT Postmenopausal bleeding HEMOGLOBIN A1C Routine 01/30/2025 3:36 PM EDT Endometrial cancer COMPREHENSIVE METABOLIC PANEL, PLASMA Routine 01/30/2025 3:36 PM EDT Endometrial cancer CBC WITH AUTO DIFFERENTIAL Routine 01/30/2025 3:36 PM EDT Endometrial cancer CA 125 Routine 01/30/2025 3:36 PM EDT Endometrial cancer EMG / NERVE CONDUCTION STUDY Routine 01/17/2025 1:00 PM EDT Hand paresthesia US OUTSIDE IMAGES 01/15/2025 8:[address] OUTSIDE IMAGES 01/06/2025 10: 20 PM EDT from Last 3 Months Results * PET/CT FDG Skull Base To [...] PET/CT scanner: PAKO 550 . PET/CT acquisition: Rvcjjt-yy-dtg-thighs. Standardized uptake value (SUV): Corrected for body weight only. CT: Low-dose, cwk-swslmg-rsng, without intravenous contrast. TOTAL DLP (Dose Length [...] Not applicable. Positioning: Arms raised. PET/CT scanner: [facility] 550 . PET/CT acquisition: Fjpljw-cu-mjn-thighs. Standardized uptake value (SUV): Corrected for body weight only. CT: Low-dose, sas-dmxjxq-rumd, without intravenous contrast. TOTAL DLP (Dose Length [...] low-attenuation nodule left lobe of thyroid (202 [id number]). Clear paranasal sinuses and mastoid air-cells. Chest: [...] activity seen in the right pelvis (202 [id number]), appears to be tracer activity in the [...] MD IMG NM PROCEDURES Final R esult * (ABNORMAL) POCT glucose meter (02/13/2025 11:22 AM EDT) Only the most recent of6 resultswithin the time period is included. POCT Glucose 159(H) 74 - 99 mg/dL [...] 02/13/2025 11:24 AM EDT [facility] Hide Trimmer ID Triny Olvera 02/13/2025 11:24 AM EDT [facility] Device ID [id number] 02/13/2025 11:24 AM EDT [facility] Specimen Type POC Capillary 02/13/2025 11:[address] [facility] Blood Capillary blood specimen / Unknown 02/13/2025 11:22 AM EDT 02/13/2025 11:24 AM EDT Amy Vargas MD LAB POINT OF CARE TEST DOCKED DEVICE UNSOLICITED RESULTS Final Result [facility] [address] [place] [address] * (ABNORMAL) CBC W/O Differential (02/13/2025 12:29 AM EDT) Only the most recent of2 resultswithin the time period is included. WBC Count 9.30 3.70 - 10.30 10*3/uL LAB HEMATOLOGY METHOD 02/13/2025 12:44 AM EDT [facility] RBC Count 3.09(L) 3.90 - 5.20 10*6/uL LAB HEMATOLOGY METHOD 02/13/2025 12:44 AM EDT [facility] HGB 8.6(L) 11.2 - 15.7 g/dL LAB HEMATOLOGY METHOD 02/13/2025 12:44 AM EDT [facility] HCT 26.9(L) 34.0 - 45.0 % LAB HEMATOLOGY METHOD 02/13/2025 12:44 AM EDT [facility] Platelet Count 193 155 - 369 10*3/uL LAB HEMATOLOGY METHOD 02/13/2025 12:44 AM EDT [facility] MCV 87 79 - 98 fL LAB HEMATOLOGY METHOD 02/13/2025 12:44 AM EDT [facility] MCH 27.8 26.0 - 32.0 pg LAB HEMATOLOGY METHOD 02/13/2025 12:44 AM EDT [facility] MCHC 32.0 30.7 - 35.5 g/dL LAB HEMATOLOGY METHOD 02/13/2025 12:44 AM EDT [facility] RDW 15.0(H) 11.5 - 14.5 % LAB HEMATOLOGY METHOD 02/13/2025 12:44 AM EDT [facility] MPV 10.4 8.8 - 12.5 fL LAB HEMATOLOGY METHOD 02/13/2025 12:44 AM EDT [facility] nRBC 0.0 <=0.0 per 100 WBCs LAB HEMATOLOGY METHOD 02/13/2025 12:44 AM EDT [facility] Blood Venous blood specimen / Unknown Venipuncture / Unknown 02/13/2025 12:29 AM EDT 02/13/2025 12:35 AM EDT us Amy Vargas MD LAB BLOOD ORDERABLES Veronica l Result [facility] [address] [place] [address] * Phosphorus (02/13/2025 12:29 AM EDT) Phosphorus, Plasma 3.6 2.5 - 4.5 mg/dL 02/13/2025 1:07 AM EDT [facility] Blood Venous blood specimen / Unknown Venipuncture / Unknown 02/13/2025 12:29 AM EDT 02/13/2025 12:34 AM EDT us Amy Vargas MD LAB BLOOD ORDERABLES Veronica l Result Performing Organization Address City/[facility]/[place] [address] * (ABNORMAL) Magnesium, Plasma (02/13/2025 12:29 AM EDT) Magnesium, Plasma 1.8(L) 1.9 - 2.4 mg/dL 02/13/2025 1:07 AM EDT [facility] Blood Venous blood specimen / Unknown Venipuncture / Unknown 02/13/2025 12:29 AM EDT 02/13/2025 12:34 AM EDT us Amy Vargas MD LAB BLOOD ORDERABLES Veronica l Result [facility] [address] [place] [address] * (ABNORMAL) Basic metabolic panel (02/13/2025 12:29 AM EDT) Glucose, Plasma 207(H) 74 - 99 mg/dL 02/13/2025 1:07 AM EDT [facility] BUN, Plasma 20 8 - 23 mg/dL 02/13/2025 1:07 AM EDT [facility] Creatinine, Plasma 0.79 0.60 - 1.10 mg/dL 02/13/2025 1:07 AM EDT [facility] BUN/Creatinine Ratio 25 02/13/2025 1:07 AM EDT [facility] Sodium, Plasma 137 136 - 145 mmol/L 02/13/2025 1:07 AM EDT [facility] Potassium, Plasma 4.2 3.6 - 4.9 mmol/L 02/13/2025 1:07 AM EDT [facility] Chloride, Plasma 102 97 - 107 mmol/L 02/13/2025 1:07 AM EDT [facility] CO2, Plasma 23 22 - 29 mmol/L 02/13/2025 1:07 AM EDT [facility] Anion Gap 12 6 - 16 mmol/L 02/13/2025 1:07 AM EDT [facility] Total Calcium, Plasma 8.7(L) 8.9 - 10.2 mg/dL 02/13/2025 1:07 AM EDT [facility] eGFRcr 77.6 mL/min/1.7 3m*2 02/13/2025 1:07 AM EDT [facility] Comment:Reported eGFRcr in m L/min/1.73m2 is based the CKD-EPI 2020 equation that does not use a race coefficient. Blood Venous blood specimen / Unknown Venipuncture / Unknown 02/13/2025 12:29 AM EDT 02/13/2025 12:34 AM EDT us Amy Vargas MD LAB BLOOD ORDERABLES Veronica l Result [facility] [address] [place] [address] * Corin auris Surveillance by PCR (02/12/2025 9:55 PM EDT) Corin auris PCR Result Not Detected Not Detected 02/14/2025 6:58 AM EDT [facility] Swab (Axilla and Groin) Non-blood Collection / Unknown 02/12/2025 9:55 PM EDT 02/12/2025 10:03 PM EDT Narrative [facility] - 02/14/2025 6:58 AM EDT This PCR assay was developed and its performance characteristics determined by [facility] as appropriate for clinical purposes. This assay has not been cleared or approved by the FDA, but is performed in a CLIA regulated laboratory that is qualified to perform high-complexity testing. Amy Vargas MD LAB MICROBIOLOGY - GENERA L ORDERABLES Final Result Performing Organization Address [facility] Co de Phone Number [address] [address] * Multi Drug Resistance Test (02/12/2025 9:55 PM EDT) Culture No growth at day 1 02/14/2025 6:13 AM EDT [facility] Swab (Nares and Yola Rectal) Non-blood Collection / Unknown 02/12/2025 9:55 PM EDT 02/12/2025 10:03 PM EDT Narrative [facility] - 02/14/2025 6:13 AM EDT This test was developed and its performance characteristics determined by the [facility]. Although the media is FDA-approved, it is not FDA-approved for all specimen types submitted. The FDA has determined that such clearance or approval is not necessary. This test is used for surveillance purposes. It should not be regarded as investigational or for research. The [facility] is certified under the Clinical Laboratory Improvement Amendments of 1988 (CLIA-88) as qualified to perform high complexity clinical laboratory testing. Amy Vargas MD LAB MICROBIOLOGY - GENERA L ORDERABLES Final Result Performing Organization Address City/[facility]/ZIP Co de Phone Number [facility] [address] [place] [address] * Surgical Pathology Exam (02/12/2025 2:01 PM EDT) Case Report Surgical Pathology Case: [id number] Authorizing Provider: Amy Vargas MD Collected: 02/12/2025 1401 Ordering Location: [facility] OPER[facility] RO[facility] Received: 02/12/2025 6422 Pathologist: Lavon Daly MD Specimens: A) - Other (specify site), uterus, cervix, bilateral tubes, ovaries, and adnexal mass B) - Other (specify site), OMENTUM - PERMANENT 1:14 PM EST [facility] Final Diagnosis A. UTERUS, CERVIX, [...] - BENIGN FIBROADIPOSE TISSUE. 1:14 PM EST [facility] at 1314 EST Comment Immunohistochemical stains previously performed on the endometrial curettage specimen ([id number]) at the outside institution demonstrated the following results. POLE status is unknown. P53: Mutated (overexpressed) Estrogen receptor: Positive, 95%, strong Progesterone receptor: Positive, 95%, strong PD-L1: less than 1% MLH1: Retained PMS2: Retained MSH2: Retained MSH6: Retained 1:14 PM EST [facility] Synoptic Checklist ENDOMETRIUM ENDOMETRIUM - [...] Endometrium): IICm (p53abn) 5 1:14 PM [facility] Clinical Information Endometrial cancer [C54.1] 5 1:14 PM [facility] Gross Description A. UTERUS, CERVIX, BILATERAL TUBES, [...] The cut surface is apple-yellow and whorled. Sheet Rock Sander sections are submitted as follows: A1: Posterior [...] aggregate of apple-yellow lobulated firm fibroadipose tissue. Sheet Rock Sander sections are submitted in cassettes B1-B3. Cold Time: 1h 10m HARLEY Lama (ASCP) 1:14 PM [facility] Intradepartmental Consultation with Agreement Dr. Trevor Koch reviewed selected slides and concurs with the interpretation. 1:14 PM [facility] Note: A resident was involved in the service. I attest I examined the relevant preparations for the specimens and confirmed the diagnosis or interpretation. 1:14 PM [facility] Tissue Topography unknown / Unknown 02/12/2025 2:01 PM EDT 02/12/2025 3:28 PM EDT Comment:Pre-op diagnosis: Endometrial cancer [C54.1] Tissue specimen (specimen) Topography unknown / Unknown 02/12/2025 2:18 PM EDT 02/12/2025 3:28 PM EDT Comment:Pre-op diagnosis: Endometrial cancer [C54.1] Amy Vargas MD LAB PATHOLOGY ORDERABLES Final Result Performing Organization Address City/State/[facility] Co de Phone Number [facility] [address] [place] [address] * Non-Gynecologic Cytology (02/12/2025 1:02 PM EDT) Case Report Cytology Case: [id number] Authorizing Provider: Amy Vargas MD Collected: 02/12/2025 1302 Ordering Location: [facility] Received: 02/12/2025 1515 Pathologist: Karrie Moran MD Specimen: Pelvic Washing, PELVIC WASHING 02/14/2025 11:33 AM EDT [facility] Final Diagnosis A. PELVIC WASHING - NO EVIDENCE OF MALIGNANCY - REACTIVE MESOTHELIAL CELLS 02/14/2025 11:33 AM EDT [facility] at 1133 EDT Gross Description A. PELVIC WASHING 35 mls clear fluid for thin prep and cell block 02/14/2025 11:33 AM EDT [facility] Clinical Information Endometrial cancer [C54.1] 02/14/2025 11:33 AM EDT [facility] Washing Fluid specimen from pelvis / Unknown 02/12/2025 1:02 PM EDT 02/12/2025 3:15 PM EDT Comment:Pre-op diagnosis: Endometrial cancer [C54.1] us Amy Vargas MD LAB CYTOLOGY ORDERABLES F inal Result [facility] [address] [place] [address] * Peripheral IV (02/12/2025 12:44 PM EDT) [...] NON-TIMED PROCEDURE PLACEHOLDER (02/12/2025 12:14 PM EDT) Narrative Emily Miramontes CRNA - 02/12/2025 12:14 PM EDT Emily [...] well with no complications. Staffing Performed: CECILIO PRESSROOM FOREMAN: Emily Miramontes CRNA us Jon Handley MD ANESTHESIA ORDERABLES Final Re sult * WV AN ELECTIVE ENDOTRACHEAL AIRWAY, PB ANESTHESIA PLACEHOLDER (02/12/2025 12:07 PM EDT) Narrative Emily Miramontes CRNA - 02/12/2025 12:07 PM EDT Emily Miramontes CRNA 02/12/2025 12:44 PM Airway Date/Time: 02/12/2025 12:07 PM Reason: elective Airway not difficult General Information and Staff Patient location during procedure: OR PRESSROOM FOREMAN: Emily Miramontes CRNA Performed: CECILIO Patient Condition [...] Additional Comments Atraumatic. No change to dentition. Jon Handley MD ANESTHESIA ORDERABLES Final Re sult * Type and screen (02/12/2025 10:56 AM EDT) Only the most recent of2 resultswithin the time period is included. ABO/Rh O Positive 02/12/2025 11:04 AM EDT [facility] Antibody Screen Negative 02/12/2025 11:04 AM EDT [facility] Specimen Expiration 02/15/2025 23:59 02/12/2025 11:04 AM EDT [facility] Blood Venous blood specimen / Unknown Venipuncture / Unknown 02/12/2025 10:56 AM EDT 02/12/2025 11:04 AM EDT Amy Vargas MD LAB BLOOD BANK TEST ORDER JULIA Final Result [facility] [address] [place] [address], * CARDIAC DEVICE CHECK - IN CLINIC - PACEMAKER BIVENTRICULAR CHAMBER W/ PROG (02/08/2025 4:28 PM EDT) Anatomical Region Laterality Modality Other Narrative 02/08/2025 4:53 PM EDT [facility]Device [facility]: Pre-operative CIED Report Assessment and Yola-Procedural Reommendations: Name: Kelsey Monae Date: 02/08/2025 : 1950 Age: 75 y.o. Patient has a Lawyer Probate: Anderson MATERIAL REQUISITIONER-PM Remaining battery longevity adequate. Lead integrity test [...] recommendations. Supporting reports can be found in [employer] file. Min Crowe MD CV IMPLANTABLE CARDIAC DEVICE PROCEDURES Final Result * Surgical Pathology Consult (01/31/2025 11:21 AM EDT) Case Report Sugical Pathology Consult Case: [id number] Authorizing Provider: Amy Vargas MD Collected: 01/31/2025 1121 Ordering Location: [facility] Lab Received: 01/31/2025 1121 Pathologist: Maxim Miner MD Specimen: Endometrium, [id number] 4:10 PM EDT [facility] Final Diagnosis A. ENDOMETRIUM, CURETTINGS ([id number], 01/21/2025): - ENDOMETRIOID ADENOCARCINOMA, FIGO GRADE 3. B. ENDOMETRIUM #2, CURETTINGS ([id number], 01/21/2025): - ENDOMETRIOID ADENOCARCINOMA, FIGO GRADE 3. 4:10 PM EDT [facility] at 1609 EDT Comment With essentially agree with the outside diagnosis. The curettings demonstrate more than 50% solid areas the tumor as FIGO grade 3. The immunostain results performed outside for supportive of the above diagnoses. 5 4:10 PM EDT [facility] Clinical Information N95.0 - Postmenopausal bleeding [ICD-10-CM] 5 4:10 PM EDT [facility] Special and Immunohistochemical Stains IMMUNOHISTOCHEMIST SHARIF (performed by outside lab on [id number]) BLOCK ANTIBODY RESULT B1 P53 MUTATED (OVEREXPRESSED) B1 ESTROGEN RECEPTOR POSITIVE, 95%, STRONG B1 PROGESTERONE RECEPTOR POSITIVE, 95%, STRONG B1 PD-L1 <1 B1 MLH1 RETAINED B1 PMS2 RETAINED B1 MSH2 RETAINED B1 MSH6 RETAINED 5 4:10 PM EDT [facility] Gross Description A. [id number] Received along with a corresponding pathology report from [facility] are 12 slide(s) labeled outside case: [id number] collected on 01/21/2025. 5 4:10 PM EDT [facility] Note: A resident was involved in the service. I attest I examined the relevant preparations for the specimens and confirmed the diagnosis or interpretation. 5 4:10 PM EDT [facility] Tissue Endometrial structure / Unknown 01/31/2025 11:21 AM EDT 01/31/2025 11:21 AM EDT us Amy Vargas MD LAB PATHOLOGY ORDERABLES Final Result [facility] [address] [place] [address] * (ABNORMAL) CBC and Differential (01/30/2025 3:36 PM EDT) WBC Count 6.81 3.70 - 10.30 10*3/uL LAB HEMATOLOGY METHOD 01/30/2025 4:29 PM EDT [facility] RBC Count 3.11(L) 3.90 - 5.20 10*6/uL LAB HEMATOLOGY METHOD 01/30/2025 4:29 PM EDT [facility] HGB 8.7(L) 11.2 - 15.7 g/dL LAB HEMATOLOGY METHOD 01/30/2025 4:29 PM EDT [facility] HCT 28.1(L) 34.0 - 45.0 % LAB HEMATOLOGY METHOD 01/30/2025 4:29 PM EDT [facility] Platelet Count 231 155 - 369 10*3/uL LAB HEMATOLOGY METHOD 01/30/2025 4:29 PM EDT [facility] MCV 90 79 - 98 fL LAB HEMATOLOGY METHOD 01/30/2025 4:29 PM EDT [facility] MCH 28.0 26.0 - 32.0 pg LAB HEMATOLOGY METHOD 01/30/2025 4:29 PM EDT [facility] MCHC 31.0 30.7 - 35.5 g/dL LAB HEMATOLOGY METHOD 01/30/2025 4:29 PM EDT [facility] RDW 15.7(H) 11.5 - 14.5 % LAB HEMATOLOGY METHOD 01/30/2025 4:29 PM EDT [facility] MPV 10.3 8.8 - 12.5 fL LAB HEMATOLOGY METHOD 01/30/2025 4:29 PM EDT [facility] nRBC 0.0 <=0.0 per 100 WBCs LAB HEMATOLOGY METHOD 01/30/2025 4:29 PM EDT [facility] Differential Type Automated LAB HEMATOLOGY METHOD 01/30/2025 4:29 PM EDT [facility] Neutrophils % 65 % LAB HEMATOLOGY METHOD 01/30/2025 4:29 PM EDT [facility] Lymphocytes % 23 % LAB HEMATOLOGY METHOD 01/30/2025 4:29 PM EDT [facility] Monocytes % 10 % LAB HEMATOLOGY METHOD 01/30/2025 4:29 PM EDT [facility] Eosinophils % 2 % LAB HEMATOLOGY METHOD 01/30/2025 4:29 PM EDT [facility] Basophils % 0 % LAB HEMATOLOGY METHOD 01/30/2025 4:29 PM EDT [facility] Immature Granulocytes % 0 % LAB HEMATOLOGY METHOD 01/30/2025 4:29 PM EDT [facility] Neutrophils Absolute 4.39 1.60 - 6.10 10*3/uL LAB HEMATOLOGY METHOD 01/30/2025 4:29 PM EDT [facility] Lymphocytes Absolute 1.56 1.20 - 3.90 10*3/uL LAB HEMATOLOGY METHOD 01/30/2025 4:29 PM EDT [facility] Monocytes Absolute 0.65 0.30 - 0.90 10*3/uL LAB HEMATOLOGY METHOD 01/30/2025 4:29 PM EDT [facility] Eosinophils Absolute 0.15 0.00 - 0.50 10*3/uL LAB HEMATOLOGY METHOD 01/30/2025 4:29 PM EDT [facility] Basophils Absolute 0.03 0.00 - 0.10 10*3/uL LAB HEMATOLOGY METHOD 01/30/2025 4:29 PM EDT [facility] Immature Granulocytes Absolute 0.03 0.00 - 0.06 10*3/uL LAB HEMATOLOGY METHOD 01/30/2025 4:29 PM EDT [facility] Blood Venous blood specimen / Unknown Venipuncture / Unknown 01/30/2025 3:36 PM EDT 01/30/2025 4:14 PM EDT Narrative [facility] - 01/30/2025 4:29 PM EDT Therapeutic decision making should be based on absolute values, rather than percentages. us Amy Vargas MD LAB BLOOD ORDERABLES Veronica l Result [facility] [address] [place] [address] * CA 125 (01/30/2025 3:36 PM EDT) CA 125 28.30 <=38.00 U/mL 01/30/2025 4:57 PM EDT [facility] Blood Venous blood specimen / Unknown Venipuncture / Unknown 01/30/2025 3:36 PM EDT 01/30/2025 4:16 PM EDT Narrative [facility] - 01/30/2025 4:57 PM EDT Performed by Haydee electrochemiluminescent immunoassay. Results obtained with different test methods or kits cannot be used interchangeably. us Amy Vargas MD LAB BLOOD ORDERABLES Veronica l Result Performing Organization Address City/[facility]/ZIP Co de Phone Number [facility] [address] [place] [address] * Hemoglobin A1c (01/30/2025 3:36 PM EDT) Pathologist [facility] Hemoglobin A1c 5.2 <5.7 % 01/30/2025 6:46 PM EDT [facility] Blood Venous blood specimen / Unknown Venipuncture / Unknown 01/30/2025 3:36 PM EDT 01/30/2025 4:14 PM EDT Narrative [facility] - 01/30/2025 6:46 PM EDT HA1C Interpretive Data: Diagnosis of Diabetes: Diabetic > or = 6.5% Pre-diabetic 5.7 to 6.4% Non-diabetic < or = 5.6% Glycemic Targets for Type I and Type II Diabetics: Non- Adults <7.0% Adults <6.0% Children and Adolescents <7.5% Source: [place] [employer]. Standards of medical care in diabetes,2017. Diabetes Care.2017:40 (suppl 1):S1-S135. Amy Vargas MD LAB BLOOD ORDERABLES Veronica bray Result [facility] [address] [place] [address] * (ABNORMAL) Comprehensive metabolic panel (01/30/2025 3:36 PM EDT) [facility] Glucose, Plasma 69(L) 74 - 99 mg/dL 01/30/2025 4:46 PM EDT [facility] BUN, Plasma 19 8 - 23 mg/dL 01/30/2025 4:46 PM EDT [facility] Creatinine, Plasma 0.78 0.60 - 1.10 mg/dL 01/30/2025 4:46 PM EDT [facility] BUN/Creatinine Ratio 24 01/30/2025 4:46 PM EDT [facility] Sodium, Plasma 142 136 - 145 mmol/L 01/30/2025 4:46 PM EDT [facility] Potassium, Plasma 3.7 3.6 - 4.9 mmol/L 01/30/2025 4:46 PM EDT [facility] Chloride, Plasma 106 97 - 107 mmol/L 01/30/2025 4:46 PM EDT [facility] CO2, Plasma 26 22 - 29 mmol/L 01/30/2025 4:46 PM EDT [facility] Anion Gap 10 6 - 16 mmol/L 01/30/2025 4:46 PM EDT [facility] Total Calcium, Plasma 9.4 8.9 - 10.2 mg/dL 01/30/2025 4:46 PM EDT [facility] Total Protein 7.1 6.3 - 7.9 g/dL 01/30/2025 4:46 PM EDT [facility] Albumin, Plasma 4.0 3.5 - 5.2 g/dL 01/30/2025 4:46 PM EDT [facility] AST, Plasma 22 10 - 35 U/L 01/30/2025 4:46 PM EDT [facility] ALT, Plasma 12 10 - 35 U/L 01/30/2025 4:46 PM EDT [facility] Alkaline Phosphatase, Plasma 83 46 - 142 U/L 01/30/2025 4:46 PM EDT [facility] Total Bilirubin, Plasma 0.4 0.2 - 1.1 mg/dL 01/30/2025 4:46 PM EDT [facility] eGFRcr 78.8 mL/min/1.7 3m*2 01/30/2025 4:46 PM EDT [facility] Comment:Reported eGFRcr in m L/min/1.73m2 is based the CKD-EPI 2020 equation that does not use a race coefficient. Blood Venous blood specimen / Unknown Venipuncture / Unknown 01/30/2025 3:36 PM EDT 01/30/2025 4:16 PM EDT us Amy Vargas MD LAB BLOOD ORDERABLES Veronica l Result [facility] [address] [place] [address] * EMG / Nerve Conduction Study (01/17/2025 1:00 PM EDT) Anatomical Region Laterality Modality Other Narrative 01/17/2025 1:00 PM EDT Luis A White MD 01/20/2025 2:21 PM EMG / Nerve Conduction Study Performed by: Luis A White MD Authorized by: Adriana Boss APRN us Adriana Boss APRN NEUROLOGY ORDERABLES Edited Re sult - Final * US OUTSIDE IMAGES (01/15/2025 8:43 AM EDT) Anatomical Region Laterality Modality Ultrasound 01/15/2025 8:43 AM EDT us Kate Alexanderasiya DO IMG US PROCEDURES Final Result * CT OUTSIDE IMAGES (01/06/2025 10:20 PM EDT) Anatomical Region Laterality Modality Computed Tomogra phy 01/06/2025 10:2 0 PM EDT us Abbey Salmon DO IMG CT PROCEDURES Edited Result - Final from Last 3 Months Additional Health Concerns Active Problems Noted Date Diagnosed Date Autogenerated Problem 02/07/2025 Insurance [facility] MEDICARE Advance Directives Documents on File Type Date Recorded Patient Sheet Rock Sander Expl anation Advance Directives and Living Will 02/07/2025 Power of Rn Wound Care 02/07/2025 * Full Code (Latest Code Status on File) Date Activated Date Inactivated Comments 02/12/2025 3:26 PM 02/13/2025 4:09 PM Question Answer Comments I have reviewed the capacity from the link above and, if needed, have updated to appropriate status: Yes Care Teams Campaign Worker Relationship Specialty Start Date End Date Adriana Boss APRN [facility] [place] [address] PCP - General 11/06/24 Kate Burrows DO [facility] [id number] Referring Physician Obstetrics and Gynecology 01/25/25
--- OUTSIDE RECORDS SUMMARY | 2025-04-03 20:48 | XMS_ITS | Encounter Summary ---
Author Organization Healthcare Address [address] [place] [address] Care Team Providers Care Scada Technician Name Role Phone Adriana Boss APRN Primary Care Provider Kate Burrows DO Unavailable [phone] Encounter Details Date Type Department Care Team (Late st Contact Info) Description 01/06/2025 Orders Only External Location [address] [place] [phone] Abbey Salmon DO [address] [place] [address] Social History Tobacco Use Types Packs/Day Years [...] Procedure Name Priority Date/Time Associated Diagnosis Comments CT OUTSIDE IMAGES 01/06/2025 10:20 PM EDT documented in this encounter Results * CT OUTSIDE IMAGES (01/06/2025 10:20 PM EDT) Anatomical Region Laterality Modality Computed Tomogra phy 01/06/2025 10:2 0 PM EDT us Abbey Salmon DO IMG CT PROCEDURES Edited Result - Final documented in this encounter Visit Diagnoses Not on filedocumented in this encounter Care Teams Scada Technician Relationship Specialty Start Date End Date Adriana Boss APRN [address] [place] [address] PCP - General 11/06/24 Kate Burrows DO [facility] [address] Referring Physician Obstetrics and Gynecology 01/25/25 documented as of this encounter
--- OUTSIDE RECORDS SUMMARY | 2025-04-03 20:48 | XMS_ITS | Encounter Summary ---
Author Organization [facility] Address [address] [place] [id number] Care Team Providers Care Precision Printing Worker Name Role Phone Unkown, Not Given Primary Care Provider Adriana Stallings APRN Primary Care Provider [phone] Delfina Burrowsnifer DO Unavailable [phone] Encounter Details Date Type Department Care Team (Late st Contact Info) Description 12/20/2023 Community Orders Community Practice [address] [place] [address] Froylan Montilla MD [address] [place] [address] Hand paresthesia (Primary Dx) Social History Tobacco [...] sensation documented in this encounter Care Teams Precision Printing Worker Relationship Specialty Start Date End Date Unkown, [place] [address] PCP - General 01/16/21 11/05/24 Adriana Boss APRN [address] [place] [address] PCP - General 11/06/24 Kate Burrows DO [facility] [address] Referring Physician Obstetrics and Gynecology 01/25/25 documented as of this encounter
--- OUTSIDE RECORDS SUMMARY | 2025-04-03 20:48 | XMS_ITS | Encounter Summary ---
Author Organization Healthcare Address [address] [place] [address] Care Team Providers Care Jewel Flat Surfacer Name Role Phone Adriana Boss APRN Primary Care Provider [phone] Kate Burrows DO Unavailable [phone] Encounter Details Date Type Department Care Team (Late st Contact Info) Description 02/15/2025 Orders Only [facility]ne[facility] [address] [facility] [address] [place] [phone] Milli Fletcher MD [address] [place] [address] Social History Tobacco Use Types Packs/Day Years [...] documented as of this encounter Care Teams Jewel Flat Surfacer Relationship Specialty Start Date End Date Adriana Boss APRN [address] [place] [address] PCP - General 11/06/24 Kate Burrows DO [facility] [address] Referring Physician Obstetrics and Gynecology 01/25/25 documented as of this encounter
--- OUTSIDE RECORDS SUMMARY | 2025-04-03 20:48 | XMS_ITS | Encounter Summary ---
Author Organization Healthcare Address [address] [place] [address] Care Team Providers Care Value Analyst Name Role Phone Adriana Boss APRN Primary Care Provider [phone] Kate Burrows DO Unavailable [phone] Encounter Details Date Type Department Care Team (Late st Contact Info) Description 02/18/2025 Results Follow-Up [facility] Gynecology [address] [facility] [address] [place] [phone] Jessica Urias MD [address] [place] [address] Social History Tobacco Use Types Packs/Day Years [...] documented as of this encounter Care Teams Value Analyst Relationship Specialty Start Date End Date Adriana Boss APRN [facility] [place] [address] PCP - General 11/06/24 Kate Burrows DO [facility] [address] Referring Physician Obstetrics and Gynecology 01/25/25 documented as of this encounter
--- OUTSIDE RECORDS SUMMARY | 2025-04-03 20:48 | XMS_ITS | Encounter Summary ---
Author Organization [facility] Address [address] [place] [address] Care Team Providers Care Grey Roll Worker Name Role Phone Unkown, Not Given Primary Care Provider Adriana Stallings APRN Primary Care Provider [phone] Kate Burrows DO Unavailable [phone] Reason for Referral * Consultation (Routine) - Authorized Specialty Diagnoses / Procedures Referred By Colin lee Referred To Contact Neurology Diagnoses Hand paresthesia Froylan Montilla MD [address] [place] [address] Phone: tel: fax: Referral ID Status Reason Start Date Expiration Date Visits Requested Visits Authorized [id number] Authorized Specialty Services Required 10/29/2024 04/30/2026 1 1 Encounter Details Date Type Department Care Team (Latest Contact Info) Description 10/29/2024 Community [facility] Community Practice [address] [place] [address] Froylan Montilla MD [address] [place] [address] Paresthesias in left hand (Primary Dx); Hand [...] sensation documented in this encounter Care Teams Grey Roll Worker Relationship Specialty Start Date End Date Unkown, [place] [address] PCP - General 01/16/21 11/05/24 Adriana Boss APRN [address] [place] [address] PCP - General 11/06/24 Kate Burrows DO [facility] [address] Referring Physician Obstetrics and Gynecology 01/25/25 documented as of this encounter
--- OUTSIDE RECORDS SUMMARY | 2025-04-03 20:48 | XMS_ITS | Encounter Summary ---
Author Organization [facility] Address [address] [place] [address] Care Team Providers Care Manager Basketball Name Role Phone Adriana Boss APRN Primary Care Provider [phone] Kate Burrows DO Unavailable [phone] Encounter Details Date Type Department Care Team (Late st Contact Info) Description 01/15/2025 Orders Only External Location [address] [place] [phone] [place] [address] Social History Tobacco Use Types Packs/Day Years [...] Procedure Name Priority Date/Time Associated Diagnosis Comments US OUTSIDE IMAGES 01/15/2025 8:43 AM EDT documented in this encounter Results * US OUTSIDE IMAGES (01/15/2025 8:43 AM EDT) Anatomical Region Laterality Modality Ultrasound 01/15/2025 8:43 AM EDT us Kate Burrows DO IMG US PROCEDURES Final Result documented in this encounter Visit Diagnoses Not on filedocumented in this encounter Care Teams Manager Basketball Relationship Specialty Start Date End Date Adriana Boss APRN [address] [place] [address] PCP - General 11/06/24 Kate Burrows DO [facility] [address] Referring Physician Obstetrics and Gynecology 01/25/25 documented as of this encounter
== END 2025-04-03 23:59 | disposition home or self-care (01) ==
LOC: LAB.DROPOF 20:42
PROVIDERS: PCP Nurse Practitioner; Visit Provider Nurse Practitioner
DX: E78.5 Hyperlipidemia, unspecified (principal); E11.69 Type 2 diabetes mellitus with other specified complication; I10 Essential (primary) hypertension
CPT/HCPCS: 80053; 80061; 82043; 82570; 83036; 85025

== ENCOUNTER 2025-04-04 14:45 | Outpatient (CLI) | payer MEDICARE, SELFPAY ==
--- OUTSIDE RECORDS SUMMARY | 2025-01-30 13:15 | XMS_ITS | Encounter Summary ---
Author Organization [facility] Address [address] [place] [address] Care Team Providers Care Test Deck Supervisor Name Role Phone Adriana Boss APRN Primary Care Provider [phone] Kate Burrows DO Unavailable [phone] Reason for Referral * Imaging (Routine) - Authorized Specialty Diagnoses / Procedures Referred By Colin lee Referred To Contact Diagnoses Endometrial cancer Procedures CT Chest w IV Contrast Amy Vargas MD [address] [facility] [address] [place] [address] Phone: tel: fax: Referral ID Status Reason Start Date Expiration Date V isits Requested Visits Authorized [id number] Authorized 01/30/2025 08/01/2026 1 1 Reason for Visit * Consultation (Routine) - Closed Specialty Diagnoses / Procedures Referred By Colin lee Referred To Contact Obstetrics and Gynecology Diagnoses Endometrial cancer Kate Burrows DO [phone] fax: Referral ID Status Reason Start Date Expiration Date V isits Requested Visits Authorized [id number] Closed Specialty Services Required 01/25/2025 07/27/2026 1 1 Encounter Details Date Type Department Care Team (Late st Contact Info) Description 01/30/2025 2:15 PM EDT Office Visit [facility] [address] [facility] [place] [id number] Amy Vargas MD [address] [facility] [address] [place] [address] Endometrial cancer (Primary Dx); Severe obesity (BMI 35.0-39.9) with comorbidity (CMS/HCC); Type 2 diabetes mellitus without complication, without long-term current use of insulin; Primary hypertension; Chronic atrial fibrillation (CMS/HCC) Social History Tobacco Use Types Packs/Day Years Used Date Smoking Tobacco: Never Smokeless Tobacco: Never PHQ-2 Answer Date Recorded Patient Health Questionnaire-2 Score 0 01/30/2025 Comments Unknown Sex and Gender Information Value Date Recorded Sex Assigned at Not on file Legal Sex Female 4:24 PM EDT Gender Identity Not on file Sexual Orientation Not on file documented as of this encounter Last Filed Vital Signs Vital Sign Reading Time Taken Comments Blood Pressure 126/78 01/30/2025 2:01 PM EDT Pulse 94 01/30/2025 2:01 PM EDT Temperature 36.1 C (97 F) 01/30/2025 2:01 PM EDT Respiratory Rate 16 01/30/2025 2:01 PM EDT Oxygen Saturation 98% 01/30/2025 2:01 PM EDT Inhaled Oxygen Concentration - - Weight 98 kg (216 lb 0.8 oz) 01/30/2025 2:01 PM EDT Height 160 cm (5' 3 ) 01/30/2025 2:01 PM EDT Body Mass Index 38.27 01/30/2025 2:01 PM EDT documented in this encounter Functional Status * Over the past 2 weeks, how often have you been bothered by any of the following problems? Question Answer Date of Assessment Author Little interest or pleasure in doing things Not at all 01/30/2025 2:13 PM EDT Taylor Olivera Feeling down, depressed, or hopeless Not at all 01/16 2:13 PM EDT Taylor Olivera Patient Health Questionnaire-2 Score 0 01/16 2:13 PM EDT Taylor Olivera documented as of this encounter Miscellaneous Notes * Progress Notes - Amy Vargas MD - 01/30/2025 2:15 PM EDT Patient ID: Kelsey Monae is a 75 y.o. female. Referring Physician: Kate Burrows, DO [address] [place], [place] [address] Primary Care Provider: Adriana Boss APRN History of Present Illness: Chief Complaint: grade 3 endometrial cancer Kelsey Monae is a 75 y.o. female seen in consultation for a newly diagnosed grade 3 endometrial cancer at the request of Dr. Kate Burrows. She had a D&C for PMB that led to the diagnosis. She reports the bleeding started Jan 06 and was heavy enough she ended up in the ER. She had a CT scan,was referred to a SALVAGE WINDER who did an US. She then had the D&C for the thickened stripe. After the D&C, she has stopped bleeding. She has no bladder or bowel changes. Good appetite. She does have some fatigue but otherwise feeling in usual health. TVUS 01/15/25 Uterus 9.2x6.9x4.6cm with stripe 28mm R ovary with 4.2x2.8x2.[address] A/P w con 01/06/25 No LAD, enlarged uterus, calcification R adnexa PMH: afib with pacemaker, carpal tunnel, psoriasis, DM, HTN PSH: D&C, breast cyst, pacemaker Meds: reviewed Aller: NKMA SocHx: -T/E/D, Retired. Her daughter and grandchildren live w her. FamHx: Father - kidney, GFA - prostate, GFA - hodgkin's COUNCIL ON [employer]ING DIRECT[employer] Hx: G0 - adopted children Menopause: ~59 , no PMB PapHx: no abnormals Mammogram: every other year, UTD Colonoscopy: cologard, UTD Review of Systems Constitutional: Negative for chills and fever. HENT: Negative for sore throat. Gastrointestinal: Negative for abdominal pain, constipation, diarrhea, nausea and vomiting. Genitourinary: Positive for vaginal bleeding. Negative for dysuria, frequency and hematuria. Musculoskeletal: Negative for back pain and flank pain. Skin: Negative for rash. Neurological: Negative for headaches. Cancer Staging No matching staging information was found for the patient. [No matching plan found] Subjective History: Medical/Surgical/Social/Family History I have reviewed and updated the patient history. Allergies Patient has no known allergies. Current Medications[1] Tobacco Use: Low Risk (01/30/2025) Patient History Smoking Tobacco Use: Never Smokeless Tobacco Use: Never Passive Exposure: Not on file Social History Substance and Sexual Activity Alcohol Use None Social History Substance and Sexual Activity Drug Use Not on file Social Connections: Not on file Objective Physical Exam: Vital Signs for this encounter: BSA: 2.09 meters squared Visit Vitals BP 126/78 (BP Location: Left arm, Patient Position: Sitting, BP Cuff Size: Large adult) Pulse 94 Temp (!) 36.1 ??C (97 ??F) (Temporal) Resp 16 Ht 1.6 m (5' 3 ) Wt 98 kg (216 lb 0.8 oz) SpO2 98% BMI 38.27 kg/m?? Smoking Status Never BSA 2.09 m?? Physical Exam Vitals reviewed. Exam conducted with a fruit receiver present. Constitutional: Appearance: Normal appearance. She is well-developed. She is obese. HENT: Head: Normocephalic and atraumatic. Eyes: Pupils: Pupils are equal, round, and reactive to light. Cardiovascular: Rate and Rhythm: Normal rate and regular rhythm. Pulmonary: Effort: Pulmonary effort is normal. No respiratory distress. Abdominal: Palpations: Abdomen is soft. Genitourinary: General: Normal vulva. Comments: Suture on cervix, mobile, vagina on smaller side with band at introitus Musculoskeletal: Cervical back: Normal range of motion. Skin: General: Skin is dry. Neurological: General: No focal deficit present. Mental Status: She is alert. Mental status is at baseline. Psychiatric: Mood and Affect: Mood normal. Behavior: Behavior normal. Performance Status: Asymptomatic Pain Scale: 0 Results: WBC Count (10*3/uL) Date/Time Value 01/30/2025 1536 6.81 HGB (g/dL) Date/Time Value 01/30/2025 1536 8.7 (L) HCT (%) Date/Time Value 01/30/2025 1536 28.1 (L) Platelet Count (10*3/uL) Date/Time Value 01/30/2025 1536 231 Assessment/Plan Pap Smear was not collected today. Problem 1:Endometrial cancer Assessment and plan 1: Will need preop imaging to evaluate for metastatic disease. Recommend surgical staging with Robotic TLH/BSO/sentinel LN biopsies/OMX, possible open. Advised will need adjuvant treatment due to high grade nature of her pathology. I discussed risk of bleeding, infection, damage to anything within the abdomen (bladder, bowel, ureters, blood vessels, nerves, etc), DVT/PE, anesthesia. Procedure and Blood Transfusion consent obtained. Will collect preop labs: CBC, CMP, A1c. I discussed expected hospital stay, recovery time and potential to need adjuvant treatment depending on final pathology. I identified this patient as a good candidate for the Enhanced Recovery After Surgery protocol and she is agreeable to this plan. Extra educational information and instructions were provided by clinic nursing staff including goals for early ambulation, incentive spirometry use, early return to normal diet, and multimodal pain management with minimization of narcotic usage. Reviewed extended recovery protocol, stay in recovery area for a few hours to overnight with planned dc from recovery area by 10am. Letter to Dr. Kate Burrows Problem 2: Obesity Body mass index is 38.27 kg/m??. Assessment and plan 2: Complicates surgical procedure. Increased adiposity may prevent adequate visualization to proceed with lymph node sampling. Increased risk of hypoventilation in the OR. Obesityalso likely contributed to endometrial diagnosis. Problem 3: DM, HTN Assessment and plan 3: care per PCP Problem 4: a fib Assessment and plan: on eliquis and ASA, will need to come off for surgery 60 minutes was spent on this encounter; including preparing to see the patient, which involved review/interpretation of diagnostics and reports; obtaining and/or reviewing separately obtained history; performing appropriate physical exam; ordering/scheduling medications, tests or procedures; communicating findings and counseling/educating the patient, family and/or caregiver; documentation in EMR; and care coordination. Team based care includes nurse intake, review of prior documentation, history, physical exam, discussion of plan of care, appointment scheduling, lab orders, phlebotomy, and documentation. MD BARBI [facility] [address] [place] [address] [facility] [address] Dept: [phone] Dept Loc: [phone] Answers submitted by the patient for this visit: New Patient Appointment on 01/30/2025 2:15 PM with Amy Vargas MD Female Genital Questionnaire (Submitted on 01/26/2025) Chief Complaint: Female genitourinary complaint vaginal bleeding: Yes Chronicity: new Onset: 1 to 4 weeks ago Frequency: every several days Progression since onset: waxing and waning Pain severity: no pain now?: No anorexia: No discolored urine: No joint pain: No joint swelling: No painful intercourse: No urgency: No Sexual activity: not sexually active Partner with STD symptoms: no control: nothing Menstrual history: postmenopausal Vaginal bleeding: heavier than menses Passing clots?: Yes Passing tissue?: No [1] No current outpatient medications on file. documented in this encounter Plan of Treatment Scheduled Orders Name Type Priority Associated Diagnoses Orde r Schedule CT Chest w IV Contrast Imaging Routine Endometrial cancer Expected: 02/13/2025 (Approximate), Expires: 08/03/2026 documented as of this encounter Goals Goal Patient Goal Type Associated Problems Recent Progress Patient-Stated? Author Autogenerat ed Goal Care Plan Autogenerated Problem No Min Ayala documented as of this encounter Procedures Procedure Name Priority Date/Time Associated Diagnosis Comments CBC WITH AUTO DIFFERENTIAL Routine 01/30/2025 3:36 PM EDT Endometrial cancer CA 125 Routine 01/30/2025 3:36 PM EDT Endometrial cancer HEMOGLOBIN A1C Routine 01/30/2025 3:36 PM EDT Endometrial cancer COMPREHENSIVE METABOLIC PANEL, PLASMA Routine 01/30/2025 3:36 PM EDT Endometrial cancer documented in this encounter Results * CA 125 (01/30/2025 3:36 PM EDT) CA 125 28.30 <=38.00 U/mL 01/30/2025 4:57 PM EDT [facility] Blood Venous blood specimen / Unknown Venipuncture / Unknown 01/30/2025 3:36 PM EDT 01/30/2025 4:16 PM EDT Narrative [facility] - 01/30/2025 4:57 PM EDT Performed by Haydee electrochemiluminescent immunoassay. Results obtained with different test methods or kits cannot be used interchangeably. Amy Vargas MD LAB BLOOD ORDERABLES Veronica l Result Performing Organization Address [facility]/ZIP Co de Phone Number [facility] [address] [place] [address] * Hemoglobin A1c (01/30/2025 3:36 PM EDT) Hemoglobin A1c 5.2 <5.7 % 01/30/2025 6:46 PM EDT [facility] Blood Venous blood specimen / Unknown Venipuncture / Unknown 01/30/2025 3:36 PM EDT 01/30/2025 4:14 PM EDT Narrative [facility] - 01/30/2025 6:46 PM EDT HA1C Interpretive Data: Diagnosis of Diabetes: Diabetic > or = 6.5% Pre-diabetic 5.7 to 6.4% Non-diabetic < or = 5.6% Glycemic Targets for Type I and Type II Diabetics: Non- Adults <7.0% Adults <6.0% Children and Adolescents <7.5% Source: [place] [employer]. Standards of medical care in diabetes,2017. Diabetes Care.2017:40 (suppl 1):S1-S135. us Amy Vargas MD LAB BLOOD ORDERABLES Veronica l Result Performing Organization Address [facility] Co de Phone Number [facility] [address] [place] [address] * (ABNORMAL) Comprehensive metabolic panel (01/30/2025 3:36 PM EDT) Glucose, Plasma 69(L) 74 - 99 mg/dL 01/30/2025 4:46 PM EDT [facility] BUN, Plasma 19 8 - 23 mg/dL 01/30/2025 4:46 PM EDT [facility] Creatinine, Plasma 0.78 0.60 - 1.10 mg/dL 01/30/2025 4:46 PM EDT [facility] BUN/Creatinine Ratio 24 01/30/2025 4:46 PM EDT [facility] Sodium, Plasma 142 136 - 145 mmol/L 01/30/2025 4:46 PM EDT [facility] Potassium, Plasma 3.7 3.6 - 4.9 mmol/L 01/30/2025 4:46 PM EDT [facility] Chloride, Plasma 106 97 - 107 mmol/L 01/30/2025 4:46 PM EDT [facility] CO2, Plasma 26 22 - 29 mmol/L 01/30/2025 4:46 PM EDT [facility] Anion Gap 10 6 - 16 mmol/L 01/30/2025 4:46 PM EDT [facility] Total Calcium, Plasma 9.4 8.9 - 10.2 mg/dL 01/30/2025 4:46 PM EDT [facility] Total Protein 7.1 6.3 - 7.9 g/dL 01/30/2025 4:46 PM EDT [facility] Albumin, Plasma 4.0 3.5 - 5.2 g/dL 01/30/2025 4:46 PM EDT [facility] AST, Plasma 22 10 - 35 U/L 01/30/2025 4:46 PM EDT [facility] ALT, Plasma 12 10 - 35 U/L 01/30/2025 4:46 PM EDT [facility] Alkaline Phosphatase, Plasma 83 46 - 142 U/L 01/30/2025 4:46 PM EDT [facility] Total Bilirubin, Plasma 0.4 0.2 - 1.1 mg/dL 01/30/2025 4:46 PM EDT [facility] eGFRcr 78.8 mL/min/1.7 3m*2 01/30/2025 4:46 PM EDT [facility] Comment:Reported eGFRcr in m L/min/1.73m2 is based the CKD-EPI 2020 equation that does not use a race coefficient. Blood Venous blood specimen / Unknown Venipuncture / Unknown 01/30/2025 3:36 PM EDT 01/30/2025 4:16 PM EDT us Amy Vargas MD LAB BLOOD ORDERABLES Veronica l Result [facility] [address] [place] [address] * (ABNORMAL) CBC and Differential (01/30/2025 3:36 PM EDT) WBC Count 6.81 3.70 - 10.30 10*3/uL LAB HEMATOLOGY METHOD 01/30/2025 4:29 PM EDT [facility] RBC Count 3.11(L) 3.90 - 5.20 10*6/uL LAB HEMATOLOGY METHOD 01/30/2025 4:29 PM EDT [facility] HGB 8.7(L) 11.2 - 15.7 g/dL LAB HEMATOLOGY METHOD 01/30/2025 4:29 PM EDT [facility] HCT 28.1(L) 34.0 - 45.0 % LAB HEMATOLOGY METHOD 01/30/2025 4:29 PM EDT [facility] Platelet Count 231 155 - 369 10*3/uL LAB HEMATOLOGY METHOD 01/30/2025 4:29 PM EDT [facility] MCV 90 79 - 98 fL LAB HEMATOLOGY METHOD 01/30/2025 4:29 PM EDT [facility] MCH 28.0 26.0 - 32.0 pg LAB HEMATOLOGY METHOD 01/30/2025 4:29 PM EDT [facility] MCHC 31.0 30.7 - 35.5 g/dL LAB HEMATOLOGY METHOD 01/30/2025 4:29 PM EDT [facility] RDW 15.7(H) 11.5 - 14.5 % LAB HEMATOLOGY METHOD 01/30/2025 4:29 PM EDT [facility] MPV 10.3 8.8 - 12.5 fL LAB HEMATOLOGY METHOD 01/30/2025 4:29 PM EDT [facility] nRBC 0.0 <=0.0 per 100 WBCs LAB HEMATOLOGY METHOD 01/30/2025 4:29 PM EDT [facility] Differential Type Automated LAB HEMATOLOGY METHOD 01/30/2025 4:29 PM EDT [facility] Neutrophils % 65 % LAB HEMATOLOGY METHOD 01/30/2025 4:29 PM EDT [facility] Lymphocytes % 23 % LAB HEMATOLOGY METHOD 01/30/2025 4:29 PM EDT [facility] Monocytes % 10 % LAB HEMATOLOGY METHOD 01/30/2025 4:29 PM EDT [facility] Eosinophils % 2 % LAB HEMATOLOGY METHOD 01/30/2025 4:29 PM EDT [facility] Basophils % 0 % LAB HEMATOLOGY METHOD 01/30/2025 4:29 PM EDT [facility] Immature Granulocytes % 0 % LAB HEMATOLOGY METHOD 01/30/2025 4:29 PM EDT [facility] Neutrophils Absolute 4.39 1.60 - 6.10 10*3/uL LAB HEMATOLOGY METHOD 01/30/2025 4:29 PM EDT [facility] Lymphocytes Absolute 1.56 1.20 - 3.90 10*3/uL LAB HEMATOLOGY METHOD 01/30/2025 4:29 PM EDT [facility] Monocytes Absolute 0.65 0.30 - 0.90 10*3/uL LAB HEMATOLOGY METHOD 01/30/2025 4:29 PM EDT [facility] Eosinophils Absolute 0.15 0.00 - 0.50 10*3/uL LAB HEMATOLOGY METHOD 01/30/2025 4:29 PM EDT [facility] Basophils Absolute 0.03 0.00 - 0.10 10*3/uL LAB HEMATOLOGY METHOD 01/30/2025 4:29 PM EDT [facility] Immature Granulocytes Absolute 0.03 0.00 - 0.06 10*3/uL LAB HEMATOLOGY METHOD 01/30/2025 4:29 PM EDT [facility] Blood Venous blood specimen / Unknown Venipuncture / Unknown 01/30/2025 3:36 PM EDT 01/30/2025 4:14 PM EDT Narrative [facility] - 01/30/2025 4:29 PM EDT Therapeutic decision making should be based on absolute values, rather than percentages. us Amy Vargas MD LAB BLOOD ORDERABLES Veronica bray Result [facility] [address] [place] [address] documented in this encounter Visit Diagnoses Diagnosis Endometrial cancer- Primary Malignant neoplasm of corpus uteri, except isthmus Severe obesity (BMI 35.0-39.9) with comorbidity (CMS/HCC) Type 2 diabetes mellitus without complication, without long-term current use of insulin Primary hypertension Unspecified essential hypertension Chronic atrial fibrillation (CMS/HCC) Atrial fibrillation documented in this encounter Additional Health Concerns Active Problems Noted Date Diagnosed Date Autogenerated Problem 02/07/2025 Assessment Noted Time A fall risk assessment has been complete d for the patient 01/30/2025 2:13 PM EDT A Body Mass Index follow-up plan has been documented for the patient 01/20/2025 2:21 PM EDT documented as of this encounter Care Teams Test Deck Supervisor Relationship Specialty Start Date End Date Adriana Boss APRN [address] [place] [id number] PCP - General 11/06/24 Kate Burrows DO [facility] [address] Referring Physician Obstetrics and Gynecology 01/25/25 documented as of this encounter
--- OUTSIDE RECORDS SUMMARY | 2025-02-07 09:10 | XMS_ITS | Encounter Summary ---
Author Organization [facility] Address [address] [place] [address] Care Team Providers Care Geosciences Professor Name Role Phone Adriana Boss APRN Primary Care Provider [phone] Stormy Kate DO Unavailable [phone] Reason for Visit * Auth/Cert (Routine) Specialty Diagnoses / Procedures Referred By Contac t Referred To Contact Diagnoses Endometrial cancer Endometrial cancer [C54.1] Procedures AR LAPAROSCOPY W TOT HYSTERECTUTERUS <=250 GRAM W TUBE/OVARY AR INTRAOPERATIVE SENTINEL LYMPH NODE ID W DYE INJECTION AR LAP,LYMPH NODE BX AR REMOVAL OF OMENTUM Robot TLHBSO, SLN, OMENTECTOMY Amy Vargas MD 800 [facility] Brenda More [address] [address] Phone: tel: fax: PAV A OPERATING ROOM [address] [place] [address] Phone: tel: Referral ID Status Reason Start Date Expiration Date Visits Re quested Visits Authorized [id number] 1 4 Encounter Details Date Type Department Care Team (Late st Contact Info) Description 02/07/2025 10:10 AM EDT - 02/07/2025 3:00 PM EDT Hospital Encounter PAV A [facility]PERATING ROOM [address] [place] [address] Amy Vargas MD 800 [facility] [address] [facility] [address] [address] Pacemaker (Primary Dx) Discharge Disposition: [...] documented in this encounter Functional Status * Question Answer Date of Assessment Author Precautions Environmental surveillance 02/13/2025 10: 00 AM EDT Abbey Scott * Over the past 2 [...] Wish to be (Past 1 Month) No 10:00 PM EDT Krystal Sims RN 2. Non-Specific Active Suici marivel Thoughts (Past 1 Month) No 02/12/2025 10:00 PM EDT Kiley Sims RN 6. Suicidal Behavior (Lifetime) No 10:00 PM EDT Krystal Sims RN documented as of this encounter Mental Status * Question Answer Entry Date Author Precautions Environmental surveillance 02/13/2025 10: 00 AM EDT Scott, Abbey documented in this encounter Discharge Instructions * [...] do not scrub. Pat dry. Call MD water quality control engineer for [facility] service if: - you have a fever of 100.4 F or more - vaginal bleeding similar to a period - uncontrolled pain - difficulty with urination - persistent nausea/vomiting Follow up: Dr. Amy Vargas [facility] [address] [facility] [address], [place] [address] After Hours Paging Pourer: [phone] documented in this encounter Medications at Time [...] daily for 1 day. 0.4 mL 02/14/2025 5 documented as of this encounter Miscellaneous Notes * H&P - Meme Hardy MD - 02/07/2025 12:48 PM EDT [facility] Gynecologic Oncology Preoperative History and Physical [...] output data in the 24 hours ending 02/05/25 1705 PHYSICAL EXAM Constitutional: No acute distress, well [...] TLH/BSO/SLND,OMX. [facility], Dr. Vargas. For any questions or concerns regarding this patient's care, please call [facility] by paging [phone]. Meme Hardy MD PGY3 Obstetrics and Gynecology [...] TEST ORDERABLES Final Result BLOOD BANK [address] [place] [address], * (ABNORMAL) CBC (02/07/2025 1:18 PM EDT) WBC Count 5.78 3.70 - 10.30 10*3/uL LAB HEMATOLOGY METHOD 02/07/2025 1:34 PM EDT [facility] RBC Count 3.19(L) 3.90 - 5.20 10*6/uL LAB HEMATOLOGY METHOD 02/07/2025 1:34 PM EDT [facility] HGB 8.6(L) 11.2 - 15.7 g/dL LAB HEMATOLOGY METHOD 02/07/2025 1:34 PM EDT [facility] HCT 27.7(L) 34.0 - 45.0 % LAB HEMATOLOGY METHOD 02/07/2025 1:34 PM EDT [facility] Platelet Count 184 155 - 369 10*3/uL LAB HEMATOLOGY METHOD 02/07/2025 1:34 PM EDT [facility] MCV 87 79 - 98 fL LAB HEMATOLOGY METHOD 02/07/2025 1:34 PM EDT [facility] MCH 27.0 26.0 - 32.0 pg LAB HEMATOLOGY METHOD 02/07/2025 1:34 PM EDT [facility] MCHC 31.0 30.7 - 35.5 g/dL LAB HEMATOLOGY METHOD 02/07/2025 1:34 PM EDT [facility] RDW 15.0(H) 11.5 - 14.5 % LAB HEMATOLOGY METHOD 02/07/2025 1:34 PM EDT [facility] MPV 10.1 8.8 - 12.5 fL LAB HEMATOLOGY METHOD 02/07/2025 1:34 PM EDT [facility] nRBC 0.0 <=0.0 per 100 WBCs LAB HEMATOLOGY METHOD 02/07/2025 1:34 PM EDT [facility] Blood Venous blood specimen / Unknown Venipuncture / Unknown 02/07/2025 1:18 PM EDT 02/07/2025 1:27 PM EDT us Alfredo Almaraz MD LAB BLOOD ORDERABLES Final Resu lt Performing Organization Address City/[facility] Co de Phone Number [facility] [address] [place] [address] * (ABNORMAL) POCT glucose meter (02/07/2025 1:12 PM EDT) POCT Glucose 106(H) 74 - 99 mg/dL [...] Comment 02/07/2025 1:14 PM EDT [facility] Pourer ID Jenni Wells 02/07/2025 1:14 PM EDT [facility] LAB Device ID [id number] 02/07/2025 1:14 PM EDT [facility] Specimen Type POC Venous 02/07/2025 1:14 PM EDT [facility] Blood Venous blood specimen / Unknown 02/07/2025 1:12 PM EDT 02/07/2025 1:14 PM EDT us Amy Vargas MD LAB POINT OF CARE TEST DOCKED DEVICE UNSOLICITED RESULTS Final Result Performing Organization Address City/[facility] Co de Phone Number [facility] [address] [place] [address] documented in this encounter Visit Diagnoses Diagnosis [...] documented as of this encounter Care Teams Geosciences Professor Relationship Specialty Start Date End Date Adriana Boss APRN [address] [place] [phone] PCP - General 11/06/24 Kate Burrows DO [facility] [address] Referring Physician Obstetrics and Gynecology 01/25/25 documented as of this encounter
--- OUTSIDE RECORDS SUMMARY | 2025-02-07 14:00 | XMS_ITS | Encounter Summary ---
Author Organization [facility] Address [address] [place] [address] Care Team Providers Care Machine Heddle Cleaner Name Role Phone Adriana Boss APRN Primary Care Provider [phone] Kate Burrows DO Unavailable [phone] Reason for Visit * Auth/Cert (Routine) Specialty Diagnoses / Procedures Referred By Contac t Referred To Contact Diagnoses Endometrial cancer Endometrial cancer [C54.1] Procedures [place] LAPAROSCOPY W TOT HYSTERECTUTERUS <=250 GRAM W TUBE/OVARY WI INTRAOPERATIVE SENTINEL LYMPH NODE ID W DYE INJECTION WI LAP,LYMPH NODE BX WI REMOVAL OF OMENTUM Robot TLHBSO, SLN, OMENTECTOMY Amy Vargas MD [address] [address] Phone: tel: fax: [facility] [address] [place] [address] Phone: tel: Referral ID Status Reason Start Date Expiration Date Visits Re quested Visits Authorized [id number] 1 4 Encounter Details Date Type Department Care Team (Late st Contact Info) Description 02/07/2025 3:00 PM EDT Anesthesia Event [facility] [address] [place] [address] Alfredo Almaraz MD [address] [place] [address] Eliecer Ghosh DO [address] [place] [address] Anesthesia Record Procedure Summary Procedure Name Responsible Anesthesiologist Anesthesia Start Time Anesthesia Stop Time Robot TLHBSO, SLN, OMENTECTOMY (Bilateral) Alfredo Almaraz MD Events Date Time Event Comment 02/07/2025 1253 Meds * Agents No agents on file. * Blood No blood administrations on file. Lines, Drains, and Airways Type Details Placement Removal Wound 02/12/25; 1258; Surg ical; Laparoscopic; Abdomen; Upper 02/12/25 1258 by Theresa Pérez RN documented in this encounter Social History Tobacco Use Types Packs/Day Years [...] as of this encounter Miscellaneous Notes * Anesthesia Preprocedure Evaluation - Miranda Gaviria DO - 02/07/2025 12:25 PM EDT Images from the original note were not included. ONEAL Monae is a 75 y.o. female who presents with endometrial cancer now scheduled for Robot TLHBSO, SLN, Omentectomy Robot TLHBSO, SLN, OMENTECTOMY (Bilateral). 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 Patient follows with Cardiology, last visit 12/26/24. Repeat echo deferred by Cardiology at that time as patient was clinically stable. LVEF 60- 65% in 2020, LVEF 45% in 2022. No valvular abnormalities. Hx ofprior general anesthesia without complications. NPO since ____. Consented for general anesthesia. Past Medical History[1] Family History[2] Social History[3] SURGICAL HISTORY: Surgical History[4] Allergies[5] MEDICATIONS: Current Medications[6] ECHO 02/09/21: Left Ventricle: The left ventricular systolic function is normal.The LVEF is visually estimated at 60 - 65%. The diastolic function is normal.The left ventricular filling pressure is normal. Right Ventricle: The right ventricular systolic function is normal. No significant valvular stenosis or regurgitation Pericardium: No pericardial effusion. Pacemaker Interrogation 10/01/24: EKG 12/26/24: Cardiology Note 12/26/24: ROS Anesthesia: Date of last anesthetic: June 2022: Pacemaker insertion at [facility]. No problemswith GA in the past. history of previous anesthesia. Does not have a history anaphylaxis, a history of anesthetic complications, difficult intubation, malignant hyperthermia and PONV. Cardiovascular: atrial fibrillation (On Eliquis), hyperlipidemia, a murmur (Patient previously told that she has a murmur, but no valve issues seen on previous echocardiograms in 2020 and 2022. No chest pain or shortness of breath.) and pacemaker (Anderson, placed in 2022 for 3rd degree AV block. >99% paced.). Does not have CAD or dyspnea. hypertension: is well controlled. Exercise tolerance is 2 flights of stairs. Cardio additional comments: LHC 2022 at [facility], no stents placed. Recently saw Cardiology on 12/26/24. Pacemaker clinic on 10/01/24. Notes and pacemaker interrogation attached above. Good functional status, some activities limited by knee pain rather than chest pain or shortness ofbreath.. Respiratory: Does not have home oxygen. Patient has no dyspnea.no asthma: no COPD: Has not had an upper respiratory infection in last 30 days. HEENT: missing teeth.Does not have difficulty swallowing, chipped teeth or loose teeth.Does not have hearing loss. Neurological: no seizures: Did not have a cerebrovascular accident. Musculoskeletal: Does not have arthritis. Does not have cervical spine instability. [facility]/Sk[facility]/Integ additional comments: Hx of psoriasis, not on meds. Gastrointestinal: Does not have GERD.Does not have GI malignancy. Does not have hepatitis. Genitourinary: Does not receive dialysis.Does not have chronic renal disease. Hematological/Lymphatic: anemia. History of no DVT. History of no pulmonary embolism. Endocrine/Metabolic: diabetes mellitus type 2.well controlled. 5.2 Does not have thyroid disorder. Endo/Met additional comments: BG typically 120s in the morning, can be as low as 100. Lab Results Component Value Date WBC 6.81 01/30/2025 HGB 8.7 (L) 01/30/2025 HCT 28.1 (L) 01/30/2025 MCV 90 01/30/2025 PLT 231 01/30/2025 Lab Results Component Value Date GLUCOSE 69 (L) 01/30/2025 BUN 19 01/30/2025 CREATININE 0.78 01/30/2025 BCR 24 01/30/2025 NA 142 01/30/2025 K 3.7 01/30/2025 CL 106 01/30/2025 CO2 26 01/30/2025 ALBUMIN 4.0 01/30/2025 ALKPHOS 83 01/30/2025 BILITOT 0.4 01/30/2025 Lab Results Component Value Date HGBA1C 5.2 01/30/2025 No results found for: INR , PROTIME Visit Vitals Wt 98 kg (216 lb 0.8 oz) BMI 38.27 kg/m?? OB Status Postmenopausal Smoking Status Never BSA 2.09 m?? Physical Exam Airway Mallampati: II Mouth opening: normal TM distance: >3 FB Neck ROM: full Cardiovascular Rhythm: regular Rate: normal (+) murmur Dental - normal exam Pulmonary Breath sounds clear to auscultation (-) rhonchi, decreased breath sounds, wheezes Neurological Oriented: normal to time, normal to place and normal to person (-) altered mental status, dysarthria and resting tremor Skin Skin: warm and dry Musculoskeletal - normal exam (-) contracture and fracture Extremities -normal exam (-) clubbing and cyanotic Anesthesia Plan ASA 3 Anesthesia technique(s) discussed with the patient/family: general Anesthesia plan agreed upon was: general Anesthetic plan and risks discussed with patient. Use of blood products discussed with patient who consented to blood products. Miranda Gaviria DO [1] Past Medical History: Diagnosis Date Atrial fibrillation (CMS/HCC) Diabetes mellitus Hypertension [2] Family History Problem Relation Name Age of Onset Kidney cancer Father Prostate cancer Maternal Grandfather Hodgkin's lymphoma Maternal Grandfather [3] Social History Tobacco Use Smoking status: Never Smokeless tobacco: Never Substance Use Topics Alcohol use: Never Drug use: Never [4] Past Surgical History: Procedure Laterality Date DILATION AND CURETTAGE OF UTERUS INSERT / REPLACE / REMOVE PACEMAKER [5] No Known Allergies [6] Current Facility-Administered Medications: lactated Ringer's lidocaine Insert peripheral IV AND Saline lock IV AND sodium chloride AND sodium chloride Cosigned by Alfredo Almaraz MD at 02/07/2025 1:26 PM EDT Associated attestation - Alfredo Almaraz MD - 02/07/2025 1:26 PM EDT I agree with the findings and care plan documented in the preprocedure evaluation note. documented in this encounter Plan of Treatment Not on file documented as of this encounter Goals Goal Patient Goal Type Associated Problems Recent Progress Patient-Stated? Author Autogenerat ed Goal Care Plan Autogenerated Problem No CammycristaMin documented as of this encounter Visit Diagnoses Not on filedocumented in this encounter Additional Health Concerns Active Problems Noted Date Diagnosed Date Autogenerated Problem 02/07/2025 Assessment Noted Time A fall risk assessment has been complete d for the patient 01/30/2025 2:13 PM EDT A Body Mass Index follow-up plan has been documented for the patient 01/20/2025 2:21 PM EDT documented as of this encounter Care Teams Machine Heddle Cleaner Relationship Specialty Start Date End Date Adriana Boss APRN [facility] [place], [place] [id number] PCP - General 11/06/24 Kate Burrows DO [facility] [address] Referring Physician Obstetrics and Gynecology 01/25/25 documented as of this encounter
--- OUTSIDE RECORDS SUMMARY | 2025-02-08 15:28 | XMS_ITS | Encounter Summary ---
Author Organization [facility] Address [address] [place] [address] Care Team Providers Care Lacer And Tier Name Role Phone Adriana Boss APRN Primary Care Provider [phone] Stormy Kate DO Unavailable [phone] Encounter Details Date Type Department Care Team (Latest Contact Info) Description 02/08/2025 4:28 PM EDT - 02/08/2025 11:59 PM EDT Hospital Encounter Cardiac Imaging [address] [place] [address] AV block, 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) Discharge Disposition: Home or Self Care Social [...] on file documented as of this encounter Functional Status * Question Answer Date of Assessment Author Precautions Environmental surveillance 02/13/2025 10: 00 AM EDT Abbey Scott * Calculated C-SSRS Risk Score (Lifetime/Recent) Answer Date of Assessment Author No Risk Indicated 02/12/2025 10:00 PM EDT Krystal Sims RN * Question Answer Date of Assessment Author 1. Wish to be (Past 1 Month) No 025 10:00 PM EDT Bethany, Krystal, RN 2. Non-Specific Active Suici marivel Thoughts (Past 1 Month) No 02/12/2025 10:00 PM EDT Kiley Sims RN 6. Suicidal Behavior (Lifetime) No 10:00 PM EDT Krystal Sims RN documented as of this encounter Mental Status * Question Answer Entry Date Author Precautions Environmental surveillance 02/13/2025 10: 00 AM EDT Abbey Scott documented in this encounter Medications at Time [...] 02/14/2025 5 documented as of this encounter Plan of Treatment Not on file documented as of this encounter Goals Goal Patient Goal Type Associated Problems Recent Progress Patient-Stated? Author Autogenerat ed Goal Care Plan Autogenerated Problem No Min Ayala documented as of this encounter Procedures Procedure Name Priority Date/Time Associated Diagnosis Comments CARDIAC DEVICE CHECK - IN CLINIC - PACEMAKER BIVENTRICULAR CHAMBER W/ PROG STAT 02/08/2025 4:28 PM EDT AV block, 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) documented in this encounter Results * CARDIAC DEVICE CHECK - IN CLINIC - PACEMAKER BIVENTRICULAR CHAMBER W/ PROG (02/08/2025 4:28 PM EDT) Anatomical Region Laterality Modality Other Narrative 02/08/2025 4:53 PM EDT [facility]: Pre-operative CIED Report Assessment and Yola-Procedural Reommendations: Name: Kelsey Monae Date: 02/08/2025 : 1950 Age: 75 y.o. Patient has a Business Leader: Anderson CABIN CLEANER-PM Remaining battery longevity adequate. Lead integrity test values trending within normal limits. Recommendations pending review and co-signature by provider.? Recommendation: Heart rate dependency on pacemaker or potential dependency cannot be excluded. Recommend placement of magnet over device for duration of procedure and use of electrocautery in short bursts. Placing dispersion patch on contralateral thigh to device. Pre-procedural CIED evaluation based on available documentation dated within the last six months for perioperative device management recommendations. Supporting reports can be found in [employer] media file. Min Crowe MD CV IMPLANTABLE CARDIAC DEVICE PROCEDURES Final Result documented in this encounter Visit Diagnoses Diagnosis AV block, 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) Atrioventricular block, complete documented in this encounter Additional Health Concerns Active Problems Noted Date Diagnosed Date Autogenerated Problem 02/07/2025 Assessment Noted Time A fall risk assessment has been complete d for the patient 01/30/2025 2:13 PM EDT A Body Mass Index follow-up plan has been documented for the patient 01/20/2025 2:21 PM EDT documented as of this encounter Care Teams Lacer And Tier Relationship Specialty Start Date End Date Adriana Boss APRN [address] [place] [address] PCP - General 11/06/24 Kate Burrows DO [facility] [address] Referring Physician Obstetrics and Gynecology 01/25/25 documented as of this encounter
--- OUTSIDE RECORDS SUMMARY | 2025-02-12 08:21 | XMS_ITS | Encounter Summary ---
Author Organization [facility] Address [address] [place] [address] Care Team Providers Care T[employer] Mold Engraver Name Role Phone Adriana Boss APRN Primary Care Provider [phone] Stormy Kate DO Unavailable [phone] Reason for Visit * Auth/Cert (Routine) Specialty Diagnoses / Procedures Referred By Colin t Referred To Contact Diagnoses Endometrial cancer Endometrial cancer [C54.1] Procedures DE LAPAROSCOPY W TOT HYSTERECTUTERUS <=250 GRAM W TUBE/OVARY DE REMOVAL OF OMENTUM DE INTRAOPERATIVE SENTINEL LYMPH NODE ID W DYE INJECTION DE LAP,LYMPH NODE BX ROBOT TLHBSO, SLN, OMENTECTOMY Amy Vargas MD [address] [facility] Brenda More [address] [address] Phone: tel: fax: P[facility] A OPERATING ROOM [address] [place] [address] Phone: tel: Referral ID Status Reason Start Date Expiration Date Visits Re quested Visits Authorized [id number] 1 1 Encounter Details Date Type Department Care Team (Late st Contact Info) Description 02/12/2025 9:21 AM EDT - 02/13/2025 2:09 PM EDT Hospital Encounter PAV H Inpatient [address] [place] [address] Amy Vargas MD [address] [facility] Brenda More [facility] [address], [place] [address] Endometrial cancer Discharge Disposition: Home [...] call your doctor to schedule an appointment: [phone] Visit the gynecologic oncology Walk-In Clinic which is open Tuesday-Tuesday 8am- 10am. It is helpful if you call the clinic before arrival: [phone] Call the Cancer acute Treatment Clinic. Same day-appointments are available Tuesday-Tuesday 8am-5pm. Please call [phone] before arrival to schedule a visit Fever [...] p.m.: call the Gynecologic Oncology Clinic at [phone]. 4:30 p.m.-8 a.m.: call the After Hours Paging Healthcare Insurance Sales Agent at [phone] and ask for the Gynecologic Oncology provider [...] Amy Vargas MD PCP name and Address: Gera Adriana Rosendo, AUTO WASH BUFFER [address] [facility] [address] Referring provider name and address: Kate Burrows, DO [address] [place] [address] Chief Concern, Brief History of Present Illness, [...] Your Medications These medications were sent to [facility] [place], [place] - [address], [facility] [address] acetaminophen 325 MG tablet carboxymethylcellulose PF 0.5 [...] call your doctor to schedule an appointment: [phone] Visit the gynecologic oncology Walk-In Clinic which is open Tuesday-Tuesday 8am- 10am. It is helpful if you call the clinic before arrival: [phone] Call the Cancer acute Treatment Clinic. Same day-appointments are available Tuesday-Tuesday 8am-5pm. Please call [phone] before arrival to schedule a visit Fever [...] p.m.: call the Gynecologic Oncology Clinic at [phone]. 4:30 p.m.-8 a.m.: call the After Hours Paging Healthcare Insurance Sales Agent at [phone] and ask for the Gynecologic Oncology provider on-call. Outpatient Follow-Up Future Appointments Date Time Provider Department Center 03/20/2025 2:30 PM Amy Vargas MD [facility] Test Results Pending At Discharge Pending Labs [...] preparation for this discharge. Fariba Lowery MD INSTRUMENT AND CONTROLS TECHNICIAN Resident PGY-1 Cosigned by Amy Vargas MD [...] to discharge lounge. Ride here. * [facility] - Abbey Scott - 02/13/2025 1:41 PM EDT Images from the original note were not included. [id number] Endometrial Cancer: Discharge Instructions for Hysterectomy A [...] an aide through a home healthcare agency, [facility]. Make sure you know: ? When you [...] away. Last Reviewed Date: 2024 00:00:00 ?? [id number] [employer]. All rights reserved. This information is not intended as a substitute for professional medical care. Always follow your healthcare professional's instructions. * Days[facility] - Abbey Scott - 02/13/2025 1:41 PM EDT Images from the original note were not included. [id number] Discharge Instructions: Surgery for Cancer of the [...] you takeother medicines. These include prescriptions and lfqv-vrh-uxyvrtn medicines, vitamins, herbs, and other supplements. ? [...] leg Last Reviewed Date: 2024 00:00:00 ?? [id number] [employer]. All rights reserved. This information is not intended as a substitute for professional medical care. Always follow your healthcare professional's instructions. * [facility] - Abbey Scott - 02/13/2025 1:41 PM EDT Images from the original note were not included. [id number] What Is Endometrial Cancer? Cancer usually starts [...] fightcancer. Last Reviewed Date: 2024 00:00:00 ?? [id number] [employer]. All rights reserved. This information is not intended as a substitute for professional medical care. Always follow your healthcare professional's instructions. * Days[facility] Ventura - Abbey Scott - 02/13/2025 1:41 PM EDT Images from the original note were not included. [id number] Obesity and Its Impact on Health Obesity [...] about working with a dietitian, a health life coach, an craps dealer, or a mental health provider. They can [...] medicines. Last Reviewed Date: 2024 00:00:00 ?? [id number] [employer]. All rights reserved. This information is not intended as a substitute for professional medical care. Always follow your healthcare professional's instructions. * Days[facility] - Abbey Scott - 02/13/2025 1:41 PM EDT Images from the original note were not included. [id number] Acetaminophen IMPORTANT WARNING: Taking too much acetaminophen [...] measuring cup or syringe provided by the clinical safety specialist to measure each dose of the solution [...] and out of their sight and reach. https://www.[employer]org Dispose of unneeded medications in a way [...] of all of the prescription and nonprescription (cnyp-zij-qpilxvx) medicines, vitamins, minerals, and dietary supplements you [...] a combination product containing Acetaminophen, Oxycodone) APAP, E-pnttnl-vbxh-aminophenol, Paracetamol This report on medications is for your information only, and is not considered individual patient advice. Because of the changing nature of drug information, please consult your physician or pharmacist about specific clinical use. The [employer] represents that the information provided hereunder was formulated with a reasonable standard of care, and in conformity with professional standards in the field. The [employer] makes no representations or warranties, express or implied, including, but not limited to, any implied warranty of merchantability and/or fitness for a particular purpose, with respect to such information and specifically disclaims all such warranties. Users are advised that decisions regarding drug therapy are complex medical decisions requiring the independent, informed decision of an appropriate health campground caretaker, and the information is provided for informational purposes only. The entire monograph for a drug should be reviewed for a thorough understanding of the drug's actions, uses and side effects. The [employer] does not endorse or recommend the use of any drug.The information is not a substitute for medical care. AHFS?? Patient Medication Information?. ?? Copyright, 2023. The [employer]System Pharmacists??, [address], [address], [place], [place]. All Rights Reserved. Duplication for commercial use must be authorized by [facility]. Selected Revisions: December 31, 2022. AHFS?? Patient [...] the video go to this web address: https://bit.ly/3RFzEUT Or, scan this QR code with your smart phone ?? [employer] * Abbey Mayberry - 02/13/2025 1:41 PM EDT Images from the original note were not included. Hysterectomy: Before Your Surgery - Video Watch this video to learn the different ways a hysterectomy may be done and what to expect for recovery. To view the video go to this web address: https://bit.ly/4yUJ2Hv Or, scan this QR code with your smart phone ?? [employer] [facility] * Abbey Mayberry - 02/13/2025 1:41 PM EDT Images from the original note were not included. Pre-Procedure: Hysterectomy - Video Watch this to learn the facts behind some common concerns about hysterectomy. To view the video go to this web address: https://bit.ly/3EJodaV Or, scan this QR code with your [...] Intervention: Provide Person-Centered Care Flowsheets (Taken 02/13/2025 1331) Trust Relationship/Rapport: care explained Problem: Fall Injury [...] Prevent or Manage Infection Flowsheets (Taken 02/13/2025 1331) Infection Management: aseptic technique maintained Fever Reduction/Comfort [...] Manage Fluid and Electrolyte Balance Flowsheets (Taken 02/13/2025 133) Fluid/Electrolyte Management: fluids adjusted intravenous fluids adjusted Goal: Absence of Infection Signs and Symptoms Outcome: Met Intervention: Prevent or Manage Infection Flowsheets (Taken 02/13/2025 133) Infection Management: aseptic technique maintained Fever Reduction/Comfort Measures: lightweight clothing Isolation Precautions: precautions maintained Goal: Anesthesia/Sedation Recovery Outcome: Met Intervention: Optimize Anesthesia Recovery Flowsheets (Taken 02/13/20251330) Stabilization Measures: verbal stimulation provided Patient Tolerance [...] or Manage Nausea and Vomiting Flowsheets (Taken 02/13/20251330) Nausea/Vomiting Interventions: nausea triggers minimized Goal: Effective Urinary Elimination Outcome: Met Intervention: Monitor and Manage Urinary Retention Flowsheets (Taken 02/13/20251330) Urinary Elimination Promotion: frequent voiding encouraged positioned [...] well-managed. Please message on-call GYO resident via [employer] Secure Chat or page [phone] for questions or concerns regarding this patient's [...] Care Review Outcome: Ongoing, Progressing Flowsheets (Taken 02/12/2025 2233) Progress: no change Outcome Evaluation: pt agreeable to POC Plan of Care Reviewed With: patient Goal: Patient-Specific Goal (Individualized) Outcome: Ongoing, Progressing Flowsheets (Taken 02/12/20250) Patient/Family-Specific Goals (Include Timeframe): Patient will rate [...] airway patency maintained calming measures promoted Taken 02/12/20250 Head of Bed (HOB) Positioning: HOB at 30-45 degrees Cough And Deep Breathing: done independently per patient * Care Plan - Jose Burris MD - 02/12/2025 9:37 PM EDT Pacemaker Interrogation Note Creasing Machine Operator: Anderson/St. Lj Generator: Quadra Allure MP 3562, Serial # [id number], implanted 07/15/22 RA Lead: SJM Tendril STS 2088TC/52cm, Serial #[id number], Implant date 07/15/22 RV Lead: SJM Tendril STS 2088TC/58cm, Serial # [id number], Implant date 07/15/22 LV/CS Lead: SJM Quartet 1458Q/86cm, Serial # [id number], implant date 07/15/22 Device type: multilead chamber [...] PGY-6/FY-2 Fellow - Division of Cardiovascular Medicine [facility] [place] * Clinician Note - Dori Caputo MD [...] meds/eliquis/ASA held - Message sent to EP student services director to interrogate pacemaker prior to discharge - [...] management Please message on-call GYO resident via [employer] Secure Chat or page [phone] for questions or concerns regarding this patient's [...] Agree with above assessment and evaluation from resident/ENVELOPE CUTTER. * Op Note - Amy Vargas MD - 02/12/2025 12:40 PM EDT Operative Note Date: 02/12/25 Location: [place] Name: Kelsey Monae, : 1950, Diagnoses: Pre-op Diagnosis Endometrial cancer Obesity BMI 39 Afib Psoriasis DM HTN Post-op Diagnosis Endometrial cancer Obesity BMI 39 Afib Psoriasis DM HTN Procedure(s): Robotic TLH/BSO/SLN mapping/OMX Attending Surgeon(s): * Amy Vargas I - Primary Furnace Keeper(s): * Dori Caputo MD - Resident - [...] The cervix was sounded and dilated. A [employer]Care uterine manipulator was placed. Thepatient???s arms were [...] the node, I had to utilize the per diem physical therapist assistant and two of my robot arms to [...] Morbid Obesity greatly prolonged the procedure. A per diem physical therapist assistant was required to retract the colon, small [...] & Plan Endometrial cancer To OR for RATH BSO SLN OMX. Agrees to blood transfusion should she need it. Consents reviewed. Allquestions answered. Medically Ready for Discharge: [1] Current Facility-Administered Medications Medication Dose Route Frequency Provider Last Rate Last Admin sodium chloride 0.9 % flush 10 mL 10 mL Intravenous q12h Amy Vargas MD 10 mL at 052 And sodium chloride 0.9 % flush 10 [...] as documented. * PAT Evaluation Note - Marychuy Hough MD - 02/08/2025 4:58 PM EDT [...] last anesthetic: June 2022: Pacemaker insertion at [facility]. No problemswith GA in the past. [...] 2 flights of stairs. Cardio additional comments: [facility] 2022 at [facility], no stents placed. Recently saw Cardiology [...] arthritis. Does not have cervical spine instability. Musc/Skel/Integ additional comments: Hx of psoriasis, not on [...] general Comment: Discussed with Attending, Dr. Crowe. Marychuy Hough MD [1] Past Medical History: Diagnosis [...] Routine 02/12/2025 1:02 PM EDT Endometrial cancer DE LAPAROSCOPY W TOT HYSTERECTUTERUS <=250 GRAM W TUBE/OVARY 02/12/2025 11:43 AM EDT Endometrial cancer POCT GLUCOSE METER UNSOLICITED RESULTS Routine 02/12/2025 11:02 AM EDT TYPE AND SCREEN Routine 02/12/2025 10:56 AM EDT documented in this encounter Results * (ABNORMAL) POCT glucose meter (02/13/2025 11:22 AM EDT) POCT Glucose 159(H) 74 - 99 mg/dL 02/13/2025 11:24 AM EDT [facility] Comment:Accuracy of [...] 02/13/2025 11:24 AM EDT [facility] Healthcare Insurance Sales Agent ID Triny Olvera 02/13/2025 11:24 AM EDT HEALTHCARE LAB Device ID [id number] 02/13/2025 11:24 AM EDT [facility] Specimen Type POC Capillary 02/13/2025 11:24 AM EDT [facility] Blood Capillary blood specimen / Unknown 02/13/2025 11:22 AM EDT 02/13/2025 11:24 AM EDT Amy Vargas MD LAB POINT OF CARE TEST DOCKED DEVICE UNSOLICITED RESULTS Final Result Performing Organization Address [facility] Co de Phone Number HEALTHCARE LAB [address] [place] [address] * (ABNORMAL) POCT glucose meter (02/13/2025 7:36 AM EDT) [facility] POCT Glucose 175(H) 74 - 99 mg/dL 02/13/2025 7:38 AM EDT [facility] Comment:Accuracy of a glucos [...] Comment 02/13/2025 7:38 AM EDT [facility]ALTHCARE LAB Healthcare Insurance Sales Agent ID Kal YañezTriny forde 02/13/2025 7:38 AM EDT HEALTHCARE LAB Device ID [id number] 02/13/2025 7:38 AM EDT [facility] Specimen Type POC Capillary 02/13/2025 7:38 AM EDT [facility] Blood Capillary blood specimen / Unknown 02/13/2025 7:36 AM EDT 02/13/2025 7:38 AM EDT Amy Vargas MD LAB POINT OF CARE TEST DOCKED DEVICE UNSOLICITED RESULTS Final Result Performing Organization Address City/[facility]/ZIP Co de Phone Number HEALTHCARE LAB [address] [place] [address] * Phosphorus (02/13/2025 12:29 AM EDT) [facility] Phosphorus, Plasma 3.6 2.5 - 4.5 mg/dL 02/13/2025 1:07 AM EDT [facility] Blood Venous blood specimen / Unknown Venipuncture / Unknown 02/13/2025 12:29 AM EDT 02/13/2025 12:34 AM EDT us Amy Vargas MD LAB BLOOD ORDERABLES Veronica l Result Performing Organization Address City/[facility]/ZIP Co de Phone Number [facility] [address] [place] [address] * (ABNORMAL) Magnesium, Plasma (02/13/2025 12:29 AM EDT) Magnesium, Plasma 1.8(L) 1.9 - 2.4 mg/dL 02/13/2025 1:07 AM EDT [facility] Blood Venous blood specimen / Unknown Venipuncture / Unknown 02/13/2025 12:29 AM EDT 02/13/2025 12:34 AM EDT us Amy Vargas MD LAB BLOOD ORDERABLES Veronica l Result Performing Organization Address [facility] Co de Phone Number [facility] [address] [place] [address] * (ABNORMAL) Basic metabolic panel (02/13/2025 12:29 AM EDT) Glucose, Plasma 207(H) 74 - 99 mg/dL 02/13/2025 1:07 AM EDT [facility] BUN, Plasma 20 8 - 23 mg/dL 02/13/2025 1:07 AM EDT [facility] Creatinine, Plasma 0.79 0.60 - 1.10 mg/dL 02/13/2025 1:07 AM EDT [facility] BUN/Creatinine Ratio 25 02/13/2025 1:07 AM EDT [facility] Sodium, Plasma 137 136 - 145 mmol/L 02/13/2025 1:07 AM EDT [facility] Potassium, Plasma 4.2 3.6 - 4.9 mmol/L 02/13/2025 1:07 AM EDT [facility] Chloride, Plasma 102 97 - 107 mmol/L 02/13/2025 1:07 AM EDT [facility] CO2, Plasma 23 22 - 29 mmol/L 02/13/2025 1:07 AM EDT [facility] Anion Gap 12 6 - 16 mmol/L 02/13/2025 1:07 AM EDT [facility] Total Calcium, Plasma 8.7(L) 8.9 - 10.2 mg/dL 02/13/2025 1:07 AM EDT [facility] eGFRcr 77.6 mL/min/1.7 3m*2 02/13/2025 1:07 AM EDT [facility] Comment:Reported eGFRcr in m L/min/1.73m2 is based the CKD-EPI 2020 equation that does not use a race coefficient. Blood Venous blood specimen / Unknown Venipuncture / Unknown 02/13/2025 12:29 AM EDT 02/13/2025 12:34 AM EDT us Amy Vargas MD LAB BLOOD ORDERABLES Veronica bray Result [facility] [address] [place] [address] * (ABNORMAL) CBC W/O Differential (02/13/2025 12:29 AM EDT) WBC Count 9.30 3.70 - 10.30 10*3/uL LAB HEMATOLOGY METHOD 02/13/2025 12:44 AM EDT [facility] RBC Count 3.09(L) 3.90 - 5.20 10*6/uL LAB HEMATOLOGY METHOD 02/13/2025 12:44 AM EDT [facility] HGB 8.6(L) 11.2 - 15.7 g/dL LAB HEMATOLOGY METHOD 02/13/2025 12:44 AM EDT [facility] HCT 26.9(L) 34.0 - 45.0 % LAB HEMATOLOGY METHOD 02/13/2025 12:44 AM EDT [facility] Platelet Count 193 155 - 369 10*3/uL LAB HEMATOLOGY METHOD 02/13/2025 12:44 AM EDT [facility] MCV 87 79 - 98 fL LAB HEMATOLOGY METHOD 02/13/2025 12:44 AM EDT [facility] MCH 27.8 26.0 - 32.0 pg LAB HEMATOLOGY METHOD 02/13/2025 12:44 AM EDT [facility] MCHC 32.0 30.7 - 35.5 g/dL LAB HEMATOLOGY METHOD 02/13/2025 12:44 AM EDT [facility] RDW 15.0(H) 11.5 - 14.5 % LAB HEMATOLOGY METHOD 02/13/2025 12:44 AM EDT [facility] MPV 10.4 8.8 - 12.5 fL LAB HEMATOLOGY METHOD 02/13/2025 12:44 AM EDT [facility] nRBC 0.0 <=0.0 per 100 WBCs LAB HEMATOLOGY METHOD 02/13/2025 12:44 AM EDT [facility] Blood Venous blood specimen / Unknown Venipuncture / Unknown 02/13/2025 12:29 AM EDT 02/13/2025 12:35 AM EDT Amy Vargas MD LAB BLOOD ORDERABLES Veronica l Result Performing Organization Address City/[facility]/ZIP Co de Phone Number [facility] [address] [place] [address] * Corin auris Surveillance by PCR (02/12/2025 9:55 PM EDT) Corin auris PCR Result Not Detected Not Detected 02/14/2025 6:58 AM EDT [facility] Swab (Axilla and Groin) Non-blood Collection / Unknown 02/12/2025 9:55 PM EDT 02/12/2025 10:03 PM EDT Narrative [facility] - 02/14/2025 6:58 AM EDT This PCR assay was developed and its performance characteristics determined by [facility] as appropriate for clinical purposes. This assay has not been cleared or approved by the FDA, but is performed in a CLIA regulated laboratory that is qualified to perform high-complexity testing. Amy Vargas MD LAB MICROBIOLOGY - GENERA L ORDERABLES Final Result Performing Organization Address City/[facility]/[place] [address] * Multi Drug Resistance Test (02/12/2025 9:55 PM EDT) Culture No growth at day 1 02/14/2025 6:13 AM EDT [facility] Swab (Nares and Yola Rectal) Non-blood Collection / Unknown 02/12/2025 9:55 PM EDT 02/12/2025 10:03 PM EDT Narrative [facility] - 02/14/2025 6:13 AM EDT This test was developed and its performance characteristics determined by the [facility]. Although the media is FDA-approved, it is not FDA-approved for all specimen types submitted. The FDA has determined that such clearance or approval is not necessary. This test is used for surveillance purposes. It should not be regarded as investigational or for research. The [facility] is certified under the Clinical Laboratory Improvement Amendments of 1988 (CLIA-88) as qualified to perform high complexity clinical laboratory testing. Amy Vargas MD LAB MICROBIOLOGY - GENERA L ORDERABLES Final Result [facility] [address] [place] [address] * (ABNORMAL) POCT glucose meter (02/12/2025 9:03 PM EDT) POCT Glucose 166(H) 74 - 99 mg/dL [...] for testing. Comment 02/12/2025 9:05 PM EDT [facility] Healthcare Insurance Sales Agent ID Nickolas Howard 02/12/2025 9:05 PM EDT HEALTHCARE LAB Device ID [id number] 02/12/2025 9:05 PM EDT [facility] Specimen Type POC Capillary 02/12/2025 9:05 PM EDT [facility] Blood Capillary blood specimen / Unknown 02/12/2025 9:03 PM EDT 02/12/2025 9:05 PM EDT Amy Vragas MD LAB POINT OF CARE TEST DOCKED DEVICE UNSOLICITED RESULTS Final Result Performing Organization Address City/[facility] de Phone Number [facility] [address] [place] [address] * (ABNORMAL) POCT glucose meter (02/12/2025 4:30 PM EDT) POCT Glucose 205(H) 74 - 99 mg/dL [...] for testing. Comment 02/12/2025 4:31 PM EDT [facility]ALTH[facility]ARE LAB Healthcare Insurance Sales Agent ID Mik Pritchett 02/12/2025 4:31 PM EDT HEALTHCARE LAB Device ID [id number] 02/12/2025 4:31 PM EDT [facility] Specimen Type POC Capillary 02/12/2025 4:31 PM EDT [facility] Blood Capillary blood specimen / Unknown 02/12/2025 4:30 PM EDT 02/12/2025 4:31 PM EDT Amy Vargas MD LAB POINT OF CARE TEST DOCKED DEVICE UNSOLICITED RESULTS Final Result Performing Organization Address City/[facility] Co de Phone Number [facility]ALTH[facility]ARE [facility] [address] [place] [address] * Surgical Pathology Exam (02/12/2025 2:01 PM EDT) Case Report Surgical Pathology Case: [id number] Authorizing Provider: Amy Vargas MD Collected: 02/12/2025 1401 Ordering Location: [facility] A OPERATING ROOM Received: 02/12/2025 1528 Pathologist: Lavon Daly MD Specimens: A) - Other (specify site), uterus, cervix, bilateral tubes, ovaries, and adnexal mass B) - Other (specify site), OMENTUM - PERMANENT 5 1:14 PM EST [facility] Final Diagnosis A. UTERUS, CERVIX, BILATERAL FALLOPIAN [...] B. OMENTUM, OMENTECTOMY: - BENIGN FIBROADIPOSE TISSUE. 5 1:14 PM EST [facility] at 1314 EST Comment Immunohistochemical stains previously performed on the endometrial curettage specimen ([id number]) at the outside institution demonstrated the following results. POLE status is unknown. P53: Mutated (overexpressed) Estrogen receptor: Positive, 95%, strong Progesterone receptor: Positive, 95%, strong PD-L1: less than 1% MLH1: Retained PMS2: Retained MSH2: Retained MSH6: Retained 5 1:14 PM EST [facility] Synoptic Checklist ENDOMETRIUM ENDOMETRIUM - All [...] the Endometrium): IICm (p53abn) 5 1:14 PM [facility] Clinical Information Endometrial cancer [C54.1] 5 1:14 PM [facility] Gross Description A. UTERUS, CERVIX, [...] The cut surface is apple-yellow and whorled. Sand Digger sections are submitted as follows: A1: Posterior [...] aggregate of apple-yellow lobulated firm fibroadipose tissue. Sand Digger sections are submitted in cassettes B1-B3. Cold Time: 1h 10m HRALEY Lama (ASCP) 5 1:14 PM [facility] Intradepartmental Consultation with Agreement Dr. Trevor Koch reviewed selected slides and concurs with the interpretation. 5 1:14 PM [facility] Note: A resident was involved in the service. I attest I examined the relevant preparations for the specimens and confirmed the diagnosis or interpretation. 1:14 PM EST [facility] Tissue Topography unknown / Unknown 02/12/2025 2:01 PM EDT 02/12/2025 3:28 PM EDT Comment:Pre-op diagnosis: Endometrial cancer [C54.1] Tissue specimen (specimen) Topography unknown / Unknown 02/12/2025 2:18 PM EDT 02/12/2025 3:28 PM EDT Comment:Pre-op diagnosis: Endometrial cancer [C54.1] us Amy Vargas MD LAB PATHOLOGY ORDERABLES Final Result Performing Organization Address City/State/[facility] Co de Phone Number [facility] [address] [place] [address] * Non-Gynecologic Cytology (02/12/2025 1:02 PM EDT) Case Report Cytology Case: [id number] Authorizing Provider: Amy Vargas MD Collected: 02/12/2025 1302 Ordering Location: [facility] A OPERATING ROOM Received: 02/12/2025 1515 Pathologist: Karrie Moran MD Specimen: Pelvic Washing, PELVIC WASHING 02/14/2025 11:33 AM EDT [facility] Final Diagnosis A. PELVIC WASHING - NO EVIDENCE OF MALIGNANCY - REACTIVE MESOTHELIAL CELLS 02/14/2025 11:33 AM EDT [facility] at 1133 EDT Gross Description A. PELVIC WASHING 35 mls clear fluid for thin prep and cell block 02/14/2025 11:33 AM EDT [facility] Clinical Information Endometrial cancer [C54.1] 02/14/2025 11:33 AM EDT [facility] Washing Fluid specimen from pelvis / Unknown 02/12/2025 1:02 PM EDT 02/12/2025 3:15 PM EDT Comment:Pre-op diagnosis: Endometrial cancer [C54.1] us Amy Vargas MD LAB CYTOLOGY ORDERABLES F inal Result [facility] [address] [place] [address] * (ABNORMAL) POCT glucose meter (02/12/2025 11:02 AM EDT) [facility] POCT Glucose 110(H) 74 - 99 mg/dL [...] Comment 02/12/2025 11:04 AM EDT HEALTHCARE LAB Healthcare Insurance Sales Agent ID Lyudmila Soria 02/12/2025 11:04 AM EDT HEALTHCARE LAB Device ID [id number] 02/12/2025 11:04 AM EDT HEALTHCARE LAB Specimen Type POC Venous 02/12/2025 11:04 AM EDT HEALTHCARE LAB Blood Venous blood specimen / Unknown 02/12/2025 11:02 AM EDT 02/12/2025 11:04 AM EDT Amy Vargas MD LAB POINT OF CARE TEST DOCKED DEVICE UNSOLICITED RESULTS Final Result Performing Organization Address City/[facility]/ZIP Co de Phone Number HEALTHCARE LAB [address] [place] [address] * Type and screen (02/12/2025 10:56 AM EDT) Pathologist [facility] ABO/Rh O Positive 02/12/2025 11:04 AM EDT BLOOD BANK Antibody Screen Negative 02/12/2025 11:04 AM EDT BLOOD BANK Specimen Expiration 02/15/2025 23:59 02/12/2025 11:04 AM EDT BLOOD BANK Blood Venous blood specimen / Unknown Venipuncture / Unknown 02/12/2025 10:56 AM EDT 02/12/2025 11:04 AM EDT Amy Vargas MD LAB BLOOD BANK TEST ORDER JULIA Final Result BLOOD BANK [address] [place] [address], documented in this encounter Visit Diagnoses Diagnosis [...] on Tue02/12/25 at 1930, Until Discontinued, Routine 194 (Given - Provider: Nickolas Howard RN) 0830 [...] Provider: Krystal Sims RN)0509 (Given - Provider: Krytsal Sims RN)1122 (Given - Provider: Abbey Scott) [...] Dose 0-3 Units, Subcutaneous, 2 times nightly (2099 & 0300), First dose on Tue02/12/25 at 2100, Until Discontinued, Routine, Recovery(Phase II-Outpatient)/On Unit(Inpatient) 2103 (Not Given - Provider: Nickolas Howard RN - Reason: Order parameters not met) 0221 (Not Given - Provider: Krystal Sims RN - Reason: Order parameters not met) mupirocin (Bactroban) 2 % ointment 1 Application Each Nostril, 2 times daily, 10 doses, First dose on Tue02/12/25 at 2245, Last dose on Tue02/17/25 at 0900, Routine 2221 (Given - Provider: Krystal Sims RN) 0840 (Given - Provider: Abbey Scott) Povidone-Iodine [...] Pritchett RN)2200 (Rate/Dose Verify - Provider: Krystal Sims RN) 0735 (New Bag - Provider: Abbey Scott)1300 [...] dry eyes 1747 (Given - Provider: Nickolas Howard RN)2110 (Given - Provider: Nickolas Howard RN) ondansetron (Zofran) 4 MG/5ML solution 4 [...] documented as of this encounter Care Teams T[employer] Engraver Relationship Specialty Start Date End Date Adriana Boss APRN [address] [place] [id number] PCP - General 11/06/24 Kate Burrows DO [facility] [id number] Referring Physician Obstetrics and Gynecology 01/25/25 documented as of this encounter
--- OUTSIDE RECORDS SUMMARY | 2025-02-12 10:55 | XMS_ITS | Encounter Summary ---
Author Organization Healthcare Address [address] [place] [address] Care Team Providers Care District Leader Name Role Phone Adriana Boss APRN Primary Care Provider [phone] Kate Burrows DO Unavailable [phone] Reason for Visit * Auth/Cert (Routine) Specialty Diagnoses / Procedures Referred By Contac t Referred To Contact Diagnoses Endometrial cancer Endometrial cancer [C54.1] Procedures AL LAPAROSCOPY W TOT HYSTERECTUTERUS <=250 GRAM W TUBE/OVARY AL REMOVAL OF OMENTUM AL INTRAOPERATIVE SENTINEL LYMPH NODE ID W DYE INJECTION AL LAP,LYMPH NODE BX ROBOT TLHBSO, SLN, OMENTECTOMY Amy Vargas MD [address] [address] Phone: tel: fax: [facility] [address] [place] [address] Phone: tel: Referral ID Status Reason Start Date Expiration Date Visits Re quested Visits Authorized [id number] 1 1 Encounter Details Date Type Department Care Team (Late st Contact Info) Description 02/12/2025 11:55 AM EDT Anesthesia Event [facility] [address] [place] [address] Jon Handley MD [address] [place] [address] Emily Miramontes CRNA [address] [place] [address] Anesthesia Record Procedure Summary Procedure [...] well with no complications. Staffing Performed: CECILIO SYSTEMS ANALYST ENGINEER: Emily Miramontes CRNA * Anesthesia Procedure Notes [...] and Staff Patient location during procedure: OR SYSTEMS ANALYST ENGINEER: Emily Miramontes CRNA Performed: CECILIO Patient Condition Indications for airway management: anesthesia [...] 02/12/2025 10:46 AM EDT Patient: Kelsey Monae HPI Kelsey Monae is a 75 y.o. female with body mass index is 38.26 kg/m??. who presents with Endometrial cancer, now for ROBOT TLHBSO, SLN, OMENTECTOMY (Bilateral) Procedure Information Date/Time: 02/12/25 1210 Procedure: ROBOT TLHBSO, SLN, OMENTECTOMY (Bilateral) Location: OR / [facility] Surgeons: Amy Vargas MD Relevant Problems GI (+) Severe obesity (BMI 35.0-39.9) with comorbidity (CMS/[facility]) ALLERGIES Allergies[1] NPO STATUS Date of Last Liquid: 02/11/25 Time of Last Liquid: 0800 Date of Last Solid: 02/11/25 Time of Last Solid: 2214 Last Intake Type: Clear fluids Time of [...] ABG No results found for: PHART , DIG6CLD , PO2ART , SO2ART , BEART , LTS0EYC , HCTART , SODIUMART , POTASSIUMART , POCTCL , POCGLU , IONCALART , LACTATE No results found for: PH , PCO2 , PO2 , C8LLPXBJ , BASEEXC , HCTSYR , KSYR , CLSYR , GLUSYR , CAION , LACTATE ECHO No echocardiogram results found for the past 12 months PFTs No results found for: DFZ7CBA , GUP5VLOB , GGY6FUE , FVCPRED BP Readings from Last 5 Encounters: 02/12/25 138/67 02/07/25 104/76 01/30/25 126/78 Physical Exam Anesthesia Plan ASA 3 Plan was reviewed with: SYSTEMS ANALYST ENGINEER Anesthesia technique(s) discussed with the patient/family: general [...] ANESTHESIA PLACEHOLDER Routine 02/12/2025 12:07 PM EDT AL AN ELECTIVE ENDOTRACHEAL AIRWAY Routine 02/12/2025 12:07 PM EDT documented in this encounter Results * Peripheral IV (02/12/2025 12:44 PM EDT) Narrative Emily Miramontes CRNA - 02/12/2025 12:44 PM EDT Emily Miramontes CRNA 02/12/2025 12:45 PM Peripheral IV Date/Time: 02/12/2025 12:44 PM Placement Needle size: 20 G Location: forearm Local anesthetic: none Site prep: alcohol Technique: anatomical landmarks Attempts: 1 us Jon Handley MD ANESTHESIA ORDERABLES Final Re [...] well with no complications. Staffing Performed: CECILIO SYSTEMS ANALYST ENGINEER: Emily Miramontes CRNA Jon Handley MD ANESTHESIA ORDERABLES Final Re sult * AL AN ELECTIVE ENDOTRACHEAL AIRWAY, PB ANESTHESIA PLACEHOLDER (02/12/2025 12:07 PM EDT) Emily Yoder CRNA - 02/12/2025 12:07 PM EDT Emily Miramontes CRNA 02/12/2025 12:44 PM Airway Date/Time: 02/12/2025 12:07 PM Reason: elective Airway not difficult General Information and Staff Patient location during procedure: OR SYSTEMS ANALYST ENGINEER: Emily Miramontes CRNA Performed: CECILIO Patient Condition Indications for airway management: anesthesia [...] Comments Atraumatic. No change to dentition. us Jon Handley MD ANESTHESIA ORDERABLES Final Re sult documented in this encounter Visit Diagnoses Not on filedocumented in this encounter Administered Medications Inactive Administered Medications - up to 3 most recent administrations Medication Order MAR Action Action Date Dose Rate Site ceFAZolin (Ancef) injection 2 g 2 g, Intravenous, Once, 1 dose, On Tue02/12/25 at 1315, Routine, Anesthesia Intraprocedure Given 02/12/2025 12:16 PM EDT 2 g dexamethasone (Decadron) injection Intravenous, As needed, Starting on Tue02/12/25 at 1217, Until Tue02/12/25 at 1518, Routine, Anesthesia Intraprocedure Given 02/12/2025 12:17 PM EDT 4 mg ePHEDrine Sulfate (Akovaz) injection Intravenous, As needed, Starting on Tue02/12/25 at 1235, Until Tue02/12/25 at 1518, Routine, Anesthesia Intraprocedure Given 02/12/2025 12:35 PM EDT 10 mg fentaNYL (Sublimaze) injection Intravenous, As needed, Starting on Tue02/12/25 at 1203, Until Tue02/12/25 at 1518, Routine, Anesthesia Intraprocedure Given 02/12/2025 1:29 PM EDT 25 mcg Given 02/12/2025 1:20 PM EDT 25 mcg Given 02/12/2025 12:42 PM EDT 50 mcg lactated Ringer's infusion Intravenous, Continuous PRN, Starting on Tue02/12/25 at 1155, Until Tue02/12/25 at 1518, Routine New Bag 02/12/2025 11:55 AM EDT lidocaine PF (Xylocaine) 2 % injection Intravenous, As needed, Starting on Tue02/12/25 at 1203, Until Tue02/12/25 at 1518, Routine, Anesthesia Intraprocedure Given 02/12/2025 12:03 PM EDT 10 0 mg ondansetron (Zofran) injection Intravenous, As needed, Starting on Tue02/12/25 at 1443, Until Tue02/12/25 at 1518, Routine, Anesthesia Intraprocedure Given 02/12/2025 2:43 PM EDT 4 m g propofol (Diprivan) injection Intravenous, As needed, Starting on Tue02/12/25 at 1203, Until Tue02/12/25 at 1518, Routine, Anesthesia Intraprocedure Given 02/12/2025 [...] documented as of this encounter Care Teams District Leader Relationship Specialty Start Date End Date Adriana Boss APRN [address] [place] [id number] PCP - General 11/06/24 Kate Burrows DO [facility] [address] Referring Physician Obstetrics and Gynecology 01/25/25 documented as of this encounter
--- OUTSIDE RECORDS SUMMARY | 2025-02-12 11:10 | XMS_ITS | Encounter Summary ---
Author Organization [facility] Address [address] [place] [address] Care Team Providers Care Tractor Operator Laser Leveling Name Role Phone Adriana Boss APRN Primary Care Provider [phone] Stormy Kate DO Unavailable [phone] Reason for Visit * Auth/Cert (Routine) Specialty Diagnoses / Procedures Referred By Controxy t Referred To Contact Diagnoses Endometrial cancer Endometrial cancer [C54.1] Procedures DC LAPAROSCOPY W TOT HYSTERECTUTERUS <=250 GRAM W TUBE/OVARY DC REMOVAL OF OMENTUM DC INTRAOPERATIVE SENTINEL LYMPH NODE ID W DYE INJECTION DC LAP,LYMPH NODE BX ROBOT TLHBSO, SLN, OMENTECTOMY Amy Vargas MD [address] [facility] Brenda More [address] [address] Phone: tel: fax: [facility] [address] [place] [phone] Phone: tel: Referral ID Status Reason Start Date Expiration Date Visits Re quested Visits Authorized [id number] 1 1 Encounter Details Date Type Department Care Team (Late st Contact Info) Description 02/12/2025 12:10 PM EDT - 02/12/2025 4:10 PM EDT Surgery [facility] [address] [place] [phone] Amy Vargas MD [address] [place] [address] Bren[address] More [address] [address] ROBOT TLHBSO, SLN, OMENTECTOMY [00798 (CPT )] Surgery Details Date/Time Status Location [...] Month) No 025 3:10 PM EDT Mik Pritchett, RN 2. Non-Specific Active Suici marivel Thoughts [...] Question Answer Entry Date Author Precautions Fall risk;Environmen teresa surveillance 02/12/2025 [...] call your doctor to schedule an appointment: [phone] Visit the gynecologic oncology Walk-In Clinic which is open Tuesday-Tuesday 8am- 10am. It is helpful if you call the clinic before arrival: [phone] Call the Cancer acute Treatment Clinic. Same day-appointments are available Tuesday-Tuesday 8am-5pm. Please call [phone] before arrival to schedule a visit Fever [...] p.m.: call the Gynecologic Oncology Clinic at [phone]. 4:30 p.m.-8 a.m.: call the [facility] After Hours Paging Mixer Machine Feeder at [phone] and ask for the Gynecologic Oncology provider [...] by mouth daily. 60 tablet 11 02/13/2025 6 simvastatin (Zocor) 40 MG tablet Take 1 [...] MD PCP name and Address: Adriana Boss, BUSINESS SERVICES VICE PRESIDENT [address] [address] Referring provider name and address: Kate Burrows, DO [address] [facility] [address] [place] [address] Chief Concern, Brief History of Present Illness, [...] Your Medications These medications were sent to [facility] - [place], [place] - [address], [facility] [address] acetaminophen 325 MG tablet carboxymethylcellulose PF 0.5 [...] call your doctor to schedule an appointment: [phone] Visit the gynecologic oncology Walk-In Clinic which is open Tuesday-Tuesday 8am- 10am. It is helpful if you call the clinic before arrival: [phone] Call the Cancer acute Treatment Clinic. Same day-appointments are available Tuesday-Tuesday 8am-5pm. Please call [phone] before arrival to schedule a visit Fever [...] p.m.: call the Gynecologic Oncology Clinic at [phone]. 4:30 p.m.-8 a.m.: call the After Hours Paging Mixer Machine Feeder at [phone] and ask for the Gynecologic Oncology provider on-call. Outpatient Follow-Up Future Appointments Date Time Provider Department Center 03/20/2025 2:30 PM Amy Vargas MD DENZEL Gutierrez-Hend Test Results Pending At Discharge Pending [...] preparation for this discharge. Fariba Lowery MD FAMILY LAW SPECIALIST Resident PGY-1 Cosigned by Amy Vargas [...] Wheelchair to discharge lounge. Ride here. * Abbey Mayberry - 02/13/2025 1:41 PM EDT Images from the original note were not included. [address] Endometrial Cancer: Discharge Instructions for Hysterectomy A [...] an aide through a home healthcare agency, [facility]. Make sure you know: ? When [...] away. Last Reviewed Date: 2024 00:00:00 ?? [id number] [employer]. All rights reserved. This information is not intended as a substitute for professional medical care. Always follow your healthcare professional's instructions. * Daysi Ventura - Abbey Scott - 02/13/2025 1:41 PM EDT Images from the original note were not included. [address] Discharge Instructions: Surgery for Cancer of the [...] you takeother medicines. These include prescriptions and zrnq-tiw-zgkntvm medicines, vitamins, herbs, and other supplements. ? [...] leg Last Reviewed Date: 2024 00:00:00 ?? 8088-7412 [employer]. All rights reserved. This information is not intended as a substitute for professional medical care. Always follow your healthcare professional's instructions. * Daysi Ventura - Abbey Scott - 02/13/2025 1:41 PM EDT Images from the original note were not included. [address] What Is Endometrial Cancer? Cancer usually starts [...] fightcancer. Last Reviewed Date: 2024 00:00:00 ?? 7025-0016 [employer]. All rights reserved. This information is not intended as a substitute for professional medical care. Always follow your healthcare professional's instructions. * Daysi Ventura - Abbey Scott - 02/13/2025 1:41 PM EDT Images from the original note were not included. [address] Obesity and Its Impact on Health Obesity [...] about working with a dietitian, a health executive coach, an peer educator, or a mental health provider. They can [...] medicines. Last Reviewed Date: 2024 00:00:00 ?? 3685-2921 [employer]. All rights reserved. This information is not intended as a substitute for professional medical care. Always follow your healthcare professional's instructions. * Daysi Ventura - Abbey Scott - 02/13/2025 1:41 PM EDT Images from the original note were not included. [id number] Acetaminophen IMPORTANT WARNING: Taking too much acetaminophen [...] measuring cup or syringe provided by the audit control clerk to measure each dose of the solution [...] FDA's Safe Disposal of Medicines website h ttps://goo.gl/c4[facility] for more information. What should I do [...] of all of the prescription and nonprescription (gbne-txj-iiljzgj) medicines, vitamins, minerals, and dietary supplements you [...] a combination product containing Acetaminophen, Oxycodone) APAP, Y-xrmsbx-ugux-aminophenol, Paracetamol This report on medications is for your information only, and is not considered individual patient advice. Because of the changing nature of drug information, please consult your physician or pharmacist about specific clinical use. The [place] [employer] represents that the information provided hereunder was formulated with a reasonable standard of care, and in conformity with professional standards in the field. The [place] makes no representations or warranties, express or implied, including, but not limited to, any implied warranty of merchantability and/or fitness for a particular purpose, with respect to such information and specifically disclaims all such warranties. Users are advised that decisions regarding drug therapy are complex medical decisions requiring the independent, informed decision of an appropriate health day care home provider, and the information is provided for informational purposes only. The entire monograph for a drug should be reviewed for a thorough understanding of the drug's actions, uses and side effects. The [employer] does not endorse or recommend the use of any drug.The information is not a substitute for medical care. AHFS?? Patient Medication Information?. ?? Copyright, 2023. The [employer]??, [address], [address], [place], [place]. All Rights Reserved. Duplication for commercial use must be authorized by [facility]. Selected Revisions: December 31, 2022. AHFS?? Patient [...] the video go to this web address: [email or web address], scan this QR code with your smart phone ?? [employer] * Abbey Mayberry - 02/13/2025 1:41 PM EDT Images from the original note were not included. Hysterectomy: Before Your Surgery - Video Watch this video to learn the different ways a hysterectomy may be done and what to expect for recovery. To view the video go to this web address: [email or web address] Or, scan this QR code with your smart phone ?? [employer] * Daysi RodirguezIR - TylerAbbey - 02/13/2025 1:41 PM EDT Images from the original note were not included. Pre-Procedure: Hysterectomy - Video Watch this to learn the facts behind some common concerns about hysterectomy. To view the video go to this web address: [email or web address] Or, scan this QR code with your smart phone ?? [employer] [facility] * Care Plan - ScottBernadetteAbbey - 02/13/2025 1:34 PM EDT Problem: Adult [...] (97.6 ??F) Heart Rate: [67-96] 78 Resp: [-] 16 BP: (124-172)/(60-95) 138/71 Vitals: 02/13/25 0404 [...] CALCIUM 8.7 (L) 02/13/2025 Imaging: Assessment/Plan Kelsey Dov is a 75 y.o. female with G3 [...] well-managed. Please message on-call GYO resident via [employer] Secure Chat or page [phone] for questions or concerns regarding this patient's [...] 02/12/2025 9:37 PM EDT Pacemaker Interrogation Note Instrument Specialist: Anderson/St. Lj Generator: Quadra Allure MP 3562, Serial # [id number], implanted 07/15/22 RA Lead: SJM Tendril STS 8TC/52cm, Serial #[id number], Implant date 07/15/22 RV Lead: SJM Tendril STS 8TC/58cm, Serial # [id number], Implant date 07/15/22 LV/CS Lead: SJM Quartet 1458Q/86cm, Serial # [id number], implant date 07/15/22 Device type: multilead chamber [...] PGY-6/FY-2 Fellow - Division of Cardiovascular Medicine [facility] [place] * Clinician Note - Dori Caputo MD [...] meds/eliquis/ASA held - Message sent to EP jackscrew worker to interrogate pacemaker prior to discharge - [...] management Please message on-call GYO resident via [employer]on Secure Chat or page [phone] for questions or concerns regarding this patient's care. * Anesthesia PACU Signout - mEily Shipman MD - 02/12/2025 4:29 PM EDT [...] Agree with above assessment and evaluation from resident/LONG WALL MINING MACHINE HELPER. * Op Note - Amy Vargas MD - 02/12/2025 12:40 PM EDT Operative Note Date: 02/12/25 Location: [place] [facility] Name: Kelsey Monae, : 1950, Diagnoses: Pre-op Diagnosis Endometrial cancer Obesity BMI 39 Afib Psoriasis DM HTN Post-op Diagnosis Endometrial cancer Obesity BMI 39 Afib Psoriasis DM HTN Procedure(s): Robotic TLH/BSO/SLN mapping/OMX Attending Surgeon(s): * Amy Vargas I - Primary Rig Mechanic(s): * Dori Caputo MD - Resident - [...] The cervix was sounded and dilated. A V-Care uterine manipulator was placed. Thepatient???s arms were [...] the node, I had to utilize the retail assistant store manager and two of my robot arms to [...] closed with a 0 Vicryl and a Tico-Agnela. Al l ports were removed under direct [...] Morbid Obesity greatly prolonged the procedure. A retail assistant store manager was required to retract the colon, small [...] last anesthetic: June 2022: Pacemaker insertion at [facility]. No problemswith GA in the past. [...] flights of stairs. Cardio additional comments: [facility] 2022 at [facility], no stents placed. Recently saw Cardiology [...] arthritis. Does not have cervical spine instability. [facility]/Inte additional comments: Hx of psoriasis, not on [...] Routine 02/12/2025 1:02 PM EDT Endometrial cancer DC LAPAROSCOPY W TOT HYSTERECTUTERUS <=250 GRAM W TUBE/OVARY 02/12/2025 11:43 AM EDT Endometrial cancer POCT GLUCOSE METER UNSOLICITED RESULTS Routine 02/12/2025 11:02 AM EDT TYPE AND SCREEN Routine 02/12/2025 10:56 AM EDT documented in this encounter Results * (ABNORMAL) POCT glucose meter (02/13/2025 11:22 AM EDT) POCT Glucose 159(H) 74 - 99 mg/dL 02/13/2025 11:24 AM EDT [facility] Comment:Accuracy of a glucos e result [...] for testing. Comment 02/13/2025 11:24 AM EDT HEALTHCARE LAB Mixer Machine Feeder ID Triny Olvera 02/13/2025 11:24 AM EDT HEALTHCARE LAB Device ID [id number] 02/13/2025 11:24 AM EDT HEALTHCARE LAB Specimen Type POC Capillary 02/13/2025 11:24 AM EDT HEALTHCARE LAB Blood Capillary blood specimen / Unknown 02/13/2025 11:22 AM EDT 02/13/2025 11:24 AM EDT us Amy Vargas MD LAB POINT OF CARE TEST DOCKED DEVICE UNSOLICITED RESULTS Final Result Performing Organization Address City/State/[facility] Co de Phone Number HEALTHCARE LAB [address] [place] [address] * (ABNORMAL) POCT glucose meter (02/13/2025 7:36 AM EDT) [facility] Signature POCT Glucose 175(H) 74 - [...] Comment 02/13/2025 7:38 AM EDT HEALTHCARE LAB Mixer Machine Feeder ID Triny Olvera 02/13/2025 7:38 AM EDT HEALTHCARE LAB Device ID [id number] 02/13/2025 7:38 AM EDT HEALTHCARE LAB Specimen Type POC Capillary 02/13/2025 7:38 AM EDT HEALTHCARE LAB Blood Capillary blood specimen / Unknown 02/13/2025 7:36 AM EDT 02/13/2025 7:38 AM EDT us Amy Harris Alicia MD LAB POINT OF CARE TEST DOCKED DEVICE UNSOLICITED RESULTS Final Result Performing Organization Address City/[facility]/ZIP Co de Phone Number [facility] [address] [place] [address] * Phosphorus (02/13/2025 12:29 AM EDT) Phosphorus, Plasma 3.6 2.5 - 4.5 mg/dL 02/13/2025 1:07 AM EDT [facility] Blood Venous blood specimen / Unknown Venipuncture / Unknown 02/13/2025 12:29 AM EDT 02/13/2025 12:34 AM EDT Amy Vargas MD LAB BLOOD ORDERABLES Veronica l Result Performing Organization Address [facility] Co de Phone Number [facility] [address] [place] [address] * (ABNORMAL) Magnesium, Plasma (02/13/2025 12:29 AM EDT) Pathologist [facility] Magnesium, Plasma 1.8(L) 1.9 - 2.4 mg/dL 02/13/2025 1:07 AM EDT [facility] Blood Venous blood specimen / Unknown Venipuncture / Unknown 02/13/2025 12:29 AM EDT 02/13/2025 12:34 AM EDT Amy Vargas MD LAB BLOOD ORDERABLES Veronica l Result Performing Organization Address City/[facility]/ZIP Co de Phone Number [facility] [address] [place] [address] * (ABNORMAL) Basic metabolic panel (02/13/2025 12:29 [...] MD LAB BLOOD ORDERABLES Veronica l Result [facility] [address] [place] [address] * (ABNORMAL) CBC W/O Differential (02/13/2025 12:29 [...] Result [facility] [address] [place] [address] * Corin auris Surveillance by PCR (02/12/2025 9:55 PM EDT) Corin auris PCR Result Not Detected Not Detected 02/14/2025 6:58 AM EDT [facility] Swab (Axilla and Groin) Non-blood Collection / Unknown 02/12/2025 9:55 PM EDT 02/12/2025 10:03 PM EDT Narrative [facility] - 02/14/2025 6:58 AM EDT This PCR assay was developed and its performance characteristics determined by [facility] as appropriate for clinical purposes. This assay has not been cleared or approved by the FDA, but is performed in a CLIA regulated laboratory that is qualified to perform high-complexity testing. Amy Vargas MD LAB MICROBIOLOGY - GENERA L ORDERABLES Final Result Performing Organization Address [facility] Co de Phone Number [facility] [address] [place] [address] * Multi Drug Resistance Test (02/12/2025 9:55 PM EDT) [facility] Culture No growth at day 1 02/14/2025 6:[address] [facility] Swab (Nares and Yola Rectal) Non-blood Collection / Unknown 02/12/2025 9:55 PM EDT 02/12/2025 10:[address] [facility] - 02/14/2025 6:13 AM EDT This test was developed and its performance characteristics determined by the [facility]. Although the media is FDA-approved, it is not FDA-approved for all specimen types submitted. The FDA has determined that such clearance or approval is not necessary. This test is used for surveillance purposes. It should not be regarded as investigational or for research. The [facility] is certified under the Clinical Laboratory Improvement Amendments of 1988 (CLIA-88) as qualified to perform high complexity clinical laboratory testing. Amy Vargas MD LAB MICROBIOLOGY - GENERA L ORDERABLES Final Result Performing Organization Address [facility] Co de Phone Number [facility] [address] [place] [address] * (ABNORMAL) POCT glucose meter (02/12/2025 9:03 PM EDT) [facility] POCT Glucose 166(H) 74 - 99 mg/dL 02/12/2025 9:[address] [facility] Comment:Accuracy of a glucos e result [...] Comment 02/12/2025 9:05 PM EDT HEALTHCARE LAB Mixer Machine Feeder ID Nickolas Howard 02/12/2025 9:05 PM EDT HEALTHCARE LAB Device ID [id number] 02/12/2025 9:05 PM EDT HEALTHCARE LAB Specimen Type POC Capillary 02/12/2025 9:05 PM EDT [facility]ALTH[facility]ARE LAB Blood Capillary blood specimen / Unknown 02/12/2025 9:03 PM EDT 02/12/2025 9:05 PM EDT us Amy Vargas MD LAB POINT OF CARE TEST DOCKED DEVICE UNSOLICITED RESULTS Final Result Performing Organization Address City/[facility] Co de Phone Number [facility] [address] [place] [address] * (ABNORMAL) POCT glucose meter (02/12/2025 4:30 PM EDT) [facility] POCT Glucose 205(H) 74 - 99 mg/dL [...] Comment 02/12/2025 4:31 PM EDT HEALTHCARE LAB Mixer Machine Feeder ID Mik Pritchett 02/12/2025 4:31 PM EDT HEALTHCARE LAB Device ID [id number] 02/12/2025 4:31 PM EDT HEALTHCARE LAB Specimen Type POC Capillary 02/12/2025 4:31 PM EDT [facility]ALTH[facility]ARE LAB Blood Capillary blood specimen / Unknown 02/12/2025 4:30 PM EDT 02/12/2025 4:31 PM EDT us Amy Vargas MD LAB POINT OF CARE TEST DOCKED DEVICE UNSOLICITED RESULTS Final Result [facility] [address] [place] [address] * Surgical Pathology Exam (02/12/2025 2:01 PM EDT) Case Report Surgical Pathology Case: [id number] Authorizing Provider: Amy Vargas MD Collected: 02/12/2025 1401 Ordering Location: [facility] OPER[facility] Received: 02/12/2025 5719 Pathologist: Lavon Daly MD Specimens: A) - Other (specify site), uterus, cervix, bilateral tubes, ovaries, and adnexal mass B) - Other (specify site), OMENTUM - PERMANENT 1:[address] [facility] Final Diagnosis A. UTERUS, CERVIX, BILATERAL FALLOPIAN [...] - BENIGN FIBROADIPOSE TISSUE. 1:[address] [facility] at 1314 EST Comment Immunohistochemical stains previously performed on the endometrial curettage specimen ([id number]) at the outside institution demonstrated the following [...] the Endometrium): IICm (p53abn) 5 1:14 PM [facility] Clinical Information Endometrial cancer [C54.1] 5 1:14 PM [facility] Gross Description A. UTERUS, CERVIX, BILATERAL TUBES, [...] The cut surface is apple-yellow and whorled. Test Conductor sections are submitted as follows: A1: Posterior [...] aggregate of apple-yellow lobulated firm fibroadipose tissue. Test Conductor sections are submitted in cassettes B1-B3. Cold Time: 1h 10m HARLEY Lama (ASCP) 1:14 PM [facility] Intradepartmental Consultation with Agreement Dr. Trevor Koch reviewed selected slides and concurs with the interpretation. 1:14 PM [facility] Note: A resident was involved in the service. I attest I examined the relevant preparations for the specimens and confirmed the diagnosis or interpretation. 1:14 PM [facility] Tissue Topography unknown / Unknown 02/12/2025 2:01 PM EDT 02/12/2025 3:28 PM EDT Comment:Pre-op diagnosis: Endometrial cancer [C54.1] Tissue specimen (specimen) Topography unknown / Unknown 02/12/2025 2:18 PM EDT 02/12/2025 3:28 PM EDT Comment:Pre-op diagnosis: Endometrial cancer [C54.1] Amy Vargas MD LAB PATHOLOGY ORDERABLES Final Result Performing Organization Address City/State/[facility] Co de Phone Number [facility] [address] [place] [address] * Non-Gynecologic Cytology (02/12/2025 1:02 PM EDT) Case Report Cytology Case: [id number] Authorizing Provider: Amy Vargas MD Collected: 02/12/2025 1302 Ordering Location: [facility] A OPERATING ROOM Received: 02/12/2025 1515 Pathologist: Karrie Moran MD Specimen: Pelvic Washing, PELVIC WASHING 02/14/2025 11:[address] [facility] Final Diagnosis A. PELVIC WASHING - NO EVIDENCE OF MALIGNANCY - REACTIVE MESOTHELIAL CELLS 02/14/2025 11:[address] [facility] at 1133 EDT Gross Description A. PELVIC WASHING 35 mls clear fluid for thin prep and cell block 02/14/2025 11:[address] [facility] Clinical Information Endometrial cancer [C54.1] 02/14/2025 11:33 AM EDT [facility] Washing Fluid specimen from pelvis / Unknown 02/12/2025 1:02 PM EDT 02/12/2025 3:15 PM EDT Comment:Pre-op diagnosis: Endometrial cancer [C54.1] us Amy Vargas MD LAB CYTOLOGY ORDERABLES F inal Result Performing Organization Address City/[facility]/ZIP Co de Phone Number [address] [address] * (ABNORMAL) POCT glucose meter (02/12/2025 11:02 [...] Comment 02/12/2025 11:04 AM EDT HEALTHCARE LAB Mixer Machine Feeder ID Lyudmila Soria 02/12/2025 11:04 AM EDT HEALTHCARE LAB Device ID [id number] 02/12/2025 11:04 AM EDT HEALTHCARE LAB Specimen Type POC Venous 02/12/2025 11:[address] [facility] Blood Venous blood specimen / Unknown 02/12/2025 11:02 AM EDT 02/12/2025 11:04 AM EDT us Amy Vargas MD LAB POINT OF CARE TEST DOCKED DEVICE UNSOLICITED RESULTS Final Result Performing Organization Address City/[facility]/ZIP Co de Phone Number HEALTHCARE LAB [address] [place] [address] * Type and screen (02/12/2025 10:56 AM [...] ORDER JULIA Final Result Performing Organization Address City/State/[facility] Co de Phone Number BLOOD BANK [address] [place] [address], documented in this encounter Visit Diagnoses Diagnosis [...] 2100, Until Discontinued, Routine, Recovery(Phase II-Outpatient)/On Unit(Inpatient) 2108 (Given - Provider: Nickolas Howard RN) 0832 [...] - Preprocedure 1052 (Given - Provider: Rafaela Hough, LUPE) heparin (porcine) injection 5,000 Units (COMPLETED) 5,000 [...] 1130, Routine 1052 (Given - Provider: Rafaela Hough, RN) sodium chloride 0.9 % flush 10 mL (CANCELED)(Linked Group 2) 10 mL, Intravenous, Every 12 hours, First dose on Tue02/12/25 at 1130, Until Discontinued, Routine, Holding - Preprocedure 1052 (Given - Provider: Rafaela Hough, LUPE) Continuous Medication Order 02/11/2025 02/12/2025 02/13/2025 lactated [...] eyes 1747 (Given - Provider: Nickolas Howard, LUPE)2110 (Given - Provider: Nickolas Howard, LUPE) ondansetron (Zofran) 4 MG/5ML solution 4 mg(Linked [...] documented as of this encounter Care Teams Tractor Operator Laser Leveling Relationship Specialty Start Date End Date Adriana Boss, GUILLERMO [address] [place] [address] PCP - General 11/06/24 Kate Burrows DO [facility] [address] Referring Physician Obstetrics and Gynecology 01/25/25 documented as of this encounter
--- OUTSIDE RECORDS SUMMARY | 2025-03-20 09:44 | XMS_ITS | Encounter Summary ---
Author Organization [facility] Address [address] [place] [address] Care Team Providers Care Cold Storage Worker Name Role Phone Adriana Boss APRN Primary Care Provider [phone] Stormy Kate DO Unavailable [phone] Reason for Referral * Imaging (Routine) - Closed Specialty Diagnoses / Procedures Referred By Colin lee Referred To Contact Radiology Diagnoses Endometrial cancer Procedures PET/CT FDG Skull Base To Mid Thigh Amy Vargas MD [address] [address] Phone: tel: fax: Referral ID Status Reason Start Date Expiration Date Visits Re quested Visits Authorized [id number] Closed 02/19/2025 08/21/2026 2 2 Reason for Visit * Imaging (Routine) - Closed Specialty Diagnoses / Procedures Referred By Colin lee Referred To Contact Radiology Diagnoses Endometrial cancer Procedures PET/CT FDG Skull Base To Mid Thigh Amy Vargas MD [address] [address] Phone: tel: fax: Referral ID Status Reason Start Date Expiration Date Visits Re quested Visits Authorized [id number] Closed 02/19/2025 08/21/2026 2 2 Encounter Details Date Type Department Care Team (Latest Contact Info) Description 03/20/2025 9:44 AM EST Hospital Encounter [facility] PET Scan [address] [place] [address] Endometrial cancer Discharge Disposition: Home or Self [...] on file documented as of this encounter Medications at Time of Discharge [...] tablet Take 1 tablet by mouth daily. documented as of this encounter Plan of Treatment Not on file documented as of this encounter Goals Goal Patient Goal Type Associated Problems Recent Progress Patient-Stated? Author Autogenerat ed Goal Care Plan Autogenerated Problem No CammycristaMin documented as of this encounter Procedures Procedure Name Priority Date/Time Associated Diagnosis Comments PET/CT FDG SKULL BASE TO MID THIGH Routine 03/20/2025 11:07 AM EST Endometrial cancer documented in this encounter Results * PET/CT FDG Skull Base To Mid Thigh (03/20/2025 11:07 AM EST) Anatomical Region Laterality Modality Positron Emissio n Tomography (PET) Impressions 03/20/2025 1:57 PM EST Postsurgical changes of hysterectomy with bilateral salpingo-oophorectomy. Mild hypermetabolic soft tissue thickening in the region of the left vaginal cuff could be postsurgical change. CRITICAL RESULT: No. COMMUNICATION: Per this written report. By electronically signing this report, I, the attending physician, attest that I have personally reviewed the images/data for the above examination(s) and agree with the final edited report. Drafted by JAQUELIN Rowland on 03/20/2025 12:39 PM Final report signed by Roz Hayward on 03/20/2025 1:57 PM Narrative 03/20/2025 1:57 PM EST CLINICAL INDICATION: 75-year-old female, presenting for Subsequent treatment strategy for endometrial carcinoma using FDG PET/CT. Endometrioid adenocarcinoma. Underwent RA- TLH/BSO/omental biopsy on 02/12/2025. TECHNIQUE: Preparation: Last oral intake (except water) on 03/19/2025 at 11:00 PM. Diabetic: No. Blood glucose at time of FDG administration: 173 mg/dL. Radiopharmaceutical: 13.2 mCi of F-18 FDG administered intravenously at left antecubital fossa at 1003. Incubation interval: 54 minutes. Oral contrast: Not applicable. Positioning: Arms raised. PET/CT scanner: PAKO 550 . PET/CT acquisition: Gudofx-xk-obr-thighs. Standardized uptake value (SUV): Corrected for body weight only. CT: Low-dose, sye-iukfah-rboq, without intravenous contrast. TOTAL DLP (Dose Length Product): 724 mGy cm. COMPARISON/CORRELATION: No comparison. CT abdomen 01/06/2025. FINDINGS: Technical quality: Diagnostic. Measurements: Unless otherwise specified, all SUVs refer to maximum value in the target (mSUV). Reference: mean SUV liver: 3.3. CT linear measurements performed on axial images. Head and Neck: No suspicious metabolically active lesions within the head and neck. No suspicious metabolically active or pathologically enlarged adenopathy. 1.2 cm non-FDG avid low-attenuation nodule left lobe of thyroid (202 image 437). Clear paranasal sinuses and mastoid air-cells. Chest: No suspicious metabolically active lesions within the chest. No suspicious metabolically active or pathologically enlarged hilar or mediastinal adenopathy. No suspicious pulmonary nodules or masses. Minimal bibasilar atelectasis, mild middle lobe and lingular scarring. Sequelae of prior granulomatous insult. Normal caliber of the thoracic aorta. No pleural effusion, pericardial effusion or pneumothorax. Left chest wall pacemaker in place. Abdomen and Pelvis: No suspicious metabolically active lesions within the abdomen and pelvis. No suspicious metabolically active or pathologically enlarged retroperitoneal or pelvic adenopathy. Solid Abdominal Organs: No suspicious focal hypermetabolic lesions in the liver significantly greater than the heterogeneous physiologic uptake. Unremarkable noncontrast appearance of the liver. Cholelithiasis No biliary ductal dilatation. Calcified splenic granulomas, otherwise unremarkable noncontrast appearance of the spleen. Unremarkable kidneys. No hydronephrosis. No suspicious adrenal masses. No suspicious pancreatic findings. GI Tract/Mesentery/Peritoneum: Mild focal FDG activity fusing to distal esophagus and GE junction, likely reflux disease. Small hiatus hernia. Heterogeneous tracer activity in the bowel limits evaluation. The large and small bowel appear normal in caliber. Sigmoid diverticulosis without noncontrast CT evidence of diverticulitis. No suspicious peritoneal/mesenteric findings. Pelvic Viscera: No pelvic masses. Postsurgical changes of hysterectomy with bilateral salpingo-oophorectomy. Mild soft tissue thickening in the region of the left vaginal cuff measuring with maximum SUV measuring up to 4.8 (202 image 113), could be postsurgical change. A small focus of metabolic activity seen in the right pelvis (202 image 115), appears to be tracer activity in the right ureter. Vasculature: Normal caliber of the abdominal aorta Calcified atherosclerotic changes. Aneurysmal dilatation of the infrarenal abdominal aorta. Free Fluid: No ascites or drainable fluid collection. . Skeleton and Soft Tissues: No suspicious metabolically active osseous or soft tissue lesions. No aggressive osseous lytic or sclerotic lesions. Mildly increased metabolic activity in bilateral borderline enlarged inguinal lymph nodes with maximum SUV 2 on the left (series 2 image 66) and maximum SUV 2.6 on the right (202 image 74), likely reactive. Multilevel degenerative changes. Procedure Note Roz Hayward, DO - 03/20/2025 CLINICAL INDICATION: 75-year-old female, presenting for Subsequent treatment strategy forendometrial carcinoma using FDG PET/CT. Endometrioid adenocarcinoma.Underwent RA- TLH/BSO/omental biopsy on 02/12/2025. TECHNIQUE: Preparation: Last oral intake (except water) on 03/19/2025 at 11:00 PM. Diabetic: No. Blood glucose at time of FDG administration: 173 mg/dL. Radiopharmaceutical: 13.2 mCi of F-18 FDG administered intravenously atleft antecubital fossa at 1003. Incubation interval: 54 minutes. Oral contrast: Not applicable. Positioning: Arms raised. PET/CT scanner: PAKO 550 . PET/CT acquisition: Xrljwq-mo-bma-thighs. Standardized uptake value (SUV): Corrected for body weight only. CT: Low-dose, lep-ohprvd-ciyr, without intravenous contrast. TOTAL DLP (Dose Length Product): 724 mGy cm. COMPARISON/CORRELATION: No comparison. CT abdomen 01/06/2025. FINDINGS: Technical quality: Diagnostic. Measurements: Unless otherwise specified, all SUVs refer to maximum valuein the target (mSUV). Reference: mean SUV liver: 3.3. CT linear measurements performed on axial images. Head and Neck: No suspicious metabolically active lesions within the head and neck. No suspicious metabolically active or pathologically enlargedadenopathy. 1.2 cm non-FDG avid low-attenuation nodule left lobe of thyroid (202 ). Clear paranasal sinuses and mastoid air-cells. Chest: No suspicious metabolically active lesions within the chest. No suspicious metabolically active or pathologically enlarged hilar ormediastinal adenopathy. No suspicious pulmonary nodules or masses. Minimal bibasilar atelectasis, mild middle lobe and lingular scarring. Sequelae of prior granulomatous insult. Normal caliber of the thoracic aorta. No pleural effusion, pericardialeffusion or pneumothorax. Left chest wall pacemaker in place. Abdomen and Pelvis: No suspicious metabolically active lesions within the abdomen andpelvis. No suspicious metabolically active or pathologically enlargedretroperitoneal or pelvic adenopathy. Solid Abdominal Organs: No suspicious focal hypermetabolic lesions in the liver significantlygreater than the heterogeneous physiologic uptake. Unremarkablenoncontrast appearance of the liver. Cholelithiasis No biliary ductal dilatation. Calcified splenic granulomas, otherwise unremarkable noncontrastappearance of the spleen. Unremarkable kidneys. No hydronephrosis. No suspicious adrenal masses. No suspicious pancreatic findings. GI Tract/Mesentery/Peritoneum: Mild focal FDG activity fusing to distal esophagus and GE junction, likelyreflux disease. Small hiatus hernia. Heterogeneous tracer activity in the bowel limits evaluation. The large and small bowel appear normal in caliber. Sigmoid diverticulosis without noncontrast CT evidence ofdiverticulitis. No suspicious peritoneal/mesenteric findings. Pelvic Viscera: No pelvic masses. Postsurgical changes of hysterectomy with bilateralsalpingo-oophorectomy. Mild soft tissue thickening in the region of the left vaginal cuffmeasuring with maximum SUV measuring up to 4.8 (202 image 113), could bepostsurgical change. A small focus of metabolic activity seen in the right pelvis (202 [id number]), appears to be tracer activity in the right ureter. Vasculature: Normal caliber of the abdominal aorta Calcified atherosclerotic changes. Aneurysmal dilatation of the infrarenal abdominal aorta. Free Fluid: No ascites or drainable fluid collection. . Skeleton and Soft Tissues: No suspicious metabolically active osseous or soft tissue lesions. No aggressive osseous lytic or sclerotic lesions. Mildly increased metabolic activity in bilateral borderline enlargedinguinal lymph nodes with maximum SUV 2 on the left (series 2 image 66)and maximum SUV 2.6 on the right (202 image 74), likely reactive.Multilevel degenerative changes. IMPRESSION: Postsurgical changes of hysterectomy with bilateralsalpingo-oophorectomy. Mild hypermetabolic soft tissue thickening in the region of the leftvaginal cuff could be postsurgical change. CRITICAL RESULT: No. COMMUNICATION: Per this written report. By electronically signing this report, I, the attending physician, sammy I have personally reviewed the images/data for the aboveexamination(s) and agree with the final edited report. Drafted by JAQUELIN Rowland on 03/20/2025 12:39 PM Final report signed by Roz Hayward on 03/20/2025 1:57 PM Amy Vargas MD IMG NM PROCEDURES Final R esult documented in this encounter Visit Diagnoses Diagnosis Endometrial cancer Malignant neoplasm of corpus uteri, except isthmus documented in this encounter Administered Medications Inactive Administered Medications - up to 3 most recent administrations Medication Order MAR Action Action Date Dose Rate Site Fludeoxyglucose F 18 (FDG 18) radio-isotope injection 12 millicurie 12 millicurie, Intravenous, Once, 1 dose, On Tue03/20/25 at 1130, Routine, Imaging NM Protocol Orders Given 03/20/2025 10:03 AM EST 13.2 millicuries Left Antecubital documented in this encounter Additional Health Concerns Active Problems Noted Date Diagnosed Date Autogenerated Problem 02/07/2025 Assessment Noted Time A fall risk assessment has been complete d for the patient 03/20/2025 2:09 PM EST A Body Mass Index follow-up plan has been documented for the patient 03/23/2025 6:44 PM EST documented as of this encounter Care Teams Cold Storage Worker Relationship Specialty Start Date End Date Adriana Boss APRN [address] [place] [id number] PCP - General 11/06/24 Kate Burrows DO [facility] [address] Referring Physician Obstetrics and Gynecology 01/25/25 documented as of this encounter
--- OUTSIDE RECORDS SUMMARY | 2025-03-20 09:45 | XMS_ITS | Encounter Summary ---
Author Organization [facility] Address [address] [place] [address] Care Team Providers Care Pouncing Machine Operator Name Role Phone Adriana Boss APRN Primary Care Provider Delfina Burrowsnifer DO Unavailable [phone] Reason for Visit * Imaging (Routine) - Closed Specialty Diagnoses / Procedures Referred By Contac t Referred To Contact Radiology Diagnoses Endometrial cancer Procedures PET/CT FDG Skull Base To Mid Thigh Amy Vargas MD [address] [address] Phone: tel: fax: Referral ID Status Reason Start Date Expiration Date Visits Re quested Visits Authorized [id number] Closed 02/19/2025 08/21/2026 2 2 Encounter Details Date Type Department Care Team (Latest Contact Info) Description 03/20/2025 9:45 AM EST - 03/20/2025 11:[address] [facility] Hospital Encounter [facility] PET Scan [address] [place] [address] Discharge Disposition: Home or Self Care Social [...] tablet Take 1 tablet by mouth daily. amoxicillin-clavula taisha (Augmentin) 875-125 MG tabletIndications:V aginal discharge Take 1 tablet by mouth 2 times a day for 10 days. 20 tablet 03/20/2025 documented as of this encounter Plan of [...] PET/CT scanner: PAKO 550 . PET/CT acquisition: Wtgzai-ux-rdq-thighs. Standardized uptake value (SUV): Corrected for body weight only. CT: Low-dose, jir-jusebz-ulap, without intravenous contrast. TOTAL DLP (Dose Length [...] PET/CT scanner: PAKO 550 . PET/CT acquisition: Nkulqz-xh-xgi-thighs. Standardized uptake value (SUV): Corrected for body weight only. CT: Low-dose, spi-kblrva-rizu, without intravenous contrast. TOTAL DLP (Dose Length [...] low-attenuation nodule left lobe of thyroid (202 [id number]). Clear paranasal sinuses and mastoid air-cells. Chest: [...] activity seen in the right pelvis (202 [id number]), appears to be tracer activity in the [...] by Roz Hayward on 03/20/2025 1:57 PM us Amy Vargas MD IMG NM PROCEDURES Final R esult documented in this encounter Visit Diagnoses Not [...] documented as of this encounter Care Teams Pouncing Machine Operator Relationship Specialty Start Date End Date Adriana Boss APRN [address] [place] [address] PCP - General 11/06/24 Kate Burrows DO [facility] [address] Referring Physician Obstetrics and Gynecology 01/25/25 documented as of this encounter
--- OUTSIDE RECORDS SUMMARY | 2025-03-20 14:30 | XMS_ITS | Encounter Summary ---
Author Organization [facility] Address [address] [place] [address] Care Team Providers Care Tire Building Supervisor Name Role Phone Adriana Boss APRN Primary Care Provider [phone] Kate Burrows DO Unavailable [phone] Encounter Details Date Type Department Care Team (Late st Contact Info) Description 03/20/2025 2:30 PM EST Office Visit [facility] [address] [place] [address] Amy Vargas MD [address] [facility] [address] [place] [address] Endometrial cancer (Primary Dx); Severe obesity (BMI 35.0-39.9) with comorbidity (CMS/HCC); Type 2 diabetes mellitus without complication, without long-term current use of insulin; Primary hypertension; Chronic atrial fibrillation (CMS/HCC); Vaginal discharge Social History Tobacco Use Types Packs/Day Years Used Date Smoking Tobacco: Never Smokeless Tobacco: Never Tobacco Cessation:Counseling Given: Not Answered Alcohol Use Standard Drinks/Week Comments Never 0 [...] Sign Reading Time Taken Comments Blood Pressure 121/83 03/20/2025 2:10 PM EST Pulse 84 03/20/2025 2:10 PM EST Temperature 36.7 C (98 F) 03/20/2025 2:10 PM EST Respiratory Rate 16 03/20/2025 2:10 PM EST Oxygen Saturation 97% 03/20/2025 2:10 PM EST Inhaled Oxygen Concentration - - Weight 98.5 kg (217 lb 2.5 oz) 03/20/2025 2:10 P M EST Height 160 cm (5' 3 ) 03/20/2025 2:10 PM EST Body Mass Index 38.47 03/20/2025 2:10 PM EST documented in this encounter Miscellaneous Notes * Progress Notes - Amy Vargas MD - 03/20/2025 2:30 PM EST Patient ID: Kelsey Monae is a 75 y.o. female. Referring Physician: No referring provider defined for this encounter. Primary Care Provider: Adriana Boss APRN History [...] had a CT scan,was referred to a CROP OR GRAIN FARMER who did an US. She then had the D&C for the thickened stripe. After the D&C, she has stopped bleeding. She has no bladder or bowel changes. Good appetite. She does have some fatigue but otherwise feeling in usual health. CT A/P w con 01/06/25 No LAD, enlarged uterus, calcification R adnexa S/p Robotic TLH/BSO/SLN mapping/OMX on 02/12/25 with stage IB p53 mutated Grade 3 EAC 76% MMI, -LVSI Interval History: She is here for a post op visit. Denies VB/discharge. No issues with bladder/bowel function. She is doing very well. PMH: afib with pacemaker, carpal tunnel, psoriasis, DM, HTN PSH: D&C, breast cyst, pacemaker Meds: reviewed Aller: NKMA SocHx: -T/E/D, Retired. Her daughter and grandchildren live w her. FamHx: Father - kidney, GFA - prostate, GFA - hodgkin's SUPERVISOR FISH PROCESSING Hx: G0 - adopted children Menopause: ~59 [...] allergies. Current Medications[1] Tobacco Use: Low Risk (03/20/2025) Patient History Smoking Tobacco Use: Never Smokeless Tobacco Use: Never Passive Exposure: Not on file Social History Substance and Sexual Activity Alcohol Use Never Social History Substance and Sexual Activity Drug Use Never Social Connections: Not on file Objective Physical Exam: Vital Signs for this encounter: BSA: 2.09 meters squared Visit Vitals BP 121/83 Pulse 84 Temp 36.7 ??C (98 ??F) (Oral) Resp 16 Ht 1.6 m (5' 3 ) Wt 98.5 kg (217 lb 2.5 oz) SpO2 97% BMI 38.47 kg/m?? OB Status Postmenopausal Smoking Status Never BSA 2.09 m?? Physical Exam Vitals reviewed. Exam conducted with a event planner present. Constitutional: Appearance: Normal appearance. She is well-developed. She is obese. HENT: Head: Normocephalic and atraumatic. Eyes: Pupils: Pupils are equal, round, and reactive to light. Cardiovascular: Rate and Rhythm: Normal rate and regular rhythm. Pulmonary: Effort: Pulmonary effort is normal. No respiratory distress. Abdominal: Palpations: Abdomen is soft. Comments: Incisions healing well Genitourinary: General: Normal vulva. Comments: Cuff intact, healing well Musculoskeletal: Cervical back: Normal range of motion. Skin: General: Skin is dry. Neurological: General: No focal deficit present. Mental Status: She is alert. Mental status is at baseline. Psychiatric: Mood and Affect: Mood normal. Behavior: Behavior normal. Performance Status: Asymptomatic Pain Scale: 0 Results: WBC Count (10*3/uL) Date/Time Value 02/13/202528 9.30 HGB (g/dL) Date/Time Value 02/13/202528 8.6 (L) HCT (%) Date/Time Value 02/13/202528 26.9 (L) Platelet Count (10*3/uL) Date/Time Value 02/13/202528 193 Creatinine, Plasma (mg/dL) Date/Time Value 02/13/202528 0.79 AST, Plasma (U/L) Date/Time Value 01/30/20256 22 CA 125 (U/mL) Date/Time Value 01/30/20251535 28.30 Assessment/Plan Pap Smear was not collected today. Problem 1:Endometrial cancer Assessment and plan 1: S/p Robotic TLH/BSO/SLN mapping/OMX on 02/12/25 with stage IB p53 mutated Grade 3 EAC 76% MMI, -LVSI -healing well, continue pelvic rest x 2 mo -PET today shows no residual disease -recommend PORTEC-3 regimen. Discussed treatment timing with them. Desires treatment closer to home, [place] or [place]. Will make referrals to Med Onc and Rad Onc. Letter to Dr. Kate Burrows Problem 2: Obesity Body mass index is 38.47 kg/m??. Assessment and plan 2: Complicates surgical procedure. Increased adiposity may prevent adequate visualization to proceed with lymph node sampling. Increased risk of hypoventilation in the OR. Obesityalso likely contributed to endometrial diagnosis. Problem 3: DM, HTN Assessment and plan 3: care per PCP Problem 4: a fib Assessment and plan: on eliquis and ASA, will need to come off for surgery Problem: discharge A/P: augmentin Rx to pharmacy 45 minutes was spent on this encounter; including [...] appointment scheduling, lab orders, phlebotomy, and documentation. Amy Vargas MD [facility] GYNECOLOGY [address] [address] [address] [facility] [address] Dept: [phone] Dept Loc: [phone] Answers submitted by the patient for this [...] Passing clots?: Yes Passing tissue?: No [1] Current Outpatient Medications: acetaminophen (Tylenol) 325 MG tablet, Take 2 tablets by mouth every 6 hours., Disp: 100 tablet, Rfl: 0 amoxicillin-clavulanate (Augmentin) 875-125 MG tablet, Take 1 tablet by mouth 2 times a day for 10 days., Disp: 20 tablet, Rfl: 0 apixaban (Eliquis) 5 MG tablet, Take 1 tablet by mouth 2 times a day., Disp: , Rfl: ASPIRIN 81 MG chewable tablet, Chew 1 tablet daily., Disp: , Rfl: atenolol (Tenormin) 50 MG tablet, Take 1 tablet by mouth 2 times a day. One pill in the morning. Two in the evening., Disp: , Rfl: benazepril (Lotensin) 10 MG tablet, Take 1 tablet by mouth daily., Disp: , Rfl: carboxymethylcellulose PF (Refresh Plus) 0.5 % ophthalmic solution, Administer 1 drop into both eyes as needed for dry eyes., Disp: 1 each, Rfl: 0 dulaglutide (Trulicity) 1.5 MG/0.5ML solution auto-injector, Inject 1.5 mg under the skin 1 time per week., Disp: , Rfl: fluticasone (Flonase) 50 MCG/ACT nasal spray, Administer 1 spray into each nostril daily. Shake gently. Before first use, prime pump. After use, clean tip and replace cap., Disp: , Rfl: glimepiride (Amaryl) 4 MG tablet, Take 1 tablet by mouth daily before breakfast., Disp: , Rfl: ibuprofen 600 MG tablet, Take 1 tablet by mouth every 6 hours as needed for mild pain., Disp: 30 tablet, Rfl: 0 ondansetron ODT (Zofran-ODT) 4 MG disintegrating tablet, Dissolve 1 tablet on the tongue every 6 hours as needed for nausea or vomiting., Disp: 20 tablet, Rfl: 0 oxyCODONE (Roxicodone) 5 MG immediate release tablet, Take 1 tablet by mouth every 4 hours as needed for severe pain., Disp: 3 tablet, Rfl: 0 potassium chloride (Klor-Con) 20 MEQ packet, Take 20 mEq by mouth 2 times a day. Dissolve packet inat least 4 oz (115 ml) of water, Disp: , Rfl: senna-docusate sodium (Senokot-S) 8.6-50 MG tablet, Take 2 tablets by mouth daily., Disp: 60 tablet, Rfl: 11 simvastatin (Zocor) 40 MG tablet, Take 1 tablet by mouth nightly., Disp: , Rfl: triamterene-hydrochlorothiazide (Maxzide-25) 37.5-25 MG tablet, Take 1 tablet by mouth daily., Disp: , Rfl: documented in this encounter Plan of Treatment Not on file documented as of this encounter Goals Goal Patient Goal Type Associated Problems Recent Progress Patient-Stated? Author Autogenerat ed Goal Care Plan Autogenerated Problem No Min Ayala documented as of this encounter Visit Diagnoses Diagnosis Endometrial cancer- Primary Malignant neoplasm of corpus uteri, except isthmus Severe obesity (BMI 35.0-39.9) with comorbidity (CMS/HCC) Type 2 diabetes mellitus without complication, without long-term current use of insulin Primary hypertension Unspecified essential hypertension Chronic atrial fibrillation (CMS/HCC) Atrial fibrillation Vaginal discharge Leukorrhea, not specified as infective documented in this encounter Additional Health Concerns Active Problems Noted Date Diagnosed Date Autogenerated Problem 02/07/2025 Assessment Noted Time A fall risk assessment has been complete d for the patient 03/20/2025 2:09 PM EST A Body Mass Index follow-up plan has been documented for the patient 03/23/2025 6:44 PM EST documented as of this encounter Care Teams Tire Building Supervisor Relationship Specialty Start Date End Date Adriana Boss APRN [address] [place] [address] PCP - General 11/06/24 Kate Burrows DO [facility] [address] Referring Physician Obstetrics and Gynecology 01/25/25 documented as of this encounter
--- OUTSIDE RECORDS SUMMARY | 2025-04-04 14:48 | XMS_ITS | Encounter Summary ---
Author Organization Healthcare Address [address] [place] [address] Care Team Providers Care Dental Assisting Instructor Name Role Phone GeraAdriana lee Rosendo LI Primary Care Provider [phone] BenjaminKate braden DO Unavailable [phone] Encounter Details Date Type Department Care Team (Late st Contact Info) Description 01/31/2025 Lab Requisition [facility] [address] [place] [address] Amy Vargas MD [address] [facility] [address] [place] [address] Postmenopausal bleeding Social History Tobacco Use Types [...] EDT) Case Report Sugical Pathology Consult Case: [id number] Authorizing Provider: Amy Vargas MD Collected: 01/31/2025 1121 Ordering Location: [facility] Lab Received: 01/31/2025 1121 Pathologist: Maxim Miner MD Specimen: Endometrium, [id number] 4:10 PM EDT [facility] Final Diagnosis A. ENDOMETRIUM, CURETTINGS ([id number], 01/21/2025): - ENDOMETRIOID ADENOCARCINOMA, FIGO GRADE 3. B. ENDOMETRIUM #2, CURETTINGS ([id number], 01/21/2025): - ENDOMETRIOID ADENOCARCINOMA, FIGO GRADE 3. 4:10 PM EDT [facility] at 1609 EDT Comment With essentially agree with the outside diagnosis. The curettings demonstrate more than 50% solid areas the tumor as FIGO grade 3. The immunostain results performed outside for supportive of the above diagnoses. 4:10 PM EDT [facility] Clinical Information N95.0 - Postmenopausal bleeding [ICD-10-CM] 4:10 PM EDT [facility] Special and Immunohistochemical Stains IMMUNOHISTOCHEMIST RY (performed by outside lab on [id number]) BLOCK ANTIBODY RESULT B1 P53 MUTATED (OVEREXPRESSED) B1 ESTROGEN RECEPTOR POSITIVE, 95%, STRONG B1 PROGESTERONE RECEPTOR POSITIVE, 95%, STRONG B1 PD-L1 <1 B1 MLH1 RETAINED B1 PMS2 RETAINED B1 MSH2 RETAINED B1 MSH6 RETAINED 4:10 PM EDT [facility] Gross Description A. [id number] Received along with a corresponding pathology report from [facility] are 12 slide(s) labeled outside case: [id number] collected on 01/21/2025. 4:10 PM EDT [facility] Note: A resident was involved in the service. I attest I examined the relevant preparations for the specimens and confirmed the diagnosis or interpretation. 4:10 PM EDT [facility] Tissue Endometrial structure / Unknown 01/31/2025 11:21 AM EDT 01/31/2025 11:21 AM EDT us Amy Vargas MD LAB PATHOLOGY ORDERABLES Final Result [facility] [address] [place] [address] documented in this encounter Visit Diagnoses Diagnosis Postmenopausal bleeding documented in this encounter Additional Health Concerns Assessment Noted Time A fall risk assessment has been complete d for the patient 01/30/2025 2:13 PM EDT A Body Mass Index follow-up plan has been documented for the patient 01/20/2025 2:21 PM EDT documented as of this encounter Care Teams Dental Assisting Instructor Relationship Specialty Start Date End Date Adriana Boss APRN [address] [place] [address] PCP - General 11/06/24 Kate Burrows DO [facility] [address] Referring Physician Obstetrics and Gynecology 01/25/25 documented as of this encounter
--- OUTSIDE RECORDS SUMMARY | 2025-04-04 14:48 | XMS_ITS | Encounter Summary ---
Author Organization [facility] Address [address] [place] [address] Care Team Providers Care B2B Outside Sales Representative Name Role Phone Adriana Boss APRN Primary Care Provider [phone] Delfina Burrowsnifer DO Unavailable [phone] Encounter Details Date Type Department Care Team (Late st Contact Info) Description 02/04/2025 Telephone [facility] Gynecology [address] [place] [address] Amy Vargas MD [address] [facility] [address] [place] [address] Social History Tobacco Use Types [...] 02/04/2025 10:46 AM EDT Patient states that [facility] is unable to schedule a CT chest prior to her surgery. [facility] informed the patient that if the order [...] documented as of this encounter Care Teams B2B Outside Sales Representative Relationship Specialty Start Date End Date Adriana Boss APRN [address] [place] [address] PCP - General 11/06/24 Kate Burrows DO [facility] [address] Referring Physician Obstetrics and Gynecology 01/25/25 documented as of this encounter
--- OUTSIDE RECORDS SUMMARY | 2025-04-04 14:48 | XMS_ITS | Encounter Summary ---
Author Organization [facility] Address [address] [place] [address] Care Team Providers Care Foreman Shipping Department Name Role Phone Adriana Boss APRN Primary Care Provider [phone] Kate Burrows DO Unavailable [phone] Encounter Details Date Type Department Care Team [...] documented as of this encounter Care Teams Foreman Shipping Department Relationship Specialty Start Date End Date Adriana Boss APRN [address] [place], [place] [address] PCP - General 11/06/24 Kate Burrows DO [facility] [address] Referring Physician Obstetrics and Gynecology 01/25/25 documented as of this encounter
--- OUTSIDE RECORDS SUMMARY | 2025-04-04 14:49 | XMS_ITS | Encounter Summary ---
Author Organization [facility] Address [address] [place] [address] Care Team Providers Care Stove Carriage Operator Name Role Phone Adriana Boss APRN Primary Care Provider [phone] Kate Burrows DO Unavailable [phone] Encounter Details Date Type Department Care Team (Late st Contact Info) Description 02/19/2025 Telephone [facility] [address] [place] [address] Amy Vargas MD [address] [facility] [address] [place] [address] Social History Tobacco Use Types [...] she is okay for two trips to [place]. Thanks, Jessica documented in this encounter Plan [...] documented as of this encounter Care Teams Stove Carriage Operator Relationship Specialty Start Date End Date Adriana Boss APRN [facility] [place] [address] PCP - General 11/06/24 Kate Burrows DO [facility] [address] Referring Physician Obstetrics and Gynecology 01/25/25 documented as of this encounter
--- OUTSIDE RECORDS SUMMARY | 2025-04-04 14:49 | XMS_ITS | Encounter Summary ---
Author Organization Healthcare Address [address] [place] [address] Care Team Providers Care Linux Administrator Name Role Phone Adriana Boss APRN Primary Care Provider [phone] Stormy Kate DO Unavailable [phone] Encounter Details Date Type Department Care [...] documented as of this encounter Care Teams Linux Administrator Relationship Specialty Start Date End Date Adriana Boss APRN [address] [place] [address] PCP - General 11/06/24 Kate Burrows DO [facility] [address] Referring Physician Obstetrics and Gynecology 01/25/25 documented as of this encounter
--- OUTSIDE RECORDS SUMMARY | 2025-04-04 14:49 | XMS_ITS | Encounter Summary ---
Author Organization Healthcare Address [address] [place] [address] Care Team Providers Care Loss Prevention Operations Manager Name Role Phone Adriana Boss APRN Primary Care Provider [phone] Delfina Burrowsnifer DO Unavailable [phone] Encounter Details Date Type Department Care [...] documented as of this encounter Care Teams Loss Prevention Operations Manager Relationship Specialty Start Date End Date Adriana Boss APRN [address] [place] [address] PCP - General 11/06/24 Kate Burrows DO [facility] [address] Referring Physician Obstetrics and Gynecology 01/25/25 documented as of this encounter
--- OUTSIDE RECORDS SUMMARY | 2025-04-04 14:49 | XMS_ITS | Encounter Summary ---
Author Organization Healthcare Address [address] [place] [address] Care Team Providers Care Tail Trimmer Name Role Phone Adriana Boss APRN Primary Care Provider [phone] Delfina Burrowsnifer DO Unavailable [phone] Encounter Details Date Type Department Care [...] documented as of this encounter Care Teams Tail Trimmer Relationship Specialty Start Date End Date Adriana Boss APRN [address] [place] [address] PCP - General 11/06/24 Kate Burrows DO [facility] [address] Referring Physician Obstetrics and Gynecology 01/25/25 documented as of this encounter
--- OUTSIDE RECORDS SUMMARY | 2025-04-04 14:49 | XMS_ITS | Encounter Summary ---
Author Organization Healthcare Address [address] [place] [address] Care Team Providers Care Pet Sitter Name Role Phone Adriana Boss APRN Primary Care Provider Delfina Burrowsnifer DO Unavailable [phone] Encounter Details Date Type Department Care [...] documented as of this encounter Care Teams Pet Sitter Relationship Specialty Start Date End Date Adriana Boss APRN [address] [place] [address] PCP - General 11/06/24 Kate Burrows DO [facility] [address] Referring Physician Obstetrics and Gynecology 01/25/25 documented as of this encounter
--- OUTSIDE RECORDS SUMMARY | 2025-04-04 14:49 | XMS_ITS | Encounter Summary ---
Author Organization Healthcare Address [address] [place] [address] Care Team Providers Care Informatics Educator Name Role Phone Adriana Boss APRN Primary Care Provider [phone] Delfina Burrowsnifer DO Unavailable [phone] Encounter Details Date Type Department Care [...] documented as of this encounter Care Teams Informatics Educator Relationship Specialty Start Date End Date Adriana Boss APRN [address] [place] [address] PCP - General 11/06/24 Kate Burrows DO [facility] [address] Referring Physician Obstetrics and Gynecology 01/25/25 documented as of this encounter
--- OUTSIDE RECORDS SUMMARY | 2025-04-04 14:49 | XMS_ITS | Clinical Summary ---
Author Organization [facility] Address [address] [place] [address] Care Team Providers Care Dredge Pump Operator Name Role Phone Adriana Boss APRN Primary Care Provider [phone] BenjaminKate braden Unavailable [phone] Allergies No known active allergies Medications [...] EST Office Visit [facility] [address] [address] [place] [address] Amy Vargas MD Endometrial cancer (Primary Dx); Severe obesity (BMI 35.0-39.9) with comorbidity (CMS/HCC); Type 2 diabetes mellitus without complication, without long-term current use of insulin; Primary hypertension; Chronic atrial fibrillation (CMS/HCC); Vaginal discharge 03/20/2025 9:45 AM EST - 03/20/2025 11:59 PM EST Hospital Encounter [facility] PET Scan [address] [place] [id number] Discharge Disposition: Home or Self Care 03/20/2025 9:44 AM EST Hospital Encounter [facility] PET Scan [address] [place] [address] Endometrial cancer Discharge Disposition: Home or Self Care 03/20/2025 Results Follow-Up [facility] [address] [place] [phone] Amy Vargas MD 03/20/2025 Travel 03/13/2025 Travel 02/19/2025 Telephone [facility] [address] [place] [address] Amy Vargas MD 02/18/2025 Results Follow-Up [facility] [address] [place] [address] Jessica Urias MD 02/15/2025 Orders Only [facility] [address] [place] [address] Milli Fletcher MD 02/12/2025 12:10 PM EDT - 02/12/2025 4:10 PM EDT Surgery [facility] [address] [place] [phone] Amy Vargas MD ROBOT TLHBSO, SLN, OMENTECTOMY [31045 (CPT )] 02/12/2025 11:55 AM EDT Anesthesia Event [facility] [address] [place] [address] Jon Handley MD Wynstra, Elizabeth P FIELD EDUCATION DIRECTOR 02/12/2025 9:21 AM EDT - 02/13/2025 2:09 PM EDT Hospital Encounter [facility] Inpatient [address] [place] [address] Amy Vargas MD Endometrial cancer Discharge Disposition: Home or Self Care 02/12/2025 Travel 02/08/2025 4:28 PM EDT - 02/08/2025 11:59 PM EDT Hospital Encounter Cardiac Imaging [address] [place] [address] AV block, 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) Discharge Disposition: Home or Self Care 02/08/2025 Travel 02/07/2025 3:00 PM EDT Anesthesia Event [facility] [address] [place] [address] Alfredo Almaraz MD McLarney, John T, MD 02/07/2025 10:10 AM EDT - 02/07/2025 3:00 PM EDT Hospital Encounter [facility] [address] [place] [address] Amy Vargas MD Pacemaker (Primary Dx) Discharge Disposition: Home or Self Care 02/07/2025 Travel 02/04/2025 Travel 02/04/2025 Telephone [facility] [address] [address] [address] [place] [address] Amy Vargas MD 02/01/2025 2:00 PM EDT Pre-Admission Testing [facility] [address] [place] [address] AV block, 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) (Primary Dx) 02/01/2025 Travel 01/31/2025 Travel 01/31/2025 Lab Requisition [facility] [address] [place] [address] Amy Vargas MD Postmenopausal bleeding 01/30/2025 2:15 PM EDT Office Visit [facility] [address] [address] [address] [place] [address] Amy Vargas MD Endometrial cancer (Primary Dx); Severe obesity (BMI 35.0-39.9) with comorbidity (CMS/HCC); Type 2 diabetes mellitus without complication, without long-term current use of insulin; Primary hypertension; Chronic atrial fibrillation (CMS/HCC) 01/30/2025 Travel 01/26/2025 Travel 01/17/2025 1:00 PM EDT Procedure Visit [facility] [address] [place] [address] Luis A White MD Hand paresthesia 01/17/2025 Travel 01/15/2025 Orders Only External Location [address] [place] [address] Kate Burrows DO 01/11/2025 Travel 01/06/2025 Orders Only External Location [address] [place] [address] Abbey Salmon DO from Last 3 Months [...] or (1 - 1-dose 75+ series) 01/04/2024 [id number] Vaccine ( - 2024- season) 2024 03/23/2021, [...] Min Ayala Medical Devices Implanted Type Area Diazo Technician Device Identifier Shelf Expiration Date Model / [...] ANESTHESIA PLACEHOLDER Routine 02/12/2025 12:07 PM EDT VT AN ELECTIVE ENDOTRACHEAL AIRWAY Routine 02/12/2025 12:07 PM EDT VT LAPAROSCOPY W TOT HYSTERECTUTERUS <=250 GRAM W [...] PET/CT scanner: PAKO 550 . PET/CT acquisition: Ehqozw-yb-fir-thighs. Standardized uptake value (SUV): Corrected for body weight only. CT: Low-dose, nzf-dnmhxc-isez, without intravenous contrast. TOTAL DLP (Dose Length [...] Not applicable. Positioning: Arms raised. PET/CT scanner: [facility] . PET/CT acquisition: Gdjtpa-pm-fxd-thighs. Standardized uptake value (SUV): Corrected for body weight only. CT: Low-dose, jwo-zcttvb-ntwb, without intravenous contrast. TOTAL DLP (Dose Length [...] activity seen in the right pelvis ([id number]), appears to be tracer activity in the [...] 02/13/2025 11:24 AM EDT [facility] Regulatory Lead ID Triny Olvera 02/13/2025 11:24 AM EDT [facility] Device ID [id number] 02/13/2025 11:24 AM EDT [facility] Specimen Type POC Capillary 02/13/2025 11:24 AM EDT [facility] Blood Capillary blood specimen / Unknown 02/13/2025 11:22 AM EDT 02/13/2025 11:24 AM EDT Amy Vargas MD LAB POINT OF CARE TEST DOCKED DEVICE UNSOLICITED RESULTS Final Result [facility] [address] [place] [id number] * (ABNORMAL) CBC W/O Differential (02/13/2025 12:29 AM EDT) Only the most recent of2 resultswithin the time period is included. WBC Count 9.30 3.70 - 10.30 10*3/uL LAB HEMATOLOGY METHOD 02/13/2025 12:44 AM EDT [facility] RBC Count 3.09(L) 3.90 - 5.20 10*6/uL LAB HEMATOLOGY METHOD 02/13/2025 12:44 AM EDT [facility] HGB 8.6(L) 11.2 - 15.7 g/dL LAB HEMATOLOGY METHOD 02/13/2025 12:44 AM EDT [facility] HCT 26.9(L) 34.0 - 45.0 % LAB HEMATOLOGY METHOD 02/13/2025 12:44 AM EDT [facility] Platelet Count 193 155 - 369 10*3/uL LAB HEMATOLOGY METHOD 02/13/2025 12:44 AM EDT [facility] MCV 87 79 - 98 fL LAB HEMATOLOGY METHOD 02/13/2025 12:44 AM EDT [facility] MCH 27.8 26.0 - 32.0 pg LAB HEMATOLOGY METHOD 02/13/2025 12:44 AM EDT [facility] MCHC 32.0 30.7 - 35.5 g/dL LAB HEMATOLOGY METHOD 02/13/2025 12:44 AM EDT [facility] RDW 15.0(H) 11.5 - 14.5 % LAB HEMATOLOGY METHOD 02/13/2025 12:44 AM EDT [facility] MPV 10.4 8.8 - 12.5 fL LAB HEMATOLOGY METHOD 02/13/2025 12:44 AM EDT [facility] nRBC 0.0 <=0.0 per 100 WBCs LAB HEMATOLOGY METHOD 02/13/2025 12:44 AM EDT [facility] Blood Venous blood specimen / Unknown Venipuncture / Unknown 02/13/2025 12:29 AM EDT 02/13/2025 12:35 AM EDT us Amy Varags MD LAB BLOOD ORDERABLES Veronica l Result [facility] [address] [place] [address] * Phosphorus (02/13/2025 12:29 AM EDT) Phosphorus, Plasma 3.6 2.5 - 4.5 mg/dL 02/13/2025 1:07 AM EDT [facility] Blood Venous blood specimen / Unknown Venipuncture / Unknown 02/13/2025 12:29 AM EDT 02/13/2025 12:34 AM EDT us Amy Vargas MD LAB BLOOD ORDERABLES Veronica l Result Performing Organization Address City/[facility]/[place] [address] * (ABNORMAL) Magnesium, Plasma (02/13/2025 12:29 AM EDT) Magnesium, Plasma 1.8(L) 1.9 - 2.4 mg/dL 02/13/2025 1:07 AM EDT [facility] Blood Venous blood specimen / Unknown Venipuncture / Unknown 02/13/2025 12:29 AM EDT 02/13/2025 12:34 AM EDT us Amy Vargas MD LAB BLOOD ORDERABLES Veronica l Result [facility] [address] [place] [address] * (ABNORMAL) Basic metabolic panel (02/13/2025 12:29 AM EDT) Glucose, Plasma 207(H) 74 - 99 mg/dL 02/13/2025 1:07 AM EDT [facility] BUN, Plasma 20 8 - 23 mg/dL 02/13/2025 1:07 AM EDT [facility] Creatinine, Plasma 0.79 0.60 - 1.10 mg/dL 02/13/2025 1:07 AM EDT [facility] BUN/Creatinine Ratio 25 02/13/2025 1:07 AM EDT [facility] Sodium, Plasma 137 136 - 145 mmol/L 02/13/2025 1:07 AM EDT [facility] Potassium, Plasma 4.2 3.6 - 4.9 mmol/L 02/13/2025 1:07 AM EDT [facility] Chloride, Plasma 102 97 - 107 mmol/L 02/13/2025 1:07 AM EDT [facility] CO2, Plasma 23 22 - 29 mmol/L 02/13/2025 1:07 AM EDT [facility] Anion Gap 12 6 - 16 mmol/L 02/13/2025 1:07 AM EDT [facility] Total Calcium, Plasma 8.7(L) 8.9 - 10.2 mg/dL 02/13/2025 1:07 AM EDT [facility] eGFRcr 77.6 mL/min/1.7 3m*2 02/13/2025 1:07 AM EDT [facility] Comment:Reported eGFRcr in m L/min/1.73m2 is based the CKD-EPI 2020 equation that does not use a race coefficient. Blood Venous blood specimen / Unknown Venipuncture / Unknown 02/13/2025 12:29 AM EDT 02/13/2025 12:34 AM EDT us Amy Vargas MD LAB BLOOD ORDERABLES Veronica l Result [facility] [address] [place] [address] * Corin auris Surveillance by PCR (02/12/2025 9:55 PM EDT) Corin auris PCR Result Not Detected Not Detected 02/14/2025 6:58 AM EDT [facility] Swab (Axilla and Groin) Non-blood Collection / Unknown 02/12/2025 9:55 PM EDT 02/12/2025 10:03 PM EDT Narrative [facility] - 02/14/2025 6:58 AM EDT This PCR assay was developed and its performance characteristics determined by [facility] as appropriate for clinical purposes. This assay has not been cleared or approved by the FDA, but is performed in a CLIA regulated laboratory that is qualified to perform high-complexity testing. Amy Vargas MD LAB MICROBIOLOGY - GENERA L ORDERABLES Final Result Performing Organization Address [facility] Co de Phone Number [address] [address] * Multi Drug Resistance Test (02/12/2025 9:55 PM EDT) Culture No growth at day 1 02/14/2025 6:13 AM EDT [facility] Swab (Nares and Yola Rectal) Non-blood Collection / Unknown 02/12/2025 9:55 PM EDT 02/12/2025 10:03 PM EDT Narrative [facility] - 02/14/2025 6:13 AM EDT This test was developed and its performance characteristics determined by the [facility]. Although the media is FDA-approved, it is not FDA-approved for all specimen types submitted. The FDA has determined that such clearance or approval is not necessary. This test is used for surveillance purposes. It should not be regarded as investigational or for research. The [facility] is certified under the Clinical Laboratory Improvement Amendments of 1988 (CLIA-88) as qualified to perform high complexity clinical laboratory testing. mAy Vargas MD LAB MICROBIOLOGY - GENERA L ORDERABLES Final Result Performing Organization Address City/[facility]/ZIP Co de Phone Number [facility] [address] [place] [address] * Surgical Pathology Exam (02/12/2025 2:01 PM EDT) Case Report Surgical Pathology Case: [id number] Authorizing Provider: Amy Vargas MD Collected: 02/12/2025 1401 Ordering Location: [facility] Received: 02/12/2025 8382 Pathologist: Lavon Daly MD Specimens: A) - Other (specify site), uterus, cervix, bilateral tubes, ovaries, and adnexal mass B) - Other (specify site), OMENTUM - PERMANENT 1:14 PM EST [facility] Final Diagnosis A. UTERUS, CERVIX, BILATERAL [...] - BENIGN FIBROADIPOSE TISSUE. 1:14 PM EST [facility] at 1314 EST Comment Immunohistochemical stains previously performed on the endometrial curettage specimen ([id number]) at the outside institution demonstrated the following results. POLE status is unknown. P53: Mutated (overexpressed) Estrogen receptor: Positive, 95%, strong Progesterone receptor: Positive, 95%, strong PD-L1: less than 1% MLH1: Retained PMS2: Retained MSH2: Retained MSH6: Retained 1:14 PM EST [facility] Synoptic Checklist ENDOMETRIUM ENDOMETRIUM - All [...] the Endometrium): IICm (p53abn) 5 1:14 PM [facility] Clinical Information Endometrial cancer [C54.1] 5 1:14 PM [facility] Gross Description A. UTERUS, CERVIX, BILATERAL [...] The cut surface is apple-yellow and whorled. Billet Shearer sections are submitted as follows: A1: Posterior [...] aggregate of apple-yellow lobulated firm fibroadipose tissue. Billet Shearer sections are submitted in cassettes B1-B3. Cold Time: 1h 10m HARLEY Lama (ASCP) 1:14 PM [facility] Intradepartmental Consultation with Agreement Dr. Trevor Koch reviewed selected slides and concurs with the interpretation. 1:14 PM [facility] Note: A resident was involved in the service. I attest I examined the relevant preparations for the specimens and confirmed the diagnosis or interpretation. 1:14 PM [facility] Tissue Topography unknown / Unknown 02/12/2025 2:01 PM EDT 02/12/2025 3:28 PM EDT Comment:Pre-op diagnosis: Endometrial cancer [C54.1] Tissue specimen (specimen) Topography unknown / Unknown 02/12/2025 2:18 PM EDT 02/12/2025 3:28 PM EDT Comment:Pre-op diagnosis: Endometrial cancer [C54.1] Amy Vargas MD LAB PATHOLOGY ORDERABLES Final Result Performing Organization Address City/State/[facility] Co de Phone Number [facility] [address] [place] [address] * Non-Gynecologic Cytology (02/12/2025 1:02 PM EDT) Case Report Cytology Case: [id number] Authorizing Provider: Amy Vargas MD Collected: 02/12/2025 1302 Ordering Location: [facility] Received: 02/12/2025 1515 Pathologist: Karrie Moran MD Specimen: Pelvic Washing, PELVIC WASHING 02/14/2025 11:33 AM EDT [facility] Final Diagnosis A. PELVIC WASHING - NO EVIDENCE OF MALIGNANCY - REACTIVE MESOTHELIAL CELLS 02/14/2025 11:33 AM EDT [facility] at 1133 EDT Gross Description A. PELVIC WASHING 35 mls clear fluid for thin prep and cell block 02/14/2025 11:33 AM EDT [facility] Clinical Information Endometrial cancer [C54.1] 02/14/2025 11:33 AM EDT [facility] Washing Fluid specimen from pelvis / Unknown 02/12/2025 1:02 PM EDT 02/12/2025 3:15 PM EDT Comment:Pre-op diagnosis: Endometrial cancer [C54.1] us Amy Vargas MD LAB CYTOLOGY ORDERABLES F inal Result [facility] [address] [place] [address] * Peripheral IV (02/12/2025 12:44 PM EDT) [...] well with no complications. Staffing Performed: CECILIO FIELD EDUCATION DIRECTOR: Emily Miramontes CRNA us Jon Handley MD ANESTHESIA ORDERABLES Final Re sult * VT AN ELECTIVE ENDOTRACHEAL AIRWAY, PB ANESTHESIA PLACEHOLDER (02/12/2025 12:07 PM EDT) Narrative Emily Miramontes CRNA - 02/12/2025 12:07 PM EDT Emily Miramontes CRNA 02/12/2025 12:44 PM Airway Date/Time: 02/12/2025 12:07 PM Reason: elective Airway not difficult General Information and Staff Patient location during procedure: OR FIELD EDUCATION DIRECTOR: Emily Miramontes CRNA Performed: CECILIO Patient Condition [...] ORDER JULIA Final Result [facility] B[facility] [address] [place] [address], * CARDIAC DEVICE CHECK - IN CLINIC - PACEMAKER BIVENTRICULAR CHAMBER W/ PROG (02/08/2025 4:28 PM EDT) Anatomical Region Laterality Modality Other Narrative 02/08/2025 4:53 PM EDT [facility]: Pre-operative CIED Report Assessment and Yola-Procedural Reommendations: Name: Kelsey Monae Date: 02/08/2025 : 1950 Age: 75 y.o. Patient has a Diazo Technician: Anderson PRIMER INSERTING MACHINE OPERATOR-PM Remaining battery longevity adequate. Lead integrity test [...] recommendations. Supporting reports can be found in [employer] file. Min Crowe MD CV IMPLANTABLE CARDIAC DEVICE PROCEDURES Final Result * Surgical Pathology Consult (01/31/2025 11:21 AM EDT) Case Report Sugical Pathology Consult Case: [id number] Authorizing Provider: Amy Vargas MD Collected: 01/31/2025 1121 Ordering Location: [facility] Lab Received: 01/31/2025 1121 Pathologist: Maxim Miner MD Specimen: Endometrium, [id number] 4:10 PM EDT [facility] Final Diagnosis A. ENDOMETRIUM, CURETTINGS ([id number], 01/21/2025): - ENDOMETRIOID ADENOCARCINOMA, FIGO GRADE 3. B. ENDOMETRIUM #2, CURETTINGS ([id number], 01/21/2025): - ENDOMETRIOID ADENOCARCINOMA, FIGO GRADE 3. 4:10 PM EDT [facility] at 1609 EDT Comment With essentially agree with the outside diagnosis. The curettings demonstrate more than 50% solid areas the tumor as FIGO grade 3. The immunostain results performed outside for supportive of the above diagnoses. 5 4:10 PM EDT [facility] Clinical Information N95.0 - Postmenopausal bleeding [ICD-10-CM] 5 4:10 PM EDT [facility] Special and Immunohistochemical Stains IMMUNOHISTOCHEMIST SHARIF (performed by outside lab on [id number]) BLOCK ANTIBODY RESULT B1 P53 MUTATED (OVEREXPRESSED) B1 ESTROGEN RECEPTOR POSITIVE, 95%, STRONG B1 PROGESTERONE RECEPTOR POSITIVE, 95%, STRONG B1 PD-L1 <1 B1 MLH1 RETAINED B1 PMS2 RETAINED B1 MSH2 RETAINED B1 MSH6 RETAINED 5 4:10 PM EDT [facility] Gross Description A. [id number] Received along with a corresponding pathology report from [facility] Laboratory are 12 slide(s) labeled outside case: [id number] collected on 01/21/2025. 5 4:10 PM EDT [facility] Note: A resident was involved in the service. I attest I examined the relevant preparations for the specimens and confirmed the diagnosis or interpretation. 5 4:10 PM EDT [facility] Tissue Endometrial structure / Unknown 01/31/2025 11:21 AM EDT 01/31/2025 11:21 AM EDT us Amy Vargas MD LAB PATHOLOGY ORDERABLES Final Result [facility] [address] [place] [address] * (ABNORMAL) CBC and Differential (01/30/2025 3:36 PM EDT) WBC Count 6.81 3.70 - 10.30 10*3/uL LAB HEMATOLOGY METHOD 01/30/2025 4:29 PM EDT [facility] RBC Count 3.11(L) 3.90 - 5.20 10*6/uL LAB HEMATOLOGY METHOD 01/30/2025 4:29 PM EDT [facility] HGB 8.7(L) 11.2 - 15.7 g/dL LAB HEMATOLOGY METHOD 01/30/2025 4:29 PM EDT [facility] HCT 28.1(L) 34.0 - 45.0 % LAB HEMATOLOGY METHOD 01/30/2025 4:29 PM EDT [facility] Platelet Count 231 155 - 369 10*3/uL LAB HEMATOLOGY METHOD 01/30/2025 4:29 PM EDT [facility] MCV 90 79 - 98 fL LAB HEMATOLOGY METHOD 01/30/2025 4:29 PM EDT [facility] MCH 28.0 26.0 - 32.0 pg LAB HEMATOLOGY METHOD 01/30/2025 4:29 PM EDT [facility] MCHC 31.0 30.7 - 35.5 g/dL LAB HEMATOLOGY METHOD 01/30/2025 4:29 PM EDT [facility] RDW 15.7(H) 11.5 - 14.5 % LAB HEMATOLOGY METHOD 01/30/2025 4:29 PM EDT [facility] MPV 10.3 8.8 - 12.5 fL LAB HEMATOLOGY METHOD 01/30/2025 4:29 PM EDT [facility] nRBC 0.0 <=0.0 per 100 WBCs LAB HEMATOLOGY METHOD 01/30/2025 4:29 PM EDT [facility] Differential Type Automated LAB HEMATOLOGY METHOD 01/30/2025 4:29 PM EDT [facility] Neutrophils % 65 % LAB HEMATOLOGY METHOD 01/30/2025 4:29 PM EDT [facility] Lymphocytes % 23 % LAB HEMATOLOGY METHOD 01/30/2025 4:29 PM EDT [facility] Monocytes % 10 % LAB HEMATOLOGY METHOD 01/30/2025 4:29 PM EDT [facility] Eosinophils % 2 % LAB HEMATOLOGY METHOD 01/30/2025 4:29 PM EDT [facility] Basophils % 0 % LAB HEMATOLOGY METHOD 01/30/2025 4:29 PM EDT [facility] Immature Granulocytes % 0 % LAB HEMATOLOGY METHOD 01/30/2025 4:29 PM EDT [facility] Neutrophils Absolute 4.39 1.60 - 6.10 10*3/uL LAB HEMATOLOGY METHOD 01/30/2025 4:29 PM EDT [facility] Lymphocytes Absolute 1.56 1.20 - 3.90 10*3/uL LAB HEMATOLOGY METHOD 01/30/2025 4:29 PM EDT [facility] Monocytes Absolute 0.65 0.30 - 0.90 10*3/uL LAB HEMATOLOGY METHOD 01/30/2025 4:29 PM EDT [facility] Eosinophils Absolute 0.15 0.00 - 0.50 10*3/uL LAB HEMATOLOGY METHOD 01/30/2025 4:29 PM EDT [facility] Basophils Absolute 0.03 0.00 - 0.10 10*3/uL LAB HEMATOLOGY METHOD 01/30/2025 4:29 PM EDT [facility] Immature Granulocytes Absolute 0.03 0.00 - 0.06 10*3/uL LAB HEMATOLOGY METHOD 01/30/2025 4:29 PM EDT [facility] Blood Venous blood specimen / Unknown Venipuncture / Unknown 01/30/2025 3:36 PM EDT 01/30/2025 4:14 PM EDT Narrative [facility] - 01/30/2025 4:29 PM EDT Therapeutic decision making should be based on absolute values, rather than percentages. us mAy Vargas MD LAB BLOOD ORDERABLES Veronica l Result [facility] [address] [place] [address] * CA 125 (01/30/2025 3:36 PM EDT) CA 125 28.30 <=38.00 U/mL 01/30/2025 4:57 PM EDT [facility] Blood Venous blood specimen / Unknown Venipuncture / Unknown 01/30/2025 3:36 PM EDT 01/30/2025 4:16 PM EDT Narrative [facility] - 01/30/2025 4:57 PM EDT Performed by [employer]dee electrochemiluminescent immunoassay. Results obtained with different test methods or kits cannot be used interchangeably. us Amy Vargas MD LAB BLOOD ORDERABLES Veronica l Result Performing Organization Address City/[facility]/ZIP Co de Phone Number [facility] [address] [place] [address] * Hemoglobin A1c (01/30/2025 3:36 PM EDT) Pathologist [facility] Hemoglobin A1c 5.2 <5.7 % 01/30/2025 6:46 PM EDT [facility] Blood Venous blood specimen / Unknown Venipuncture / Unknown 01/30/2025 3:36 PM EDT 01/30/2025 4:14 PM EDT Narrative [facility] - 01/30/2025 6:46 PM EDT HA1C Interpretive Data: Diagnosis of Diabetes: Diabetic > or = 6.5% Pre-diabetic 5.7 to 6.4% Non-diabetic < or = 5.6% Glycemic Targets for Type I and Type II Diabetics: Non- Adults <7.0% Adults <6.0% Children and Adolescents <7.5% Source: [place] [employer]. Standards of medical care in diabetes,2017. Diabetes Care.2017:40 (suppl 1):S1-S135. Amy Vargas MD LAB BLOOD ORDERABLES Veronica bray Result [facility] [address] [place] [address] * (ABNORMAL) Comprehensive metabolic panel (01/30/2025 3:36 PM EDT) [facility] Glucose, Plasma 69(L) 74 - 99 mg/dL 01/30/2025 4:46 PM EDT [facility] BUN, Plasma 19 8 - 23 mg/dL 01/30/2025 4:46 PM EDT [facility] Creatinine, Plasma 0.78 0.60 - 1.10 mg/dL 01/30/2025 4:46 PM EDT [facility] BUN/Creatinine Ratio 24 01/30/2025 4:46 PM EDT [facility] Sodium, Plasma 142 136 - 145 mmol/L 01/30/2025 4:46 PM EDT [facility] Potassium, Plasma 3.7 3.6 - 4.9 mmol/L 01/30/2025 4:46 PM EDT [facility] Chloride, Plasma 106 97 - 107 mmol/L 01/30/2025 4:46 PM EDT [facility] CO2, Plasma 26 22 - 29 mmol/L 01/30/2025 4:46 PM EDT [facility] Anion Gap 10 6 - 16 mmol/L 01/30/2025 4:46 PM EDT [facility] Total Calcium, Plasma 9.4 8.9 - 10.2 mg/dL 01/30/2025 4:46 PM EDT [facility] Total Protein 7.1 6.3 - 7.9 g/dL 01/30/2025 4:46 PM EDT [facility] Albumin, Plasma 4.0 3.5 - 5.2 g/dL 01/30/2025 4:46 PM EDT [facility] AST, Plasma 22 10 - 35 U/L 01/30/2025 4:46 PM EDT [facility] ALT, Plasma 12 10 - 35 U/L 01/30/2025 4:46 PM EDT [facility] Alkaline Phosphatase, Plasma 83 46 - 142 U/L 01/30/2025 4:46 PM EDT [facility] Total Bilirubin, Plasma 0.4 0.2 - 1.1 mg/dL 01/30/2025 4:46 PM EDT [facility] eGFRcr 78.8 mL/min/1.7 3m*2 01/30/2025 4:46 PM EDT [facility] Comment:Reported eGFRcr in m L/min/1.73m2 is based the CKD-EPI 2020 equation that does not use a race coefficient. Blood Venous blood specimen / Unknown Venipuncture / Unknown 01/30/2025 3:36 PM EDT 01/30/2025 4:16 PM EDT us Amy Vargas MD LAB BLOOD ORDERABLES Veronica l Result [facility] [address] [place] [address] * EMG / Nerve Conduction Study (01/17/2025 1:00 PM EDT) Anatomical Region Laterality Modality Other Narrative 01/17/2025 1:00 PM EDT Lusi A White MD 01/20/2025 2:21 PM EMG [...] Date Diagnosed Date Autogenerated Problem 02/07/2025 Insurance [facility] MEDICARE Advance Directives Documents on File Type Date Recorded Patient Billet Shearer Expl anation Advance Directives and Living Will 02/07/2025 Power of Ross Carrier Driver 02/07/2025 * Full Code (Latest Code Status on File) Date Activated Date Inactivated Comments 02/12/2025 3:26 PM 02/13/2025 4:09 PM Question Answer Comments I have reviewed the capacity from the link above and, if needed, have updated to appropriate status: Yes Care Teams Dredge Pump Operator Relationship Specialty Start Date End Date Adriana Boss APRN [facility] [place] [address] PCP - General 11/06/24 Kaet Burrows DO [facility] [id number] Referring Physician Obstetrics and Gynecology 01/25/25
--- OUTSIDE RECORDS SUMMARY | 2025-04-04 14:49 | XMS_ITS | Clinical Summary ---
Author Organization [facility] OD Address [address] [place] [address] Phone Care Team Providers Care Crop And Soil Technician Name Role Phone Min Terrazas MD Primary Care Provider [phone] Social History Tobacco Use Types Packs/Day Years [...] patient's age to complete this topic Insurance [facility] MEDICARE PPO MR Member Subscriber Plan / Payer (Ef fective 2017-Present) Name:Kelsey Monae Relation to Subscriber:Self Name:Kelsey Monae Payer ID:[id number] (NAIC) Type:Not on file Address: [place] [id number] Care Teams Crop And Soil Technician Relationship Specialty Start Date End Date Min Terrazas MD [address] [facility] [address] [place] [address] PCP - General 05/08/10
--- OUTSIDE RECORDS SUMMARY | 2025-04-04 14:49 | XMS_ITS | Encounter Summary ---
Author Organization Healthcare Address [address] [place] [address] Care Team Providers Care Parks Recreation Coordinator Name Role Phone Adriana Boss APRN Primary Care Provider [phone] Kate Burrows DO Unavailable [phone] Encounter Details Date Type Department Care Team (Late st Contact Info) Description 03/20/2025 Results Follow-Up [facility] [address] [place] [address] Amy Vargas MD [address] [facility] [address] [place] [address] Social History Tobacco Use Types [...] documented as of this encounter Care Teams Parks Recreation Coordinator Relationship Specialty Start Date End Date Adriana Boss APRN [facility] [place] [address] PCP - General 11/06/24 Kate Burrows DO [facility] [address] Referring Physician Obstetrics and Gynecology 01/25/25 documented as of this encounter
--- OUTSIDE RECORDS SUMMARY | 2025-04-04 14:50 | XMS_ITS | Encounter Summary ---
Author Organization Healthcare Address [address] [place] [address] Care Team Providers Care Computer Salesperson Retail Name Role Phone Adriana Boss APRN Primary Care Provider [phone] Kate Burrows DO Unavailable [phone] Encounter Details Date Type Department Care Team (Late st Contact Info) Description 02/15/2025 Orders Only [facility] [address] [facility] [address] [place] [phone] Milli Fletcher MD [address] [place] [address] Social History Tobacco Use Types Packs/Day Years [...] documented as of this encounter Care Teams Computer Salesperson Retail Relationship Specialty Start Date End Date Adriana Boss APRN [address] [place] [address] PCP - General 11/06/24 Kate Burrows DO [facility] [address] Referring Physician Obstetrics and Gynecology 01/25/25 documented as of this encounter
--- OUTSIDE RECORDS SUMMARY | 2025-04-04 14:50 | XMS_ITS | Encounter Summary ---
Author Organization [facility] Address [address] [place] [address] Care Team Providers Care Plastic Fabricator Name Role Phone Adriana Boss APRN Primary Care Provider [phone] Kate Burrows DO Unavailable [phone] Encounter Details Date Type Department Care Team (Late st Contact Info) Description 01/15/2025 Orders Only External Location [address] [place] [phone] [place] [address] Social History Tobacco [...] on filedocumented in this encounter Care Teams Plastic Fabricator Relationship Specialty Start Date End Date Adriana Boss APRN [address] [place] [address] PCP - General 11/06/24 Kate Burrows DO [facility] [address] Referring Physician Obstetrics and Gynecology 01/25/25 documented as of this encounter
--- OUTSIDE RECORDS SUMMARY | 2025-04-04 14:50 | XMS_ITS | Encounter Summary ---
Author Organization [facility] Address [address] [place] [address] Care Team Providers Care It Business Analyst Name Role Phone Unkown, Not Given Primary Care Provider Adriana Stallings APRN Primary Care Provider [phone] Kate Burrows DO Unavailable [phone] Reason for Referral * Consultation (Routine) - Authorized Specialty Diagnoses / Procedures Referred By Colin t Referred To Contact Neurology Diagnoses Hand paresthesia Froylan Montilla MD [address] [place] [address] Phone: tel: fax: Referral ID Status Reason Start Date Expiration Date Visits Requested Visits Authorized [id number] Authorized Specialty Services Required 10/29/2024 04/30/2026 1 1 Encounter Details Date Type Department Care Team (Latest Contact Info) Description 10/29/2024 [facility] [address] [place] [address] Froylan Montilla MD [address] [place] [address] Paresthesias in left hand (Primary [...] sensation documented in this encounter Care Teams It Business Analyst Relationship Specialty Start Date End Date Unkown, [place] [address] PCP - General 01/16/21 11/05/24 Adriana Boss APRN [address] [place] [address] PCP - General 11/06/24 Kate Burrows DO [facility] [address] Referring Physician Obstetrics and Gynecology 01/25/25 documented as of this encounter
--- OUTSIDE RECORDS SUMMARY | 2025-04-04 14:50 | XMS_ITS | Encounter Summary ---
Author Organization Healthcare Address [address] [place] [address] Care Team Providers Care Youth Care Worker Name Role Phone Adriana Boss APRN Primary Care Provider Kate Burrows DO Unavailable [phone] Encounter Details Date Type Department Care Team (Late st Contact Info) Description 01/06/2025 Orders Only External Location [address] [place] [phone] Abbey Salmon DO [address] [place] [address] Social History Tobacco Use Types [...] on filedocumented in this encounter Care Teams Youth Care Worker Relationship Specialty Start Date End Date Adriana Boss APRN [address] [place] [address] PCP - General 11/06/24 Kate Burrows DO [facility] [address] Referring Physician Obstetrics and Gynecology 01/25/25 documented as of this encounter
--- OUTSIDE RECORDS SUMMARY | 2025-04-04 14:50 | XMS_ITS | Encounter Summary ---
Author Organization Healthcare Address [address] [place] [address] Care Team Providers Care Reference Assistant Name Role Phone Adriana Boss APRN Primary Care Provider [phone] Delfina Burrowsnifer DO Unavailable [phone] Encounter Details Date Type Department Care Team (Late st Contact Info) Description 02/18/2025 Results Follow-Up [facility] Gynecology [address] [facility] [address] [place] [phone] Jessica Urias MD [address] [place] [address] Social History Tobacco Use Types Packs/Day Years [...] documented as of this encounter Care Teams Reference Assistant Relationship Specialty Start Date End Date Adriana Boss APRN [facility] [place] [address] PCP - General 11/06/24 Kate Burrows DO [facility] [address] Referring Physician Obstetrics and Gynecology 01/25/25 documented as of this encounter
--- OUTSIDE RECORDS SUMMARY | 2025-04-04 14:50 | XMS_ITS | Encounter Summary ---
Author Organization [facility] Address [address] [place] [address] Care Team Providers Care Die Finisher Name Role Phone Unkown, Not Given Primary Care Provider Adriana Stallings APRN Primary Care Provider [phone] Delfina Burrowsnifer DO Unavailable [phone] Encounter Details Date Type Department Care Team (Late st Contact Info) Description 12/20/2023 [facility] [address] [place] [address] Froylan Montilla MD [address] [place] [address] Hand paresthesia (Primary Dx) Social History Tobacco [...] sensation documented in this encounter Care Teams Die Finisher Relationship Specialty Start Date End Date Unkown, [place] [address] PCP - General 01/16/21 11/05/24 Adriana Boss APRN [address] [place] [address] PCP - General 11/06/24 Kate Burrows DO [facility] [address] Referring Physician Obstetrics and Gynecology 01/25/25 documented as of this encounter
[2025-04-04 15:21] LABS: Reticulocyte % (Auto) 1.1 % (0.9-3.2)
[2025-04-04 16:44] LABS: Vitamin B12 770 pg/mL (239-931)
[2025-04-04 16:50] LABS: Iron 57 ug/dL (37-170)
[2025-04-04 16:59] LABS: Total Iron Binding Capacity 389 ug/dL (265-497)
[2025-04-04 17:06] LABS: Folate > 20.00 ng/mL
[2025-04-04 17:26] LABS: Ferritin 7.76 ng/ml (11.1-264)
[2025-04-06 08:37] LABS: Transferrin 335 mg/dL (192-364)
== END 2025-04-04 23:59 | disposition home or self-care (01) ==
LOC: LAB 14:45
PROVIDERS: PCP Nurse Practitioner; Visit Provider Internal Medicine Medical Oncology
DX: C55 Malignant neoplasm of uterus, part unspecified (principal); D64.9 Anemia, unspecified
CPT/HCPCS: 36415; 82607; 82728; 82746; 83540; 83550; 84466; 85044